=== PATIENT | female | born 1965 | race Caucasian/White ===

== ENCOUNTER → 2016-08-09 | Outpatient (CLI) | payer OTHER ==
[~2016-08-09] MED LIST: /ADVA50050 IN; /BISO10TA OR; /DULO30CA; /HYDR10T PO; ACET500C OR; ADV250INH INH; ADVAIR INH; ALLO100T OR; AZIT500I PO; BACL10TA2 OR; BACL10TA2 PO; CLAR5CHW; CYAN1000VL PO; DICL100T PO; DULE100A IN; DYMI137S; EMLA2.5C TOP; ENDO7.5T7 PO; FLECTOR PATCH; FLEX10TA2 PO; FLEXERIL PO; FLON0.054; FLUT11IN INH; FLUT44IN INH; GABA300T; GABA300T OR; HYDR10TA3 OR; HYDR25TA6 OR; HYDRODIURIL; KETO2CR TOP; LIDO2.5C17 EXT; METH750T PO; MICROGESTIN OR; MOBI7.5T10 PO; MONT10TA2 PO; NAPR375T; NAPR500T OR; NASONEX; NECON; NECON PO; NYST10CR TOP; OMEP40CA2 PO; PANTANASE; PATANASE; PERCOCET PO; PREG50CA; PROBENECID; PROBENECID OR; PROP60TA; PROV90AE; PROV90AE INH; SING10TA31 OR; SUDA30TA OR; TIZA2CAP PO; TIZA4CAP PO; TRAM50TA2; TRAM50TA2 OR; TRIAPOW5; VENTAER IN; VITA100T PO; VITA200028 PO; VITA400T15 PO; VITAMIN D50000 UNT; VOLTAREN TOP; ZEBE5TAB; ZITH250T OR; [UNRECOGNIZED DRUG - CODE] AD; [UNRECOGNIZED DRUG - OTHER]; [UNRECOGNIZED DRUG - OTHER] AD; [UNRECOGNIZED DRUG - OTHER] AD; [UNRECOGNIZED DRUG - OTHER] OR; [UNRECOGNIZED DRUG - OTHER] TD; [UNRECOGNIZED DRUG - OTHER] TOP; [UNRECOGNIZED DRUG - REMARK] INJ; astelin; colcrys PO; pennsaid TD; veramyst
[2016-08-09 08:54] LABS: ANION GAP 13 MEQ/L (8-16); BLOOD UREA NITROGEN 8 MG/DL (7-18); CALCIUM LEVEL 9.4 MG/DL (8.5-10.1); CARBON DIOXIDE LEVEL 27 MEQ/L (21-32); CHLORIDE LEVEL 100 MEQ/L (98-107); CHOLESTEROL LEVEL 231 MG/DL (<200); CREATININE FOR GFR 0.61 MG/DL (0.55-1.02); GLOMERULAR FILTRATION RATE > 60.0 (>58); GLUCOSE, FASTING 134 MG/DL (70-105); SODIUM LEVEL 140 MEQ/L (136-145); TRIGLYCERIDES LEVEL 630 MG/DL (<150)
== END ==
LOC: M LAB 07:57
PROVIDERS: ATTEND Nurse Practitioner Family
DX: E78.2 Mixed hyperlipidemia (principal)

== ENCOUNTER → 2016-08-22 | Outpatient (CLI) | payer OTHER ==
--- NOTE | 2016-08-22 11:49 | REPMRS ---
Patient History The patient states she had a clinical breast exam in 08/2016. Family history of breast cancer in maternal grandmother at age 88. Taking hormonal contraceptives for 23 years. Digital Woman Screen Mammo: August 22, 2016 - Exam #: [id number] Bilateral CC and MLO view(s) were taken. Technologist: Ethel Leung, Technologist Prior study comparison: August 17, 2015, digital woman screen mammo performed at [facility]. August 23, 2014, digital woman screen mammo performed at [facility]. August 20, 2013, bilateral bilat screen digital mammo, performed at [facility] ([facility]). FINDINGS: There are scattered fibroglandular densities. There has been no change in the appearance of the mammogram from the prior studies. There is a mild amount of scattered fibroglandular density which is fairly symmetric. There is no interval development of dominant mass, architectural distortion, or clustered microcalcification suggestive of malignancy. ASSESSMENT: BI-RADS/ACR category 1 mammogram. Negative. Recommendation Routine screening mammogram in 1 year (for women over age 40). This mammogram was interpreted with the aid of an FDA-approved computer-aided dectection system. Electronically Signed By: Jose Webster MD 08/22/16 [id number]
== END ==
LOC: M WHC 10:34
PROVIDERS: ATTEND Nurse Practitioner Family
DX: Z12.31 Encounter for screening mammogram for malignant neoplasm of breast (principal); Z92.0 Personal history of contraception

== ENCOUNTER 2016-08-24 15:54 | Emergency (ER) | payer OTHER ==
[2016-08-24 18:44] LABS: BASO % 0.4 % (0.0-1.0); EOS # 0.3 K/mm3 (0.0-0.50); EOS % 2.8 % (0.0-3.0); LARGE UNSTAINED CELL # 0.1 K/mm3 (0.0-0.4); LARGE UNSTAINED CELL % 1.2 % (0.0-4.0); LYMPH # 2.9 K/mm3 (1.5-4.5); LYMPH % 25.4 % (24.0-44.0); MEAN CORPUSCULAR HEMOGLOBIN 30.9 pg (27.0-33.0); MEAN CORPUSCULAR HGB CONC 34.8 g/dl (32.0-36.5); MEAN CORPUSCULAR VOLUME 88.9 fl (80.0-96.0); MONO # 0.7 K/mm3 (0.0-0.8); MONO % 6.4 % (0.0-5.0); NEUTROPHILS # 7.2 K/mm3 (1.8-7.7); NEUTROPHILS % 63.8 % (36.0-66.0); PLATELET COUNT, AUTOMATED 320 k/mm3 (150-450); RED CELL DISTRIBUTION WIDTH 13.2 % (11.5-14.5); WHITE BLOOD COUNT 11.3 K/mm3 (4.0-10.0)
[2016-08-24 19:18] LABS: ANION GAP 11 MEQ/L (8-16); BLOOD UREA NITROGEN 6 MG/DL (7-18); CALCIUM LEVEL 9.3 MG/DL (8.5-10.1); CARBON DIOXIDE LEVEL 30 MEQ/L (21-32); CHLORIDE LEVEL 99 MEQ/L (98-107); CREATININE FOR GFR 0.52 MG/DL (0.55-1.02); GLOMERULAR FILTRATION RATE > 60.0 (>58); GLUCOSE, FASTING 137 MG/DL (70-105); POTASSIUM SERUM 3.7 MEQ/L (3.5-5.1); SODIUM LEVEL 140 MEQ/L (136-145)
--- NOTE | 2016-08-24 19:58 | EDDOCDS ---
Physician Documentation [facility] Name: Colleen Anderson Age: 50 yrs Sex: Female : 1965 Arrival Date: 08/24/2016 Time: 15:54 Bed Family 1 Private MD: Mk Gambino Disposition: 08/24/16 19:28 Discharged to Home/Self Care. Impression: Acute upper respiratory infection, unspecified - viral. - Condition is Stable. - Medication Reconciliation, Local Pharmacy Hours form. - Follow up: Mk Gambino; When: Call to arrange an appointment; Reason: Recheck today's complaints. - Problem is an ongoing problem. - Symptoms are unchanged. Historical: - Allergies: Tricor (Rash); - Home Meds: 1. acetaminophen 500 mg Oral tab 2 tabs Q8H PRN 2. albuterol sulfate 90 mcg/actuation Inhl HFAA 2 puffs every 6 hours 3. allopurinol 100 mg Oral tab 1 tab once daily 4. aspirin 81 mg Oral tab once daily 5. azelastine 2 sprays in each nostil one time day 6. Dulera 100-5 mcg/actuation inhalation HFAA 2 puffs every 12 hours 7. fluticasone 50 mcg/actuation nasal spsn 1 spray once daily 8. gabapentin 400 mg Oral cap 1 cap 3 times per day 9. hydrochlorothiazide 25 mg Oral tab 1 tab once daily 10. ketoconazole 1 % Topical sham daily 11. latanoprost 0.005 % ophthalmic drop 1 drop once daily 12. lisinopril 20 mg Oral tab once daily 13. meloxicam 7.5 mg oral tab 2 tabs once daily 14. metformin 500 mg Oral tab 2 times per day 15. montelukast 10 mg oral tab nightly 16. Necon (28) 1-35 mg-mcg oral tab 1 tab once daily 17. vitamin M34-khegn acid 100 mcg oral tab once daily 18. Vitamin D2 1.25 mg oral cap once wkly - PMHx: Asthma; Diabetes - NIDDM: controlled; Fibromyalgia; Gout; Hypertension; Seasonal Allergies; - PSHx: Carpal Tunnel Repair- Right; - Social history: Smoking status: Patient states was never smoker of tobacco. No barriers to communication noted. - Family history: Not pertinent. - : The pt / caregiver states he / she is not on anticoagulants. Home medication list is obtained from the patient. - Exposure Risk Screening:: None identified. 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 3 in. (160.02 cm) (R); Pain 3/10; 17:04 BP 179 / 88 (auto/); js13 17:04 Pulse 84 MON; Resp 16; Pulse Ox 94% on R/A; js13 17:19 BP 171 / 83 (auto/); js13 17:19 Pulse 82 MON; Resp 16; Pulse Ox 93% on R/A; js13 17:34 BP 165 / 79 (auto/); js13 17:34 Pulse 82 MON; Resp 16; Pulse Ox 96% on R/A; js13 17:49 BP 164 / 80 (auto/); js13 17:49 Pulse 82 MON; Resp 16; Pulse Ox 92% on R/A; js13 18:04 BP 167 / 87 (auto/); js13 18:04 Pulse 88 MON; Resp 16; Pulse Ox 94% on R/A; js13 18:19 BP 171 / 83 (auto/); js13 18:19 Pulse 84 MON; Resp 16; Pulse Ox 94% on R/A; js13 18:34 BP 163 / 89 (auto/); js13 18:34 Pulse 92 MON; Resp 16; Pulse Ox 94% on R/A; js13 18:49 BP 166 / 95 (auto/); js13 18:49 Pulse 86 MON; Resp 16; Pulse Ox 94% on R/A; js13 19:36 BP 172 / 79; Pulse 88; Resp 18; Temp 98.1(TE); Pulse Ox 96% on R/A; Pain 6/10; joseluis 15:57 Body Mass Index 40.03 (102.51 kg, 160.02 cm) gr2 MDM: 16:28 ECG WITH READING ER PHYS+CARDIAG ordered. EDMS 17:57 Tie Knitter Helper/Pulse Ox/q 30 min VS ordered. jc4 17:57 IV Saline Lock ordered. jc4 17:57 Rhythm Strip to chart ordered. jc4 17:57 Undress patient appropriately for examination ordered. jc4 17:58 Basic Metabolic Profile Ordered. EDMS 17:58 CBC with Diff Ordered. EDMS 17:58 Cardiac Injury Profile Ordered. EDMS 17:58 Troponin Ordered. EDMS 18:56 Chest, 2 View (pa\E\lat) Ordered. EDMS 19:17 CBC with Diff Reviewed. cs11 19:24 Basic Metabolic Profile Reviewed. cs11 19:24 Cardiac Injury Profile Reviewed. cs11 19:24 Troponin Reviewed. cs11 19:46 Financial registration complete. ks16 19:47 [facility] Payment Agreement was scanned into [employer] and attached to record. ks16 Signatures: Dispatcher [employer] EDMS Tammie Quintana RN Lashell Franks RN RN jc4 Lashell Card,CATIE RN js13 Jessica VásquezRN RN Moe Ash, DO cs11 Re Donald, Reg Reg ks16 The chart was reviewed and I authenticate all verbal orders and agree with the evaluation and treatment provided.Attachments: 19:47 [facility] Payment Agreement ks16 MTDD
--- NOTE | 2016-08-24 19:58 | EDDOCDS ---
Nurse's Notes [facility] Name: Colleen Anderson Age: 50 yrs Sex: Female : 1965 Arrival Date: 08/24/2016 Time: 15:54 Bed Family 1 Private MD: Mk Gambino Diagnosis: Acute upper respiratory infection, unspecified-viral Presentation: 08/24 16:20 Presenting complaint: Patient states: I started with headache, sneezing, coughing [facility] yesterday, now today it's making my asthma worse, I feel like someone hit me and forgot to tell me. Adult Sepsis Screening: The patient does not have new or worsening altered mentation. Patient's respiratory rate is less than 22. Systolic blood pressure is greater than 100. Patient has a qSOFA score of 0- Negative Sepsis Screen. Suicide/Homicide risk assessment- the patient denies having any suicidal and/or homicidal ideations and does not present with any other emotional, behavioral or mental health complaints. Status: Patient is not a environmental services worker or dependent. Transition of care: patient was not received from another setting of care. 16:20 Acuity: RICHA Level 3 [facility] 16:20 Method Of Arrival: Walkin/Carried/Asstd [facility] Triage Assessment: 16:23 General: Appears ill, obese, Behavior is appropriate for age, cooperative. Pain: [facility] Location: head and chest Pain currently is 8 out of 10 on a pain scale. Pt Declines HIV testing. Neurological: Level of Consciousness is awake, alert, Oriented to person, place, time. Respiratory: Airway is patent Respiratory effort is even, unlabored, Respiratory pattern is regular, symmetrical. Derm: Skin is pink, warm & dry. 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 acetaminophen 500 mg Oral tab 2 tabs Q8H PRN 2. albuterol sulfate 90 mcg/actuation Inhl HFAA 2 puffs every 6 hours 3. allopurinol 100 mg Oral tab 1 tab once daily 4. aspirin 81 mg Oral tab once daily 5. azelastine 2 sprays in each nostil one time day 6. Dulera 100-5 mcg/actuation inhalation HFAA 2 puffs every 12 hours 7. fluticasone 50 mcg/actuation nasal spsn 1 spray once daily 8. gabapentin 400 mg Oral cap 1 cap 3 times per day 9. hydrochlorothiazide 25 mg Oral tab 1 tab once daily 10. ketoconazole 1 % Topical sham daily 11. latanoprost 0.005 % ophthalmic drop 1 drop once daily 12. lisinopril 20 mg Oral tab once daily 13. meloxicam 7.5 mg oral tab 2 tabs once daily 14. metformin 500 mg Oral tab 2 times per day 15. montelukast 10 mg oral tab nightly 16. Necon () 1-35 mg-mcg oral tab 1 tab once daily 17. vitamin J33-klelp acid 100 mcg oral tab once daily 18. Vitamin D2 1.25 mg oral cap once wkly - PMHx: Asthma; Diabetes - NIDDM: controlled; Fibromyalgia; Gout; Hypertension; Seasonal Allergies; - PSHx: Carpal Tunnel Repair- Right; - Social history: Smoking status: Patient states was never smoker of tobacco. No barriers to communication noted. - Family history: Not pertinent. - : The pt / caregiver states he / she is not on anticoagulants. Home medication list is obtained from the patient. - Exposure Risk Screening:: None identified. Screenin:05 Screening information is obtained from the patient. Fall risk: No risks identified. js13 Assistance ADL's: requires no assistance with activities of daily living. Abuse/DV Screen: The patient / caregiver reports he/she is: not in a situation that causes fear, pain or injury. Nutritional screening: No deficits noted. Advance Directives: There is no active DNR order. home support is adequate. Assessment: 16:41 General: Pt discussed with Dr Dxion and charge nurse. Dr Dixon requests pt be in jf3 monitored bed, awaiting available monitored bed at this time. 18:05 General: Appears in no apparent distress, Behavior is appropriate for age, cooperative. js13 Pain: Location: chest and head Pain currently is 4 out of 10 on a pain scale. Neurological: Level of Consciousness is awake, alert. Cardiovascular: Rhythm is sinus rhythm Chest pain is described as Pain is 4 out of 10 on a pain scale. Respiratory: Airway is patent Respiratory effort is even, unlabored, Respiratory pattern is regular, symmetrical. Derm: Skin is pink, warm & dry. Vital Signs: 15:57 BP 157 / 80; Pulse 95; Resp 18 S; Temp 98.7(O); Pulse Ox 100% on R/A; Weight 102.51 kg gr2 (R); Height 5 ft. 3 in. (160.02 cm) (R); Pain 3/10; 17:04 BP 179 / 88 (auto/); js13 17:04 Pulse 84 MON; Resp 16; Pulse Ox 94% on R/A; js13 17:19 BP 171 / 83 (auto/); js13 17:19 Pulse 82 MON; Resp 16; Pulse Ox 93% on R/A; js13 17:34 BP 165 / 79 (auto/); js13 17:34 Pulse 82 MON; Resp 16; Pulse Ox 96% on R/A; js13 17:49 BP 164 / 80 (auto/); js13 17:49 Pulse 82 MON; Resp 16; Pulse Ox 92% on R/A; js13 18:04 BP 167 / 87 (auto/); js13 18:04 Pulse 88 MON; Resp 16; Pulse Ox 94% on R/A; js13 18:19 BP 171 / 83 (auto/); js13 18:19 Pulse 84 MON; Resp 16; Pulse Ox 94% on R/A; js13 18:34 BP 163 / 89 (auto/); js13 18:34 Pulse 92 MON; Resp 16; Pulse Ox 94% on R/A; js13 18:49 BP 166 / 95 (auto/); js13 18:49 Pulse 86 MON; Resp 16; Pulse Ox 94% on R/A; js13 19:36 BP 172 / 79; Pulse 88; Resp 18; Temp 98.1(TE); Pulse Ox 96% on R/A; Pain 6/10; joseluis 15:57 Body Mass Index 40.03 (102.51 kg, 160.02 cm) gr2 Vitals: 15:57 Log In Time: August 24, 2016 at 15:57. gr2 ED Course: 15:56 Patient visited by Ko Castillo. gr2 15:56 Patient moved to Waiting gr2 15:57 Mk Gambino is Private Physician. gr2 15:58 Patient visited by Ko Castillo. gr2 15:58 Patient moved to Pre RCE gr2 16:21 Triage Initiated cjh 16:25 Patient moved to PD [facility] 17:01 Lashell Card,CATIE is Primary Nurse. ar3 17:01 Patient moved to 14 ar3 17:05 Patient visited by Sally Gonzalez. nb2 17:05 Placed in gown. Bed in low position. Call light in reach. Side rails up X2. Cardiac nb2 monitor on. Pulse ox on. NIBP on. 17:05 The patient / caregiver is instructed regarding the plan of care and ED course. js13 18:05 No procedures done that require assistance. js13 18:07 Patient visited by Lashell Card RN. js13 18:27 Patient visited by Lashell Card,CATIE. js13 18:27 Basic Metabolic Profile Sent. 13 18:27 CBC with Diff Sent. js13 18:27 Cardiac Injury Profile Sent. js13 18:27 Troponin Sent. js13 18:27 Inserted saline lock: 18 gauge in right antecubital area and blood collected. The js13 patient tolerated the procedure well. Labs drawn. (by ED staff). Sent per order to lab. 18:53 Moe Hilliard DO is Attending Physician. cs11 18:53 Patient visited by Moe Hilliard DO. cs11 19:26 Mk Gambino is Referral Physician. cs11 19:36 Patient visited by Barbie Michaels PCA. joseluis 19:47 [facility] Payment Agreement was scanned into [employer] and attached to record. ks16 19:47 Patient moved to TR2 jo3 19:55 Patient moved to Family 1 aug 19:55 Patient moved to TR7 cz 19:55 Patient moved to Family 1 aug 19:55 Discontinued lock bleeding controlled, pressure dressing applied, No redness/swelling anita at site. 19:56 Primary Nurse role handed off by Lashell Card,CATIE joseluis Order Results: Lab Order: Basic Metabolic Profile; SPEC'M 08/24/16 18:28 Test: GLUCOSE, FASTING; Value: 137; Range: 70-105; Abnormal: Above high normal; Units: MG/DL; Status: F Test: BLOOD UREA NITROGEN; Value: 6; Range: 7-18; Abnormal: Below low normal; Units: MG/DL; Status: F Test: CREATININE FOR GFR; Value: 0.52; Range: 0.55-1.02; Abnormal: Below low normal; Units: MG/DL; Status: F Test: GLOMERULAR FILTRATION RATE; Value: > 60.0; Range: >58; Status: F Test: SODIUM LEVEL; Value: 140; Range: 136-145; Units: MEQ/L; Status: F Test: POTASSIUM SERUM; Value: 3.7; Range: 3.5-5.1; Units: MEQ/L; Status: F Test: CHLORIDE LEVEL; Value: 99; Range: 98-107; Units: MEQ/L; Status: F Test: CARBON DIOXIDE LEVEL; Value: 30; Range: 21-32; Units: MEQ/L; Status: F Test: ANION GAP; Value: 11; Range: 8-16; Units: MEQ/L; Status: F Test: CALCIUM LEVEL; Value: 9.3; Range: 8.5-10.1; Units: MG/DL; Status: F Test Note: ; Units are mL/min/1.73 m2 Chronic Kidney Disease Staging per NKF: Stage I & II GFR >=60 Normal to Mildly Decreased Stage III GFR 30-59 Moderately Decreased Stage IV GFR 15-29 Severely Decreased Stage V GFR <15 Very Little GFR Left ESRD GFR <15 on SENIOR TECHNICAL SUPPORT ENGINEER Lab Order: CBC with Diff; SPEC'M 08/24/16 18:28 Test: WHITE BLOOD COUNT; Value: 11.3; Range: 4.0-10.0; Abnormal: Above high normal; Units: K/mm3; Status: F Test: RED BLOOD COUNT; Value: 4.35; Range: 4.00-5.40; Units: M/mm3; Status: F Test: HEMOGLOBIN; Value: 13.4; Range: 12.0-16.0; Units: g/dl; Status: F Test: HEMATOCRIT; Value: 38.7; Range: 36.0-47.0; Units: %; Status: F Test: MEAN CORPUSCULAR VOLUME; Value: 88.9; Range: 80.0-96.0; Units: fl; Status: F Test: MEAN CORPUSCULAR HEMOGLOBIN; Value: 30.9; Range: 27.0-33.0; Units: pg; Status: F Test: MEAN CORPUSCULAR HGB CONC; Value: 34.8; Range: 32.0-36.5; Units: g/dl; Status: F Test: RED CELL DISTRIBUTION WIDTH; Value: 13.2; Range: 11.5-14.5; Units: %; Status: F Test: PLATELET COUNT, AUTOMATED; Value: 320; Range: 150-450; Units: k/mm3; Status: F Test: NEUTROPHILS %; Value: 63.8; Range: 36.0-66.0; Units: %; Status: F Test: LYMPH %; Value: 25.4; Range: 24.0-44.0; Units: %; Status: F Test: MONO %; Value: 6.4; Range: 0.0-5.0; Abnormal: Above high normal; Units: %; Status: F Test: EOS %; Value: 2.8; Range: 0.0-3.0; Units: %; Status: F Test: BASO %; Value: 0.4; Range: 0.0-1.0; Units: %; Status: F Test: LARGE UNSTAINED CELL %; Value: 1.2; Range: 0.0-4.0; Units: %; Status: F Test: NEUTROPHILS #; Value: 7.2; Range: 1.8-7.7; Units: K/mm3; Status: F Test: LYMPH #; Value: 2.9; Range: 1.5-4.5; Units: K/mm3; Status: F Test: MONO #; Value: 0.7; Range: 0.0-0.8; Units: K/mm3; Status: F Test: EOS #; Value: 0.3; Range: 0.0-0.50; Units: K/mm3; Status: F Test: BASO #; Value: 0.0; Range: 0.0-0.2; Units: K/mm3; Status: F Test: LARGE UNSTAINED CELL #; Value: 0.1; Range: 0.0-0.4; Units: K/mm3; Status: F Lab Order: Cardiac Injury Profile; SPEC'M 08/24/16 18:28 Test: CPK CREATINE PHOSPHOKINASE; Value: 84; Range: 26-192; Units: U/L; Status: F Test: CK-MB VALUE MASS; Value: 1.0; Range: 0.0-3.6; Units: NG/ML; Status: F Test: MB/CK RELATIVE INDEX; Value: 1.19; Range: < OR =4; Status: F Test Note: ; DIAGNOSIS CRITERIA MMB ng/ml Relative Index (RI) NON-AMI < or = 5 N/A [place] > 5 < or = 4 AMI > 5 > 4 Lab Order: Troponin; HAYDEE'Kael 08/24/16 18:28 Test: TROPONIN I; Value: < 0.02; Range: < 0.10; Units: NG/ML; Status: F Test Note: ; Troponin I Reference Interval for [place] LOCI: 99th Percentile= 0.00-0.045 ng/ml Risk Stratification: <= 0.10 ng/ml Decreased Risk for Adverse Clinical Events. 0.10-1.50 ng/ml Increased Risk for Adverse Clinical Events. Evaluation of additional criterion and/or repeat testing in 2-6 hours is suggested to rule out myocardial damage. >= 1.50 ng/ml Indicative of Myocardial Injury. Outcome: 19:28 Discharge ordered by Provider. cs11 19:56 Discharge Assessment: Patient awake, alert and oriented x 3. No cognitive and/or anita functional deficits noted. Patient verbalized understanding of disposition instructions. patient administered narcotics - no. The following High Risk Discharge criteria are identified: None. Discharged to home ambulatory. Condition: stable. Discharge instructions given to patient, Instructed on discharge instructions, follow up and referral plans. Demonstrated understanding of instructions, Pt was receptive of discharge instructions/ teaching. No special radiology studies were completed. Property :Personal belongings accompany Pt. 19:57 Patient left the ED. anita Signatures: Tammie Quintana RN RN jan Zecher, Calvin, RN RN cz Helmerci, Jennifer, RN RN jo3 Rabon, Alicia, SCREEN PRINTING MACHINE OPERATOR SCREEN PRINTING MACHINE OPERATOR ar3 Barbie Michaels, SCREEN PRINTING MACHINE OPERATOR SCREEN PRINTING MACHINE OPERATOR Lashell Lowe,RN RN js13 Jessica Vásquez,RN RN [facility] Moe Hilliard DO DO cs11 Ko Castillo gr2 David French RN RN jf3 Sorenson, Kimberly, Reg Reg ks16 Sally Gonzalez2 MTDD
--- NOTE | 2016-08-25 09:07 | REP ---
PA and lateral chest radiograph, 08/24/2016: Indication: Chest pain. Comparison: PA and lateral chest 07/11/2016. FINDINGS: The mediastinum and cardiac silhouette are within normal limits. The lung akhtar are clear without acute consolidation, effusion or pneumothorax. Skeletal structures are normal for age. IMPRESSION: No acute cardiopulmonary process. Signed by Laura Lee MD 08/26/2016 10:52 A
--- NOTE | 2016-08-25 13:08 | ECGEPIP ---
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
--- NOTE | 2016-08-26 20:58 | EDDOCDS ---
Physician Documentation [facility] Name: Colleen Anderson Age: 50 yrs Sex: Female : 1965 Arrival Date: 08/24/2016 Time: 15:54 Bed Family 1 Private MD: Mk Gambino Disposition: 08/24/16 19:28 Discharged to Home/Self Care. Impression: Acute upper respiratory infection, unspecified - viral. - Condition is Stable. - Medication Reconciliation, Local Pharmacy Hours form. - Follow up: Mk Gambino; When: Call to arrange an appointment; Reason: Recheck today's complaints. - Problem is an ongoing problem. - Symptoms are unchanged. Historical: - Allergies: Tricor (Rash); - Home Meds: 1. acetaminophen 500 mg Oral tab 2 tabs Q8H PRN 2. albuterol sulfate 90 mcg/actuation Inhl HFAA 2 puffs every 6 hours 3. allopurinol 100 mg Oral tab 1 tab once daily 4. aspirin 81 mg Oral tab once daily 5. azelastine 2 sprays in each nostil one time day 6. Dulera 100-5 mcg/actuation inhalation HFAA 2 puffs every 12 hours 7. fluticasone 50 mcg/actuation nasal spsn 1 spray once daily 8. gabapentin 400 mg Oral cap 1 cap 3 times per day 9. hydrochlorothiazide 25 mg Oral tab 1 tab once daily 10. ketoconazole 1 % Topical sham daily 11. latanoprost 0.005 % ophthalmic drop 1 drop once daily 12. lisinopril 20 mg Oral tab once daily 13. meloxicam 7.5 mg oral tab 2 tabs once daily 14. metformin 500 mg Oral tab 2 times per day 15. montelukast 10 mg oral tab nightly 16. Necon (28) 1-35 mg-mcg oral tab 1 tab once daily 17. vitamin E67-varxl acid 100 mcg oral tab once daily 18. Vitamin D2 1.25 mg oral cap once wkly - PMHx: Asthma; Diabetes - NIDDM: controlled; Fibromyalgia; Gout; Hypertension; Seasonal Allergies; - PSHx: Carpal Tunnel Repair- Right; - Social history: Smoking status: Patient states was never smoker of tobacco. No barriers to communication noted. - Family history: Not pertinent. - : The pt / caregiver states he / she is not on anticoagulants. Home medication list is obtained from the patient. - Exposure Risk Screening:: None identified. 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 3 in. (160.02 cm) (R); Pain 3/10; 17:04 BP 179 / 88 (auto/); js13 17:04 Pulse 84 MON; Resp 16; Pulse Ox 94% on R/A; js13 17:19 BP 171 / 83 (auto/); js13 17:19 Pulse 82 MON; Resp 16; Pulse Ox 93% on R/A; js13 17:34 BP 165 / 79 (auto/); js13 17:34 Pulse 82 MON; Resp 16; Pulse Ox 96% on R/A; js13 17:49 BP 164 / 80 (auto/); js13 17:49 Pulse 82 MON; Resp 16; Pulse Ox 92% on R/A; js13 18:04 BP 167 / 87 (auto/); js13 18:04 Pulse 88 MON; Resp 16; Pulse Ox 94% on R/A; js13 18:19 BP 171 / 83 (auto/); js13 18:19 Pulse 84 MON; Resp 16; Pulse Ox 94% on R/A; js13 18:34 BP 163 / 89 (auto/); js13 18:34 Pulse 92 MON; Resp 16; Pulse Ox 94% on R/A; js13 18:49 BP 166 / 95 (auto/); js13 18:49 Pulse 86 MON; Resp 16; Pulse Ox 94% on R/A; js13 19:36 BP 172 / 79; Pulse 88; Resp 18; Temp 98.1(TE); Pulse Ox 96% on R/A; Pain 6/10; joseluis 15:57 Body Mass Index 40.03 (102.51 kg, 160.02 cm) gr2 MDM: 16:28 ECG WITH READING ER PHYS+CARDIAG ordered. EDMS 17:57 Foreign Policy Officer/Pulse Ox/q 30 min VS ordered. jc4 17:57 IV Saline Lock ordered. jc4 17:57 Rhythm Strip to chart ordered. jc4 17:57 Undress patient appropriately for examination ordered. jc4 17:58 Basic Metabolic Profile Ordered. EDMS 17:58 CBC with Diff Ordered. EDMS 17:58 Cardiac Injury Profile Ordered. EDMS 17:58 Troponin Ordered. EDMS 18:56 Chest, 2 View (pa\E\lat) Ordered. EDMS 19:17 CBC with Diff Reviewed. cs11 19:24 Basic Metabolic Profile Reviewed. cs11 19:24 Cardiac Injury Profile Reviewed. cs11 19:24 Troponin Reviewed. cs11 19:46 Financial registration complete. ks16 19:47 [facility] Payment Agreement was scanned into [employer] and attached to record. ks16 08/25 15:13 T-Sheet-- Draft Copy was scanned into [employer] and attached to record. kf3 16:58 ECG/EKG was scanned into [employer] and attached to record. kf3 Signatures: Dispatcher [employer] EDMS Tammie Quintana RN RN Iftikhar Curran, Reg Reg kf3 Lashell Posey, CATIE HADDAD jc4 Lashell Card,RN CATIE js13 Jessica VásquezRN RN [facility] Moe Hilliard, DO DO cs11 Re Donald, Reg Reg ks16 The chart was reviewed and I authenticate all verbal orders and agree with the evaluation and treatment provided.Attachments: 08/24 19:47 [facility] Payment Agreement 08/25 15:13 T-Sheet-- Draft Copy kf3 16:58 ECG/EKG kf3 Chart Complete MTDD
--- NOTE | 2016-08-26 20:58 | EDDOCDS ---
Physician Documentation [facility] Name: Colleen Anderson Age: 50 yrs Sex: Female : 1965 Arrival Date: 08/24/2016 Time: 15:54 Bed Family 1 Private MD: Mk Gambino Disposition: 08/24/16 19:28 Discharged to Home/Self Care. Impression: Acute upper respiratory infection, unspecified - viral. - Condition is Stable. - Medication Reconciliation, Local Pharmacy Hours form. - Follow up: Mk Gambino; When: Call to arrange an appointment; Reason: Recheck today's complaints. - Problem is an ongoing problem. - Symptoms are unchanged. Historical: - Allergies: Tricor (Rash); - Home Meds: 1. acetaminophen 500 mg Oral tab 2 tabs Q8H PRN 2. albuterol sulfate 90 mcg/actuation Inhl HFAA 2 puffs every 6 hours 3. allopurinol 100 mg Oral tab 1 tab once daily 4. aspirin 81 mg Oral tab once daily 5. azelastine 2 sprays in each nostil one time day 6. Dulera 100-5 mcg/actuation inhalation HFAA 2 puffs every 12 hours 7. fluticasone 50 mcg/actuation nasal spsn 1 spray once daily 8. gabapentin 400 mg Oral cap 1 cap 3 times per day 9. hydrochlorothiazide 25 mg Oral tab 1 tab once daily 10. ketoconazole 1 % Topical sham daily 11. latanoprost 0.005 % ophthalmic drop 1 drop once daily 12. lisinopril 20 mg Oral tab once daily 13. meloxicam 7.5 mg oral tab 2 tabs once daily 14. metformin 500 mg Oral tab 2 times per day 15. montelukast 10 mg oral tab nightly 16. Necon (28) 1-35 mg-mcg oral tab 1 tab once daily 17. vitamin J26-emebq acid 100 mcg oral tab once daily 18. Vitamin D2 1.25 mg oral cap once wkly - PMHx: Asthma; Diabetes - NIDDM: controlled; Fibromyalgia; Gout; Hypertension; Seasonal Allergies; - PSHx: Carpal Tunnel Repair- Right; - Social history: Smoking status: Patient states was never smoker of tobacco. No barriers to communication noted. - Family history: Not pertinent. - : The pt / caregiver states he / she is not on anticoagulants. Home medication list is obtained from the patient. - Exposure Risk Screening:: None identified. 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 3 in. (160.02 cm) (R); Pain 3/10; 17:04 BP 179 / 88 (auto/); js13 17:04 Pulse 84 MON; Resp 16; Pulse Ox 94% on R/A; js13 17:19 BP 171 / 83 (auto/); js13 17:19 Pulse 82 MON; Resp 16; Pulse Ox 93% on R/A; js13 17:34 BP 165 / 79 (auto/); js13 17:34 Pulse 82 MON; Resp 16; Pulse Ox 96% on R/A; js13 17:49 BP 164 / 80 (auto/); js13 17:49 Pulse 82 MON; Resp 16; Pulse Ox 92% on R/A; js13 18:04 BP 167 / 87 (auto/); js13 18:04 Pulse 88 MON; Resp 16; Pulse Ox 94% on R/A; js13 18:19 BP 171 / 83 (auto/); js13 18:19 Pulse 84 MON; Resp 16; Pulse Ox 94% on R/A; js13 18:34 BP 163 / 89 (auto/); js13 18:34 Pulse 92 MON; Resp 16; Pulse Ox 94% on R/A; js13 18:49 BP 166 / 95 (auto/); js13 18:49 Pulse 86 MON; Resp 16; Pulse Ox 94% on R/A; js13 19:36 BP 172 / 79; Pulse 88; Resp 18; Temp 98.1(TE); Pulse Ox 96% on R/A; Pain 6/10; joseluis 15:57 Body Mass Index 40.03 (102.51 kg, 160.02 cm) gr2 MDM: 16:28 ECG WITH READING ER PHYS+CARDIAG ordered. 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 jc4 17:57 IV Saline Lock ordered. jc4 17:57 Rhythm Strip to chart ordered. jc4 17:57 Undress patient appropriately for examination ordered. jc4 17:58 Basic Metabolic Profile Ordered. EDMS 17:58 CBC with Diff Ordered. EDMS 17:58 Cardiac Injury Profile Ordered. EDMS 17:58 Troponin Ordered. EDMS 18:56 Chest, 2 View (pa\E\lat) Ordered. EDMS 19:17 CBC with Diff Reviewed. cs11 19:24 Basic Metabolic Profile Reviewed. cs11 19:24 Cardiac Injury Profile Reviewed. cs11 19:24 Troponin Reviewed. cs11 19:46 Financial registration complete. ks16 19:47 [facility] Payment Agreement was scanned into [employer] and attached to record. ks16 08/25 15:13 T-Sheet-- Draft Copy was scanned into [employer] and attached to record. kf3 16:58 ECG/EKG was scanned into [employer] and attached to record. kf3 Signatures: Dispatcher [employer] EDMS Tammie Quintana RN RN Iftikhar Curran, Reg Reg kf3 Lashell Posey, CATIE HADDAD jc4 Lashell Card,RN ACTIE js13 Jessica VásquezRN RN [facility] Moe Hilliard, DO DO cs11 eR Donald, Reg Reg ks16 The chart was reviewed and I authenticate all verbal orders and agree with the evaluation and treatment provided.Attachments: 08/24 19:47 [facility] Payment Agreement 08/25 15:13 T-Sheet-- Draft Copy kf3 16:58 ECG/EKG kf3 Chart Complete MTDD
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
== END 2016-08-24 19:57 | disposition home or self-care (01) ==
LOC: M ED 15:54
DX: J06.9 Acute upper respiratory infection, unspecified (principal); E11.9 Type 2 diabetes mellitus without complications; I10 Essential (primary) hypertension; J44.9 Chronic obstructive pulmonary disease, unspecified; J45.909 Unspecified asthma, uncomplicated; M79.7 Fibromyalgia; M10.9 Gout, unspecified; M19.90 Unspecified osteoarthritis, unspecified site; Z88.1 Allergy status to other antibiotic agents; Z79.899 Other long term (current) drug therapy; Z79.82 Long term (current) use of aspirin

== ENCOUNTER → 2016-08-28 | Outpatient (CLI) | payer OTHER ==
--- NOTE | 2016-08-28 10:58 | REP ---
Pelvic sonogram: History: Pelvic and perineal pain. Findings: Transabdominal and transvaginal scanning are performed. Uterus is normal in size with dimensions of 6.9 x 3.8 x 4.4 cm. Endometrial echo is 0.4 cm thick and centrally placed. Uterine myometrium is heterogeneous with multiple tiny calcification foci seen. There are Nabothian cysts in the cervix. A small quantity of endocervical fluid is seen. A pedunculated small 1.4 cm fibroid is seen in the left fundal region. No free fluid is noted in the cul-de-sac. Visualized bladder pandey are smooth. The left ovary could not be directly visualized either transabdominally or transvaginally. A normal right ovary is seen with dimensions of 3.5 x 2.3 x 1.7 cm. Right ovary Doppler flow is normal with resistive index measured at 0.53. Impression: Small pedunculated left fundal fibroid. Normal right ovary. Left ovary not directly visualized. No other significant abnormality. Signed by Hood Webster MD 08/28/2016 06:34 P
== END ==
LOC: M RAD 08:27
PROVIDERS: ATTEND Nurse Practitioner Family
DX: D25.9 Leiomyoma of uterus, unspecified (principal)

== ENCOUNTER 2016-09-29 18:23 | Emergency (ER) | payer OTHER ==
[2016-09-29] MEDS ORDERED: NORCO, ANEXSIA 5/325MG TABLET (HYDROcodone/ACETAMINOPHEN) As Ordered ONE (19:43)
[2016-09-29] MEDS ORDERED: SILVER SULFADIAZINE 1% CR 50 GM JAR As Ordered ONE (19:43)
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
[2016-10-07] MEDS ORDERED: LISI-538 PO (08:24)
[2016-10-07] MEDS ORDERED: NECO1TAB9 PO (08:24)
[2016-10-07] MEDS ORDERED: MONT10TA2 PO (08:24)
[2016-10-07] MEDS ORDERED: ASTE0.15 (08:24)
[2016-10-07] MEDS ORDERED: HYDR25TAB PO (08:24)
[2016-10-07] MEDS ORDERED: GABA-283 PO (08:24)
[2016-10-07] MEDS ORDERED: VITA100T20 PO (08:24)
[2016-10-07] MEDS ORDERED: DRIS50002 PO (08:24)
[2016-10-07] MEDS ORDERED: KETO-30 TOP (08:24)
[2016-10-07] MEDS ORDERED: LATA1POW OU (08:24)
[2016-10-07] MEDS ORDERED: DULE100A IN (08:24)
[2016-10-07] MEDS ORDERED: ATOR40TA PO (08:24)
[2016-10-07] MEDS ORDERED: NYST10CR EXT (08:24)
[2016-10-07] MEDS ORDERED: AZEL1POW XX (08:24)
[2016-10-07] MEDS ORDERED: ALLO100T PO (08:24)
[2016-10-07] MEDS ORDERED: METF500T PO (08:24)
[2016-10-07] MEDS ORDERED: ACET500C PO (08:24)
[2016-10-07] MEDS ORDERED: FLUTISP (08:24)
[2016-10-07] MEDS ORDERED: MELO15TA4 PO (08:24)
[2016-10-07] MEDS ORDERED: ALBU17IN2 INH (08:24)
== END 2016-09-29 20:47 | disposition home or self-care (01) ==
LOC: M ED 18:23
DX: T23.252A Burn of second degree of left palm, initial encounter (principal); X15.2XXA Contact with hotplate, initial encounter; Y92.019 Unspecified place in single-family (private) house as the place of occurrence of the external cause; Y93.89 Activity, other specified; Y99.8 Other external cause status; J45.909 Unspecified asthma, uncomplicated; E11.9 Type 2 diabetes mellitus without complications; M79.7 Fibromyalgia; M10.9 Gout, unspecified; I10 Essential (primary) hypertension; Z87.891 Personal history of nicotine dependence; Z79.51 Long term (current) use of inhaled steroids; Z79.899 Other long term (current) drug therapy; Z88.8 Allergy status to other drugs, medicaments and biological substances

== ENCOUNTER → 2016-10-09 | Outpatient (CLI) | payer OTHER ==
[~2016-10-09] MED LIST changes: +ACET500C PO; +ALBU17IN2 INH; +ALLO100T PO; +ASTE0.15; +ATOR40TA PO; +AZEL1POW XX; +DRIS50002 PO; +FLUTISP; +GABA-283 PO; +HYDR25TAB PO; +KETO-30 TOP; +LATA1POW OU; +LISI-538 PO; +MELO15TA4 PO; +METF500T PO; +NECO1TAB9 PO; +NYST10CR EXT; +VITA100T20 PO
[2016-10-09 11:32] LABS: ALBUMIN 3.3 GM/DL (3.2-5.2); ALBUMIN/GLOBULIN RATIO 1.03 (1.00-1.93); ALKALINE PHOSPHATASE 66 U/L (45-117); ALT/SGPT 26 U/L (12-78); ANION GAP 12 MEQ/L (8-16); AST/SGOT 22 U/L (15-37); BILIRUBIN,TOTAL 0.3 MG/DL (0.2-1.0); BLOOD UREA NITROGEN 8 MG/DL (7-18); CARBON DIOXIDE LEVEL 30 MEQ/L (21-32); CHLORIDE LEVEL 97 MEQ/L (98-107); CREATININE FOR GFR 0.63 MG/DL (0.55-1.02); GLOMERULAR FILTRATION RATE > 60.0 (>58); GLUCOSE, FASTING 177 MG/DL (70-105); SODIUM LEVEL 139 MEQ/L (136-145); TOTAL PROTEIN 6.5 GM/DL (6.4-8.2)
== END ==
LOC: M LAB 10:23
PROVIDERS: ATTEND Nurse Practitioner Family
DX: E78.2 Mixed hyperlipidemia (principal)

== ENCOUNTER → 2016-10-09 | Outpatient (CLI) | payer OTHER ==
--- NOTE | 2016-10-11 02:13 | ECWPNPC ---
PATIENT NAME: STEVE DIAMOND : 1965 GENDER: FEMALE VISIT DATE: 10/09/2016 DISCHARGE DATE: 10/09/16 1005 VISIT LOCKED DATE TIME: PHYSICIAN: GLORIA ESPITIA PHYSICIAN PAGER NO: [phone] RESOURCE: GLORIA ESPITIA REASON FOR APPOINTMENT 1. BODY PAIN HISTORY OF PRESENT ILLNESS HISTORY OF PRESENT ILLNESS: PAIN THE PATIENT DESCRIBES THE PAIN... FALL RISK SCREENING: SCREENING :NO FALLS IN THE PAST YEAR TODAY'S VISIT: NOTES: RATES PAIN TODAY 6/10. PAIN LOCATED AT LOW BACK AND KNEES. HAS BEEN HAVING MORE MUSCLE SPASMS IN LOW BACK. HAS BEEN WALKING AND DIETING AND IS SLWLY LOSING WEIGHT. CURRENT MEDICATIONS TAKING MELOXICAM 7.5 MG TABLET 1 TABLET ORALLY TWICE A DAY TAKING HYDROCHLOROTHIAZIDE 25 MG TABLET 1 TABLET BY MOUTH ONCE A DAY TAKING VITAMIN B12 100 MCG TABLET 1 TABLET ORALLY ONCE A DAY TAKING NECON 1/35 (28) 1-35 MG-MCG TABLET 1 TABLET ORALLY DAILY FOR THREE WEEKS, 1 WEEK OFF TAKING KETOCONAZOLE 2 % CREAM 1 APPLICATION TO FEET EXTERNALLY ONCE A DAY TAKING NYSTATIN CREAM 471038 UNITS/GM CREAM 1 APPLICATION TOPICALLY/ TO FEET TWICE A DAY TAKING WRIST SPLINT LEFT MISCELLANEOUS DIRECTED LEFT WRIST DAILY DX: TENOSYNOVITIS TAKING DULERA 100 MCG/5MCG 2 PUFFS INHALATION TWICE A DAY TAKING ACETAMINOPHEN 500 MG CAPSULE 2 TABLET NEEDED ORALLY EVERY 8HRS TAKING ALLOPURINOL 100 MG TABLET 1 TABLET ORALLY ONCE A DAY TAKING FLUTICASONE PROPIONATE 50 MCG/ACT SUSPENSION 1 SPRAY IN EACH NOSTRIL NASALLY ONCE A DAY TAKING AZELASTINE HCL 137 MCG/SPRAY SOLUTION 1 PUFF IN EACH NOSTRIL NASALLY TWICE A DAY TAKING SALINE NASAL SPRAY 0.65 % SOLUTION 2 DROPS IN EACH NOSTRIL NEEDED NASALLY EVERY 2 HRS TAKING SINGULAIR 10 MG TABLET 1 TABLET IN THE EVENING ORALLY ONCE A DAY TAKING PROVENTIL HFA 108 (90 BASE) MCG/ACT AEROSOL SOLUTION 2 PUFFS INHALATION EVERY 4 HOUR NEEDED TAKING ALBUTEROL SULFATE (2.5 MG/3ML) 0.083% NEBULIZATION SOLUTION 3 ML INHALATION THREE TIMES A DAY PRN TAKING ONE TOUCH ULTRA BLUE STRIPS 1 EACH _ DAILY DX E11.9 TAKING LANCETS - MISCELLANEOUS 1 EACH TO USE FOR ONCE TOUCH DAILY/ E11.9 TAKING BLOOD GLUCOSE METER - KIT 1 EACH FOR ONE TOUCH TO TEST DAILY/DIAG CODE TAKING BLOOD GLUCOSE TEST - STRIP DIRECTED GLUCOSE TESTING STRIPS FOR ONE TOUCH VERIO DAILY TAKING GABAPENTIN 400 MG CAPSULE 1 CAPSULE ORALLY THREE TIMES A DAY TAKING LIPITOR 40 MG TABLET 1 TABLET ORALLY ONCE A DAY TAKING METFORMIN HCL 500 MG TABLET 1 TABLET WITH MEALS ORALLY TWICE A DAY TAKING DRISDOL 88757 UNIT CAPSULE 1 CAPSULE ORALLY ONCE A WEEK TAKING LISINOPRIL 20 MG TABLET DIRECTED ORALLY ONCE DAILY NOT-TAKING LATANOPROST 0.005 % SOLUTION 1 DROP INTO BOTH EYES OPHTHALMIC BEFORE BEDTIME NOT-TAKING PREDNISONE 20 MG TABLET 2 TABLET ORALLY ONCE A DAY NOT-TAKING ASPIR-81 81 MG TABLET DELAYED RELEASE 1 TABLET ORALLY ONCE A DAY DISCONTINUED AUGMENTIN 875-125 MG TABLET 1 TABLET ORALLY EVERY 12 HRS DISCONTINUED PREDNISONE 20 MG TABLET 2 TABLET ORALLY ONCE A DAY MEDICATION LIST REVIEWED AND RECONCILED WITH THE PATIENT PAST MEDICAL HISTORY HYPERTENSION ASTHMA GOUT VITAMIN D DEFICIENCY CHRONIC RIGHT OTITIS MEDIA PRE-DIABETES/IMPAIRED FASTING GLUCOSE FIBROMYALGIA-GOES TO PAIN CLINIC RECURRENT SINUSITIS TD 1999; TDAP 06/15 PNEUMNOVAX 2009 CHRONIC ALLERGIC RHINITIS - GETS ALLERGY SHOTS VITAMIN B12 DEFICIENCY--ON MONTHLY INJECTIONS FOR A WHILE, STOPPED COMING FOR THEM, LEVEL NL 10/16 ALLERGIES TRICOR: RASH: ALLERGY SOCIAL HISTORY GENERAL: TOBACCO USE ARE YOU A:NONSMOKER LEARNING BARRIERS / SPECIAL NEEDS ORIENTED TO PLAN OF CARE: PATIENT, PAIN MANAGEMENT PATIENT, ORIENTED TO PLAN OF CARE: PATIENT, PAIN MANAGEMENT PATIENT. NEW PATIENT PAIN DIARY TODAY'S VISITNOTES FROM 0-10, WHAT LEVEL IS YOUR PAIN TODAY?0 PAIN CLINIC PFS, CLERGY, PUBLIC HEALTH REFERRALS PFS REFERRAL NEEDED?NO CLERGY REFERRAL NEEDED?NO PUBLIC HEALTH REFERRAL NEEDED?NO WAS THE PROVIDER NOTIFIED OF ANY PERTINENT INFO?NO PFS REFERRAL NEEDED?NO CLERGY REFERRAL NEEDED?NO PUBLIC HEALTH REFERRAL NEEDED?NO WAS THE PROVIDER NOTIFIED OF ANY PERTINENT INFO?NO REVIEW OF SYSTEMS CONSTITUTIONAL: ANY CHANGE IN YOUR MEDICAL CONDITION? YES LEFT OVARY CYST/FIBROID-SCHEDULED FOR SURGERY 10/21. . CHILLS NO . FEVER NO . INFECTION: DO YOU HAVE NEW INFECTIONS? NO . DO YOU HAVE HISTORY OF MRSA? NO . MUSCULOSKELETAL: ANY NEW PATTERNS OF PAIN OR NUMBNESS? NO . GASTROENTEROLOGY: ANY NEW CHANGE IN BOWEL CONTROL? NO . GENITOURINARY: ANY NEW CHANGE IN BLADDER CONTROL? NO . IS THERE A CHANCE YOU COULD BE ? NO . HEMATOLOGY/LYMPH: DO YOU TAKE ANY BLOOD THINNERS? (FOR EXAMPLE- COUMADIN, PLAVIX, AGGRENOX, PLATEL, PRADAXA, OR XARELTO) NO . WHEN WAS YOUR LAST DOSE? DATE: TIME: . NEUROLOGY: HAVE YOU FALLEN IN THE PAST 6 MONTHS? NO . ANY NEW EXTREMITY NUMBNESS OR WEAKNESS? NO . CARDIOLOGY: DO YOU HAVE A PACEMAKER OR DEFIBRILLATOR? NO . RESPIRATORY: HAVE YOU BEEN SICK IN THE PAST WEEK? YES-R/T ALLERGIES . FEVER NO . FLU LIKE SYMPTOMS? NO . COUGH NO . INTEGUMENTARY: DO YOU HAVE ANY RASHES OR OPEN SORES? NO . ALLERGIC/IMMUNO: ARE YOU ALLERGIC TO SHELLFISH OR IV DYE? NO . ANY NEW ALLERGIES? NO . PSYCHIATRIC: DO YOU HAVE THOUGHTS OF HURTING YOURSELF OR SOMEONE ELSE? NO . ARE YOU ABUSED, NEGLECTED, OR IN AN UNSAFE ENVIRONMENT? NO . ENDOCRINOLOGY: ARE YOU DIABETIC? YES . OTHER: DO YOU NEED ANY PRESCRIPTIONS? YES MAPAP . IF YES, PLEASE LIST: ____ . ANY NEW PROBLEMS WITH YOUR MEDICATIONS? NO . WHEN DID YOU LAST EAT? ____ . WHEN DID YOU LAST DRINK? ____ . WHAT DID YOU LAST DRINK? ____ . NAME OF PERSON DRIVING YOU HOME? ____ . DO YOU HAVE ANY OTHER QUESTIONS OR CONCERNS NO . HEENT: PATIENT COMPLAINING OF RASPY VOICE - SAW ENT AND SPEACH THERAPY. . REVIEWED BY: PROVIDER: GLORIA CONNELLY . VITAL SIGNS WT 226.6 LBS, HT 53", BMI 56.71 INDEX, BP 155/87 MM HG, HR 97 /MIN, RR 18 /MIN, TEMP 98.7 F, OXYGEN SAT % 97%, REVIEWED BY: MLF. EXAMINATION GENERAL EXAMINATION: PSYCHALERT , ORIENTED X 3 , APPROPRIATE MOOD AND AFFECT . LUNGS:CLEAR TO AUSCULTATION BILATERALLY. HEART:HEART RATE REGULAR. MUSCULOSKELETAL:MUSCLE STRENGTH TESTING 5/5 BILATERAL UPPER AND LOWER EXTREMITIY. , TRIGGER POINTS:, ELICITED WITH PALPATION OVER LUMBAR PARAVERTEBRAL MUSCLES AND INTO THE SACRUM. RESTRICTION OF ROM IN THIS AREA. GAIT ANTALGIC. JOINTS:LEFT , KNEE , PAIN , SWELLING , AT REST , WITH RANGE OF MOTION.. ASSESSMENTS LOW BACK PAIN - M54.5 (PRIMARY) FIBROMYALGIA - M79.7 KNEE PAIN, BILATERAL - M25.561 TREATMENT LOW BACK PAIN NOTES: CONTINUE WALKING, EXERCISES AND STRETCHES. PROCEDURE CODES FA211 ESTABILISHED PATIENT [facility] CHARGE DISPOSITION & COMMUNICATION FOLLOW UP 3 MONTHS ELECTRONICALLY SIGNED BY MALACHI OLIVO ON 10/09/2016 AT 10:16 AM EST DISCLAIMER : THIS IS A VISIT SUMMARY EXTRACTED FROM THE [employer] CHART. IT IS NOT A COPY OF THE [employer] PROGRESS NOTE. DANIEL
== END ==
LOC: M PAIN 09:40
PROVIDERS: ATTEND Nurse Practitioner Family
DX: Z09 Encounter for follow-up examination after completed treatment for conditions other than malignant neoplasm (principal); G89.29 Other chronic pain; M54.5 Low back pain; M79.7 Fibromyalgia; M25.561 Pain in right knee; I10 Essential (primary) hypertension; E55.9 Vitamin D deficiency, unspecified; H65.20 Chronic serous otitis media, unspecified ear; E11.9 Type 2 diabetes mellitus without complications; J30.89 Other allergic rhinitis; D51.0 Vitamin B12 deficiency anemia due to intrinsic factor deficiency; Z88.8 Allergy status to other drugs, medicaments and biological substances; Z79.1 Long term (current) use of non-steroidal anti-inflammatories (NSAID); Z79.84 Long term (current) use of oral hypoglycemic drugs; Z79.899 Other long term (current) drug therapy

== ENCOUNTER → 2016-10-21 | Day surgery (SDC) | payer OTHER ==
[~2016-10-21] VITALS: Ht 160 cm; Wt 103.0 kg
[~2016-10-21] MED LIST changes: +ALBUTEROL SULFATE 2.5 MG/0.5 ML INH NEB SOLN As Ordered ONE; +ALBUTEROL SULFATE 2.5 MG/0.5 ML INH NEB SOLN INH ONE; +BUPIVACAINE HCL 0.25% 30 ML VIAL As Ordered ONE; +GLYCOPYRROLATE INJ 0.2 MG/ML 2 ML VIAL As Ordered ONE; +HYDROmorphone HCL 2 MG/ML 1ML VIAL (J1170) As Ordered ONE; +KETOROLAC 30 MG/ML VIAL (J1885) IV SCH; +KETOROLAC 60 MG/2 ML VIAL (J1885) As Ordered ONE; +LIDOCAINE 1% MDV 20ML VIAL As Ordered ONE; +LIDOCAINE 2% INJ 100 MG/5 ML SDV (FOR ANES.) As Ordered ONE; +LR 1,000 ML IV SCH; +MEPERIDINE INJ 25 MG/ML VIAL (J2175) IV PRN; +METOCLOPRAMIDE INJ 10MG/2ML VIAL (J2765) IV PRN; +MIDAZOLAM INJ 2 MG/2 ML VIAL (J2250) As Ordered ONE; +NEOSTIGMINE 1MG/ML 5 ML SYRINGE (J2710) As Ordered ONE; +ONDANSETRON 4MG/2ML VIAL (J2405) As Ordered ONE; +ONDANSETRON 4MG/2ML VIAL (J2405) IV PRN; +PERCOCET 5MG/325MG TAB PO PRN; +PROPOFOL 200 MG/20 ML VIAL As Ordered ONE; +ROCURONIUM BROMIDE 50 MG/5 ML VIAL As Ordered ONE; +dexameTHASONE 4 MG/ML 1ML VIAL (J1100) As Ordered ONE; +fentaNYL 100 MCG/2 ML INJECTION (J3010) As Ordered ONE; +fentaNYL 100 MCG/2 ML INJECTION (J3010) IV PRN
[2016-10-21 06:51] LABS: MEAN CORPUSCULAR HEMOGLOBIN 31.1 pg (27.0-33.0); MEAN CORPUSCULAR HGB CONC 34.6 g/dl (32.0-36.5); MEAN CORPUSCULAR VOLUME 89.7 fl (80.0-96.0); RED CELL DISTRIBUTION WIDTH 13.3 % (11.5-14.5)
[2016-10-21 07:43] LABS: CONTROL LINE UCG INT CTR LINE PRESENT
[2016-10-21 12:20] VITALS: BP 117/87
--- NOTE | 2016-10-21 13:24 | RO ---
DATE OF PROCEDURE: 10/21/2016 PREOPERATIVE DIAGNOSIS: Pedunculated fibroid. POSTOPERATIVE DIAGNOSIS: Fibroid uterus. PROCEDURE: Diagnostic operative laparoscopy with a laparoscopic myomectomy of the pedunculated fibroid. SURGEON: Selina Lal MD STONE HAND: Rach Dominguez NP ANESTHESIA: General endotracheal anesthesia. ESTIMATED BLOOD LOSS: 5 mL. INTRAVENOUS FLUID: 100 mL. URINE OUTPUT: 200 mL. PREOPERATIVE ANTIBIOTICS: None. SPECIMENS: Fibroid, approximately 2 cm in size. OPERATIVE FINDING: Patient with normal appearing bilateral adnexa, anterior pedunculated fibroid, what appears to be several subserosal fibroids. DESCRIPTION OF PROCEDURE: After informed consent was obtained and written consent was reviewed, the patient was brought to the operating room where endotracheal anesthesia was obtained. She was then placed in lithotomy position. She was prepped and draped in the normal sterile fashion. A time-out in the operating room was then performed identifying the patient, procedure to be performed, as well as drug allergies. A bivalve speculum was then placed revealing the cervix. The anterior lip of the cervix was grasped with a single-tooth tenaculum. A Hulka tenaculum was then advanced through the cervical os for means to manipulate the uterus. Single-tooth tenaculum as well as the speculum was removed. England catheter was placed and set to gravity. Gloves were changed. Attention was turned to patient's abdomen where a 0.25% Marcaine was infused in the infraumbilical area. This area was incised and an 11 mm trocar and sleeve was advanced through this incision. The trocar was then removed. The laparoscope was then placed revealing Intraabdominal placement. Pneumoperitoneum was then obtained using CO2 gas. The abdomen was then surveyed with the above noted finding. Two additional trocars were placed both left and to the right of the patient's abdomen below the umbilicus. These areas were infused with 0.25% Marcaine and each one was incised and a 5 mm trocar and sleeve was advanced through each one of these incisions under direct visualization. Next, lysis of adhesions was then performed using Harmonic Yung scalpel device releasing omentum from the midline and the left abdominal wall. Next, attention was then placed towards the uterus. Using Harmonic Yung scalpel device, pedunculated fibroid was cauterized and ligated with good hemostasis noted. Specimen was placed in EndoCatch bag. It was removed intact through the umbilicus. Surgical sites were inspected and noted to be hemostatic. The pneumoperitoneum was then released. The fascia at the umbilical port site was closed using #0 Vicryl. All three skin incisions were closed with #4-0 Monocryl and was dressed with Dermabond. England catheter and Hulka tenaculum was removed. Cervix was inspected and noted to be hemostatic. The patient was then taken out of lithotomy position, was awakened from general anesthesia and taken to recovery in stable condition. Counts were correct. My personal injury legal assistant, Rach Dominguez's assistance was essential to surgery. She assisted with placement, manipulation of structures, as well as assist with fascial closure and skin closure.
== END ==
LOC: M SDC 06:26
PROVIDERS: ATTEND Obstetrics & Gynecology
DX: D25.0 Submucous leiomyoma of uterus (principal); I10 Essential (primary) hypertension; E78.2 Mixed hyperlipidemia; E11.9 Type 2 diabetes mellitus without complications; J45.909 Unspecified asthma, uncomplicated; M10.9 Gout, unspecified; E55.9 Vitamin D deficiency, unspecified; H65.21 Chronic serous otitis media, right ear; M79.7 Fibromyalgia; J32.0 Chronic maxillary sinusitis; J30.9 Allergic rhinitis, unspecified; E53.9 Vitamin B deficiency, unspecified; M12.9 Arthropathy, unspecified; R21 Rash and other nonspecific skin eruption; Z88.8 Allergy status to other drugs, medicaments and biological substances; Z79.899 Other long term (current) drug therapy
CPT/HCPCS: 36415; 58545; 84703; 85027; 86850; 86900; 86901; 88305; J1100; J1170; J1885; J2250; J2405; J2710; J3010

== ENCOUNTER 2016-12-11 09:22 | Day surgery (SDC) | payer OTHER ==
[~2016-12-11] VITALS: Ht 160 cm; Wt 102.5 kg
[~2016-12-11 09:22] MED LIST changes: +ACET50TAOT PO; -ALBUTEROL SULFATE 2.5 MG/0.5 ML INH NEB SOLN As Ordered ONE; -ALBUTEROL SULFATE 2.5 MG/0.5 ML INH NEB SOLN INH ONE; -BUPIVACAINE HCL 0.25% 30 ML VIAL As Ordered ONE; -GLYCOPYRROLATE INJ 0.2 MG/ML 2 ML VIAL As Ordered ONE; -HYDROmorphone HCL 2 MG/ML 1ML VIAL (J1170) As Ordered ONE; -KETOROLAC 30 MG/ML VIAL (J1885) IV SCH; -KETOROLAC 60 MG/2 ML VIAL (J1885) As Ordered ONE; -LIDOCAINE 1% MDV 20ML VIAL As Ordered ONE; -LIDOCAINE 2% INJ 100 MG/5 ML SDV (FOR ANES.) As Ordered ONE; -LR 1,000 ML IV SCH; -MEPERIDINE INJ 25 MG/ML VIAL (J2175) IV PRN; -METOCLOPRAMIDE INJ 10MG/2ML VIAL (J2765) IV PRN; -MIDAZOLAM INJ 2 MG/2 ML VIAL (J2250) As Ordered ONE; -NEOSTIGMINE 1MG/ML 5 ML SYRINGE (J2710) As Ordered ONE; -ONDANSETRON 4MG/2ML VIAL (J2405) As Ordered ONE; -ONDANSETRON 4MG/2ML VIAL (J2405) IV PRN; -PERCOCET 5MG/325MG TAB PO PRN; -PROPOFOL 200 MG/20 ML VIAL As Ordered ONE; -ROCURONIUM BROMIDE 50 MG/5 ML VIAL As Ordered ONE; -dexameTHASONE 4 MG/ML 1ML VIAL (J1100) As Ordered ONE; -fentaNYL 100 MCG/2 ML INJECTION (J3010) As Ordered ONE; -fentaNYL 100 MCG/2 ML INJECTION (J3010) IV PRN
[2016-12-11] MEDS ORDERED: LR 1,000 ML IV ONE (09:45)
[2016-12-11 09:51] LABS: MEAN CORPUSCULAR HEMOGLOBIN 31.4 pg (27.0-33.0); MEAN CORPUSCULAR HGB CONC 34.9 g/dl (32.0-36.5); MEAN CORPUSCULAR VOLUME 90.1 fl (80.0-96.0); WHITE BLOOD COUNT 11.4 K/mm3 (4.0-10.0)
[2016-12-11 10:11] LABS: CONTROL LINE UCG INT CTR LINE PRESENT
[2016-12-11] MEDS ORDERED: MIDAZOLAM INJ 2 MG/2 ML VIAL (J2250) As Ordered ONE (11:33)
[2016-12-11] MEDS ORDERED: HYDROmorphone HCL 2 MG/ML 1ML VIAL (J1170) As Ordered ONE (11:33)
[2016-12-11] MEDS ORDERED: fentaNYL 250 MCG/5 ML INJECTION (J3010) As Ordered ONE (11:33)
[2016-12-11] MEDS ORDERED: LIDOCAINE 2% JELLY 30 ML As Ordered ONE (11:45)
[2016-12-11] MEDS ORDERED: BUPIVACAINE HCL 0.25% 30 ML VIAL As Ordered ONE (11:45)
[2016-12-11] MEDS ORDERED: ROCURONIUM BROMIDE 50 MG/5 ML VIAL As Ordered ONE ×2 (11:53→12:37)
[2016-12-11] MEDS ORDERED: GLYCOPYRROLATE INJ 0.2 MG/ML 2 ML VIAL As Ordered ONE (11:53)
[2016-12-11] MEDS ORDERED: KETOROLAC 60 MG/2 ML VIAL (J1885) As Ordered ONE (11:53)
[2016-12-11] MEDS ORDERED: ONDANSETRON 4MG/2ML VIAL (J2405) As Ordered ONE (11:53)
[2016-12-11] MEDS ORDERED: NEOSTIGMINE 1MG/ML 5 ML SYRINGE (J2710) As Ordered ONE (11:53)
[2016-12-11] MEDS ORDERED: PHENYLephrine HCL 500 MCG/5 ML (100MCG/ML) SYRINGE (J2370) As Ordered ONE (12:02)
[2016-12-11] MEDS ORDERED: METOCLOPRAMIDE INJ 10MG/2ML VIAL (J2765) As Ordered ONE (12:37)
[2016-12-11] MEDS ORDERED: LIDOCAINE 2% INJ 100 MG/5 ML SDV (FOR ANES.) As Ordered ONE (12:38)
[2016-12-11] MEDS ORDERED: PROPOFOL 200 MG/20 ML VIAL As Ordered ONE (12:38)
[2016-12-11] MEDS ORDERED: DESFLURANE 240 ML INHALANT As Ordered ONE (12:48)
[2016-12-11] MEDS ORDERED: ePHEDrine SULFATE 25 MG/5 ML(5MG/ML) SYRINGE As Ordered ONE (13:59)
[2016-12-11] MEDS: LR 1,000 ML IV SCH ×2 (14:30→22:30)
[2016-12-11] MEDS ORDERED: ONDANSETRON 4MG/2ML VIAL (J2405) IV PRN (14:45)
[2016-12-11] MEDS ORDERED: KETOROLAC 30 MG/ML VIAL (J1885) IV PRN (14:45)
[2016-12-11] MEDS ORDERED: MEPERIDINE INJ 25 MG/ML VIAL (J2175) IV PRN (14:45)
[2016-12-11] MEDS ORDERED: PERCOCET 5MG/325MG TAB PO PRN ×2 (14:45)
[2016-12-11] MEDS ORDERED: LR 1,000 ML IV SCH (14:45)
[2016-12-11] MEDS ORDERED: MORPHINE 4 MG/ML 1ML SYRINGE IV PRN (14:45)
[2016-12-11] MEDS ORDERED: PROMETHAZINE INJ 25 MG/ML VIAL (J2550) IV PRN (14:45)
[2016-12-11] MEDS ORDERED: METOCLOPRAMIDE INJ 10MG/2ML VIAL (J2765) IV PRN (14:45)
[2016-12-11] MEDS ORDERED: HYDROmorphone HCL 1 MG/ML SYRINGE (J1170) IV PRN (14:45)
[2016-12-11] MEDS: fentaNYL 100 MCG/2 ML INJECTION (J3010) IV PRN ×3 (14:49→15:07)
[2016-12-11 15:50] VITALS: BP 129/61
[2016-12-11 16:20] VITALS: BP 171/79
[2016-12-11 17:20] VITALS: BP 169/85
[2016-12-11] MEDS: hydroCHLOROthiazide 25 MG TAB PO SCH (17:20)
[2016-12-11] MEDS: KETOROLAC 30 MG/ML VIAL (J1885) IV SCH (17:21)
[2016-12-11 18:20] VITALS: BP 192/85
[2016-12-11] MEDS ORDERED: LISINOPRIL 20 MG TAB PO ONE (19:00)
[2016-12-11 19:15] VITALS: BP 182/79
[2016-12-11 20:00] VITALS: BP 171/86
[2016-12-11] MEDS: PERCOCET 5MG/325MG TAB PO PRN (21:10)
[2016-12-12] VITALS: BP 193/91
[2016-12-12] MEDS: KETOROLAC 30 MG/ML VIAL (J1885) IV SCH ×3 (00:25→12:00)
[2016-12-12 04:00] VITALS: BP 185/88
[2016-12-12 07:20] LABS: MEAN CORPUSCULAR HEMOGLOBIN 30.9 pg (27.0-33.0); MEAN CORPUSCULAR HGB CONC 33.2 g/dl (32.0-36.5); MEAN CORPUSCULAR VOLUME 93.1 fl (80.0-96.0); RED CELL DISTRIBUTION WIDTH 12.8 % (11.5-14.5)
[2016-12-12 08:00] VITALS: BP 189/93
[2016-12-12] MEDS: hydroCHLOROthiazide 25 MG TAB PO SCH (08:12)
[2016-12-12] MEDS: PERCOCET 5MG/325MG TAB PO PRN (08:13)
--- NOTE | 2016-12-12 08:17 | RO ---
DATE OF PROCEDURE: 12/11/2016 PREPROCEDURE DIAGNOSIS: Symptomatic fibroid uterus. POSTPROCEDURE DIAGNOSIS: Symptomatic fibroid uterus. PROCEDURE: 1. Robotic assisted laparoscopic hysterectomy. 2. Bilateral salpingo-oophorectomy. 3. Cystoscopy. SURGEON: Dr. Selina Lal VENEER STACKER: MARICEL Davenport ANESTHESIA: General endotracheal anesthesia. INTRAVENOUS FLUIDS: 3000 mL of lactated Ringer solution. SPECIMENS: Cervix and uterus. Bilateral adnexa. PREOPERATIVE ANTIBIOTICS: 2 grams of Ancef. OPERATIVE FINDINGS: Fibroid uterus. Normal appearing bilateral adnexa. CYSTOSCOPIC FINDINGS: Good ureteral efflux bilaterally. No evidence of trauma to the bladder or foreign bodies. DESCRIPTION OF PROCEDURE: After informed consent was obtained and written content was reviewed, the patient was brought to the operating room where general endotracheal anesthesia was obtained. She was then placed in lithotomy position and was prepped and draped in a normal sterile fashion. A time out in the operating room was then performed identifying the patient, the procedure to be performed, as well as drug allergies. A speculum was placed revealing the cervix. The anterior and posterior aspects of the cervix were stitched with #0 Vicryl. The uterus was then sequentially dilated using Hanks dilators. A medium VCare uterine manipulator was then advanced through the cervical os for means to manipulate the uterus. The uterine balloon was insufflated with 10 mL of air. The cervical cap as well as the vaginal sleeve was advanced down into the vagina. Instruments were removed from the vagina. A England catheter was then placed and set to gravity. Gloves were changed and attention was turned to the patient's abdomen where a Veress needle was then placed in the umbilicus and pneumoperitoneum was then obtained with CO2 gas. The umbilical area was then infused with 0.25% Marcaine and incision was made in this area. A 12 mm trocar and sleeve was advanced through this incision. The laparoscope was then replaced revealing intra-abdominal placement. Two lateral ports, left and to the right of the umbilicus, were placed. Each of these were infused with 0.25% Marcaine. An 8 mm trocar and sleeve was advanced through each one of these incisions under direct visualization. A fourth trocar was placed in the left side of the patient's abdomen. This area was infused with 0.25% Marcaine. An incision was then made in this area and another 8 mm trocar and sleeve was advanced through this incision under direct visualization. Next, the da Cl was then advanced to the patient's table and it was docked utilizing a camera arm and two operative arms. Utilizing the da Cl equipment with bipolar cautery, the utero-ovarian ligaments were then cauterized and ligated with good hemostasis noted bilaterally. The round ligaments on both sides were then cauterized and ligated with good hemostasis noted. The anterior lip of the broad ligaments were then dissected along the bladder creating a bladder flap. The remainder of the broad ligaments and cardinal ligaments were then cauterized and ligated with hemostasis noted. The uterine arteries were then skeletonized bilaterally and were cauterized and ligated with good hemostasis noted. Anterior and posterior colpotomies were made. The uterus was removed vaginally. The surgical sites were inspected and noted to be hemostatic. Next, a bilateral salpingo-oophorectomy was then performed. The right fallopian tube was placed on traction. The right infundibulopelvic ligament was then cauterized and ligated with good hemostasis noted. The specimen was then brought out through the vaginal incision. In a similar fashion, the left adnexa was placed on traction and the left infundibulopelvic ligament was then cauterized and ligated with good hemostasis and the specimen was brought out through the vaginal incision. The vaginal cuff was then closed laparoscopically using the #2-0 V-loc system in a running fashion. The surgical area were irrigated and suctioned with good hemostasis noted. Yvan was applied over the surgical field. Next, a cystoscopy was performed. The England catheter was removed. A 70 degrees scope was advanced through the urethra. Cystoscopy was performed revealing normal bladder mucosa and bilateral jets. The bladder was then drained. Gloves were changed. Attention was then turned to the patient's abdomen where all four skin incisions were closed with #4-0 Monocryl and dressed with Dermabond. The patient was then taken out of lithotomy position, was awakened from general anesthesia and taken to recovery in stable condition. Rach Dominguez, my architectural administrative assistant, played an essential role in this operation. She assisted with identification of vital structures, manipulation of tissue, port placement as well as skin closure. Counts were correct. DANIEL
[2016-12-12] MEDS ORDERED: LISINOPRIL 20 MG TAB PO SCH (09:00)
[2016-12-12] MEDS ORDERED: GABAPENTIN 400 MG CAP PO SCH (09:00)
[2016-12-12] MEDS: LR 1,000 ML IV SCH (10:42)
[2016-12-12 12:00] VITALS: BP 188/86
[2016-12-12] MEDS ORDERED: ALBUTEROL 90 MCG/ACT 8GM HFA INHALER INH PRN (12:45)
[2016-12-12 13:02] VITALS: BP 188/86
[2016-12-12] MEDS ORDERED: OXYC1TAB23 PO (14:13)
[2016-12-12] MEDS ORDERED: PERC5TAB6 PO (14:14)
[2016-12-12] MEDS ORDERED: metFORMIN (GLUCOPHAGE) 500 MG TAB PO SCH (18:00)
== END 2016-12-12 16:00 | disposition home or self-care (01) ==
LOC: M SDC 09:22 → M PED 15:48 → M SDC 12-12 16:00
PROVIDERS: ATTEND Obstetrics & Gynecology
DX: D25.9 Leiomyoma of uterus, unspecified (principal); I10 Essential (primary) hypertension; E78.00 Pure hypercholesterolemia, unspecified; E11.9 Type 2 diabetes mellitus without complications; M12.9 Arthropathy, unspecified; R21 Rash and other nonspecific skin eruption; J45.909 Unspecified asthma, uncomplicated; E66.9 Obesity, unspecified; Z88.8 Allergy status to other drugs, medicaments and biological substances; Z79.899 Other long term (current) drug therapy; Z79.84 Long term (current) use of oral hypoglycemic drugs
CPT/HCPCS: 36415; 58571; 84703; 85027; 86850; 86900; 86901; 88309; 96374; 96375; A6024; J0690; J1170; J1885; J2250; J2370; J2405; J2710; J2765; J3010

== ENCOUNTER → 2017-01-09 | Outpatient (CLI) | payer OTHER ==
[~2017-01-09] MED LIST changes: +OXYC1TAB23 PO; +PERC5TAB6 PO
[2017-01-09 11:49] LABS: BLOOD UREA NITROGEN 7 MG/DL (7-18); CREATININE FOR GFR 0.56 MG/DL (0.55-1.02); GLOMERULAR FILTRATION RATE > 60.0 (>58)
== END ==
LOC: M LAB 10:36
PROVIDERS: ATTEND Physician Assistant
DX: M17.12 Unilateral primary osteoarthritis, left knee (principal)

== ENCOUNTER → 2017-01-09 | Outpatient (CLI) | payer OTHER ==
[2017-01-09 12:30] LABS: ANION GAP 8 MEQ/L (8-16); BLOOD UREA NITROGEN 6 MG/DL (7-18); CARBON DIOXIDE LEVEL 31 MEQ/L (21-32); CHLORIDE LEVEL 98 MEQ/L (98-107); CREATININE FOR GFR 0.52 MG/DL (0.55-1.02); GLOMERULAR FILTRATION RATE > 60.0 (>58); GLUCOSE, FASTING 170 MG/DL (70-105); POTASSIUM SERUM 4.1 MEQ/L (3.5-5.1); SODIUM LEVEL 137 MEQ/L (136-145)
[2017-01-09 12:31] LABS: ALBUMIN 3.7 GM/DL (3.2-5.2); ALBUMIN/GLOBULIN RATIO 1.16 (1.00-1.93); ALKALINE PHOSPHATASE 98 U/L (45-117); ALT/SGPT 55 U/L (12-78); AST/SGOT 46 U/L (15-37); BILIRUBIN,TOTAL 0.4 MG/DL (0.2-1.0); TOTAL PROTEIN 6.9 GM/DL (6.4-8.2)
== END ==
LOC: M LAB 10:40
PROVIDERS: ATTEND Nurse Practitioner Family
DX: I10 Essential (primary) hypertension (principal)

== ENCOUNTER → 2017-01-09 | Outpatient (CLI) | payer OTHER ==
--- NOTE | 2017-01-10 00:59 | ECWPNPC ---
PATIENT NAME: STEVE DIAMOND : 1965 GENDER: FEMALE VISIT DATE: 01/09/2017 DISCHARGE DATE: 01/09/17 1024 VISIT LOCKED DATE TIME: PHYSICIAN: GLORIA ESPITIA RESOURCE: GLORIA ESPITIA REASON FOR APPOINTMENT 1. BODY PAIN HISTORY OF PRESENT ILLNESS HISTORY OF PRESENT ILLNESS: PAIN THE PATIENT DESCRIBES THE PAIN... FALL RISK SCREENING: SCREENING :NO FALLS IN THE PAST YEAR TODAY'S VISIT: NOTES: RATES PAIN TODAY 02/10. NOTES PAIN REMAINS IN KNEES AND JOINTS IN ABDOMEN. IS S/P TOTAL ABDOMENAL HYSTERECTOMY IN DECEMBER. WAS GIVEN OXYCODONE FOR POST OP PAIN. NOTES BACK IS NOT SEVERE SINCE SURGERY.. CURRENT MEDICATIONS TAKING KETOCONAZOLE 2 % CREAM 1 APPLICATION TO FEET EXTERNALLY ONCE A DAY TAKING WRIST SPLINT LEFT MISCELLANEOUS DIRECTED LEFT WRIST DAILY DX: TENOSYNOVITIS TAKING DULERA 100 MCG/5MCG 2 PUFFS INHALATION TWICE A DAY TAKING FLUTICASONE PROPIONATE 50 MCG/ACT SUSPENSION 1 SPRAY IN EACH NOSTRIL NASALLY ONCE A DAY TAKING AZELASTINE HCL 137 MCG/SPRAY SOLUTION 1 PUFF IN EACH NOSTRIL NASALLY TWICE A DAY TAKING SALINE NASAL SPRAY 0.65 % SOLUTION 2 DROPS IN EACH NOSTRIL NEEDED NASALLY EVERY 2 HRS TAKING SINGULAIR 10 MG TABLET 1 TABLET IN THE EVENING ORALLY ONCE A DAY TAKING PROVENTIL HFA 108 (90 BASE) MCG/ACT AEROSOL SOLUTION 2 PUFFS INHALATION EVERY 4 HOUR NEEDED TAKING ALBUTEROL SULFATE (2.5 MG/3ML) 0.083% NEBULIZATION SOLUTION 3 ML INHALATION THREE TIMES A DAY PRN TAKING ONE TOUCH ULTRA BLUE STRIPS 1 EACH _ DAILY DX E11.9 TAKING BLOOD GLUCOSE METER - KIT 1 EACH FOR ONE TOUCH TO TEST DAILY/DIAG CODE TAKING BLOOD GLUCOSE TEST - STRIP DIRECTED GLUCOSE TESTING STRIPS FOR ONE TOUCH VERIO DAILY TAKING DRISDOL 01341 UNIT CAPSULE 1 CAPSULE ORALLY ONCE A WEEK TAKING LISINOPRIL 20 MG TABLET DIRECTED ORALLY ONCE DAILY TAKING METFORMIN HCL 500 MG TABLET 1 TABLET WITH MEALS ORALLY TWICE A DAY TAKING LANCETS - MISCELLANEOUS 1 EACH TO USE FOR ONCE TOUCH DAILY/ E11.9 TAKING LIPITOR 40 MG TABLET 1 TABLET ORALLY ONCE A DAY TAKING HYDROCHLOROTHIAZIDE 25 MG TABLET 1 TABLET BY MOUTH ONCE A DAY TAKING ALLOPURINOL 100 MG TABLET 1 TABLET ORALLY ONCE A DAY TAKING GABAPENTIN 400 MG CAPSULE 1 CAPSULE ORALLY THREE TIMES A DAY TAKING NYSTATIN CREAM 580026 UNITS/GM CREAM 1 APPLICATION TOPICALLY/ TO FEET TWICE A DAY TAKING VITAMIN B12 100 MCG TABLET 1 TABLET ORALLY ONCE A DAY TAKING OXYCODONE-ACETAMINOPHEN 5-325 MG TABLET 1 TABLET NEEDED ORALLY EVERY 6 HRS MDD 8 TAKING IBUPROFEN 800 MG TABLET 1 TABLET WITH FOOD OR MILK ORALLY Q 8 H PRN NOT-TAKING MELOXICAM 7.5 MG TABLET 1 TABLET ORALLY TWICE A DAY, NOTES: NOT TAKING AT PRECENT DUE TO RECENT SURGERY NOT-TAKING ACETAMINOPHEN 500 MG CAPSULE 2 TABLET NEEDED ORALLY EVERY 8HRS, NOTES: NOT TAKING AT PRESENT DUE TO RECENT SURGERY AND PAIN MED DISCONTINUED NECON (28) 1-35 MG-MCG TABLET 1 TABLET ORALLY DAILY FOR THREE WEEKS, 1 WEEK OFF MEDICATION LIST REVIEWED AND RECONCILED WITH THE PATIENT PAST MEDICAL HISTORY HYPERTENSION ASTHMA GOUT VITAMIN D DEFICIENCY CHRONIC RIGHT OTITIS MEDIA PRE-DIABETES/IMPAIRED FASTING GLUCOSE FIBROMYALGIA-GOES TO PAIN CLINIC RECURRENT SINUSITIS TD 1999; TDAP 06/15 PNEUMNOVAX 2009 CHRONIC ALLERGIC RHINITIS - GETS ALLERGY SHOTS VITAMIN B12 DEFICIENCY--ON MONTHLY INJECTIONS FOR A WHILE, STOPPED COMING FOR THEM, LEVEL NL 10/16 FIBROIDS ALLERGIES TRICOR: RASH: ALLERGY SURGICAL HISTORY KNEE ARTHROSCOPY (4 ON RT, 3 ON LEFT) CARPAL TUNNEL RELEASE R 2001 RIGHT KNEE [address]TH[address]COPY SUR[address]ERY [address] SHARMA 02/09/2013 LAPAROSCOPY, REMOVAL OF FIBROID 10/21/16 MANUEL WITH BILAT. SALPINGO OOPHERECTOMY 12/11/16 REVIEW OF SYSTEMS CONSTITUTIONAL: ANY CHANGE IN YOUR MEDICAL CONDITION? YES, HAD SURGERY 10/21 AND 12/11--LAPAROSCOPY AND MANUEL/ BSO . CHILLS NO . FEVER NO . INFECTION: DO YOU HAVE NEW INFECTIONS? NO . DO YOU HAVE HISTORY OF MRSA? NO . MUSCULOSKELETAL: ANY NEW PATTERNS OF PAIN OR NUMBNESS? NO . GASTROENTEROLOGY: ANY NEW CHANGE IN BOWEL CONTROL? NO . GENITOURINARY: ANY NEW CHANGE IN BLADDER CONTROL? NO . IS THERE A CHANCE YOU COULD BE ? NO . HEMATOLOGY/LYMPH: DO YOU TAKE ANY BLOOD THINNERS? (FOR EXAMPLE- COUMADIN, PLAVIX, AGGRENOX, PLATEL, PRADAXA, OR XARELTO) NO . WHEN WAS YOUR LAST DOSE? DATE: TIME: . NEUROLOGY: HAVE YOU FALLEN IN THE PAST 6 MONTHS? NO . ANY NEW EXTREMITY NUMBNESS OR WEAKNESS? NO . CARDIOLOGY: DO YOU HAVE A PACEMAKER OR DEFIBRILLATOR? NO . RESPIRATORY: HAVE YOU BEEN SICK IN THE PAST WEEK? NO . FEVER NO . FLU LIKE SYMPTOMS? NO . COUGH NO . INTEGUMENTARY: DO YOU HAVE ANY RASHES OR OPEN SORES? NO . ALLERGIC/IMMUNO: ARE YOU ALLERGIC TO SHELLFISH OR IV DYE? NO . ANY NEW ALLERGIES? NO . PSYCHIATRIC: DO YOU HAVE THOUGHTS OF HURTING YOURSELF OR SOMEONE ELSE? NO . ARE YOU ABUSED, NEGLECTED, OR IN AN UNSAFE ENVIRONMENT? NO . ENDOCRINOLOGY: ARE YOU DIABETIC? YES . OTHER: DO YOU NEED ANY PRESCRIPTIONS? NO . IF YES, PLEASE LIST: ____ . ANY NEW PROBLEMS WITH YOUR MEDICATIONS? NO . WHEN DID YOU LAST EAT? ____ . WHEN DID YOU LAST DRINK? ____ . WHAT DID YOU LAST DRINK? ____ . NAME OF PERSON DRIVING YOU HOME? ____ . DO YOU HAVE ANY OTHER QUESTIONS OR CONCERNS NO . REVIEWED BY: PROVIDER: GLORIA CONNELLY . VITAL SIGNS WT 220.0 LBS, HT 53", BMI 55.06 INDEX, BP 151/92 MM HG, HR 94 /MIN, RR 16 /MIN, TEMP 98.6 F, OXYGEN SAT % 96%, NA INITIALS TL 0951, REVIEWED BY: AD. EXAMINATION GENERAL EXAMINATION: GENERAL APPEARANCE:COLOR IS PALE. PSYCHALERT , ORIENTED X 3 , APPROPRIATE MOOD AND AFFECT . LUNGS:CLEAR TO AUSCULTATION BILATERALLY, NO WHEEZES, RALES OR RHONCHI. HEART:HEART RATE REGULAR. MUSCULOSKELETAL:MUSCLE STRENGTH TESTING 5/5 BILATERAL UPPER AND LOWER EXTREMITIES. MILD TENDERNESS OVER LUMBAR PARASPINOUS MUSCLES. GAIT ANTALGIC WITH LEFT LEG LIMP DONE. JOINTS:LEFT , KNEE , PAIN , SWELLING , AT REST . AUDIBLE CREPITUS LEFT KNEE WITH FLEXION/EXTENSION. . ASSESSMENTS LOW BACK PAIN - M54.5 (PRIMARY) FIBROMYALGIA - M79.7 KNEE PAIN, BILATERAL - M25.561 TREATMENT LOW BACK PAIN NOTES: WALK TOLERATED - EAT HEALTHY - EAT FOODS WITH IRON. CALL WHEN SCRIPTS NEEDED. PROCEDURE CODES FA211 ESTABILISHED PATIENT [facility] CHARGE DISPOSITION & COMMUNICATION FOLLOW UP 6 MONTHS (REASON: BACK/JOINT PAIN) ELECTRONICALLY SIGNED BY MALACHI OLIVO ON 01/09/2017 AT 03:10 PM EDT DISCLAIMER : THIS IS A VISIT SUMMARY EXTRACTED FROM THE ECLINICALPresent CHART. IT IS NOT A COPY OF THE [employer] PROGRESS NOTE. DANIEL
== END ==
LOC: M PAIN 09:40
PROVIDERS: ATTEND Nurse Practitioner Family
DX: M54.5 Low back pain (principal); M79.7 Fibromyalgia; M25.561 Pain in right knee; Z79.84 Long term (current) use of oral hypoglycemic drugs; Z79.891 Long term (current) use of opiate analgesic; Z79.899 Other long term (current) drug therapy; E55.9 Vitamin D deficiency, unspecified; I10 Essential (primary) hypertension; J30.9 Allergic rhinitis, unspecified; J45.998 Other asthma; E78.2 Mixed hyperlipidemia; M10.9 Gout, unspecified; R73.09 Other abnormal glucose; E53.8 Deficiency of other specified B group vitamins

== ENCOUNTER → 2017-03-04 | Outpatient (CLI) | payer OTHER ==
[~2017-03-04] MED LIST changes: -ATOR40TA PO; +ATOR40TA75 PO; -METF500T PO; +METF500T13 PO; +MOBI4TAB PO; -MOBI7.5T10 PO; +PERC5TAB12 PO; -PERC5TAB6 PO
[2017-03-04 15:56] LABS: ALBUMIN/GLOBULIN RATIO 1.33 (1.00-1.93); ALKALINE PHOSPHATASE 78 U/L (45-117); ALT/SGPT 56 U/L (12-78); ANION GAP 14 MEQ/L (8-16); AST/SGOT 40 U/L (15-37); BILIRUBIN,TOTAL 0.4 MG/DL (0.2-1.0); BLOOD UREA NITROGEN 8 MG/DL (7-18); CALCIUM LEVEL 9.8 MG/DL (8.5-10.1); CARBON DIOXIDE LEVEL 26 MEQ/L (21-32); CHLORIDE LEVEL 98 MEQ/L (98-107); CREATININE FOR GFR 0.65 MG/DL (0.55-1.02); GLOMERULAR FILTRATION RATE > 60.0 (>58); GLUCOSE, FASTING 175 MG/DL (70-105); POTASSIUM SERUM 3.9 MEQ/L (3.5-5.1); SODIUM LEVEL 138 MEQ/L (136-145); URIC ACID 6.8 MG/DL (2.6-6.0)
== END ==
LOC: M LAB 15:18
PROVIDERS: ATTEND Nurse Practitioner Family
DX: I10 Essential (primary) hypertension (principal)

== ENCOUNTER → 2017-03-07 | Outpatient (CLI) | payer OTHER ==
[~2017-03-07] MED LIST changes: +GASTROGRAFIN SOLUTION 30ML (Q9963) As Ordered ONE; +ISOVUE-370 76% 100ML VIAL (Q9967) As Ordered ONE
--- NOTE | 2017-03-07 12:21 | REP ---
REASON: Incisional hernia. COMPARISON: None. CONTRAST: 100 mL Isovue 370. The lung bases are clear. The precontrast enhanced portion of the examination shows diffuse low density throughout the hepatic parenchyma. There are no choleliths or nephroliths. The contrast enhanced portion of the examination shows no evidence of an enhancing hepatic lesion. The gallbladder, spleen, pancreas, adrenal glands, and kidneys are within normal limits The abdominal aorta and para-aortic regions are within normal limits. The bowel loops and their mesenteries are within normal limits. There is no free fluid or free air. There is no intra-abdominal mass or adenopathy. The anterior abdominal wall is intact. There is no evidence of a ventral hernia. CT PELVIS: There is no pelvic mass or adenopathy. There is no free fluid or free air. The bowel loops and their mesenteries are within normal limits. Bone window technique throughout the exam shows the osseous structures to be within normal limits for the patient's age. IMPRESSION: There is diffuse fatty infiltration of the liver. Signed by Emiliano Potts DO 03/07/2017 01:58 P
== END ==
LOC: M RAD 08:53
PROVIDERS: ATTEND Obstetrics & Gynecology
DX: Z48.816 Encounter for surgical aftercare following surgery on the genitourinary system (principal); K43.2 Incisional hernia without obstruction or gangrene

== ENCOUNTER → 2017-03-18 | Outpatient (CLI) | payer OTHER ==
[~2017-03-18] MED LIST changes: -GASTROGRAFIN SOLUTION 30ML (Q9963) As Ordered ONE; -ISOVUE-370 76% 100ML VIAL (Q9967) As Ordered ONE
[2017-03-18 09:15] LABS: BASO % 0.4 % (0.0-1.0); EOS # 0.4 K/mm3 (0.0-0.50); LARGE UNSTAINED CELL # 0.1 K/mm3 (0.0-0.4); LARGE UNSTAINED CELL % 1.2 % (0.0-4.0); LYMPH % 22.2 % (24.0-44.0); MEAN CORPUSCULAR HEMOGLOBIN 30.9 pg (27.0-33.0); MEAN CORPUSCULAR HGB CONC 34.4 g/dl (32.0-36.5); MEAN CORPUSCULAR VOLUME 89.8 fl (80.0-96.0); MONO # 0.5 K/mm3 (0.0-0.8); MONO % 5.1 % (0.0-5.0); NEUTROPHILS # 5.9 K/mm3 (1.8-7.7); NEUTROPHILS % 66.1 % (36.0-66.0); PLATELET COUNT, AUTOMATED 277 k/mm3 (150-450); RED CELL DISTRIBUTION WIDTH 13.1 % (11.5-14.5); WHITE BLOOD COUNT 8.9 K/mm3 (4.0-10.0)
[2017-03-18 09:55] LABS: FREE T4 1.12 NG/DL (0.76-1.46)
== END ==
LOC: M LAB 08:20
PROVIDERS: ATTEND Nurse Practitioner Family
DX: E53.8 Deficiency of other specified B group vitamins (principal)

== ENCOUNTER → 2017-04-11 | Outpatient (REF) | payer OTHER ==
[2017-04-11 13:49] LABS: ALBUMIN 4.4 GM/DL (3.2-5.2); ALBUMIN/GLOBULIN RATIO 1.33 (1.00-1.93); ALKALINE PHOSPHATASE 88 U/L (45-117); ALT/SGPT 45 U/L (12-78); ANION GAP 13 MEQ/L (8-16); AST/SGOT 16 U/L (15-37); BILIRUBIN,TOTAL 0.4 MG/DL (0.2-1.0); BLOOD UREA NITROGEN 20 MG/DL (7-18); CALCIUM LEVEL 10.7 MG/DL (8.5-10.1); CARBON DIOXIDE LEVEL 26 MEQ/L (21-32); CHLORIDE LEVEL 99 MEQ/L (98-107); CREATININE FOR GFR 0.71 MG/DL (0.55-1.02); GLOMERULAR FILTRATION RATE > 60.0 (>58); GLUCOSE, FASTING 215 MG/DL (70-105); POTASSIUM SERUM 4.4 MEQ/L (3.5-5.1); SODIUM LEVEL 138 MEQ/L (136-145); TOTAL PROTEIN 7.7 GM/DL (6.4-8.2); URIC ACID 5.4 MG/DL (2.6-6.0)
== END ==
LOC: M SFHCPLAZ 10:56
PROVIDERS: ATTEND Nurse Practitioner Family
DX: E11.9 Type 2 diabetes mellitus without complications (principal); M10.9 Gout, unspecified; E55.9 Vitamin D deficiency, unspecified

== ENCOUNTER → 2017-05-09 | Outpatient (REF) | payer OTHER ==
[2017-05-09 13:08] LABS: ANION GAP 11 MEQ/L (8-16); BLOOD UREA NITROGEN 11 MG/DL (7-18); CALCIUM LEVEL 9.8 MG/DL (8.5-10.1); CARBON DIOXIDE LEVEL 28 MEQ/L (21-32); CHLORIDE LEVEL 100 MEQ/L (98-107); CREATININE FOR GFR 0.49 MG/DL (0.55-1.02); GLOMERULAR FILTRATION RATE > 60.0 (>58); GLUCOSE, FASTING 93 MG/DL (70-105); POTASSIUM SERUM 4.4 MEQ/L (3.5-5.1); SODIUM LEVEL 139 MEQ/L (136-145)
== END ==
LOC: M SFHCPLAZ 09:52
PROVIDERS: ATTEND Nurse Practitioner Family
DX: E11.9 Type 2 diabetes mellitus without complications (principal)

== ENCOUNTER → 2017-06-23 | Outpatient (REF) | payer OTHER ==
[~2017-06-23] MED LIST changes: +AUGM875T28 PO; +PRED20TA PO; +TRUL10IN SC
[2017-06-23 13:44] LABS: ALBUMIN/GLOBULIN RATIO 1.33 (1.00-1.93); ALKALINE PHOSPHATASE 65 U/L (45-117); ALT/SGPT 63 U/L (12-78); ANION GAP 11 MEQ/L (8-16); AST/SGOT 40 U/L (7-37); BILIRUBIN,TOTAL 0.4 MG/DL (0.2-1.0); BLOOD UREA NITROGEN 10 MG/DL (7-18); CALCIUM LEVEL 10.1 MG/DL (8.5-10.1); CARBON DIOXIDE LEVEL 28 MEQ/L (21-32); CHLORIDE LEVEL 98 MEQ/L (98-107); CREATININE FOR GFR 0.58 MG/DL (0.55-1.02); GLOMERULAR FILTRATION RATE > 60.0 (>58); GLUCOSE, FASTING 121 MG/DL (70-105); POTASSIUM SERUM 4.4 MEQ/L (3.5-5.1); SODIUM LEVEL 137 MEQ/L (136-145)
== END ==
LOC: M SFHCPLAZ 09:14
PROVIDERS: ATTEND Nurse Practitioner Family
DX: E78.2 Mixed hyperlipidemia (principal); E11.9 Type 2 diabetes mellitus without complications

== ENCOUNTER 2017-07-01 05:51 | Emergency (ER) | payer OTHER ==
[~2017-07-01] VITALS: Ht 160 cm; Wt 98.6 kg
[~2017-07-01 05:51] MED LIST changes: -AUGM875T28 PO; -PRED20TA PO; -TRUL10IN SC
[2017-07-01] MEDS ORDERED: TRUL10IN SC (06:27)
[2017-07-01] MEDS ORDERED: AUGM875T28 PO (07:49)
[2017-07-01] MEDS ORDERED: PRED20TA PO (07:49)
[2017-07-01 07:51] VITALS: BP 155/82
== END 2017-07-01 07:52 | disposition home or self-care (01) ==
LOC: M ED 05:51
DX: J01.90 Acute sinusitis, unspecified (principal); J20.9 Acute bronchitis, unspecified; E11.9 Type 2 diabetes mellitus without complications; I10 Essential (primary) hypertension

== ENCOUNTER → 2017-07-31 | Outpatient (CLI) | payer OTHER | LOC: M PAIN 09:30 | DX: M54.5 Low back pain (principal); M79.7 Fibromyalgia; M25.561 Pain in right knee; I10 Essential (primary) hypertension; E11.9 Type 2 diabetes mellitus without complications; J45.909 Unspecified asthma, uncomplicated; M10.9 Gout, unspecified; E55.9 Vitamin D deficiency, unspecified; E53.8 Deficiency of other specified B group vitamins; Z88.8 Allergy status to other drugs, medicaments and biological substances; Z79.84 Long term (current) use of oral hypoglycemic drugs; Z79.891 Long term (current) use of opiate analgesic; Z79.899 Other long term (current) drug therapy | CPT/HCPCS: G0463 ==

== ENCOUNTER → 2017-08-07 | Outpatient (CLI) | payer OTHER | LOC: M WHC 08:50 | DX: Z12.31 Encounter for screening mammogram for malignant neoplasm of breast (principal) | CPT/HCPCS: 77067 ==

== ENCOUNTER 2017-09-03 16:20 | Emergency (ER) | payer OTHER | END 2017-09-03 17:50 | disposition home or self-care (01) | LOC: M ED 16:20 | DX: S60.221A Contusion of right hand, initial encounter (principal); W22.09XA Striking against other stationary object, initial encounter; Y92.099 Unspecified place in other non-institutional residence as the place of occurrence of the external cause; Y93.89 Activity, other specified | CPT/HCPCS: 73130 ==

== ENCOUNTER → 2017-10-01 | Outpatient (REF) | payer OTHER ==
[2017-10-01 13:57] LABS: ALBUMIN 4.1 GM/DL (3.2-5.2); ALBUMIN/GLOBULIN RATIO 1.41 (1.00-1.93); ALKALINE PHOSPHATASE 77 U/L (45-117); ALT/SGPT 51 U/L (12-78); ANION GAP 5 MEQ/L (8-16); AST/SGOT 36 U/L (7-37); BILIRUBIN,TOTAL 0.3 MG/DL (0.2-1.0); BLOOD UREA NITROGEN 11 MG/DL (7-18); CALCIUM LEVEL 9.6 MG/DL (8.5-10.1); CARBON DIOXIDE LEVEL 31 MEQ/L (21-32); CHLORIDE LEVEL 103 MEQ/L (98-107); CHOLESTEROL LEVEL 126 MG/DL (<200); CREATININE FOR GFR 0.57 MG/DL (0.55-1.30); GLOMERULAR FILTRATION RATE > 60.0 (>51); GLUCOSE, FASTING 120 MG/DL (70-100); HDL CHOLESTEROL 50 MG/DL (>40); LDL CHOLESTEROL 41.6 MG/DL (<100); NON-HDL-C 76 MG/DL; POTASSIUM SERUM 4.8 MEQ/L (3.5-5.1); SODIUM LEVEL 139 MEQ/L (136-145); TRIGLYCERIDES LEVEL 172 MG/DL (<150); URIC ACID 6.3 MG/DL (2.6-6.0)
[2017-10-01 14:09] LABS: ESTIMATED AVERAGE GLUCOSE 146 MG/DL (60-110); HEMOGLOBIN A1c 6.7 %
[2017-10-01 14:16] LABS: CREATININE, URINE 79.3 MG/DL; MALB URINE SIEMENS 7.9 MG/L; MAU/CREAT RATIO 9.9 MCG/MG (0.0-30.0)
== END ==
LOC: M SFHCPLAZ 08:16
DX: I10 Essential (primary) hypertension (principal); E11.9 Type 2 diabetes mellitus without complications; E78.2 Mixed hyperlipidemia; M10.9 Gout, unspecified

== ENCOUNTER → 2017-10-01 | Outpatient (REF) | payer OTHER ==
[2017-10-01 13:52] LABS: ANION GAP 6 MEQ/L (8-16); BLOOD UREA NITROGEN 10 MG/DL (7-18); CALCIUM LEVEL 9.6 MG/DL (8.5-10.1); CARBON DIOXIDE LEVEL 30 MEQ/L (21-32); CHLORIDE LEVEL 103 MEQ/L (98-107); CREATININE FOR GFR 0.53 MG/DL (0.55-1.30); GLOMERULAR FILTRATION RATE > 60.0 (>51); GLUCOSE, FASTING 120 MG/DL (70-100); POTASSIUM SERUM 4.8 MEQ/L (3.5-5.1); SODIUM LEVEL 139 MEQ/L (136-145)
== END ==
LOC: M LABDRAWP 13:06
DX: Z01.812 Encounter for preprocedural laboratory examination (principal); E11.9 Type 2 diabetes mellitus without complications; G56.02 Carpal tunnel syndrome, left upper limb

== ENCOUNTER → 2017-11-07 | Outpatient (CLI) | payer OTHER | LOC: M PAIN 09:15 | DX: M54.5 Low back pain (principal); M79.7 Fibromyalgia; M25.561 Pain in right knee; I10 Essential (primary) hypertension; J45.909 Unspecified asthma, uncomplicated; M10.9 Gout, unspecified; E11.9 Type 2 diabetes mellitus without complications; E53.8 Deficiency of other specified B group vitamins; Z79.84 Long term (current) use of oral hypoglycemic drugs; Z79.899 Other long term (current) drug therapy; Z88.8 Allergy status to other drugs, medicaments and biological substances | CPT/HCPCS: G0463 ==

== ENCOUNTER → 2017-12-02 | Outpatient (REF) | payer OTHER ==
[2017-12-02 12:46] LABS: BASO # 0.1 10^3/uL (0.0-0.2); BASO % 0.4 % (0.0-1.0); EOS # 0.5 10^3/uL (0.0-0.50); EOS % 4.2 % (0.0-3.0); HEMATOCRIT 40.6 % (36.0-47.0); HEMOGLOBIN 13.5 g/dl (12.0-15.5); IMMATURE GRANULOCYTE % 0.6 % (0-3.0); LYMPH # 2.8 10^3/uL (1.5-4.5); LYMPH % 24.2 % (24.0-44.0); MEAN CORPUSCULAR HEMOGLOBIN 29.3 pg (27.0-33.0); MEAN CORPUSCULAR HGB CONC 33.3 g/dl (32.0-36.5); MEAN CORPUSCULAR VOLUME 88.1 fl (80.0-96.0); MONO # 0.9 10^3/uL (0.0-0.8); MONO % 7.6 % (0.0-5.0); NEUTROPHILS # 7.3 10^3/uL (1.8-7.7); PLATELET COUNT, AUTOMATED 318 10^3/uL (150-450); RED BLOOD COUNT 4.61 10^6/uL (4.00-5.40); RED CELL DISTRIBUTION WIDTH 13.1 % (11.5-14.5); WHITE BLOOD COUNT 11.5 10^3/uL (4.0-10.0)
[2017-12-02 12:56] LABS: C REACTIVE PROTEIN QUANTITATIV 0.71 MG/DL (0.00-0.30)
[2017-12-02 12:56] LABS: RHEUMATOID FACTOR QUANT < 10.0 IU/ML (<15.0)
[2017-12-02 13:41] LABS: ERYTHROCYTE SEDIMENTATION RATE 8 mm/hr (0-30)
[2017-12-04 14:14] LABS: ANTINUCLEAR ANTIBODIES DIRECT Negative (Negative); Lyme Disease IgG/IgM Antibodie <0.91 ISR (0.00-0.90); Lyme Disease IgM Ab Quantitati <0.80 index (0.00-0.79)
== END ==
LOC: M LABDRAW1 10:54
DX: M25.532 Pain in left wrist (principal)
CPT/HCPCS: 86140

== ENCOUNTER 2017-12-10 07:39 | Outpatient (RCR) | payer OTHER | END 2018-01-01 | LOC: M OT 07:39 | DX: Z51.89 Encounter for other specified aftercare (principal); M25.532 Pain in left wrist; M25.522 Pain in left elbow; M79.642 Pain in left hand | CPT/HCPCS: 97110 ==

== ENCOUNTER → 2018-01-05 | Outpatient (REF) | payer OTHER ==
[2018-01-05 12:56] LABS: BASO % 0.4 % (0.0-1.0); EOS # 0.3 10^3/uL (0.0-0.50); EOS % 3.2 % (0.0-3.0); HEMATOCRIT 39.9 % (36.0-47.0); IMMATURE GRANULOCYTE % 0.7 % (0-3.0); LYMPH # 2.5 10^3/uL (1.5-4.5); MEAN CORPUSCULAR HEMOGLOBIN 29.2 pg (27.0-33.0); MEAN CORPUSCULAR HGB CONC 32.6 g/dl (32.0-36.5); MEAN CORPUSCULAR VOLUME 89.7 fl (80.0-96.0); MONO # 0.7 10^3/uL (0.0-0.8); MONO % 7.1 % (0.0-5.0); NEUTROPHILS # 6.1 10^3/uL (1.8-7.7); NEUTROPHILS % 62.6 % (36.0-66.0); PLATELET COUNT, AUTOMATED 316 10^3/uL (150-450); RED BLOOD COUNT 4.45 10^6/uL (4.00-5.40); RED CELL DISTRIBUTION WIDTH 13.2 % (11.5-14.5); WHITE BLOOD COUNT 9.7 10^3/uL (4.0-10.0)
[2018-01-05 13:09] LABS: TOTAL 25(OH) VITAMIN D 23.8 NG/ML (30.0-100.0); VITAMIN B12 LEVEL 877 PG/ML (247-911)
[2018-01-05 13:15] LABS: ESTIMATED AVERAGE GLUCOSE 148 MG/DL (60-110); HEMOGLOBIN A1c 6.8 %
[2018-01-05 13:21] LABS: ALBUMIN 4.2 GM/DL (3.2-5.2); ALBUMIN/GLOBULIN RATIO 1.45 (1.00-1.93); ALKALINE PHOSPHATASE 93 U/L (45-117); ALT/SGPT 40 U/L (12-78); ANION GAP 10 MEQ/L (8-16); AST/SGOT 23 U/L (7-37); BILIRUBIN,TOTAL 0.4 MG/DL (0.2-1.0); BLOOD UREA NITROGEN 12 MG/DL (7-18); CALCIUM LEVEL 9.1 MG/DL (8.5-10.1); CARBON DIOXIDE LEVEL 29 MEQ/L (21-32); CHLORIDE LEVEL 99 MEQ/L (98-107); CREATININE FOR GFR 0.56 MG/DL (0.55-1.30); FREE T4 1.16 NG/DL (0.76-1.46); GLOMERULAR FILTRATION RATE > 60.0 (>51); GLUCOSE, FASTING 98 MG/DL (70-100); POTASSIUM SERUM 4.6 MEQ/L (3.5-5.1); SODIUM LEVEL 138 MEQ/L (136-145); TOTAL PROTEIN 7.1 GM/DL (6.4-8.2); URIC ACID 5.8 MG/DL (2.6-6.0)
== END ==
LOC: M SFHCPLAZ 08:30
DX: E53.8 Deficiency of other specified B group vitamins (principal); R53.83 Other fatigue; I10 Essential (primary) hypertension; E11.9 Type 2 diabetes mellitus without complications; M10.9 Gout, unspecified; E55.9 Vitamin D deficiency, unspecified

== ENCOUNTER → 2018-02-17 | Outpatient (CLI) | payer OTHER | LOC: M PAIN 08:30 | DX: M54.5 Low back pain (principal); M79.7 Fibromyalgia; M25.561 Pain in right knee; I10 Essential (primary) hypertension; J45.909 Unspecified asthma, uncomplicated; E55.9 Vitamin D deficiency, unspecified; Z79.899 Other long term (current) drug therapy; Z87.891 Personal history of nicotine dependence; Z88.8 Allergy status to other drugs, medicaments and biological substances | CPT/HCPCS: G0463 ==

== ENCOUNTER 2018-02-23 08:30 | Outpatient (RCR) | payer OTHER | END 2018-03-03 | LOC: M PT 08:30 | DX: Z51.89 Encounter for other specified aftercare (principal); M25.562 Pain in left knee | CPT/HCPCS: 97110 ==

== ENCOUNTER 2018-03-11 07:26 | Outpatient (RCR) | payer OTHER | END 2018-04-03 | LOC: M PT 07:26 | DX: Z51.89 Encounter for other specified aftercare (principal); M25.562 Pain in left knee | CPT/HCPCS: 97110 ==

== ENCOUNTER 2018-04-09 07:54 | Outpatient (RCR) | payer OTHER | END 2018-05-03 | LOC: M PT 07:54 | DX: Z47.89 Encounter for other orthopedic aftercare (principal); M25.562 Pain in left knee | CPT/HCPCS: 97110 ==

== ENCOUNTER → 2018-04-24 | Outpatient (REF) | payer OTHER | LOC: M SFHCPLAZ 13:37 | DX: J02.9 Acute pharyngitis, unspecified (principal) ==

== ENCOUNTER → 2018-05-13 | Outpatient (REF) | payer OTHER ==
[2018-05-13 16:02] LABS: HEMOGLOBIN 12.1 g/dl (12.0-15.5); MEAN CORPUSCULAR HEMOGLOBIN 29.8 pg (27.0-33.0); MEAN CORPUSCULAR HGB CONC 32.7 g/dl (32.0-36.5); MEAN CORPUSCULAR VOLUME 91.1 fl (80.0-96.0); PLATELET COUNT, AUTOMATED 307 10^3/uL (150-450); RED BLOOD COUNT 4.06 10^6/uL (4.00-5.40); RED CELL DISTRIBUTION WIDTH 13.2 % (11.5-14.5)
[2018-05-13 16:19] LABS: ESTIMATED AVERAGE GLUCOSE 128 MG/DL (60-110); HEMOGLOBIN A1c 6.1 %
[2018-05-13 16:30] LABS: ALBUMIN 3.7 GM/DL (3.2-5.2); ALBUMIN/GLOBULIN RATIO 1.28 (1.00-1.93); ALKALINE PHOSPHATASE 77 U/L (45-117); ALT/SGPT 31 U/L (12-78); ANION GAP 11 MEQ/L (8-16); AST/SGOT 16 U/L (7-37); BILIRUBIN,TOTAL 0.3 MG/DL (0.2-1.0); BLOOD UREA NITROGEN 9 MG/DL (7-18); CALCIUM LEVEL 8.6 MG/DL (8.5-10.1); CARBON DIOXIDE LEVEL 27 MEQ/L (21-32); CHLORIDE LEVEL 97 MEQ/L (98-107); FREE T4 1.12 NG/DL (0.76-1.46); GLOMERULAR FILTRATION RATE > 60.0 (>51); GLUCOSE, FASTING 92 MG/DL (70-100); MAGNESIUM LEVEL 1.3 MG/DL (1.8-2.4); POTASSIUM SERUM 3.8 MEQ/L (3.5-5.1); SODIUM LEVEL 135 MEQ/L (136-145); TOTAL 25(OH) VITAMIN D 29.6 NG/ML (30.0-100.0); TOTAL PROTEIN 6.6 GM/DL (6.4-8.2)
== END ==
LOC: M SFHCPLAZ 12:38
DX: E55.9 Vitamin D deficiency, unspecified (principal); E11.9 Type 2 diabetes mellitus without complications; I10 Essential (primary) hypertension; E78.2 Mixed hyperlipidemia; R00.2 Palpitations

== ENCOUNTER → 2018-05-20 | Outpatient (CLI) | payer OTHER | LOC: M PAIN 09:15 | DX: M54.5 Low back pain (principal); M79.7 Fibromyalgia; M25.561 Pain in right knee; B02.9 Zoster without complications; I10 Essential (primary) hypertension; E11.9 Type 2 diabetes mellitus without complications; J45.909 Unspecified asthma, uncomplicated; E55.9 Vitamin D deficiency, unspecified; E53.9 Vitamin B deficiency, unspecified; Z79.84 Long term (current) use of oral hypoglycemic drugs; Z79.899 Other long term (current) drug therapy; Z88.8 Allergy status to other drugs, medicaments and biological substances; Z86.39 Personal history of other endocrine, nutritional and metabolic disease; Z87.891 Personal history of nicotine dependence | CPT/HCPCS: G0463 ==

== ENCOUNTER 2018-06-18 07:10 | Day surgery (SDC) | payer OTHER ==
[~2018-06-18 07:10] MED LIST changes: -/ADVA50050 IN; -/BISO10TA OR; -/DULO30CA; -/HYDR10T PO; -ACET500C OR; -ACET500C PO; -ACET50TAOT PO; -ADV250INH INH; -ADVAIR INH; -ALBU17IN2 INH; -ALLO100T OR; -ALLO100T PO; -ASTE0.15; -ATOR40TA75 PO; -AZEL1POW XX; -AZIT500I PO; -BACL10TA2 OR; -BACL10TA2 PO; -CLAR5CHW; -CYAN1000VL PO; -DICL100T PO; -DRIS50002 PO; -DULE100A IN; -DYMI137S; -EMLA2.5C TOP; -ENDO7.5T7 PO; -FLECTOR PATCH; -FLEX10TA2 PO; -FLEXERIL PO; -FLON0.054; -FLUT11IN INH; -FLUT44IN INH; -FLUTISP; -GABA-283 PO; -GABA300T; -GABA300T OR; -HYDR10TA3 OR; -HYDR25TA6 OR; -HYDR25TAB PO; -HYDRODIURIL; -KETO-30 TOP; -KETO2CR TOP; -LATA1POW OU; -LIDO2.5C17 EXT; +LIDOCAINE 2% INJ 100 MG/5 ML SDV (FOR ANES.) As Ordered; -LISI-538 PO; -MELO15TA4 PO; -METF500T13 PO; -METH750T PO; -MICROGESTIN OR; -MOBI4TAB PO; -MONT10TA2 PO; -NAPR375T; -NAPR500T OR; -NASONEX; -NECO1TAB9 PO; -NECON; -NECON PO; -NYST10CR EXT; -NYST10CR TOP; -OMEP40CA2 PO; -OXYC1TAB23 PO; -PANTANASE; -PATANASE; -PERC5TAB12 PO; -PERCOCET PO; -PREG50CA; -PROBENECID; -PROBENECID OR; -PROP60TA; +PROPOFOL 200 MG/20 ML VIAL As Ordered; -PROV90AE; -PROV90AE INH; -SING10TA31 OR; -SUDA30TA OR; -TIZA2CAP PO; -TIZA4CAP PO; -TRAM50TA2; -TRAM50TA2 OR; -TRIAPOW5; -VENTAER IN; -VITA100T PO; -VITA100T20 PO; -VITA200028 PO; -VITA400T15 PO; -VITAMIN D50000 UNT; -VOLTAREN TOP; -ZEBE5TAB; -ZITH250T OR; -[UNRECOGNIZED DRUG - CODE] AD; -[UNRECOGNIZED DRUG - OTHER]; -[UNRECOGNIZED DRUG - OTHER] AD; -[UNRECOGNIZED DRUG - OTHER] AD; -[UNRECOGNIZED DRUG - OTHER] OR; -[UNRECOGNIZED DRUG - OTHER] TD; -[UNRECOGNIZED DRUG - OTHER] TOP; -[UNRECOGNIZED DRUG - REMARK] INJ; -astelin; -colcrys PO; -pennsaid TD; -veramyst
[2018-06-18] MEDS ORDERED: NS 1,000 ML IV (07:45)
== END 2018-06-18 09:16 | disposition home or self-care (01) ==
LOC: M OPP 07:10
DX: Z12.11 Encounter for screening for malignant neoplasm of colon (principal); D12.2 Benign neoplasm of ascending colon; K63.89 Other specified diseases of intestine
CPT/HCPCS: 45385

== ENCOUNTER 2018-06-29 08:31 | Emergency (ER) | payer OTHER ==
[2018-06-29] MEDS: CYCLOBENZAPRINE 10 MG TAB PO (09:59)
[2018-06-29] MEDS: KETOROLAC 60 MG/2 ML VIAL (J1885) IM (09:59)
== END 2018-06-29 10:31 | disposition home or self-care (01) ==
LOC: M ED 08:31
DX: M54.6 Pain in thoracic spine (principal); E11.9 Type 2 diabetes mellitus without complications; I10 Essential (primary) hypertension; J45.909 Unspecified asthma, uncomplicated; M79.7 Fibromyalgia; E78.5 Hyperlipidemia, unspecified; Z79.899 Other long term (current) drug therapy; Z79.84 Long term (current) use of oral hypoglycemic drugs; Z88.8 Allergy status to other drugs, medicaments and biological substances
CPT/HCPCS: J1885

== ENCOUNTER 2018-07-16 21:11 | Emergency (ER) | payer OTHER ==
[2018-07-16] MEDS: NAPROXEN 250 MG TAB PO (22:21)
[2018-07-16 22:30] LABS: BASO % 0.3 % (0.0-1.0); EOS # 0.6 10^3/uL (0.0-0.50); EOS % 4.5 % (0.0-3.0); HEMATOCRIT 37.1 % (36.0-47.0); HEMOGLOBIN 12.3 g/dl (12.0-15.5); IMMATURE GRANULOCYTE % 0.5 % (0-3.0); LYMPH # 3.5 10^3/uL (1.5-4.5); LYMPH % 28.1 % (24.0-44.0); MEAN CORPUSCULAR HEMOGLOBIN 29.9 pg (27.0-33.0); MEAN CORPUSCULAR HGB CONC 33.2 g/dl (32.0-36.5); MONO # 0.8 10^3/uL (0.0-0.8); MONO % 6.1 % (0.0-5.0); NEUTROPHILS # 7.5 10^3/uL (1.8-7.7); NEUTROPHILS % 60.5 % (36.0-66.0); PLATELET COUNT, AUTOMATED 304 10^3/uL (150-450); RED BLOOD COUNT 4.12 10^6/uL (4.00-5.40); RED CELL DISTRIBUTION WIDTH 13.4 % (11.5-14.5); WHITE BLOOD COUNT 12.3 10^3/uL (4.0-10.0)
[2018-07-16 22:53] LABS: URIC ACID 4.5 MG/DL (2.6-6.0)
== END 2018-07-16 23:19 | disposition home or self-care (01) ==
LOC: M ED 21:11
DX: M25.531 Pain in right wrist (principal); E11.9 Type 2 diabetes mellitus without complications; I10 Essential (primary) hypertension; J45.909 Unspecified asthma, uncomplicated; E78.5 Hyperlipidemia, unspecified; M10.9 Gout, unspecified; Z87.39 Personal history of other diseases of the musculoskeletal system and connective tissue; Z79.899 Other long term (current) drug therapy; Z88.8 Allergy status to other drugs, medicaments and biological substances
CPT/HCPCS: 73110

== ENCOUNTER → 2018-08-12 | Outpatient (CLI) | payer OTHER ==
[~2018-08-12] MED LIST changes: +/ADVA50050 IN; +/BISO10TA OR; +/DULO30CA; +/HYDR10T PO; +ACET500C OR; +ACET500C PO; +ACET500T15 PO; +ADV250INH INH; +ADVAIR INH; +ALBU17IN2 INH; +ALBU83IN; +ALLO100T OR; +ALLO100T PO; +ASTE0.15; +ATOR40TA75 PO; +AUGM875T28 PO; +AZEL1POW XX; +AZIT500I PO; +BACL10TA2 OR; +BACL10TA2 PO; +CLAR5CHW; +CLIM0.05 TD; +CYAN1000VL PO; +DICL100T PO; +DICL100T3 PO; +DRIS50003 PO; +DULE100A IN; +DYMI137S; +EMLA2.5C TOP; +ENDO7.5T7 PO; +FLECTOR PATCH; +FLEX10TA2 PO; +FLEXERIL PO; +FLON0.054; +FLUT11IN INH; +FLUT44IN INH; +FLUTISP; +GABA-845 PO; +GABA300T; +GABA300T OR; +HYDR10TA3 OR; +HYDR25TA6 OR; +HYDR25TAB PO; +HYDRODIURIL; +KETO-30 TOP; +KETO2CR TOP; +LATA1POW OU; +LIDO1PAD; +LIDO2.5C17 EXT; -LIDOCAINE 2% INJ 100 MG/5 ML SDV (FOR ANES.) As Ordered; +LISI-538 PO; +MAGN250T9 PO; +MELO15TA28 PO; +METF10004 PO; +METF500T13 PO; +METH750T PO; +MICROGESTIN OR; +MOBI4TAB PO; +MONT10TA2 PO; +NAPR-50 PO; +NAPR-885 PO; +NAPR375T; +NAPR500T OR; +NASONEX; +NECO1TAB2 PO; +NECON; +NECON PO; +NYST10CR EXT; +NYST10CR TOP; +OMEP40CA2 PO; +OXYC1TAB23 PO; +PANTANASE; +PATANASE; +PENN1SOL2 TOP; +PERC5TAB12 PO; +PERCOCET PO; +PRED20TA PO; +PREG50CA; +PROBENECID; +PROBENECID OR; +PROP60TA; -PROPOFOL 200 MG/20 ML VIAL As Ordered; +PROV90AE; +PROV90AE INH; +ROBA500T PO; +SING10TA31 OR; +SUDA30TA OR; +TIZA2CAP PO; +TIZA4CAP PO; +TRAM50TA2; +TRAM50TA2 OR; +TRIAPOW5; +TRUL0.5I SC; +TRUL10IN SC; +VENTAER IN; +VITA100067 PO; +VITA100T20 PO; +VITA1TAB22 PO; +VITA200028 PO; +VITA400T15 PO; +VITAMIN D50000 UNT; +VOLTAREN TOP; +ZEBE5TAB; +ZITH250T OR; +[UNRECOGNIZED DRUG - CODE] AD; +[UNRECOGNIZED DRUG - OTHER]; +[UNRECOGNIZED DRUG - OTHER] AD; +[UNRECOGNIZED DRUG - OTHER] AD; +[UNRECOGNIZED DRUG - OTHER] OR; +[UNRECOGNIZED DRUG - OTHER] TD; +[UNRECOGNIZED DRUG - OTHER] TOP; +[UNRECOGNIZED DRUG - REMARK] INJ; +astelin; +colcrys PO; +pennsaid TD; +veramyst
--- NOTE | 2018-08-12 09:59 | REPMRS ---
Patient History The patient states she has not had a clinical breast exam in over a year. Patient is postmenopausal. Family history of breast cancer at age 88 in maternal grandmother. Took hormonal contraceptives for 23 years. Taking estrogen for 1 year. Digital Woman Screen Mammo: August 12, 2018 - Exam #: [id number] Bilateral CC and MLO view(s) were taken. Technologist: Emilie Miller, Technologist Prior study comparison: August 07, 2017, digital woman screen mammo performed at [facility]. August 22, 2016, digital woman screen mammo performed at [facility]. August 17, 2015, digital woman screen mammo performed at [facility]. FINDINGS: There are scattered fibroglandular densities. There has been no change in the appearance of the mammogram from the prior studies. There is a mild amount of scattered fibroglandular density which is fairly symmetric. There is no interval development of dominant mass, architectural distortion, or clustered microcalcification suggestive of malignancy. 3-D tomosynthesis shows no additional findings. Assessment: BI-RADS/ACR category 1 mammogram. Negative. Recommendation Routine screening mammogram of both breasts in 1 year (for women over age 40). This patient's Lifetime Breast Cancer RIsk is estimated at 13.0 %. This mammogram was interpreted with the aid of an FDA-approved computer-aided dectection system. Electronically Signed By: Jose Webster MD 08/12/18 0958
== END ==
LOC: M WHC 07:33
PROVIDERS: ATTEND Nurse Practitioner Women's Health
DX: Z12.31 Encounter for screening mammogram for malignant neoplasm of breast (principal); Z78.0 Asymptomatic menopausal state; Z80.3 Family history of malignant neoplasm of breast; Z79.899 Other long term (current) drug therapy

== ENCOUNTER 2018-08-31 11:12 | Emergency (ER) | payer OTHER ==
[~2018-08-31] VITALS: Ht 160 cm; Wt 98.6 kg
[2018-08-31] MEDS ORDERED: IPRATROPIUM 0.5MG/ALBUTEROL 2.5MG INH SOL UD 3ML (DUONEB)(J7620) NEB PRN (11:30)
[2018-08-31 12:11] LABS: INFLUENZA A AMPLIFICATION NEGATIVE (NEGATIVE); INFLUENZA B AMPLIFICATION NEGATIVE (NEGATIVE)
--- NOTE | 2018-08-31 13:22 | REP ---
Clinical: Cough and dyspnea . Comparison: 06/29/2018 . Technique: PA and lateral. Findings: The mediastinum and cardiac silhouette are normal. The lung akhtar are clear and without acute consolidation, effusion, or pneumothorax. The skeletal structures are intact and normal. Impression: 1. No acute cardiopulmonary process. Electronically Signed by Salas Aguirre MD 08/31/2018 01:14 P
[2018-08-31 13:56] VITALS: BP 120/69
== END 2018-08-31 13:58 | disposition home or self-care (01) ==
LOC: M ED 11:12
DX: J45.901 Unspecified asthma with (acute) exacerbation (principal); E11.9 Type 2 diabetes mellitus without complications; I10 Essential (primary) hypertension; E78.5 Hyperlipidemia, unspecified; G47.30 Sleep apnea, unspecified; Z79.84 Long term (current) use of oral hypoglycemic drugs; Z79.899 Other long term (current) drug therapy; Z88.8 Allergy status to other drugs, medicaments and biological substances

== ENCOUNTER → 2018-09-15 | Outpatient (CLI) | payer OTHER ==
--- NOTE | 2018-10-01 00:53 | ECWPNPC ---
PATIENT NAME: STEVE DIAMOND : 1965 GENDER: FEMALE VISIT DATE: 09/15/2018 DISCHARGE DATE: 09/15/18 1042 VISIT LOCKED DATE TIME: PHYSICIAN: DHARMESH BLANCO RESOURCE: DHARMESH BLANCO REASON FOR APPOINTMENT 1. SW/BACK PAIN HISTORY OF PRESENT ILLNESS HISTORY OF PRESENT ILLNESS: HERE FOR F/U OF CHRONIC LOW BACK PAIN AND KNEE PAIN.RATING PAIN VAS 7/10.CHIEF AREA OF PAIN IS LOW BACK.DESCRIBES PAIN CONTINUOUS,SHARP AND BURNING.FEELS GABAPENTIN IS INEFFECTIVE ANYMORE.DISCUSSED MEICATION AND TREATMENT OPTIONS. PAIN THE PATIENT DESCRIBES THE PAIN... FALL RISK SCREENING: SCREENING :NO FALLS IN THE PAST YEAR CURRENT MEDICATIONS TAKING SALINE NASAL SPRAY 0.65 % SOLUTION 2 DROPS IN EACH NOSTRIL NEEDED NASALLY EVERY 2 HRS TAKING BACLOFEN 10 MG TABLET 1 TABLET WITH FOOD OR MILK ORALLY THREE TIMES A DAY PRN SPASM TAKING KETOCONAZOLE 2 % CREAM 1 APPLICATION TO FEET EXTERNALLY ONCE A DAY TAKING NYSTATIN CREAM [id number] UNITS/GM CREAM 1 APPLICATION TOPICALLY/ TO FEET TWICE A DAY TAKING MELOXICAM 7.5 MG TABLET 1 TABLET ORALLY TWICE A DAY TAKING ALPHAGAN P 0.15 % SOLUTION 1 DROP INTO AFFECTED EYE OPHTHALMIC TWICE DAILY, NOTES: [facility] TAKING VITAMIN B-12 1000 MCG TABLET CHEWABLE 1 TABLET ORALLY ONCE A DAY- OTC TAKING CLIMARA 0.05 MG/24HR PATCH WEEKLY 1 PATCH TO SKIN TRANSDERMAL WEEKLY TAKING ALBUTEROL SULFATE (2.5 MG/3ML) 0.083% NEBULIZATION SOLUTION 3 ML INHALATION THREE TIMES A DAY PRN TAKING LIDODERM 5 % PATCH 1 PATCH TO SKIN REMOVE AFTER 12 HOURS EXTERNALLY APPLY 2 PATCHES TO PAINFUL AREA RIGHT THORACIC REGION ON 12 HR OFF 12 HR TAKING AZELASTINE HCL 137 MCG/SPRAY SOLUTION 1 PUFF IN EACH NOSTRIL NASALLY TWICE A DAY TAKING FLONASE ALLERGY RELIEF 50 MCG/ACT SUSPENSION 1 SPRAY IN EACH NOSTRIL NASALLY ONCE A DAY TAKING SINGULAIR 10 MG TABLET 1 TABLET IN THE EVENING ORALLY ONCE A DAY TAKING DULERA 100 MCG/5MCG 2 PUFFS INHALATION TWICE A DAY TAKING VITAMIN D 2000 UNIT TABLET 1 TABLET ORALLY ONCE A DAY TAKING MAGNESIUM OXIDE 250 MG TABLET 1 TABLET NEEDED ORALLY ONCE A DAY TAKING NORVASC 5 MG TABLET 1 TABLET ORALLY ONCE A DAY TAKING ACETAMINOPHEN 500 MG CAPSULE 2 TABLETS ORALLY EVERY 8 HRS PRN TAKING VITAMIN B12 100 MCG TABLET 1 TABLET ORALLY ONCE A DAY TAKING LISINOPRIL 20 MG TABLET 1 TABLET ORALLY ONCE A DAY TAKING ALLOPURINOL 100 MG TABLET 2 TABLET ORALLY ONCE A DAY TAKING PROVENTIL HFA 108 (90 BASE) MCG/ACT AEROSOL SOLUTION 2 PUFFS INHALATION EVERY 4 HOUR NEEDED TAKING LANCETS - MISCELLANEOUS 1 EACH TO USE FOR ONCE TOUCH DAILY/ E11.9 TAKING TRULICITY 1.5 MG/0.5ML SOLUTION PEN-INJECTOR INJECT 0.5ML SUBCUTANEOUS ONCE WEEKLY TAKING GABAPENTIN 400 MG CAPSULE 1 CAPSULE ORALLY THREE TIMES A DAY TAKING LIPITOR 40 MG TABLET 1 TABLET ORALLY ONCE A DAY TAKING HYDROCHLOROTHIAZIDE 25 MG TABLET 1 TABLET BY MOUTH ONCE A DAY TAKING BLOOD GLUCOSE TEST - STRIP 1 STRIP GLUCOSE TESTING STRIPS FOR ONE TOUCH VERIO DAILY/ E119 TAKING METFORMIN HCL 1000 MG TABLET 1 TABLET WITH MEALS ORALLY TWICE A DAY NOT-TAKING AMOXICILLIN 875 MG TABLET 1 TABLET ORALLY EVERY 12 HRS NOT-TAKING ESTRADIOL 0.075 MG/24HR PATCH TWICE WEEKLY 1 PATCH TO SKIN TRANSDERMAL TWO TIMES A WEEK MEDICATION LIST REVIEWED AND RECONCILED WITH THE PATIENT PAST MEDICAL HISTORY HYPERTENSION ASTHMA GOUT VITAMIN D DEFICIENCY CHRONIC RIGHT OTITIS MEDIA PRE-DIABETES/IMPAIRED FASTING GLUCOSE FIBROMYALGIA-GOES TO PAIN CLINIC RECURRENT SINUSITIS TD 1999; TDAP 06/15 PNEUMNOVAX 2009 CHRONIC ALLERGIC RHINITIS - GETS ALLERGY SHOTS VITAMIN B12 DEFICIENCY--ON MONTHLY INJECTIONS FOR A WHILE, STOPPED COMING FOR THEM, LEVEL NL 10/16 FIBROIDS ALLERGIES TRICOR: RASH: ALLERGY SURGICAL HISTORY KNEE ARTHROSCOPY (4 ON RT, 3 ON LEFT) CARPAL TUNNEL RELEASE R 2001 RIGHT KNEE ARTHROSCOPY SURGERY DR. SHARMA 02/09/2013 LAPAROSCOPY, REMOVAL OF FIBROID 10/21/16 MANUEL WITH BILAT. SALPINGO OOPHERECTOMY 12/11/16 LEFT CARPEL TUNNEL 10/2017 FAMILY HISTORY FATHER: ALIVE, HEALTH STATUS UNKNOWN MOTHER: ALIVE 68 YRS, DIAGNOSED WITH DIABETES, HYPERTENSION SOCIAL HISTORY GENERAL: TOBACCO USE ARE YOU A:FORMER SMOKER BMI CARE GOAL FOLLOW-UP ABOVE NORMAL BMI FOLLOW-UPDIETARY MANAGEMENT EDUCATION, GUIDANCE, AND COUNSELING ALCOHOL SCREENING DID YOU HAVE A DRINK CONTAINING ALCOHOL IN THE PAST YEAR?NO POINTS0 INTERPRETATIONNEGATIVE RECREATIONAL DRUG USE DRUG USE?NO CAFFEINE CAFFEINE USE?NO SEXUAL HX HAD SEX IN THE LAST 12 MONTHS (VAGINAL, ORAL, OR ANAL)?YES WITHMEN ONLY PREVENTION STRATEGIES DISCUSSED:OTHER USE PROTECTION?NO LMP:HYSTER HAVE YOU EVER HAD AN STD?NO HIV / HEP-C SCREENING HIV TEST OFFERED TO PATIENT:YES DATE OFFERED:10/11/2016 TEST ACCEPTED:NO HEP-C TEST OFFERED TO PATIENT:NO REASON:PATIENT DECLINED [employer]ISH [id number]. EDUCATION 12TH GRADE GRADUATE . 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 DIET: REGULAR. EXERCISE: WALKS UP & DOWN STAIRS @ HOME WHEN OUT ON APPOINTMENTS. MARITAL STATUS: . OTHERS AT HOME: SPOUSE, CHILD. NEW PATIENT PAIN DIARY TODAY'S VISIT NOTES, FROM 0-10, WHAT LEVEL IS YOUR PAIN TODAY? 0. PAIN CLINIC PFS, CLERGY, PUBLIC HEALTH REFERRALS PFS REFERRAL NEEDED?NO CLERGY REFERRAL NEEDED?NO PUBLIC HEALTH REFERRAL NEEDED?NO HAS THE PATIENT BEEN EDUCATED REGARDING HIS/HER PLAN OF CARE?YES HAS THE PATIENT BEEN EDUCATED REGARDING PAIN, THE RISK FOR PAIN, THE IMPORTANCE OF EFFECTIVE PAIN MANAGEMENT, AND THE PAIN ASSESSMENT PROCESS?YES ADVANCE DIRECTIVE ADVANCE DIRECTIVE DISCUSSED WITH PATIENT:YES DECLINED INFORMATION REVIEWED WITH PATIENT 05/20/18 1006 JS. HOSPITALIZATION/MAJOR DIAGNOSTIC PROCEDURE SURGERY 12/2016 REVIEW OF SYSTEMS REVIEWED BY: PROVIDER: DHARMESH CONNELLY . CONSTITUTIONAL: ANY CHANGE IN YOUR MEDICAL CONDITION? NO . CHILLS NO . FEVER NO . INFECTION: DO YOU HAVE NEW INFECTIONS? NO . DO YOU HAVE HISTORY OF MRSA? NO . MUSCULOSKELETAL: ANY NEW PATTERNS OF PAIN OR NUMBNESS? YES, RIGHT WRIST INJURY 07/2018, SEEN AT [facility] ER WHERE SPLINT WAS APPLIES AND THEN TO ORTHOPEDICS 08/14/2018 WHERE CAST WAS PLACED, PT STATES IMAGING WAS DONE, NO FX NOTED, BUT NEEDED STABILITY . GASTROENTEROLOGY: ANY NEW CHANGE IN BOWEL CONTROL? NO . GENITOURINARY: ANY NEW CHANGE IN BLADDER CONTROL? NO . IS THERE A CHANCE YOU COULD BE ? NO . HEMATOLOGY/LYMPH: DO YOU TAKE ANY BLOOD THINNERS? (FOR EXAMPLE- COUMADIN, PLAVIX, AGGRENOX, PLATEL, PRADAXA, OR XARELTO) NO . WHEN WAS YOUR LAST DOSE? DATE: TIME: . NEUROLOGY: HAVE YOU FALLEN IN THE PAST 12 MONTHS? NO . ANY NEW EXTREMITY NUMBNESS OR WEAKNESS? NO . CARDIOLOGY: DO YOU HAVE A PACEMAKER OR DEFIBRILLATOR? NO . RESPIRATORY: HAVE YOU BEEN SICK IN THE PAST WEEK? NO . FEVER NO . FLU LIKE SYMPTOMS? NO . COUGH NO . INTEGUMENTARY: DO YOU HAVE ANY RASHES OR OPEN SORES? NO . ALLERGIC/IMMUNO: ARE YOU ALLERGIC TO IV DYE? NO . ANY NEW ALLERGIES? NO . PSYCHIATRIC: DO YOU HAVE THOUGHTS OF HURTING YOURSELF OR SOMEONE ELSE? NO . ARE YOU ABUSED, NEGLECTED, OR IN AN UNSAFE ENVIRONMENT? NO . ENDOCRINOLOGY: ARE YOU DIABETIC? YES . OTHER: DO YOU NEED ANY PRESCRIPTIONS? NO . IF YES, PLEASE LIST: ____ . ANY NEW PROBLEMS WITH YOUR MEDICATIONS? NO . WHEN DID YOU LAST EAT? ____ . WHEN DID YOU LAST DRINK? ____ . WHAT DID YOU LAST DRINK? ____ . NAME OF PERSON DRIVING YOU HOME? ____ . DO YOU HAVE ANY OTHER QUESTIONS OR CONCERNS NO . VITAL SIGNS WT 217.2 LBS, HT 5'3", BMI 38.47 INDEX, BP 133/80 MM HG, HR 77 /MIN, RR 18 /MIN, TEMP 98.0 F, OXYGEN SAT % 96%, NA INITIALS AW 0946, REVIEWED BY: EM. EXAMINATION GENERAL EXAMINATION: GENERAL APPEARANCE:AWAKE,ALERT ,PLEAASANT . PSYCHAFFECT NORMAL . LUNGS:LUNG ROCA ARE CLEAR TO AUSCULTATION BILATERALLY. GOOD MOVEMENT OF AIR . HEART:S1, S2 IN A REGULAR RATE AND RHYTHM. NO SIGNIFICANT MURMURS, RUBS OR GALLOPS NOTED . LUMBAR SACRAL SPINEPALPATION: + FOR PAIN OVER L/S SPINE. + FOR PAIN OVER L/S PARSPINALS. ASSESSMENTS FIBROMYALGIA - M79.7 (PRIMARY) LOW BACK PAIN - M54.5 PAIN IN RIGHT KNEE - M25.561 PAIN IN LEFT KNEE - M25.562 OTHER CHRONIC PAIN - G89.29 TREATMENT FIBROMYALGIA INCREASE GABAPENTIN TABLET, 600 MG, 1 CAPSULE, ORALLY, THREE TIMES A DAY, 30 DAY(S), 90, REFILLS 2 CONTINUE ACETAMINOPHEN CAPSULE, 500 MG, 2 TABLETS, ORALLY, EVERY 8 HRS PRN, 30 DAY(S), 90, REFILLS 5 [facility] MRI SPINE, L.S. WITHOUT [id number] PROCEDURE CODES FA211 ESTABILISHED PATIENT PROTESTANT FACILITY CHARGE DISPOSITION & COMMUNICATION FOLLOW UP 10 WKS ELECTRONICALLY SIGNED BY MARICEL ORELLANA ON 09/30/2018 AT 08:43 AM EST DISCLAIMER : THIS IS A VISIT SUMMARY EXTRACTED FROM THE ECLINICALCREATIV CHART. IT IS NOT A COPY OF THE [employer] PROGRESS NOTE. DANIEL
== END ==
LOC: M PAIN 09:45
PROVIDERS: ATTEND Nurse Practitioner Family
DX: M79.7 Fibromyalgia (principal); M54.5 Low back pain; M25.561 Pain in right knee; M25.562 Pain in left knee; G89.29 Other chronic pain; E11.9 Type 2 diabetes mellitus without complications; I10 Essential (primary) hypertension; J45.909 Unspecified asthma, uncomplicated; E55.9 Vitamin D deficiency, unspecified; E53.8 Deficiency of other specified B group vitamins; Z79.1 Long term (current) use of non-steroidal anti-inflammatories (NSAID); Z79.84 Long term (current) use of oral hypoglycemic drugs; Z79.899 Other long term (current) drug therapy; Z88.8 Allergy status to other drugs, medicaments and biological substances; Z87.39 Personal history of other diseases of the musculoskeletal system and connective tissue; Z87.891 Personal history of nicotine dependence

== ENCOUNTER → 2018-09-30 | Outpatient (REF) | payer OTHER ==
[2018-09-30 10:38] LABS: HEMOGLOBIN A1c 5.8 %
[2018-09-30 10:41] LABS: ALBUMIN 3.9 GM/DL (3.2-5.2); ALT/SGPT 32 U/L (12-78); BILIRUBIN,TOTAL 0.4 MG/DL (0.2-1.0); BLOOD UREA NITROGEN 12 MG/DL (7-18); CALCIUM LEVEL 9.4 MG/DL (8.5-10.1); CARBON DIOXIDE LEVEL 29 MEQ/L (21-32); CHLORIDE LEVEL 98 MEQ/L (98-107); CHOLESTEROL LEVEL 131 MG/DL (<200); CHOLESTEROL RISK RATIO 2.911 (<5); CREATININE FOR GFR 0.51 MG/DL (0.55-1.30); GLOMERULAR FILTRATION RATE > 60.0 (>51); GLUCOSE, FASTING 99 MG/DL (70-100); HDL CHOLESTEROL 45 MG/DL (>40); LDL CHOLESTEROL 39 MG/DL (<100); MAGNESIUM LEVEL 1.8 MG/DL (1.8-2.4); NON-HDL-C 86 MG/DL; POTASSIUM SERUM 4.5 MEQ/L (3.5-5.1); SODIUM LEVEL 135 MEQ/L (136-145); TOTAL PROTEIN 6.8 GM/DL (6.4-8.2); TRIGLYCERIDES LEVEL 237 MG/DL (<150)
[2018-09-30 11:05] LABS: CREATININE, URINE 58.5 MG/DL; MALB URINE SIEMENS < 5.0 MG/L; MAU/CREAT RATIO 8.5 MCG/MG (0.0-30.0)
== END ==
LOC: M SFHCPLAZ 07:59
PROVIDERS: ATTEND Nurse Practitioner Family
DX: E11.9 Type 2 diabetes mellitus without complications (principal); I10 Essential (primary) hypertension; E78.2 Mixed hyperlipidemia; E83.42 Hypomagnesemia

== ENCOUNTER 2018-10-20 07:56 | Outpatient (RCR) | payer OTHER | END 2018-11-01 | LOC: M OT 07:56 | PROVIDERS: ATTEND Physician Assistant | DX: S63.91XD Sprain of unspecified part of right wrist and hand, subsequent encounter (principal) ==

== ENCOUNTER 2018-11-11 07:37 | Outpatient (RCR) | payer OTHER ==
[~2018-11-11 07:37] MED LIST changes: -/ADVA50050 IN; -/BISO10TA OR; -/DULO30CA; +ADVA1AER2 IN; +CYAN100T5 PO; +CYMB1CAP5; -DICL100T3 PO; +DICL100T89 PO; -KETO2CR TOP; +KETO2CRE TOP; -NAPR-50 PO; +NAPR-837 PO; +NYST100029 TOP; -NYST10CR TOP; -PERCOCET PO; -VITA100T20 PO; +VITA100T51 PO; -VITA1TAB22 PO; +ZEBE1TAB OR
== END 2018-12-01 ==
LOC: M OT 07:37
PROVIDERS: ATTEND Physician Assistant
DX: S63.91XD Sprain of unspecified part of right wrist and hand, subsequent encounter (principal); W18.30XD Fall on same level, unspecified, subsequent encounter; Y92.009 Unspecified place in unspecified non-institutional (private) residence as the place of occurrence of the external cause

== ENCOUNTER → 2018-11-24 | Outpatient (CLI) | payer OTHER ==
[~2018-11-24] MED LIST changes: -CYAN100T5 PO; +VITA1TAB22 PO
--- NOTE | 2018-11-26 01:02 | ECWPNPC ---
PATIENT NAME: STEVE DIAMOND : 1965 GENDER: FEMALE VISIT DATE: 11/24/2018 DISCHARGE DATE: 11/24/1842 VISIT LOCKED DATE TIME: PHYSICIAN: VALE RODRIGUEZ RESOURCE: VALE RODRIGUEZ REASON FOR APPOINTMENT 1. BACK PAIN HISTORY OF PRESENT ILLNESS HISTORY OF PRESENT ILLNESS: PAIN THE PATIENT DESCRIBES THE PAIN... 53 YR OLD FEMALE HERE FOR F/U ON CHRONIC BACK PAIN. SHE SAYS SHE IS DOING WELL, WITH OCCASIONAL SPASMS.VAS 7/10. SHE SAYS SHE HAS ENOUGH MEDICATION AT PRESENT. FALL RISK SCREENING: SCREENING :NO FALLS REPORTED IN THE LAST YEAR CURRENT MEDICATIONS TAKING BACLOFEN 10 MG TABLET 1 TABLET WITH FOOD OR MILK ORALLY THREE TIMES A DAY PRN SPASM TAKING KETOCONAZOLE 2 % CREAM 1 APPLICATION TO FEET EXTERNALLY ONCE A DAY TAKING NYSTATIN CREAM [id number] UNITS/GM CREAM 1 APPLICATION TOPICALLY/ TO FEET TWICE A DAY TAKING MELOXICAM 7.5 MG TABLET 1 TABLET ORALLY TWICE A DAY TAKING ALPHAGAN P 0.15 % SOLUTION 1 DROP INTO AFFECTED EYE OPHTHALMIC TWICE DAILY, NOTES: [facility] TAKING VITAMIN B-12 1000 MCG TABLET CHEWABLE 1 TABLET ORALLY ONCE A DAY- OTC TAKING CLIMARA 0.05 MG/24HR PATCH WEEKLY 1 PATCH TO SKIN TRANSDERMAL WEEKLY TAKING ALBUTEROL SULFATE (2.5 MG/3ML) 0.083% NEBULIZATION SOLUTION 3 ML INHALATION THREE TIMES A DAY PRN TAKING LIDODERM 5 % PATCH 1 PATCH TO SKIN REMOVE AFTER 12 HOURS EXTERNALLY APPLY 2 PATCHES TO PAINFUL AREA RIGHT THORACIC REGION ON 12 HR OFF 12 HR TAKING VITAMIN B12 100 MCG TABLET 1 TABLET ORALLY ONCE A DAY TAKING PROVENTIL HFA 108 (90 BASE) MCG/ACT AEROSOL SOLUTION 2 PUFFS INHALATION EVERY 4 HOUR NEEDED TAKING HYDROCHLOROTHIAZIDE 25 MG TABLET 1 TABLET BY MOUTH ONCE A DAY TAKING BLOOD GLUCOSE TEST - STRIP 1 STRIP GLUCOSE TESTING STRIPS FOR ONE TOUCH VERIO DAILY/ E119 TAKING GABAPENTIN 600 MG TABLET 1 CAPSULE ORALLY THREE TIMES A DAY TAKING ACETAMINOPHEN 500 MG CAPSULE 2 TABLETS ORALLY EVERY 8 HRS PRN TAKING LANCETS - MISCELLANEOUS 1 EACH TO USE FOR ONCE TOUCH DAILY/ E11.9 TAKING METFORMIN HCL 1000 MG TABLET 1 TABLET WITH MEALS ORALLY TWICE A DAY TAKING TRULICITY 1.5 MG/0.5ML SOLUTION PEN-INJECTOR INJECT 0.5ML SUBCUTANEOUS ONCE WEEKLY TAKING NORVASC 5 MG TABLET 1 TABLET ORALLY ONCE A DAY TAKING LIPITOR 40 MG TABLET 1 TABLET ORALLY ONCE A DAY TAKING AZELASTINE HCL 137 MCG/SPRAY SOLUTION 1 PUFF IN EACH NOSTRIL NASALLY TWICE A DAY TAKING FLONASE ALLERGY RELIEF 50 MCG/ACT SUSPENSION 1 SPRAY IN EACH NOSTRIL NASALLY ONCE A DAY TAKING SINGULAIR 10 MG TABLET 1 TABLET IN THE EVENING ORALLY ONCE A DAY TAKING DULERA 100 MCG/5MCG 2 PUFFS INHALATION TWICE A DAY TAKING SALINE NASAL SPRAY 0.65 % SOLUTION 2 DROPS IN EACH NOSTRIL NEEDED NASALLY EVERY 2 HRS TAKING VITAMIN D 2000 UNIT TABLET 1 TABLET ORALLY ONCE A DAY TAKING MAGNESIUM OXIDE 250 MG TABLET 1 TABLET NEEDED ORALLY ONCE A DAY TAKING ALLOPURINOL 100 MG TABLET 2 TABLET ORALLY ONCE A DAY TAKING LISINOPRIL 20 MG TABLET 1 TABLET ORALLY ONCE A DAY MEDICATION LIST REVIEWED AND RECONCILED WITH THE PATIENT PAST MEDICAL HISTORY HYPERTENSION ASTHMA GOUT VITAMIN D DEFICIENCY CHRONIC RIGHT OTITIS MEDIA PRE-DIABETES/IMPAIRED FASTING GLUCOSE FIBROMYALGIA-GOES TO PAIN CLINIC RECURRENT SINUSITIS TD 1999; TDAP 06/15 PNEUMNOVAX 2009 CHRONIC ALLERGIC RHINITIS - GETS ALLERGY SHOTS VITAMIN B12 DEFICIENCY--ON MONTHLY INJECTIONS FOR A WHILE, STOPPED COMING FOR THEM, LEVEL NL 10/16 FIBROIDS COLONOSCOPY 2017, REPEAT IN 5 YEAR ALLERGIES TRICOR: RASH - ALLERGY SURGICAL HISTORY KNEE ARTHROSCOPY (4 ON RT, 3 ON LEFT) CARPAL TUNNEL RELEASE R 2001 RIGHT KNEE ARTHROSCOPY SURGERY DR. SHARMA 02/09/2013 LAPAROSCOPY, REMOVAL OF FIBROID 10/21/16 MANUEL WITH BILAT. SALPINGO OOPHERECTOMY 12/11/16 LEFT CARPEL TUNNEL 10/2017 FAMILY HISTORY FATHER: ALIVE, HEALTH STATUS UNKNOWN MOTHER: ALIVE 68 YRS, DIAGNOSED WITH DIABETES, HYPERTENSION SOCIAL HISTORY GENERAL: TOBACCO USE ARE YOU A:FORMER SMOKER LATEX QUESTIONNAIRE LATEX ALLERGY : HAVE YOU EVER DEVELOPED ANY TYPE OF REACTION AFTER HANDLING LATEX PRODUCTS SUCH RUBBER GLOVES, CONDOMS, DIAPHRAGMS, BALLOONS, SOCKS, OR UNDERWEAR?NO LATEX ALLERGY : HAVE YOU EVER DEVELOPED ANY TYPE OF REACTION DURING OR AFTER DENTAL APPOINTMENT, VAGINAL/RECTAL EXAMINATION, SURGICAL PROCEDURE, OR ANY OTHER EXPOSURE?NO DATE ASKED : 10/08/2018 LATEX RISK : HAVE YOU EVER HAD ANY DIFFICULTY BREATHING OR HIVES AFTER EATING OR HANDLING ANY FRUITS, OR VEGETABLES; SUCH KIWI, BANANAS, STONE FRUITS, OR CHESTNUTSNO LATEX RISK : DO YOU HAVE A PREVIOUS PERSONAL HISTORY OF MORE THAN NINE SURGERIES, SPINA BIFIDA, OR REPEATED CATHERTIZATIONS? NO LATEX RISK : ARE YOU FREQUENTLY EXPOSED TO LATEX PRODUCTS IN YOUR OCCUPATION?NO BMI CARE GOAL FOLLOW-UP ABOVE NORMAL BMI FOLLOW-UPDIETARY MANAGEMENT EDUCATION, GUIDANCE, AND COUNSELING ALCOHOL SCREENING DID YOU HAVE A DRINK CONTAINING ALCOHOL IN THE PAST YEAR?NO POINTS0 INTERPRETATIONNEGATIVE RECREATIONAL DRUG USE DRUG USE?NO CAFFEINE CAFFEINE USE?NO SEXUAL HX HAD SEX IN THE LAST 12 MONTHS (VAGINAL, ORAL, OR ANAL)?YES WITHMEN ONLY PREVENTION STRATEGIES DISCUSSED:OTHER USE PROTECTION?NO LMP:HYSTER HAVE YOU EVER HAD AN STD?NO HIV / HEP-C SCREENING HIV TEST OFFERED TO PATIENT:YES DATE OFFERED:10/11/2016 TEST ACCEPTED:NO HEP-C TEST OFFERED TO PATIENT:NO REASON:PATIENT DECLINED [id number]. EDUCATION 12TH GRADE GRADUATE . 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 DIET: REGULAR. EXERCISE: WALKS UP & DOWN STAIRS @ HOME WHEN OUT ON APPOINTMENTS. MARITAL STATUS: . OTHERS AT HOME: SPOUSE, CHILD. NEW PATIENT PAIN DIARY TODAY'S VISIT NOTES, FROM 0-10, WHAT LEVEL IS YOUR PAIN TODAY? 0. PAIN CLINIC PFS, CLERGY, PUBLIC HEALTH REFERRALS PFS REFERRAL NEEDED?NO CLERGY REFERRAL NEEDED?NO PUBLIC HEALTH REFERRAL NEEDED?NO HAS THE PATIENT BEEN EDUCATED REGARDING HIS/HER PLAN OF CARE?YES HAS THE PATIENT BEEN EDUCATED REGARDING PAIN, THE RISK FOR PAIN, THE IMPORTANCE OF EFFECTIVE PAIN MANAGEMENT, AND THE PAIN ASSESSMENT PROCESS?YES HOUSING: [employer]. ADVANCE DIRECTIVE ADVANCE DIRECTIVE DISCUSSED WITH PATIENT:YES DECLINED HCP INFORMATION. REVIEWED WITH PATIENT 05/20/18 1006 JSREVIEWED WITH PATIENT 11/24/18 0918 JS. HOSPITALIZATION/MAJOR DIAGNOSTIC PROCEDURE SURGERY 12/2016 REVIEW OF SYSTEMS REVIEWED BY: PROVIDER: EVELINE Goodman CONSTITUTIONAL: ANY CHANGE IN YOUR MEDICAL CONDITION? NO . CHILLS NO . FEVER NO . INFECTION: DO YOU HAVE NEW INFECTIONS? NO . DO YOU HAVE HISTORY OF MRSA? NO . MUSCULOSKELETAL: ANY NEW PATTERNS OF PAIN OR NUMBNESS? NO . GASTROENTEROLOGY: ANY NEW CHANGE IN BOWEL CONTROL? NO . GENITOURINARY: ANY NEW CHANGE IN BLADDER CONTROL? NO . IS THERE A CHANCE YOU COULD BE ? NO . HEMATOLOGY/LYMPH: DO YOU TAKE ANY BLOOD THINNERS? (FOR EXAMPLE- COUMADIN, PLAVIX, AGGRENOX, PLATEL, PRADAXA, OR XARELTO) NO . WHEN WAS YOUR LAST DOSE? DATE: TIME: . NEUROLOGY: HAVE YOU FALLEN IN THE PAST 12 MONTHS? NO . ANY NEW EXTREMITY NUMBNESS OR WEAKNESS? NO . CARDIOLOGY: DO YOU HAVE A PACEMAKER OR DEFIBRILLATOR? NO . RESPIRATORY: HAVE YOU BEEN SICK IN THE PAST WEEK? NO . FEVER NO . FLU LIKE SYMPTOMS? NO . COUGH NO . INTEGUMENTARY: DO YOU HAVE ANY RASHES OR OPEN SORES? YES, STATES SHE HAS AN OPEN CUT ON HER LEFT THUMB FROM CUTTING IT FRIDAY . ALLERGIC/IMMUNO: ARE YOU ALLERGIC TO IV DYE? NO . ANY NEW ALLERGIES? NO . PSYCHIATRIC: DO YOU HAVE THOUGHTS OF HURTING YOURSELF OR SOMEONE ELSE? NO . ARE YOU ABUSED, NEGLECTED, OR IN AN UNSAFE ENVIRONMENT? NO . ENDOCRINOLOGY: ARE YOU DIABETIC? YES . OTHER: DO YOU NEED ANY PRESCRIPTIONS? YES . IF YES, PLEASE LIST: ____GABAPENTIN 600 MG, ACETAMINOPHEN 500 MG . ANY NEW PROBLEMS WITH YOUR MEDICATIONS? NO . WHEN DID YOU LAST EAT? ____ . WHEN DID YOU LAST DRINK? ____ . WHAT DID YOU LAST DRINK? ____ . NAME OF PERSON DRIVING YOU HOME? ____ . DO YOU HAVE ANY OTHER QUESTIONS OR CONCERNS NO . VITAL SIGNS WT 214.2 LBS, HT 5'3", BMI 37.94 INDEX, BP 136/70 MM HG, HR 87 /MIN, RR 18 /MIN, TEMP 97.0 F, OXYGEN SAT % 94%, SAFE IN ENV? (Y/N) YES, NA INITIALS CT 09:11, REVIEWED BY: JESS. EXAMINATION GENERAL EXAMINATION: GENERAL APPEARANCE:NO ACUTE DISTRESS, WELL NOURISHED AND HYDRATED. PSYCHAPPROPRIATE MOOD AND AFFECT . LUNGS:CLEAR TO AUSCULTATION BILATERALLY, NO WHEEZES, RHONCHI, RALES. HEART:NO MURMURS, REGULAR RATE AND RHYTHM. BACK: LIMITED ROM, LUMBAR PARASPINAL TENDERNESS, R > L PAIN WITH EXTENSION AND ROTATION OF LUMBAR SPINE , SLR NEGATIVE BILAT. ASSESSMENTS LOW BACK PAIN - M54.5 (PRIMARY) TREATMENT LOW BACK PAIN CLINICAL NOTES: [employer]STOP REGISTRY REVIEWED AND DEMONSTRATES COMPLLIANCE. (REF #[id number] ) CONTINUE WITH REGULAR MEDICATION., PATIENT WAS ADVISED TO START A WALKING PROGRAM TO STRENGTHEN LUMBAR PARASPINAL MUSCLES AND IMPROVE MOBILITY. THEY WERE ADVISED THAT THIS WILL IMPROVE WEIGHT LOSS AND ALSO DEPRESSION/FIBROMYALGIA SYMPTOMS. ADVISED TO WALK 10 MINUTES EVERY OTHER DAY ON A FLAT SURFACE. EMPHASIZED THE IMPORTANCE OF DOING THIS CONSISTANTLY AND NOT SPORATICALLY TO AVOID INJURY. STRONG ADVISED NOT TO DO MORE THAN 10 MINUTES EVERY OTHER DAY FOR THE FIRST 4 WEEKS. PROCEDURE CODES FA211 ESTABILISHED PATIENT [facility] CHARGE DISPOSITION & COMMUNICATION FOLLOW UP 3 MONTHS ELECTRONICALLY SIGNED BY MARICEL STARR ON 11/24/2018 AT 04:14 PM EDT DISCLAIMER : THIS IS A VISIT SUMMARY EXTRACTED FROM THE [employer] CHART. IT IS NOT A COPY OF THE [employer] PROGRESS NOTE. DANIEL
== END ==
LOC: M PAIN 09:00
PROVIDERS: ATTEND Nurse Practitioner Family
DX: M54.5 Low back pain (principal); G89.29 Other chronic pain; I10 Essential (primary) hypertension; J45.909 Unspecified asthma, uncomplicated; E55.9 Vitamin D deficiency, unspecified; E11.9 Type 2 diabetes mellitus without complications; M79.7 Fibromyalgia; E53.8 Deficiency of other specified B group vitamins; Z79.1 Long term (current) use of non-steroidal anti-inflammatories (NSAID); Z79.84 Long term (current) use of oral hypoglycemic drugs; Z79.899 Other long term (current) drug therapy; Z88.8 Allergy status to other drugs, medicaments and biological substances; Z87.39 Personal history of other diseases of the musculoskeletal system and connective tissue; Z87.891 Personal history of nicotine dependence

== ENCOUNTER → 2018-12-10 | Outpatient (CLI) | payer OTHER ==
[~2018-12-10] MED LIST changes: +CYAN100T5 PO; -VITA1TAB22 PO
--- NOTE | 2018-12-10 16:58 | REP ---
Lumbar spine series: Five views: History: Back pain. Comparison study: April 29, 2011. Findings: Lumbar vertebral body heights are preserved. Alignment is normal. There is no evidence of spondylolysis or spondylolisthesis. There is diffuse mild degenerative disc disease. In the lumbar spine, these changes are most pronounced at L3-4 and L4-5. The discogenic spurring and disc space narrowing are more pronounced at both levels than on the 2011 prior study. There is osteoarthritic facet hypertrophy bilaterally at L5-S1 and L4-5. This is essentially unchanged. Psoas margins and flank stripes are intact. There are sclerotic changes of the iliac sides of the SI joints bilaterally unchanged. Psoas margins are symmetric. Impression: Degenerative spondylosis changes more pronounced than on the 2011 prior radiographs. No acute bony abnormality. Electronically Signed by Hood Webster MD 12/11/2018 07:58 A
== END ==
LOC: M RAD 10:11
PROVIDERS: ATTEND Nurse Practitioner Family
DX: M51.36 Other intervertebral disc degeneration, lumbar region (principal); M25.78 Osteophyte, vertebrae

== ENCOUNTER 2018-12-25 08:15 | Outpatient (RCR) | payer OTHER | END 2019-01-01 | LOC: M PT 08:15 | PROVIDERS: ATTEND Nurse Practitioner Family | DX: M79.18 Myalgia, other site (principal) ==

== ENCOUNTER → 2019-01-19 | Outpatient (CLI) | payer OTHER ==
[~2019-01-19] MED LIST changes: +BUPIVACAINE HCL 0.25% 10 ML VIAL As Ordered ONE; +BUPIVACAINE HCL 0.25% 30 ML VIAL As Ordered ONE; +LIDO1SOL8 PO; +TRIAMCINOLONE ACETONIDE SUSP 40 MG/ML VIAL (J3301) As Ordered ONE; +diazePAM 5 MG TAB As Ordered ONE; +oxyCODONE 5MG TAB As Ordered ONE
--- NOTE | 2019-02-01 00:53 | ECWPNPC ---
PATIENT NAME: TSEVE DIAMOND : 1965 GENDER: FEMALE VISIT DATE: 01/19/2019 DISCHARGE DATE: 01/19/19931 VISIT LOCKED DATE TIME: PHYSICIAN: TOMMY SULLIVAN MD RESOURCE: TOMMY SULLIVAN MD REASON FOR APPOINTMENT 1. TPI LOW BACK HISTORY OF PRESENT ILLNESS HISTORY OF PRESENT ILLNESS: PAIN THE PATIENT DESCRIBES THE PAIN... FALL RISK SCREENING: SCREENING :NO FALLS REPORTED IN THE LAST YEAR CURRENT MEDICATIONS TAKING KETOCONAZOLE 2 % CREAM 1 APPLICATION TO FEET EXTERNALLY ONCE A DAY, NOTES: FRIDAY TAKING NYSTATIN CREAM [id number] UNITS/GM CREAM 1 APPLICATION TOPICALLY/ TO FEET TWICE A DAY, NOTES: FRIDAY TAKING ALPHAGAN P 0.15 % SOLUTION 1 DROP INTO AFFECTED EYE OPHTHALMIC TWICE DAILY, NOTES: [facility] 01/19 6AM TAKING VITAMIN B-12 1000 MCG TABLET CHEWABLE 1 TABLET ORALLY ONCE A DAY- OTC, NOTES: 01/19 6AM TAKING CLIMARA 0.05 MG/24HR PATCH WEEKLY 1 PATCH TO SKIN TRANSDERMAL WEEKLY, NOTES: LAST WEEK TAKING ALBUTEROL SULFATE (2.5 MG/3ML) 0.083% NEBULIZATION SOLUTION 3 ML INHALATION THREE TIMES A DAY PRN, NOTES: 4 MONTHS TAKING LIDODERM 5 % PATCH 1 PATCH TO SKIN REMOVE AFTER 12 HOURS EXTERNALLY APPLY 2 PATCHES TO PAINFUL AREA RIGHT THORACIC REGION ON 12 HR OFF 12 HR, NOTES: 1 MONTH TAKING BLOOD GLUCOSE TEST - STRIP 1 STRIP GLUCOSE TESTING STRIPS FOR ONE TOUCH VERIO DAILY/ E119 TAKING LANCETS - MISCELLANEOUS 1 EACH TO USE FOR ONCE TOUCH DAILY/ E11.9 TAKING METFORMIN HCL 1000 MG TABLET 1 TABLET WITH MEALS ORALLY TWICE A DAY, NOTES: 01/18 7PM TAKING TRULICITY 1.5 MG/0.5ML SOLUTION PEN-INJECTOR INJECT 0.5ML SUBCUTANEOUS ONCE WEEKLY, NOTES: LAST FRIDAY TAKING AZELASTINE HCL 137 MCG/SPRAY SOLUTION 1 PUFF IN EACH NOSTRIL NASALLY TWICE A DAY, NOTES: 01/19 6AM TAKING FLONASE ALLERGY RELIEF 50 MCG/ACT SUSPENSION 1 SPRAY IN EACH NOSTRIL NASALLY ONCE A DAY, NOTES: 01/19 6AM TAKING SINGULAIR 10 MG TABLET 1 TABLET IN THE EVENING ORALLY ONCE A DAY, NOTES: 01/18 7PM TAKING DULERA 100 MCG/5MCG 2 PUFFS INHALATION TWICE A DAY, NOTES: 01/19 6AM TAKING SALINE NASAL SPRAY 0.65 % SOLUTION 2 DROPS IN EACH NOSTRIL NEEDED NASALLY EVERY 2 HRS, NOTES: 01/19 6AM TAKING VITAMIN D 2000 UNIT TABLET 1 TABLET ORALLY ONCE A DAY, NOTES: 01/19 6AM TAKING MAGNESIUM OXIDE 250 MG TABLET 1 TABLET NEEDED ORALLY ONCE A DAY, NOTES: 01/19 6AM TAKING ALLOPURINOL 100 MG TABLET 2 TABLET ORALLY ONCE A DAY, NOTES: 01/19 6AM TAKING LISINOPRIL 20 MG TABLET 1 TABLET ORALLY ONCE A DAY, NOTES: 01/19 6AM TAKING GABAPENTIN 600 MG TABLET 1 CAPSULE ORALLY THREE TIMES A DAY, NOTES: 01/19 6AM TAKING ACETAMINOPHEN 500 MG CAPSULE 2 TABLETS ORALLY EVERY 8 HRS PRN, NOTES: 01/19 6AM TAKING NORVASC 5 MG TABLET 1 TABLET ORALLY ONCE A DAY, NOTES: 01/19 6AM TAKING VITAMIN B12 100 MCG TABLET 1 TABLET ORALLY ONCE A DAY, NOTES: 01/19 6AM TAKING MELOXICAM 7.5 MG TABLET 1 TABLET ORALLY TWICE A DAY, NOTES: 01/19 6AM TAKING TRAMADOL HCL 50 MG TABLET 1 TABLET NEEDED ORALLY Q6H PRN MDD4, NOTES: FRIDAY TAKING LIPITOR 40 MG TABLET 1 TABLET ORALLY ONCE A DAY, NOTES: 01/19 6A TAKING HYDROCHLOROTHIAZIDE 25 MG TABLET 1 TABLET BY MOUTH ONCE A DAY, NOTES: 01/19 6AM TAKING PROVENTIL HFA 108 (90 BASE) MCG/ACT AEROSOL SOLUTION 2 PUFFS INHALATION EVERY 4 HOUR NEEDED, NOTES: 01/19 6AM TAKING CARISOPRODOL 350 MG TABLET 1 TABLET NEEDED ORALLY FOR SPASMS AND PAIN EVERY 8 HOURS NEEDED, NOTES: 01/19 6AM NOT-TAKING BACLOFEN 10 MG TABLET 1 TABLET WITH FOOD OR MILK ORALLY THREE TIMES A DAY PRN SPASM MEDICATION LIST REVIEWED AND RECONCILED WITH THE PATIENT PAST MEDICAL HISTORY HYPERTENSION ASTHMA GOUT VITAMIN D DEFICIENCY CHRONIC RIGHT OTITIS MEDIA PRE-DIABETES/IMPAIRED FASTING GLUCOSE FIBROMYALGIA-GOES TO PAIN CLINIC RECURRENT SINUSITIS TD 1999; TDAP 06/15 PNEUMNOVAX 2009 CHRONIC ALLERGIC RHINITIS - GETS ALLERGY SHOTS VITAMIN B12 DEFICIENCY--ON MONTHLY INJECTIONS FOR A WHILE, STOPPED COMING FOR THEM, LEVEL NL 10/16 FIBROIDS COLONOSCOPY 2017, REPEAT IN 5 YEAR ALLERGIES TRICOR: RASH - ALLERGY SURGICAL HISTORY KNEE ARTHROSCOPY (4 ON RT, 3 ON LEFT) CARPAL TUNNEL RELEASE R 2001 RIGHT KNEE ARTHROSCOPY SURGERY DR. SHARMA 02/09/2013 LAPAROSCOPY, REMOVAL OF FIBROID 10/21/16 MANUEL WITH BILAT. SALPINGO OOPHERECTOMY 12/11/16 LEFT CARPEL TUNNEL 10/2017 FAMILY HISTORY FATHER: ALIVE, HEALTH STATUS UNKNOWN MOTHER: ALIVE 68 YRS, DIAGNOSED WITH DIABETES, HYPERTENSION SOCIAL HISTORY GENERAL: TOBACCO USE ARE YOU A:FORMER SMOKER HIV / HEP-C SCREENING HIV TEST OFFERED TO PATIENT:YES DATE OFFERED:10/11/2016 TEST ACCEPTED:NO HEP-C TEST OFFERED TO PATIENT:NO REASON:PATIENT DECLINED OTHERS AT HOME: SPOUSE, CHILD. HOUSING: [employer]. EDUCATION 12TH GRADE GRADUATE. DIET: REGULAR. LANGUAGE GABONESE. NO DOMESTIC VIOLENCE DO YOU FEEL SAFE IN YOUR ENVIRONMENT?YES NEW PATIENT PAIN DIARY TODAY'S VISIT NOTES, FROM 0-10, WHAT LEVEL IS YOUR PAIN TODAY? 0. BMI CARE GOAL FOLLOW-UP ABOVE NORMAL BMI FOLLOW-UPDIETARY MANAGEMENT EDUCATION, GUIDANCE, AND COUNSELING RECREATIONAL DRUG USE DRUG USE?NO EXERCISE: WALKS UP & DOWN STAIRS @ HOME WHEN OUT ON APPOINTMENTS. LEARNING BARRIERS / SPECIAL NEEDS CHANGE FROM LAST VISIT?NO BARRIERS TO LEARNING?NO HEARING IMPAIRED?NO VISION IMPAIRED?YES COGNITIVELY IMPAIRED?NO :CORRECTIVE LENSES READINESS TO LEARN?YES LEARNING PREFERENCES?NO LEARNING CAPABILITIES PRESENT?YES EMOTIONAL BARRIERS?NO SPECIAL DEVICES?YES BRACE WRIST LORRY WEIGHER NEEDED?NO PAIN CLINIC PFS, CLERGY, PUBLIC HEALTH REFERRALS PFS REFERRAL NEEDED?NO CLERGY REFERRAL NEEDED?NO PUBLIC HEALTH REFERRAL NEEDED?NO HAS THE PATIENT BEEN EDUCATED REGARDING HIS/HER PLAN OF CARE?YES HAS THE PATIENT BEEN EDUCATED REGARDING PAIN, THE RISK FOR PAIN, THE IMPORTANCE OF EFFECTIVE PAIN MANAGEMENT, AND THE PAIN ASSESSMENT PROCESS?YES LATEX QUESTIONNAIRE LATEX ALLERGY : HAVE YOU EVER DEVELOPED ANY TYPE OF REACTION AFTER HANDLING LATEX PRODUCTS SUCH RUBBER GLOVES, CONDOMS, DIAPHRAGMS, BALLOONS, SOCKS, OR UNDERWEAR?NO LATEX ALLERGY : HAVE YOU EVER DEVELOPED ANY TYPE OF REACTION DURING OR AFTER DENTAL APPOINTMENT, VAGINAL/RECTAL EXAMINATION, SURGICAL PROCEDURE, OR ANY OTHER EXPOSURE?NO LATEX RISK : HAVE YOU EVER HAD ANY DIFFICULTY BREATHING OR HIVES AFTER EATING OR HANDLING ANY FRUITS, OR VEGETABLES; SUCH KIWI, BANANAS, STONE FRUITS, OR CHESTNUTSNO LATEX RISK : DO YOU HAVE A PREVIOUS PERSONAL HISTORY OF MORE THAN NINE SURGERIES, SPINA BIFIDA, OR REPEATED CATHERTIZATIONS? NO LATEX RISK : ARE YOU FREQUENTLY EXPOSED TO LATEX PRODUCTS IN YOUR OCCUPATION?NO DATE ASKED : 01/19/2019 CAFFEINE CAFFEINE USE?NO ADVANCE DIRECTIVE ADVANCE DIRECTIVE DISCUSSED WITH PATIENT:YES DECLINED HCP INFORMATION OR ASSISTANCE AT THIS TIME YARSANI [id number] TAOIST MARITAL STATUS: . ALCOHOL SCREENING DID YOU HAVE A DRINK CONTAINING ALCOHOL IN THE PAST YEAR?NO POINTS0 INTERPRETATIONNEGATIVE OCCUPATION: UNEMPLOYED. SEXUAL HX HAD SEX IN THE LAST 12 MONTHS (VAGINAL, ORAL, OR ANAL)?YES WITHMEN ONLY PREVENTION STRATEGIES DISCUSSED:OTHER USE PROTECTION?NO LMP:HYSTER HAVE YOU EVER HAD AN STD?NO REVIEWED WITH PATIENT 05/20/18 1006 JSREVIEWED WITH PATIENT 11/24/18 0918 JSREVIEWED WITH PATIENT 12/10/18 0909 LAS. HOSPITALIZATION/MAJOR DIAGNOSTIC PROCEDURE SURGERY 12/2016 REVIEW OF SYSTEMS REVIEWED BY: PROVIDER: . CONSTITUTIONAL: ANY CHANGE IN YOUR MEDICAL CONDITION? NO . CHILLS NO . FEVER NO . INFECTION: DO YOU HAVE NEW INFECTIONS? NO . DO YOU HAVE HISTORY OF MRSA? NO . MUSCULOSKELETAL: ANY NEW PATTERNS OF PAIN OR NUMBNESS? NO . GASTROENTEROLOGY: ANY NEW CHANGE IN BOWEL CONTROL? NO . GENITOURINARY: ANY NEW CHANGE IN BLADDER CONTROL? NO . IS THERE A CHANCE YOU COULD BE ? NO . HEMATOLOGY/LYMPH: DO YOU TAKE ANY BLOOD THINNERS? (FOR EXAMPLE- COUMADIN, PLAVIX, AGGRENOX, PLATEL, PRADAXA, OR XARELTO) NO . WHEN WAS YOUR LAST DOSE? DATE: TIME: . NEUROLOGY: HAVE YOU FALLEN IN THE PAST 12 MONTHS? NO . ANY NEW EXTREMITY NUMBNESS OR WEAKNESS? NO . CARDIOLOGY: DO YOU HAVE A PACEMAKER OR DEFIBRILLATOR? NO . RESPIRATORY: HAVE YOU BEEN SICK IN THE PAST WEEK? NO . FEVER NO . FLU LIKE SYMPTOMS? NO . COUGH NO . INTEGUMENTARY: DO YOU HAVE ANY RASHES OR OPEN SORES? NO . ALLERGIC/IMMUNO: ARE YOU ALLERGIC TO IV DYE? NO . ANY NEW ALLERGIES? NO . PSYCHIATRIC: DO YOU HAVE THOUGHTS OF HURTING YOURSELF OR SOMEONE ELSE? NO . ARE YOU ABUSED, NEGLECTED, OR IN AN UNSAFE ENVIRONMENT? NO . ENDOCRINOLOGY: ARE YOU DIABETIC? YES, FSBS 129 . OTHER: DO YOU NEED ANY PRESCRIPTIONS? NO . IF YES, PLEASE LIST: ____ . ANY NEW PROBLEMS WITH YOUR MEDICATIONS? NO . WHEN DID YOU LAST EAT? 6-17-19 7:30PM . WHEN DID YOU LAST DRINK? 01-19-19 6:25AM . WHAT DID YOU LAST DRINK? WATER . NAME OF PERSON DRIVING YOU HOME? JENNIFER . DO YOU HAVE ANY OTHER QUESTIONS OR CONCERNS NO . VITAL SIGNS WT 215.6 LBS, HT 5'3", BMI 38.19 INDEX, BP 158/75 MM HG, HR 70 /MIN, RR 18 /MIN, TEMP 97.5 F, OXYGEN SAT % 97%, BLOOD GLUCOSE LEVEL 129, SAFE IN ENV? (Y/N) Y, NA INITIALS UT 08:58, REVIEWED BY: DS. ASSESSMENTS MYALGIA, OTHER SITE - M79.18 (PRIMARY) PROCEDURES PN TRIGGER POINT INJECTION WITH STEROIDS PRE PROCEDURE DIAGNOSIS 1. MYALGIA 2. PAIN AT BILATERAL LOW BACK AREA. POST PROCEDURE DIAGNOSIS 1. MYALGIA 2. PAIN AT BILATERAL LOW BACK AREA. PROCEDURE TRIGGER POINT INJECTION AT RIGHT AND LEFT LOWER BACK AREA. SURGEON DR. TOMMY SULLIVAN VIAL GAUGER NONE ANESTHESIA LOCAL PRE PROCEDURE NOTE THE PATIENT HAS A HISTORY OF CHRONIC PAIN AT THE RIGHT AND LEFT LOWER BACK AREA. I EVALUATED THE PATIENT AND REVIEWED THE CHART. THERE IS EVIDENCE OF BANDS OF TISSUE WITH RESTRICTION OF MOVEMENT AND PRESENCE OF TRIGGER POINT AT THE AFFECTED AREA. I WENT OVER THE RISKS, ALTERNATIVES, AND BENEFITS ASSOCIATED WITH THIS PROCEDURE. THE PATIENT WOULD LIKE TO PROCEED AND GIVE CONSENT TO PERFORMED THE PROCEDURE. THE PATIENT DENIES UNEXPLAINABLE WEIGHT LOSS, FEVER, CHILLS, OR NEW CHANGES IN URINARY OR BOWEL CONTROL DESCRIPTION OF PROCEDURE THE PATIENT WAS BROUGHT TO THE PROCEDURE ROOM AND PLACED IN THE SITTING POSITION. THE AREA WAS CLEANED WITH ALCOHOL. THE PROCEDURE WAS DONE USING ASEPTIC STERILE TECHNIQUE. I CHECKED LATERALITY AND THE LEVEL WHERE THE PROCEDURE WAS GOING TO BE PERFORMED WITH THE PATIENT AND THE SUPPORTING STAFF AT THE MOMENT OF THE TIME OUT IN THE PROCEDURE ROOM. USING A 25-GAUGE NEEDLE, TRIGGER POINTS WERE INJECTED AT THE RIGHT AND LEFT LOWER BACK AREA WITH A TOTAL OF 40 ML OF BUPIVACAINE 0.25% AND KENALOG 40 MG. THERE WAS NO EVIDENCE OF BLOOD, PARESTHESIA OR CEREBROSPINAL FLUID DURING THE PROCEDURE. THE PATIENT WAS SENT TO THE RECOVERY ROOM. THE PATIENT WAS MOVING THE EXTREMITIES AND DOING WELL. THERE WAS NO COMPLICATION DURING THE PROCEDURE POST PROCEDURE NOTE THE PATIENT WILL BE SEEN IN A FOLLOW UP IN THE NEXT FEW WEEKS. INSTRUCTIONS WERE GIVEN, QUESTIONS WERE ANSWERED, AND THE PATIENT EXPRESSED UNDERSTANDING AND AGREES WITH THE PLAN. I, ART WILLIS, DOCUMENTED THE ABOVE INFORMATION ACTING A SCRIBE FOR DR. SULLIVAN. I HAVE REVIEWED THE ABOVE DOCUMENT, WRITTEN BY ART WILLIS SCRIBE AND I VERIFY THAT IT IS ACCURATE. PROCEDURE CODES 85797 INJ TRIGGER POINT / MUSC DISPOSITION & COMMUNICATION FOLLOW UP 3 WEEKS ELECTRONICALLY SIGNED BY TOMMY SULLIVAN MD, MD ON 01/31/2019 AT 07:10 PM EDT DISCLAIMER : THIS IS A VISIT SUMMARY EXTRACTED FROM THE [employer] CHART. IT IS NOT A COPY OF THE [employer] PROGRESS NOTE. DANIEL
== END ==
LOC: M PAIN 08:30
PROVIDERS: ATTEND Anesthesiology
DX: M79.18 Myalgia, other site (principal); I10 Essential (primary) hypertension; J45.909 Unspecified asthma, uncomplicated; M10.9 Gout, unspecified; E55.9 Vitamin D deficiency, unspecified; R73.03 Prediabetes; M79.7 Fibromyalgia; E53.8 Deficiency of other specified B group vitamins; Z87.891 Personal history of nicotine dependence; Z79.84 Long term (current) use of oral hypoglycemic drugs; Z79.891 Long term (current) use of opiate analgesic; Z79.899 Other long term (current) drug therapy; Z90.710 Acquired absence of both cervix and uterus; Z90.722 Acquired absence of ovaries, bilateral; Z88.8 Allergy status to other drugs, medicaments and biological substances
CPT/HCPCS: 20552; J3301

== ENCOUNTER 2019-01-28 09:35 | Outpatient (RCR) | payer OTHER ==
[~2019-01-28 09:35] MED LIST changes: -BUPIVACAINE HCL 0.25% 10 ML VIAL As Ordered ONE; -BUPIVACAINE HCL 0.25% 30 ML VIAL As Ordered ONE; -LIDO1SOL8 PO; -TRIAMCINOLONE ACETONIDE SUSP 40 MG/ML VIAL (J3301) As Ordered ONE; -diazePAM 5 MG TAB As Ordered ONE; -oxyCODONE 5MG TAB As Ordered ONE
[2019-01-28] MEDS ORDERED: LIDO1SOL8 PO (11:56)
== END 2019-01-31 ==
LOC: M PT 09:35
PROVIDERS: ATTEND Nurse Practitioner Family
DX: M79.18 Myalgia, other site (principal)

== ENCOUNTER 2019-01-28 11:18 | Emergency (ER) | payer OTHER ==
[~2019-01-28] VITALS: Ht 160 cm; Wt 99.5 kg
[~2019-01-28 11:18] MED LIST changes: -OMEP40CA2 PO; +OMEP40CA97 PO; +PROV108A INH
[2019-01-28] MEDS ORDERED: LIDO1SOL8 PO (11:56)
[2019-01-28] MEDS ORDERED: LIDOCAINE VISCOUS 2% SOLN 15ML UDC SS ONE (12:00)
[2019-01-28 12:04] VITALS: BP 130/66
== END 2019-01-28 12:08 | disposition home or self-care (01) ==
LOC: M ED 11:18
DX: J04.0 Acute laryngitis (principal); I10 Essential (primary) hypertension; Z79.899 Other long term (current) drug therapy; Z88.8 Allergy status to other drugs, medicaments and biological substances

== ENCOUNTER 2019-02-10 09:44 | Emergency (ER) | payer OTHER ==
[~2019-02-10] VITALS: Ht 160 cm; Wt 98.0 kg
[~2019-02-10 09:44] MED LIST changes: +LIDO1SOL8 PO; +OMEP40CA2 PO; -OMEP40CA97 PO; -PROV108A INH
[2019-02-10 09:49] VITALS: BP 139/68
[2019-02-10] MEDS ORDERED: BENZ200C70 PO (10:12)
[2019-02-10] MEDS ORDERED: AUGM875T28 PO (10:12)
[2019-02-10] MEDS ORDERED: AUGMENTIN 875 MG TAB PO ONE (10:15)
== END 2019-02-10 11:02 | disposition home or self-care (01) ==
LOC: M ED 09:44
DX: J01.40 Acute pansinusitis, unspecified (principal); H65.91 Unspecified nonsuppurative otitis media, right ear; I10 Essential (primary) hypertension; E78.00 Pure hypercholesterolemia, unspecified; J45.909 Unspecified asthma, uncomplicated; G47.30 Sleep apnea, unspecified; E11.9 Type 2 diabetes mellitus without complications; Z79.899 Other long term (current) drug therapy; Z79.1 Long term (current) use of non-steroidal anti-inflammatories (NSAID); Z79.2 Long term (current) use of antibiotics; Z79.84 Long term (current) use of oral hypoglycemic drugs; Z79.890 Hormone replacement therapy

== ENCOUNTER → 2019-02-11 | Outpatient (CLI) | payer OTHER ==
[~2019-02-11] MED LIST changes: +BENZ200C70 PO
[2019-02-11 08:57] LABS: HEMOGLOBIN A1c 6.3 %
[2019-02-11 09:09] LABS: ALBUMIN 3.6 GM/DL (3.2-5.2); ALT/SGPT 23 U/L (12-78); BILIRUBIN,TOTAL 0.4 MG/DL (0.2-1.0); BLOOD UREA NITROGEN 8 MG/DL (7-18); CALCIUM LEVEL 9.1 MG/DL (8.5-10.1); CARBON DIOXIDE LEVEL 32 MEQ/L (21-32); CHLORIDE LEVEL 98 MEQ/L (98-107); GLOMERULAR FILTRATION RATE > 60.0 (>51); GLUCOSE, FASTING 89 MG/DL (70-100); MAGNESIUM LEVEL 1.9 MG/DL (1.8-2.4); POTASSIUM SERUM 4.5 MEQ/L (3.5-5.1); SODIUM LEVEL 134 MEQ/L (136-145); TOTAL PROTEIN 6.8 GM/DL (6.4-8.2)
[2019-02-11 09:59] LABS: TOTAL 25(OH) VITAMIN D 32.5 NG/ML (30.0-100.0)
== END ==
LOC: M LAB 08:06
PROVIDERS: ATTEND Nurse Practitioner Family
DX: E11.9 Type 2 diabetes mellitus without complications (principal); K76.0 Fatty (change of) liver, not elsewhere classified; E83.42 Hypomagnesemia

== ENCOUNTER → 2019-02-17 | Outpatient (REF) ==
[2019-02-17 14:43] LABS: BASO # 0.1 10^3/uL (0.0-0.2); BASO % 0.4 % (0.0-1.0); EOS # 0.3 10^3/uL (0.0-0.50); EOS % 2.4 % (0.0-3.0); HEMATOCRIT 37.6 % (36.0-47.0); HEMOGLOBIN 11.9 g/dl (12.0-15.5); LYMPH # 3.4 10^3/uL (1.5-4.5); LYMPH % 25.6 % (24.0-44.0); MEAN CORPUSCULAR HEMOGLOBIN 28.1 pg (27.0-33.0); MEAN CORPUSCULAR HGB CONC 31.6 g/dl (32.0-36.5); MEAN CORPUSCULAR VOLUME 88.7 fl (80.0-96.0); MONO % 7.6 % (0.0-5.0); NEUTROPHILS # 8.3 10^3/uL (1.8-7.7); NEUTROPHILS % 63.2 % (36.0-66.0); PLATELET COUNT, AUTOMATED 430 10^3/uL (150-450); RED BLOOD COUNT 4.24 10^6/uL (4.00-5.40); WHITE BLOOD COUNT 13.2 10^3/uL (4.0-10.0)
== END ==
LOC: M LABSMT 13:41
PROVIDERS: ATTEND Allergy & Immunology Allergy
DX: J45.30 Mild persistent asthma, uncomplicated (principal)

== ENCOUNTER 2019-02-18 09:00 | Outpatient (RCR) | payer OTHER | END 2019-03-03 | LOC: M PT 09:00 | PROVIDERS: ATTEND Nurse Practitioner Family | DX: Z51.89 Encounter for other specified aftercare (principal); M79.18 Myalgia, other site ==

== ENCOUNTER → 2019-02-23 | Outpatient (CLI) | payer OTHER ==
--- NOTE | 2019-02-24 01:56 | ECWPNPC ---
PATIENT NAME: STEVE DIAMOND : 1965 GENDER: FEMALE VISIT DATE: 02/23/2019 DISCHARGE DATE: 02/23/19 0941 VISIT LOCKED DATE TIME: PHYSICIAN: DHARMESH BLANCO RESOURCE: DHARMESH BLANCO REASON FOR APPOINTMENT 1. POST TPI HISTORY OF PRESENT ILLNESS HISTORY OF PRESENT ILLNESS: HERE FOR POST PROCEDURE F/U.HAD TPI ON 01/19/19.REPORTING IMPROVEMENT IN PAIN SOME OF WHICH CONTINUES TODAY.ATTENDED PT PER OUR REFERRAL AND STATES THIS WAS HELPFUL.CONTINUES WITH HOME EXCERSISE AND STRETCHING.STOPPED TRAMADOL AND SOMA SINCE PT AND TPI SHE STATES SHE DOESNT NEED IT ANYMORE.XRAY OF LUMBAR SPINE IS REVIEWED.THIS IS SHOWING PROGRESSION OF DEGENERATIVE SPONDYLOSIS.CHIEF COMPLAINT IS INTERMITTENT NUMBNESS CRAMPING PAIN. PAIN THE PATIENT DESCRIBES THE PAIN... FALL RISK SCREENING: SCREENING :NO FALLS REPORTED IN THE LAST YEAR CURRENT MEDICATIONS TAKING KETOCONAZOLE 2 % CREAM 1 APPLICATION TO FEET EXTERNALLY ONCE A DAY TAKING NYSTATIN CREAM [id number] UNITS/GM CREAM 1 APPLICATION TOPICALLY/ TO FEET TWICE A DAY TAKING ALPHAGAN P 0.15 % SOLUTION 1 DROP INTO AFFECTED EYE OPHTHALMIC TWICE DAILY, NOTES: [facility] 01/19 6AM TAKING VITAMIN B-12 1000 MCG TABLET CHEWABLE 1 TABLET ORALLY ONCE A DAY- OTC TAKING CLIMARA 0.05 MG/24HR PATCH WEEKLY 1 PATCH TO SKIN TRANSDERMAL WEEKLY TAKING ALBUTEROL SULFATE (2.5 MG/3ML) 0.083% NEBULIZATION SOLUTION 3 ML INHALATION THREE TIMES A DAY PRN TAKING LIDODERM 5 % PATCH 1 PATCH TO SKIN REMOVE AFTER 12 HOURS EXTERNALLY APPLY 2 PATCHES TO PAINFUL AREA RIGHT THORACIC REGION ON 12 HR OFF 12 HR TAKING BLOOD GLUCOSE TEST - STRIP 1 STRIP GLUCOSE TESTING STRIPS FOR ONE TOUCH VERIO DAILY/ E119 TAKING LANCETS - MISCELLANEOUS 1 EACH TO USE FOR ONCE TOUCH DAILY/ E11.9 TAKING METFORMIN HCL 1000 MG TABLET 1 TABLET WITH MEALS ORALLY TWICE A DAY TAKING AZELASTINE HCL 137 MCG/SPRAY SOLUTION 1 PUFF IN EACH NOSTRIL NASALLY TWICE A DAY TAKING FLONASE ALLERGY RELIEF 50 MCG/ACT SUSPENSION 1 SPRAY IN EACH NOSTRIL NASALLY ONCE A DAY TAKING SINGULAIR 10 MG TABLET 1 TABLET IN THE EVENING ORALLY ONCE A DAY TAKING DULERA 100 MCG/5MCG 2 PUFFS INHALATION TWICE A DAY TAKING SALINE NASAL SPRAY 0.65 % SOLUTION 2 DROPS IN EACH NOSTRIL NEEDED NASALLY EVERY 2 HRS TAKING VITAMIN D 2000 UNIT TABLET 1 TABLET ORALLY ONCE A DAY TAKING MAGNESIUM OXIDE 250 MG TABLET 1 TABLET NEEDED ORALLY ONCE A DAY TAKING ALLOPURINOL 100 MG TABLET 2 TABLET ORALLY ONCE A DAY TAKING LISINOPRIL 20 MG TABLET 1 TABLET ORALLY ONCE A DAY TAKING GABAPENTIN 600 MG TABLET 1 CAPSULE ORALLY THREE TIMES A DAY TAKING ACETAMINOPHEN 500 MG CAPSULE 2 TABLETS ORALLY EVERY 8 HRS PRN TAKING NORVASC 5 MG TABLET 1 TABLET ORALLY ONCE A DAY TAKING VITAMIN B12 100 MCG TABLET 1 TABLET ORALLY ONCE A DAY TAKING MELOXICAM 7.5 MG TABLET 1 TABLET ORALLY TWICE A DAY TAKING LIPITOR 40 MG TABLET 1 TABLET ORALLY ONCE A DAY TAKING HYDROCHLOROTHIAZIDE 25 MG TABLET 1 TABLET BY MOUTH ONCE A DAY TAKING PROVENTIL HFA 108 (90 BASE) MCG/ACT AEROSOL SOLUTION 2 PUFFS INHALATION EVERY 4 HOUR NEEDED TAKING TRULICITY 1.5 MG/0.5ML SOLUTION PEN-INJECTOR INJECT 0.5ML SUBCUTANEOUS ONCE WEEKLY NOT-TAKING TRAMADOL HCL 50 MG TABLET 1 TABLET NEEDED ORALLY Q6H PRN MDD4 NOT-TAKING CARISOPRODOL 350 MG TABLET 1 TABLET NEEDED ORALLY FOR SPASMS AND PAIN EVERY 8 HOURS NEEDED NOT-TAKING BACLOFEN 10 MG TABLET 1 TABLET WITH FOOD OR MILK ORALLY THREE TIMES A DAY PRN SPASM MEDICATION LIST REVIEWED AND RECONCILED WITH THE PATIENT PAST MEDICAL HISTORY HYPERTENSION ASTHMA GOUT VITAMIN D DEFICIENCY CHRONIC RIGHT OTITIS MEDIA PRE-DIABETES/IMPAIRED FASTING GLUCOSE FIBROMYALGIA-GOES TO PAIN CLINIC RECURRENT SINUSITIS TD 1999; TDAP 06/15 PNEUMNOVAX 2009 CHRONIC ALLERGIC RHINITIS - GETS ALLERGY SHOTS VITAMIN B12 DEFICIENCY--ON MONTHLY INJECTIONS FOR A WHILE, STOPPED COMING FOR THEM, LEVEL NL 10/16 FIBROIDS COLONOSCOPY 2017, REPEAT IN 5 YEAR ALLERGIES TRICOR: RASH - ALLERGY SURGICAL HISTORY KNEE ARTHROSCOPY (4 ON RT, 3 ON LEFT) CARPAL TUNNEL RELEASE R 2001 RIGHT KNEE ARTHROSCOPY SURGERY DR. SHARMA 02/09/2013 LAPAROSCOPY, REMOVAL OF FIBROID 10/21/16 MANUEL WITH BILAT. SALPINGO OOPHERECTOMY 12/11/16 LEFT CARPEL TUNNEL 10/2017 FAMILY HISTORY FATHER: ALIVE, HEALTH STATUS UNKNOWN MOTHER: ALIVE 68 YRS, DIAGNOSED WITH DIABETES, HYPERTENSION SOCIAL HISTORY GENERAL: TOBACCO USE ARE YOU A:FORMER SMOKER HIV / HEP-C SCREENING HIV TEST OFFERED TO PATIENT:YES DATE OFFERED:10/11/2016 TEST ACCEPTED:NO HEP-C TEST OFFERED TO PATIENT:NO REASON:PATIENT DECLINED OTHERS AT HOME: SPOUSE, CHILD. HOUSING: [employer] HOUSE. EDUCATION 12TH GRADE GRADUATE. DIET: REGULAR. LANGUAGE YORUBA. NO DOMESTIC VIOLENCE DO YOU FEEL SAFE IN YOUR ENVIRONMENT?YES NEW PATIENT PAIN DIARY TODAY'S VISIT NOTES, FROM 0-10, WHAT LEVEL IS YOUR PAIN TODAY? 0. BMI CARE GOAL FOLLOW-UP ABOVE NORMAL BMI FOLLOW-UPDIETARY MANAGEMENT EDUCATION, GUIDANCE, AND COUNSELING RECREATIONAL DRUG USE DRUG USE?NO EXERCISE: WALKS UP & DOWN STAIRS @ HOME WHEN OUT ON APPOINTMENTS. LEARNING BARRIERS / SPECIAL NEEDS CHANGE FROM LAST VISIT?NO BARRIERS TO LEARNING?NO HEARING IMPAIRED?NO VISION IMPAIRED?YES COGNITIVELY IMPAIRED?NO :CORRECTIVE LENSES READINESS TO LEARN?YES LEARNING PREFERENCES?NO LEARNING CAPABILITIES PRESENT?YES EMOTIONAL BARRIERS?NO SPECIAL DEVICES?YES BRACE WRIST OFFICE MESSENGER HELPER NEEDED?NO PAIN CLINIC PFS, CLERGY, PUBLIC HEALTH REFERRALS PFS REFERRAL NEEDED?NO CLERGY REFERRAL NEEDED?NO PUBLIC HEALTH REFERRAL NEEDED?NO HAS THE PATIENT BEEN EDUCATED REGARDING HIS/HER PLAN OF CARE?YES HAS THE PATIENT BEEN EDUCATED REGARDING PAIN, THE RISK FOR PAIN, THE IMPORTANCE OF EFFECTIVE PAIN MANAGEMENT, AND THE PAIN ASSESSMENT PROCESS?YES LATEX QUESTIONNAIRE LATEX ALLERGY : HAVE YOU EVER DEVELOPED ANY TYPE OF REACTION AFTER HANDLING LATEX PRODUCTS SUCH RUBBER GLOVES, CONDOMS, DIAPHRAGMS, BALLOONS, SOCKS, OR UNDERWEAR?NO LATEX ALLERGY : HAVE YOU EVER DEVELOPED ANY TYPE OF REACTION DURING OR AFTER DENTAL APPOINTMENT, VAGINAL/RECTAL EXAMINATION, SURGICAL PROCEDURE, OR ANY OTHER EXPOSURE?NO DATE ASKED : 01/19/2019 LATEX RISK : HAVE YOU EVER HAD ANY DIFFICULTY BREATHING OR HIVES AFTER EATING OR HANDLING ANY FRUITS, OR VEGETABLES; SUCH KIWI, BANANAS, STONE FRUITS, OR CHESTNUTSNO LATEX RISK : DO YOU HAVE A PREVIOUS PERSONAL HISTORY OF MORE THAN NINE SURGERIES, SPINA BIFIDA, OR REPEATED CATHERIZATIONS? NO LATEX RISK : ARE YOU FREQUENTLY EXPOSED TO LATEX PRODUCTS IN YOUR OCCUPATION?NO CAFFEINE CAFFEINE USE?NO ADVANCE DIRECTIVE ADVANCE DIRECTIVE DISCUSSED WITH PATIENT:YES DECLINED HCP INFORMATION OR ASSISTANCE AT THIS TIME SHINTO [id number] BAPTIST MARITAL STATUS: . ALCOHOL SCREENING DID YOU HAVE A DRINK CONTAINING ALCOHOL IN THE PAST YEAR?NO POINTS0 INTERPRETATIONNEGATIVE OCCUPATION: UNEMPLOYED. SEXUAL HX HAD SEX IN THE LAST 12 MONTHS (VAGINAL, ORAL, OR ANAL)?YES WITHMEN ONLY PREVENTION STRATEGIES DISCUSSED:OTHER USE PROTECTION?NO LMP:HYSTER HAVE YOU EVER HAD AN STD?NO REVIEWED WITH PATIENT 05/20/18 1006 JSREVIEWED WITH PATIENT 11/24/18 0918 JSREVIEWED WITH PATIENT 12/10/18 0909 LAS. HOSPITALIZATION/MAJOR DIAGNOSTIC PROCEDURE SURGERY 12/2016 REVIEW OF SYSTEMS REVIEWED BY: PROVIDER: DHARMESH CONNELLY . CONSTITUTIONAL: ANY CHANGE IN YOUR MEDICAL CONDITION? NO . CHILLS NO . FEVER NO . INFECTION: DO YOU HAVE NEW INFECTIONS? NO . DO YOU HAVE HISTORY OF MRSA? NO . MUSCULOSKELETAL: ANY NEW PATTERNS OF PAIN OR NUMBNESS? NO . GASTROENTEROLOGY: ANY NEW CHANGE IN BOWEL CONTROL? NO . GENITOURINARY: ANY NEW CHANGE IN BLADDER CONTROL? NO . IS THERE A CHANCE YOU COULD BE ? NO . HEMATOLOGY/LYMPH: DO YOU TAKE ANY BLOOD THINNERS? (FOR EXAMPLE- COUMADIN, PLAVIX, AGGRENOX, PLATEL, PRADAXA, OR XARELTO) NO . WHEN WAS YOUR LAST DOSE? DATE: TIME: . NEUROLOGY: HAVE YOU FALLEN IN THE PAST 12 MONTHS? NO . ANY NEW EXTREMITY NUMBNESS OR WEAKNESS? YES, PT STATES SHE HAS HAD A FEW OCCURANCES OF MUSCLE SPASMS DOWN POSTERIOR LEFT LEG DURING PHYSICAL THERAPY. STATES SPASMS USUALLY LAST 5-6 MINUTES . CARDIOLOGY: DO YOU HAVE A PACEMAKER OR DEFIBRILLATOR? NO . RESPIRATORY: HAVE YOU BEEN SICK IN THE PAST WEEK? NO . FEVER NO . FLU LIKE SYMPTOMS? NO . COUGH NO . INTEGUMENTARY: DO YOU HAVE ANY RASHES OR OPEN SORES? NO . ALLERGIC/IMMUNO: ARE YOU ALLERGIC TO IV DYE? NO . ANY NEW ALLERGIES? NO . PSYCHIATRIC: DO YOU HAVE THOUGHTS OF HURTING YOURSELF OR SOMEONE ELSE? NO . ARE YOU ABUSED, NEGLECTED, OR IN AN UNSAFE ENVIRONMENT? NO . ENDOCRINOLOGY: ARE YOU DIABETIC? YES, ON MEDICATION . OTHER: DO YOU NEED ANY PRESCRIPTIONS? NO . IF YES, PLEASE LIST: ____ . ANY NEW PROBLEMS WITH YOUR MEDICATIONS? NO . WHEN DID YOU LAST EAT? ____ . WHEN DID YOU LAST DRINK? ____ . WHAT DID YOU LAST DRINK? ____ . NAME OF PERSON DRIVING YOU HOME? ____ . DO YOU HAVE ANY OTHER QUESTIONS OR CONCERNS NO . VITAL SIGNS WT 219 LBS, HT 5'3", BMI 38.79 INDEX, BP 133/67 MM HG, HR 84 /MIN, RR 18 /MIN, TEMP 97.8 F, OXYGEN SAT % 95%, SAFE IN ENV? (Y/N) Y, REVIEWED BY: BV. EXAMINATION GENERAL EXAMINATION: GENERALAWAKE,ALERT ,. PSYCHAFFECT NORMAL . LUNGS:LUNG ROCA ARE CLEAR TO AUSCULTATION BILATERALLY. GOOD MOVEMENT OF AIR . HEART:S1, S2 IN A REGULAR RATE AND RHYTHM. NO SIGNIFICANT MURMURS, RUBS OR GALLOPS NOTED . LUMBAR SACRAL SPINEPALPATION: + FOR PAIN OVER L/S SPINE. + FOR PAIN OVER L/S PARSPINALS, TENDER OVER BILAT SIJ NAD LUMBAR FACETS. ASSESSMENTS LUMBAR SPONDYLOSIS - M47.816 (PRIMARY) TREATMENT LUMBAR SPONDYLOSIS START AMITRIPTYLINE HCL TABLET, 25 MG, 1 TABLET AT BEDTIME, ORALLY, ONCE A DAY, 30 DAY(S), 30, REFILLS 2 [facility] MRI LUMBAR W/O CONTRAST (CPT [id number] NOTES: DUE TO PROGRESSION OF DEGENERATIVE SPONDYLOSIS ON L/S XRAY REVIEWED TODAY IM RECOMMENDING A MRI OF L/S IN CONSIDERATION FOR PLANNING INTERVENTIONAL TREATMENTS AT PAIN CENTER. PREVENTIVE MEDICINE PAIN CLINIC TEACHING: MEDICATIONS PT GIVEN WRITTEN AND VERBAL EDUCATION ON STARTING AMITRIPTYLINE. PT VERBALIZES UNDERSTANDING OF ALL EDUCATION. LIV ZAMBRANO 02/23/2019 9:40:12 AM > . PROCEDURE CODES FA211 ESTABILISHED PATIENT [facility] FACILITY CHARGE DISPOSITION & COMMUNICATION FOLLOW UP 6 WEEKS (REASON: MRI L/S SPINE) ELECTRONICALLY SIGNED BY MARICEL ORELLANA ON 02/23/2019 AT 10:26 AM EDT DISCLAIMER : THIS IS A VISIT SUMMARY EXTRACTED FROM THE [employer] CHART. IT IS NOT A COPY OF THE [employer] PROGRESS NOTE. DANIEL
== END ==
LOC: M PAIN 09:00
PROVIDERS: ATTEND Nurse Practitioner Family
DX: M47.816 Spondylosis without myelopathy or radiculopathy, lumbar region (principal); I10 Essential (primary) hypertension; J45.909 Unspecified asthma, uncomplicated; M10.9 Gout, unspecified; E55.9 Vitamin D deficiency, unspecified; R73.03 Prediabetes; M79.7 Fibromyalgia; J32.9 Chronic sinusitis, unspecified; E53.8 Deficiency of other specified B group vitamins; Z87.891 Personal history of nicotine dependence; Z79.899 Other long term (current) drug therapy; Z88.8 Allergy status to other drugs, medicaments and biological substances

== ENCOUNTER → 2019-03-03 | Outpatient (CLI) | payer OTHER ==
--- NOTE | 2019-03-03 09:11 | REP ---
MRI lumbar spine without contrast: History: Lumbar spondylosis. Progressive pain. No comparison lumbar spine MR. Comparison radiographs December 10, 2018. Technique: Sagittal and axial T1 and T2-weighted scans are acquired in the usual fashion with and without fat saturation. Sequences include spin echo, turbo spin-echo, and STIR imaging sequences. MRI findings: Lumbar vertebral body heights are preserved. There is some straightening. Alignment is otherwise normal. Conus medullaris tip is normal in position and appearance at T12-L1. There is no extra vertebral abnormality. Axial and sagittal images taken at the L5-S1 level demonstrate moderate bilateral osteoarthritic facet hypertrophy. No disc herniation, central canal stenosis, or neural foraminal narrowing is seen. At L4-5 however, there is severe central canal stenosis due to a combination of moderate facet hypertrophy bilaterally, ligamentum flavum hypertrophy, bilateral synovial cysts within the ligamentum flava, and diffuse disc bulging. CSF signal intensity is effaced from the thecal sac on T2-weighted scans at L4-5. The synovial cyst in the right ligamentum flavum is the larger of the two sides. This measures 10 x 4 by 8 mm. A smaller synovial cyst increases the dorsal lateral thecal sac compression on the left. No neural foraminal narrowing is seen. There is some disc space narrowing at L4-5. At L3-4 there is mild disc space narrowing and mild diffuse disc bulging is seen. No neural foraminal narrowing or central canal stenosis is seen. L2-3 there is minimal diffuse disc bulging. L1-2 there is mild anterior discogenic spurring but no posterior disc abnormality. At T12-L1, there is central disc bulging indenting the ventral margin of the thecal sac. Impression: Severe central canal stenosis at L4-5 due to diffuse disc bulging, moderate facet hypertrophy bilaterally, moderate bilateral ligamentum flavum hypertrophy, and bilateral facet associated synovial cysts which further compress the thecal sac. The right-sided cyst is larger than the left. Electronically Signed by Hood Webster MD 03/03/2019 09:02 A
== END ==
LOC: M RAD 07:09
PROVIDERS: ATTEND Nurse Practitioner Family
DX: M47.816 Spondylosis without myelopathy or radiculopathy, lumbar region (principal); M51.26 Other intervertebral disc displacement, lumbar region; M48.061 Spinal stenosis, lumbar region without neurogenic claudication

== ENCOUNTER → 2019-04-12 | Outpatient (CLI) | payer OTHER ==
[~2019-04-12] MED LIST changes: +PROV108A INH
--- NOTE | 2019-04-27 01:45 | ECWPNPC ---
PATIENT NAME: STEVE DIAMOND : 1965 GENDER: FEMALE VISIT DATE: 04/12/2019 DISCHARGE DATE: 04/12/19 1139 VISIT LOCKED DATE TIME: PHYSICIAN: DHARMESH BLANCO RESOURCE: DHARMESH BLANCO REASON FOR APPOINTMENT 1. REVIEW MRI HISTORY OF PRESENT ILLNESS HISTORY OF PRESENT ILLNESS: BEING SEEN ON AN URGENT BASIS DUE TO SEVERE INCREASE IN LBP,BILAT. BUTTOCK PAIN AND LEFT CALF NUMBNESS.MRI L/S SPINE IS REVIEWED AND IS SHOWING SEVERE SPINAL STENOSIS.REPORTING SIGNIFICANT INCREASE IN LBP OVER THE PAST 2 MONTHS.REPORTING AN INCREASE IN LOWER EXTREMITY NUMBNESS.RATING PAIN VAS 8/10. PAIN THE PATIENT DESCRIBES THE PAIN... FALL RISK SCREENING: SCREENING :NO FALLS REPORTED IN THE LAST YEAR CURRENT MEDICATIONS TAKING TRULICITY 1.5 MG/0.5ML SOLUTION PEN-INJECTOR INJECT 0.5ML SUBCUTANEOUS ONCE WEEKLY TAKING NORVASC 5 MG TABLET 1 TABLET ORALLY ONCE A DAY TAKING LIPITOR 40 MG TABLET 1 TABLET ORALLY ONCE A DAY TAKING AZELASTINE HCL 137 MCG/SPRAY SOLUTION 1 PUFF IN EACH NOSTRIL NASALLY TWICE A DAY TAKING FLONASE ALLERGY RELIEF 50 MCG/ACT SUSPENSION 1 SPRAY IN EACH NOSTRIL NASALLY ONCE A DAY TAKING SINGULAIR 10 MG TABLET 1 TABLET IN THE EVENING ORALLY ONCE A DAY TAKING DULERA 100 MCG/5MCG 2 PUFFS INHALATION TWICE A DAY TAKING SALINE NASAL SPRAY 0.65 % SOLUTION 2 DROPS IN EACH NOSTRIL NEEDED NASALLY EVERY 2 HRS TAKING VITAMIN D 2000 UNIT TABLET 1 TABLET ORALLY ONCE A DAY TAKING MAGNESIUM OXIDE 250 MG TABLET 1 TABLET NEEDED ORALLY ONCE A DAY TAKING KETOCONAZOLE 2 % CREAM 1 APPLICATION TO FEET EXTERNALLY ONCE A DAY TAKING NYSTATIN CREAM [id number] UNITS/GM CREAM 1 APPLICATION TOPICALLY/ TO FEET TWICE A DAY TAKING ALPHAGAN P 0.15 % SOLUTION 1 DROP INTO AFFECTED EYE OPHTHALMIC TWICE DAILY, NOTES: [facility] 01/19 6AM TAKING VITAMIN B-12 1000 MCG TABLET CHEWABLE 1 TABLET ORALLY ONCE A DAY- OTC TAKING ALBUTEROL SULFATE (2.5 MG/3ML) 0.083% NEBULIZATION SOLUTION 3 ML INHALATION THREE TIMES A DAY PRN TAKING LIDODERM 5 % PATCH 1 PATCH TO SKIN REMOVE AFTER 12 HOURS EXTERNALLY APPLY 2 PATCHES TO PAINFUL AREA RIGHT THORACIC REGION ON 12 HR OFF 12 HR TAKING LANCETS - MISCELLANEOUS 1 EACH TO USE FOR ONCE TOUCH DAILY/ E11.9 TAKING VITAMIN B12 100 MCG TABLET 1 TABLET ORALLY ONCE A DAY TAKING MELOXICAM 7.5 MG TABLET 1 TABLET ORALLY TWICE A DAY TAKING HYDROCHLOROTHIAZIDE 25 MG TABLET 1 TABLET BY MOUTH ONCE A DAY TAKING AMITRIPTYLINE HCL 25 MG TABLET 1 TABLET AT BEDTIME ORALLY ONCE A DAY TAKING LATANOPROST 0.005 % SOLUTION INSTILL 1 DROP IN EACH EYE AT BEDTIME DIRECTED OPHTHALMIC TAKING GABAPENTIN 600 MG TABLET 1 CAPSULE ORALLY THREE TIMES A DAY TAKING PROVENTIL HFA 108 (90 BASE) MCG/ACT AEROSOL SOLUTION 2 PUFFS INHALATION EVERY 4 HOUR NEEDED TAKING METFORMIN HCL 1000 MG TABLET 1 TABLET WITH MEALS ORALLY TWICE A DAY TAKING LISINOPRIL 20 MG TABLET 1 TABLET ORALLY ONCE A DAY TAKING ALLOPURINOL 100 MG TABLET 2 TABLET ORALLY ONCE A DAY TAKING BLOOD GLUCOSE TEST - STRIP 1 STRIP GLUCOSE TESTING STRIPS FOR ONE TOUCH VERIO DAILY/ E119 TAKING ACETAMINOPHEN 500 MG CAPSULE 2 TABLETS ORALLY EVERY 8 HRS PRN TAKING NORCO 10-325 MG TABLET 1 TABLET NEEDED ORALLY EVERY 6 HRS PRN MDD4 TAKING CLIMARA 0.05 MG/24HR PATCH WEEKLY 1 PATCH TO SKIN TRANSDERMAL WEEKLY NOT-TAKING TRAMADOL HCL 50 MG TABLET 1 TABLET NEEDED ORALLY Q6H PRN MDD4 NOT-TAKING CARISOPRODOL 350 MG TABLET 1 TABLET NEEDED ORALLY FOR SPASMS AND PAIN EVERY 8 HOURS NEEDED NOT-TAKING BACLOFEN 10 MG TABLET 1 TABLET WITH FOOD OR MILK ORALLY THREE TIMES A DAY PRN SPASM MEDICATION LIST REVIEWED AND RECONCILED WITH THE PATIENT PAST MEDICAL HISTORY HYPERTENSION ASTHMA GOUT VITAMIN D DEFICIENCY CHRONIC RIGHT OTITIS MEDIA PRE-DIABETES/IMPAIRED FASTING GLUCOSE FIBROMYALGIA-GOES TO PAIN CLINIC RECURRENT SINUSITIS TD 1999; TDAP 06/15 PNEUMNOVAX 2009 CHRONIC ALLERGIC RHINITIS - GETS ALLERGY SHOTS VITAMIN B12 DEFICIENCY--ON MONTHLY INJECTIONS FOR A WHILE, STOPPED COMING FOR THEM, LEVEL NL 10/16 FIBROIDS COLONOSCOPY 2017, REPEAT IN 5 YEAR ALLERGIES TRICOR: RASH - ALLERGY SURGICAL HISTORY KNEE ARTHROSCOPY (4 ON RT, 3 ON LEFT) CARPAL TUNNEL RELEASE R 2001 RIGHT KNEE ARTHROSCOPY SURGERY DR. SHARMA 02/09/2013 LAPAROSCOPY, REMOVAL OF FIBROID 10/21/16 MANUEL WITH BILAT. SALPINGO OOPHERECTOMY 12/11/16 LEFT CARPEL TUNNEL 10/2017 FAMILY HISTORY FATHER: ALIVE, HEALTH STATUS UNKNOWN MOTHER: ALIVE 68 YRS, DIAGNOSED WITH DIABETES, HYPERTENSION SOCIAL HISTORY GENERAL: TOBACCO USE ARE YOU A:FORMER SMOKER HIV / HEP-C SCREENING HIV TEST OFFERED TO PATIENT:YES DATE OFFERED:10/11/2016 TEST ACCEPTED:NO HEP-C TEST OFFERED TO PATIENT:NO REASON:PATIENT DECLINED OTHERS AT HOME: SPOUSE, CHILD. HOUSING: RENTS HOUSE. EDUCATION 12TH GRADE GRADUATE. DIET: REGULAR. LANGUAGE SLOVENIAN. NO DOMESTIC VIOLENCE DO YOU FEEL SAFE IN YOUR ENVIRONMENT?YES NEW PATIENT PAIN DIARY TODAY'S VISIT NOTES, FROM 0-10, WHAT LEVEL IS YOUR PAIN TODAY? 0. BMI CARE GOAL FOLLOW-UP ABOVE NORMAL BMI FOLLOW-UPDIETARY MANAGEMENT EDUCATION, GUIDANCE, AND COUNSELING RECREATIONAL DRUG USE DRUG USE?NO EXERCISE: WALKS UP & DOWN STAIRS @ HOME WHEN OUT ON APPOINTMENTS. LEARNING BARRIERS / SPECIAL NEEDS CHANGE FROM LAST VISIT?NO BARRIERS TO LEARNING?NO HEARING IMPAIRED?NO VISION IMPAIRED?YES COGNITIVELY IMPAIRED?NO :CORRECTIVE LENSES READINESS TO LEARN?YES LEARNING PREFERENCES?NO LEARNING CAPABILITIES PRESENT?YES EMOTIONAL BARRIERS?NO SPECIAL DEVICES?YES BRACE WRIST LAY OUT FORMER NEEDED?NO PAIN CLINIC PFS, CLERGY, PUBLIC HEALTH REFERRALS PFS REFERRAL NEEDED?NO CLERGY REFERRAL NEEDED?NO PUBLIC HEALTH REFERRAL NEEDED?NO HAS THE PATIENT BEEN EDUCATED REGARDING HIS/HER PLAN OF CARE?YES HAS THE PATIENT BEEN EDUCATED REGARDING PAIN, THE RISK FOR PAIN, THE IMPORTANCE OF EFFECTIVE PAIN MANAGEMENT, AND THE PAIN ASSESSMENT PROCESS?YES LATEX QUESTIONNAIRE LATEX ALLERGY : HAVE YOU EVER DEVELOPED ANY TYPE OF REACTION AFTER HANDLING LATEX PRODUCTS SUCH RUBBER GLOVES, CONDOMS, DIAPHRAGMS, BALLOONS, SOCKS, OR UNDERWEAR?NO LATEX ALLERGY : HAVE YOU EVER DEVELOPED ANY TYPE OF REACTION DURING OR AFTER DENTAL APPOINTMENT, VAGINAL/RECTAL EXAMINATION, SURGICAL PROCEDURE, OR ANY OTHER EXPOSURE?NO DATE ASKED : 01/19/2019 LATEX RISK : HAVE YOU EVER HAD ANY DIFFICULTY BREATHING OR HIVES AFTER EATING OR HANDLING ANY FRUITS, OR VEGETABLES; SUCH KIWI, BANANAS, STONE FRUITS, OR CHESTNUTSNO LATEX RISK : DO YOU HAVE A PREVIOUS PERSONAL HISTORY OF MORE THAN NINE SURGERIES, SPINA BIFIDA, OR REPEATED CATHERIZATIONS? NO LATEX RISK : ARE YOU FREQUENTLY EXPOSED TO LATEX PRODUCTS IN YOUR OCCUPATION?NO CAFFEINE CAFFEINE USE?NO ADVANCE DIRECTIVE ADVANCE DIRECTIVE DISCUSSED WITH PATIENT:YES DECLINED HCP INFORMATION OR ASSISTANCE AT THIS TIME LATTER-DAY [id number] TENRIISM MARITAL STATUS: . ALCOHOL SCREENING DID YOU HAVE A DRINK CONTAINING ALCOHOL IN THE PAST YEAR?NO POINTS0 INTERPRETATIONNEGATIVE OCCUPATION: UNEMPLOYED. SEXUAL HX HAD SEX IN THE LAST 12 MONTHS (VAGINAL, ORAL, OR ANAL)?YES WITHMEN ONLY PREVENTION STRATEGIES DISCUSSED:OTHER USE PROTECTION?NO LMP:HYSTER HAVE YOU EVER HAD AN STD?NO REVIEWED WITH PATIENT 05/20/18 1006 JSREVIEWED WITH PATIENT 11/24/18 0918 JSREVIEWED WITH PATIENT 12/10/18 0909 LAS. HOSPITALIZATION/MAJOR DIAGNOSTIC PROCEDURE SURGERY 12/2016 REVIEW OF SYSTEMS REVIEWED BY: PROVIDER: DHARMESH CONNELLY . CONSTITUTIONAL: ANY CHANGE IN YOUR MEDICAL CONDITION? NO . CHILLS NO . FEVER NO . INFECTION: DO YOU HAVE NEW INFECTIONS? NO . DO YOU HAVE HISTORY OF MRSA? NO . MUSCULOSKELETAL: ANY NEW PATTERNS OF PAIN OR NUMBNESS? YES, LBP AND LEFT LEG PAIN, NUMBNESS TO LOW BACK . GASTROENTEROLOGY: ANY NEW CHANGE IN BOWEL CONTROL? NO . GENITOURINARY: ANY NEW CHANGE IN BLADDER CONTROL? NO . IS THERE A CHANCE YOU COULD BE ? NO . HEMATOLOGY/LYMPH: DO YOU TAKE ANY BLOOD THINNERS? (FOR EXAMPLE- COUMADIN, PLAVIX, AGGRENOX, PLATEL, PRADAXA, OR XARELTO) NO . WHEN WAS YOUR LAST DOSE? DATE: TIME: . NEUROLOGY: HAVE YOU FALLEN IN THE PAST 12 MONTHS? NO . ANY NEW EXTREMITY NUMBNESS OR WEAKNESS? YES, LEFT LEG PAIN AND WEAKNESS, NUMBNESS TO LEFT CALF . CARDIOLOGY: DO YOU HAVE A PACEMAKER OR DEFIBRILLATOR? NO . RESPIRATORY: HAVE YOU BEEN SICK IN THE PAST WEEK? NO . FEVER NO . FLU LIKE SYMPTOMS? NO . COUGH NO . INTEGUMENTARY: DO YOU HAVE ANY RASHES OR OPEN SORES? NO . ALLERGIC/IMMUNO: ARE YOU ALLERGIC TO IV DYE? NO . ANY NEW ALLERGIES? NO . PSYCHIATRIC: DO YOU HAVE THOUGHTS OF HURTING YOURSELF OR SOMEONE ELSE? NO . ARE YOU ABUSED, NEGLECTED, OR IN AN UNSAFE ENVIRONMENT? NO . ENDOCRINOLOGY: ARE YOU DIABETIC? YES . OTHER: DO YOU NEED ANY PRESCRIPTIONS? NO . IF YES, PLEASE LIST: ____ . ANY NEW PROBLEMS WITH YOUR MEDICATIONS? NO . WHEN DID YOU LAST EAT? ____ . WHEN DID YOU LAST DRINK? ____ . WHAT DID YOU LAST DRINK? ____ . NAME OF PERSON DRIVING YOU HOME? ____ . DO YOU HAVE ANY OTHER QUESTIONS OR CONCERNS NO . VITAL SIGNS WT 220.4 LBS, HT 5'3", BMI 39.04 INDEX, BP 126/61 MM HG, HR 89 /MIN, RR 18 /MIN, TEMP 96.8 F, OXYGEN SAT % 95%, NA INITIALS SC 10:45, REVIEWED BY: CJ. EXAMINATION GENERAL EXAMINATION: GENERALAWAKE,ALERT ,. PSYCH AFFECT NORMAL . LUNGS: LUNG ROCA ARE CLEAR TO AUSCULTATION BILATERALLY. GOOD MOVEMENT OF AIR . HEART: S1, S2 IN A REGULAR RATE AND RHYTHM. NO SIGNIFICANT MURMURS, RUBS OR GALLOPS NOTED . LUMBAR SACRAL SPINEPALPATION: + FOR PAIN OVER L/S SPINE. + FOR PAIN OVER L/S PARSPINALS, TENDER OVER BILAT SIJ NAD LUMBAR FACETS. DIAGNOSTIC TESTS REVIEWED MRI L/S SPINE-03/03/19. ASSESSMENTS LUMBOSACRAL SPINAL STENOSIS - M48.07 (PRIMARY) TREATMENT LUMBOSACRAL SPINAL STENOSIS STOP MELOXICAM TABLET, 7.5 MG, 1 TABLET, ORALLY, TWICE A DAY STOP AMITRIPTYLINE HCL TABLET, 25 MG, 1 TABLET AT BEDTIME, ORALLY, ONCE A DAY CONTINUE GABAPENTIN TABLET, 600 MG, 1 CAPSULE, ORALLY, THREE TIMES A DAY REFILL NORCO TABLET, 10-325 MG, 1 TABLET NEEDED, ORALLY, EVERY 6 HRS PRN MDD4, 10 DAY(S), 40, REFILLS 0 REFILL TRAMADOL HCL TABLET, 50 MG, 2 TAB, ORALLY, BID MDD4, 30 DAY(S), 120, REFILLS 1 NOTES: START KETOROLAC 10MG EVERY 6 HRS 4X DAILY X5 DAYS W FOOD, ISTOP REGISTRY REVIEWED AND DEMONSTRATES COMPLLIANCE. (REF # ) BRINGS IN MEDICATIONS WHICH IS APPROPRIATE FOR WHAT WAS DISPENSED. RECENT URINE TOXICOLOGY REVIEWED. NO UNAUTHORIZED MEDICATIONS. NO ILLICIT SUBSTANCES AND PRESCRIBED MEDICATIONS WERE PRESENT. , RISKS AND BENEFITS OF NARCOTIC/OPIOD MEDICATIONS WERE REVIEWED WITH PATIENT - THIS INCLUDES BUT IS NOT LIMITED TO RISK OF DEPENDANCE/DEVELOPMENT OF ADDICTION, MOOD DISTURBANCE AND DEPRESSION, OSTEOPOROSIS, HORMONAL AND LABIDAL CHANGES, RESPIRATORY DEPRESSION AND . PATIENT IS ADVISED NOT TO DRIVE OR DRINK ALCOHOL WHILE ON THESE MEDICATIONS. 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 IT IS NOT A COPY OF THE [employer] PROGRESS NOTE. MURTAZAD
== END ==
LOC: M PAIN 11:30
PROVIDERS: ATTEND Nurse Practitioner Family
DX: M48.07 Spinal stenosis, lumbosacral region (principal); I10 Essential (primary) hypertension; J45.909 Unspecified asthma, uncomplicated; E55.9 Vitamin D deficiency, unspecified; E11.9 Type 2 diabetes mellitus without complications; Z87.891 Personal history of nicotine dependence; Z88.8 Allergy status to other drugs, medicaments and biological substances; Z79.84 Long term (current) use of oral hypoglycemic drugs; Z79.899 Other long term (current) drug therapy

== ENCOUNTER → 2019-05-14 | Outpatient (CLI) | payer OTHER ==
[~2019-05-14] MED LIST changes: -OMEP40CA2 PO; +OMEP40CA97 PO
--- NOTE | 2019-06-01 03:26 | ECWPNPC ---
PATIENT NAME: STEVE DIAMOND : 1965 GENDER: FEMALE VISIT DATE: 05/14/2019 DISCHARGE DATE: 05/14/19931 VISIT LOCKED DATE TIME: PHYSICIAN: DHARMESH BLANCO RESOURCE: DHARMESH BLANCO DISCLAIMER : THIS IS A VISIT SUMMARY EXTRACTED FROM THE [facility] CHART. IT IS NOT A COPY OF THE [email or web address] PROGRESS NOTE. DANIEL
== END ==
LOC: M PAIN 09:00
PROVIDERS: ATTEND Nurse Practitioner Family
DX: M48.07 Spinal stenosis, lumbosacral region (principal); I10 Essential (primary) hypertension; J45.909 Unspecified asthma, uncomplicated; E55.9 Vitamin D deficiency, unspecified; R73.01 Impaired fasting glucose; M79.7 Fibromyalgia; Z87.891 Personal history of nicotine dependence; Z88.8 Allergy status to other drugs, medicaments and biological substances; Z79.84 Long term (current) use of oral hypoglycemic drugs; Z79.891 Long term (current) use of opiate analgesic; Z79.899 Other long term (current) drug therapy

== ENCOUNTER → 2019-06-02 | Outpatient (REF) | payer OTHER ==
[2019-06-02 11:24] LABS: ALBUMIN 3.9 GM/DL (3.2-5.2); ALT/SGPT 35 U/L (12-78); BILIRUBIN,TOTAL 0.5 MG/DL (0.2-1.0); BLOOD UREA NITROGEN 10 MG/DL (7-18); CALCIUM LEVEL 10.1 MG/DL (8.5-10.1); CARBON DIOXIDE LEVEL 31 MEQ/L (21-32); CHLORIDE LEVEL 99 MEQ/L (98-107); CREATININE FOR GFR 0.61 MG/DL (0.55-1.30); GLOMERULAR FILTRATION RATE > 60.0 (>51); GLUCOSE, FASTING 107 MG/DL (70-100); POTASSIUM SERUM 4.8 MEQ/L (3.5-5.1); SODIUM LEVEL 138 MEQ/L (136-145); TOTAL PROTEIN 6.8 GM/DL (6.4-8.2)
[2019-06-02 11:26] LABS: TOTAL 25(OH) VITAMIN D 32.1 NG/ML (30.0-100.0)
[2019-06-02 11:37] LABS: HEMOGLOBIN A1c 5.9 %
== END ==
LOC: M SFHCPLAZ 07:51
PROVIDERS: ATTEND Nurse Practitioner Family
DX: I10 Essential (primary) hypertension (principal); K76.0 Fatty (change of) liver, not elsewhere classified; E78.2 Mixed hyperlipidemia; E11.9 Type 2 diabetes mellitus without complications; E55.9 Vitamin D deficiency, unspecified

== ENCOUNTER → 2019-07-14 | Outpatient (CLI) | payer OTHER ==
--- NOTE | 2019-07-27 04:42 | ECWPNPC ---
PATIENT NAME: STEVE DIAMOND : 1965 GENDER: FEMALE VISIT DATE: 07/14/2019 DISCHARGE DATE: 07/14/19 1017 VISIT LOCKED DATE TIME: PHYSICIAN: DHARMESH BLANCO RESOURCE: DHARMESH BLANCO REASON FOR APPOINTMENT 1. ACUTE LBP HISTORY OF PRESENT ILLNESS HISTORY OF PRESENT ILLNESS: HERE FOR F/U OF CHRONIC LBP AND LEFT LEG RADICULAR SYMPTOMS.SAW ANGE ARNETT, PER MY REFERRAL LAST MONTH.HE IS RECOMMENDING SURGERY AND HAS APT [facility].USING TRAMADOL OR HYDROCODONE PRN FOR SEVERE PAIN.TAKING AMITRIPTYLINE 25MG AT HS WITH GOOS RESULTS AND IMPROVED SLEEP.PAIN IS AGGREVATED WITH WALKING.RATING PAIN VAS 8/10. PAIN THE PATIENT DESCRIBES THE PAIN... FALL RISK SCREENING: SCREENING :NO FALLS REPORTED IN THE LAST YEAR CURRENT MEDICATIONS TAKING AZELASTINE HCL 137 MCG/SPRAY SOLUTION 1 PUFF IN EACH NOSTRIL NASALLY TWICE A DAY TAKING FLONASE ALLERGY RELIEF 50 MCG/ACT SUSPENSION 1 SPRAY IN EACH NOSTRIL NASALLY ONCE A DAY TAKING SINGULAIR 10 MG TABLET 1 TABLET IN THE EVENING ORALLY ONCE A DAY TAKING DULERA 100 MCG/5MCG 2 PUFFS INHALATION TWICE A DAY TAKING SALINE NASAL SPRAY 0.65 % SOLUTION 2 DROPS IN EACH NOSTRIL NEEDED NASALLY EVERY 2 HRS TAKING VITAMIN D 2000 UNIT TABLET 1 TABLET ORALLY ONCE A DAY TAKING MAGNESIUM OXIDE 250 MG TABLET 1 TABLET NEEDED ORALLY ONCE A DAY TAKING ALPHAGAN P 0.15 % SOLUTION 1 DROP INTO AFFECTED EYE OPHTHALMIC TWICE DAILY, NOTES: [facility] 01/19 6AM TAKING VITAMIN B-12 1000 MCG TABLET CHEWABLE 1 TABLET ORALLY ONCE A DAY- OTC TAKING ALBUTEROL SULFATE (2.5 MG/3ML) 0.083% NEBULIZATION SOLUTION 3 ML INHALATION THREE TIMES A DAY PRN TAKING LIDODERM 5 % PATCH 1 PATCH TO SKIN REMOVE AFTER 12 HOURS EXTERNALLY APPLY 2 PATCHES TO PAINFUL AREA RIGHT THORACIC REGION ON 12 HR OFF 12 HR, NOTES: NOT LATELY TAKING LATANOPROST 0.005 % SOLUTION INSTILL 1 DROP IN EACH EYE AT BEDTIME DIRECTED OPHTHALMIC TAKING PROVENTIL HFA 108 (90 BASE) MCG/ACT AEROSOL SOLUTION 2 PUFFS INHALATION EVERY 4 HOUR NEEDED TAKING METFORMIN HCL 1000 MG TABLET 1 TABLET WITH MEALS ORALLY TWICE A DAY TAKING LISINOPRIL 20 MG TABLET 1 TABLET ORALLY ONCE A DAY TAKING ALLOPURINOL 100 MG TABLET 2 TABLET ORALLY ONCE A DAY TAKING BLOOD GLUCOSE TEST - STRIP 1 STRIP GLUCOSE TESTING STRIPS FOR ONE TOUCH VERIO DAILY/ E119 TAKING ACETAMINOPHEN 500 MG CAPSULE 2 TABLETS ORALLY EVERY 8 HRS PRN TAKING NORCO 10-325 MG TABLET 1 TABLET NEEDED ORALLY EVERY 6 HRS PRN MDD4 TAKING TRAMADOL HCL 50 MG TABLET 2 TAB ORALLY BID MDD4 TAKING LANCETS - MISCELLANEOUS 1 EACH TO USE FOR ONCE TOUCH DAILY/ E11.9 TAKING GABAPENTIN 600 MG TABLET 1 CAPSULE ORALLY THREE TIMES A DAY TAKING CLIMARA 0.05 MG/24HR PATCH WEEKLY 1 PATCH TO SKIN TRANSDERMAL WEEKLY TAKING NORVASC 5 MG TABLET 1 TABLET ORALLY ONCE A DAY TAKING HYDROCHLOROTHIAZIDE 25 MG TABLET 1 TABLET ORALLY ONCE A DAY TAKING LIPITOR 40 MG TABLET 1 TABLET ORALLY ONCE A DAY TAKING BD ULTRA-FINE PEN NEEDLES 32G 4MM DIRECTED 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 TAKING AMITRIPTYLINE HCL 25 MG TABLET 1 TABLET AT BEDTIME ORALLY ONCE A DAY TAKING VICTOZA 18 MG/3ML SOLUTION PEN-INJECTOR 1.2 MG SUBCUTANEOUS DAILY NOT-TAKING KETOCONAZOLE 2 % CREAM 1 APPLICATION TO FEET EXTERNALLY ONCE A DAY, NOTES: NOT LATELY NOT-TAKING NYSTATIN CREAM [id number] UNITS/GM CREAM 1 APPLICATION TOPICALLY/ TO FEET TWICE A DAY, NOTES: NOT LATELY NOT-TAKING VITAMIN B12 100 MCG TABLET 1 TABLET ORALLY ONCE A DAY NOT-TAKING CARISOPRODOL 350 MG TABLET 1 TABLET NEEDED ORALLY FOR SPASMS AND PAIN EVERY 8 HOURS NEEDED NOT-TAKING BACLOFEN 10 MG TABLET 1 TABLET WITH FOOD OR MILK ORALLY THREE TIMES A DAY PRN SPASM MEDICATION LIST REVIEWED AND RECONCILED WITH THE PATIENT PAST MEDICAL HISTORY HYPERTENSION ASTHMA GOUT VITAMIN D DEFICIENCY CHRONIC RIGHT OTITIS MEDIA PRE-DIABETES/IMPAIRED FASTING GLUCOSE FIBROMYALGIA-GOES TO PAIN CLINIC RECURRENT SINUSITIS TD 1999; TDAP 06/15 PNEUMNOVAX 2009 CHRONIC ALLERGIC RHINITIS - GETS ALLERGY SHOTS VITAMIN B12 DEFICIENCY--ON MONTHLY INJECTIONS FOR A WHILE, STOPPED COMING FOR THEM, LEVEL NL 10/16 FIBROIDS COLONOSCOPY 2017, REPEAT IN 5 YEAR DM TYPE II ALLERGIES TRICOR: RASH - ALLERGY DUST MITES: RASH - ALLERGY SURGICAL HISTORY KNEE ARTHROSCOPY (4 ON RT, 3 ON LEFT) CARPAL TUNNEL RELEASE R 2001 RIGHT KNEE ARTHROSCOPY SURGERY DR. SHARMA 02/09/2013 LAPAROSCOPY, REMOVAL OF FIBROID 3/20/17 MANUEL WITH BILAT. SALPINGO OOPHERECTOMY 12/11/16 LEFT CARPEL TUNNEL 10/2017 FAMILY HISTORY FATHER: ALIVE, HEALTH STATUS UNKNOWN MOTHER: ALIVE 68 YRS, DIAGNOSED WITH DIABETES, HYPERTENSION SOCIAL HISTORY GENERAL: TOBACCO USE ARE YOU A:FORMER SMOKER HIV / HEP-C SCREENING HIV TEST OFFERED TO PATIENT:YES DATE OFFERED:10/11/2016 TEST ACCEPTED:NO HEP-C TEST OFFERED TO PATIENT:NO REASON:PATIENT DECLINED OTHERS AT HOME: SPOUSE, CHILD. HOUSING: [employer] HOUSE. EDUCATION 12TH GRADE GRADUATE. DIET: REGULAR. LANGUAGE AMHARIC. NO DOMESTIC VIOLENCE DO YOU FEEL SAFE IN YOUR ENVIRONMENT?YES NEW PATIENT PAIN DIARY TODAY'S VISIT NOTES, FROM 0-10, WHAT LEVEL IS YOUR PAIN TODAY? 0. BMI CARE GOAL FOLLOW-UP ABOVE NORMAL BMI FOLLOW-UPDIETARY MANAGEMENT EDUCATION, GUIDANCE, AND COUNSELING RECREATIONAL DRUG USE DRUG USE?NO EXERCISE: WALKS UP & DOWN STAIRS @ HOME WHEN OUT ON APPOINTMENTS. 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 NEEDED?NO PAIN CLINIC PFS, CLERGY, PUBLIC HEALTH REFERRALS PFS REFERRAL NEEDED?NO CLERGY REFERRAL NEEDED?NO PUBLIC HEALTH REFERRAL NEEDED?NO HAS THE PATIENT BEEN EDUCATED REGARDING HIS/HER PLAN OF CARE?YES HAS THE PATIENT BEEN EDUCATED REGARDING PAIN, THE RISK FOR PAIN, THE IMPORTANCE OF EFFECTIVE PAIN MANAGEMENT, AND THE PAIN ASSESSMENT PROCESS?YES LATEX QUESTIONNAIRE LATEX ALLERGY : HAVE YOU EVER DEVELOPED ANY TYPE OF REACTION AFTER HANDLING LATEX PRODUCTS SUCH RUBBER GLOVES, CONDOMS, DIAPHRAGMS, BALLOONS, SOCKS, OR UNDERWEAR?NO LATEX ALLERGY : HAVE YOU EVER DEVELOPED ANY TYPE OF REACTION DURING OR AFTER DENTAL APPOINTMENT, VAGINAL/RECTAL EXAMINATION, SURGICAL PROCEDURE, OR ANY OTHER EXPOSURE?NO LATEX RISK : HAVE YOU EVER HAD ANY DIFFICULTY BREATHING OR HIVES AFTER EATING OR HANDLING ANY FRUITS, OR VEGETABLES; SUCH KIWI, BANANAS, STONE FRUITS, OR CHESTNUTSNO LATEX RISK : DO YOU HAVE A PREVIOUS PERSONAL HISTORY OF MORE THAN NINE SURGERIES, SPINA BIFIDA, OR REPEATED CATHERIZATIONS? NO LATEX RISK : ARE YOU FREQUENTLY EXPOSED TO LATEX PRODUCTS IN YOUR OCCUPATION?NO DATE ASKED : 07/14/2019 CAFFEINE CAFFEINE USE?NO ADVANCE DIRECTIVE ADVANCE DIRECTIVE DISCUSSED WITH PATIENT:YES DECLINED HCP INFORMATION OR ASSISTANCE WITH PAPERWORK AT THIS TIME SPIRITISM [id number] MARITAL STATUS: . ALCOHOL SCREENING DID YOU HAVE A DRINK CONTAINING ALCOHOL IN THE PAST YEAR?NO POINTS0 INTERPRETATIONNEGATIVE OCCUPATION: UNEMPLOYED. SEXUAL HX HAD SEX IN THE LAST 12 MONTHS (VAGINAL, ORAL, OR ANAL)?YES WITHMEN ONLY PREVENTION STRATEGIES DISCUSSED:OTHER USE PROTECTION?NO LMP:HYSTER HAVE YOU EVER HAD AN STD?NO REVIEWED WITH PATIENT 05/20/18 1006 JSREVIEWED WITH PATIENT 11/24/18 0918 JSREVIEWED WITH PATIENT 12/10/18 0909 LASREVIEWED WI PATIENT 07/14/19 DS. HOSPITALIZATION/MAJOR DIAGNOSTIC PROCEDURE SURGERY 12/2016 REVIEW OF SYSTEMS REVIEWED BY: PROVIDER: DHARMESH CONNELLY . CONSTITUTIONAL: ANY CHANGE IN YOUR MEDICAL CONDITION? NO . CHILLS NO . FEVER NO . INFECTION: DO YOU HAVE NEW INFECTIONS? NO . DO YOU HAVE HISTORY OF MRSA? NO . MUSCULOSKELETAL: ANY NEW PATTERNS OF PAIN OR NUMBNESS? YES, PT STATES THAT PAIN IS ON LEFT SIDE. . GASTROENTEROLOGY: ANY NEW CHANGE IN BOWEL CONTROL? NO . GENITOURINARY: ANY NEW CHANGE IN BLADDER CONTROL? NO . IS THERE A CHANCE YOU COULD BE ? NO . HEMATOLOGY/LYMPH: DO YOU TAKE ANY BLOOD THINNERS? (FOR EXAMPLE- COUMADIN, PLAVIX, AGGRENOX, PLATEL, PRADAXA, OR XARELTO) NO . WHEN WAS YOUR LAST DOSE? DATE: TIME: . NEUROLOGY: HAVE YOU FALLEN IN THE PAST 12 MONTHS? NO . ANY NEW EXTREMITY NUMBNESS OR WEAKNESS? NO . CARDIOLOGY: DO YOU HAVE A PACEMAKER OR DEFIBRILLATOR? NO . RESPIRATORY: HAVE YOU BEEN SICK IN THE PAST WEEK? NO . FEVER NO . FLU LIKE SYMPTOMS? NO . COUGH NO . INTEGUMENTARY: DO YOU HAVE ANY RASHES OR OPEN SORES? NO . ALLERGIC/IMMUNO: ARE YOU ALLERGIC TO IV DYE? NO . ANY NEW ALLERGIES? NO . PSYCHIATRIC: DO YOU HAVE THOUGHTS OF HURTING YOURSELF OR SOMEONE ELSE? NO . ARE YOU ABUSED, NEGLECTED, OR IN AN UNSAFE ENVIRONMENT? NO . ENDOCRINOLOGY: ARE YOU DIABETIC? YES, FSBS 132 07/14/19 . OTHER: DO YOU NEED ANY PRESCRIPTIONS? NO . IF YES, PLEASE LIST: ____ . ANY NEW PROBLEMS WITH YOUR MEDICATIONS? NO . WHEN DID YOU LAST EAT? ____ . WHEN DID YOU LAST DRINK? ____ . WHAT DID YOU LAST DRINK? ____ . NAME OF PERSON DRIVING YOU HOME? ____ . DO YOU HAVE ANY OTHER QUESTIONS OR CONCERNS NO . VITAL SIGNS WT 218.2 LBS, HT 5'3", BMI 38.65 INDEX, BP 140/69 MM HG, HR 82 /MIN, RR 18 /MIN, TEMP 96.8 F, OXYGEN SAT % 97%, SAFE IN ENV? (Y/N) Y, NA INITIALS AW 0941, REVIEWED BY: CLARY. EXAMINATION GENERAL EXAMINATION: GENERALAWAKE,ALERT ,PLEAASANT . PSYCHAFFECT NORMAL . LUNGS:LUNG ROCA ARE CLEAR TO AUSCULTATION BILATERALLY. GOOD MOVEMENT OF AIR . HEART:S1, S2 IN A REGULAR RATE AND RHYTHM. NO SIGNIFICANT MURMURS, RUBS OR GALLOPS NOTED . ASSESSMENTS LUMBOSACRAL SPINAL STENOSIS - M48.07 (PRIMARY) TREATMENT LUMBOSACRAL SPINAL STENOSIS CONTINUE NORCO TABLET, 10-325 MG, 1 TABLET NEEDED, ORALLY, EVERY 6 HRS PRN MDD4 CONTINUE TRAMADOL HCL TABLET, 50 MG, 2 TAB, ORALLY, BID MDD4 CONTINUE GABAPENTIN TABLET, 600 MG, 1 CAPSULE, ORALLY, THREE TIMES A DAY CONTINUE AMITRIPTYLINE HCL TABLET, 25 MG, 1 TABLET AT BEDTIME, ORALLY, ONCE A DAY NOTES: ISTOP REGISTRY REVIEWED AND DEMONSTRATES COMPLLIANCE. BRINGS IN MEDICATIONS WHICH IS APPROPRIATE FOR WHAT WAS DISPENSED. RECENT URINE TOXICOLOGY REVIEWED. NO UNAUTHORIZED MEDICATIONS. NO ILLICIT SUBSTANCES AND PRESCRIBED MEDICATIONS WERE PRESENT. PROCEDURE CODES FA211 ESTABILISHED PATIENT [facility] CHARGE DISPOSITION & COMMUNICATION FOLLOW UP 2 MONTHS ELECTRONICALLY SIGNED BY MARICEL ORELLANA ON 07/26/2019 AT 08:45 AM EST DISCLAIMER : THIS IS A VISIT SUMMARY EXTRACTED FROM THE [employer] CHART. IT IS NOT A COPY OF THE [employer] PROGRESS NOTE. DANIEL
== END ==
LOC: M PAIN 10:00
PROVIDERS: ATTEND Nurse Practitioner Family
DX: M48.07 Spinal stenosis, lumbosacral region (principal); G89.29 Other chronic pain; I10 Essential (primary) hypertension; J45.909 Unspecified asthma, uncomplicated; E55.9 Vitamin D deficiency, unspecified; E11.9 Type 2 diabetes mellitus without complications; M79.7 Fibromyalgia; Z87.891 Personal history of nicotine dependence; Z88.8 Allergy status to other drugs, medicaments and biological substances; Z79.84 Long term (current) use of oral hypoglycemic drugs; Z79.891 Long term (current) use of opiate analgesic; Z79.899 Other long term (current) drug therapy

== ENCOUNTER → 2019-08-25 | Outpatient (REF) | payer OTHER ==
[2019-08-25 15:36] LABS: BASO % 0.4 % (0.0-1.0); EOS # 0.6 10^3/uL (0.0-0.5); EOS % 6.4 % (0.0-3.0); HEMATOCRIT 37.6 % (36.0-47.0); HEMOGLOBIN 11.7 g/dl (12.0-15.5); LYMPH # 2.8 10^3/uL (1.5-5.0); LYMPH % 28.8 % (24.0-44.0); MEAN CORPUSCULAR HGB CONC 31.1 g/dl (32.0-36.5); MONO # 0.7 10^3/uL (0.0-0.8); MONO % 7.3 % (0.0-5.0); NEUTROPHILS # 5.4 10^3/uL (1.5-8.5); NEUTROPHILS % 56.8 % (36.0-66.0); PLATELET COUNT, AUTOMATED 316 10^3/uL (150-450); RED BLOOD COUNT 4.18 10^6/uL (4.00-5.40); WHITE BLOOD COUNT 9.6 10^3/uL (4.0-10.0)
== END ==
LOC: M SFHCPLAZ 13:38
PROVIDERS: ATTEND Family Medicine
DX: D72.829 Elevated white blood cell count, unspecified (principal)

== ENCOUNTER → 2019-09-14 | Outpatient (CLI) | payer OTHER ==
[~2019-09-14] MED LIST changes: -LIDO1SOL8 PO; +LIDO2SOL17 PO; +MONT10TA4 PO
--- NOTE | 2019-09-14 10:31 | REPMRS ---
Patient History The patient states she had a clinical breast exam in 2019. Family history of breast cancer at age 88 in maternal grandmother. Took hormonal contraceptives for 23 years. Taking estrogen for 1 year. Digital Woman Screen Mammo: September 14, 2019 - Exam #: [id number] Bilateral CC and MLO view(s) were taken. Technologist: Sandra Estevez, Technologist Prior study comparison: August 12, 2018, bilateral digital woman screen mammo performed at [facility]. August 07, 2017, digital woman screen mammo performed at [facility]. August 22, 2016, digital woman screen mammo performed at [facility]. FINDINGS: There are scattered fibroglandular densities. There has been no change in the appearance of the mammogram from the prior studies. There is a mild amount of scattered fibroglandular density which is fairly symmetric. There is no interval development of dominant mass, architectural distortion, or grouped microcalcification suggestive of malignancy. 3-D tomosynthesis shows no additional findings. Assessment: BI-RADS/ACR category 1 mammogram. Negative Mammogram. Recommendation Routine screening mammogram of both breasts in 1 year (for women over age 40). This patient's Lifetime Breast Cancer Risk is estimated at 12.5 %. This mammogram was interpreted with the aid of an FDA-approved computer-aided dectection system. Electronically Signed By: Jose Webster MD 09/14/19 [id number]
== END ==
LOC: M WHC 08:19
PROVIDERS: ATTEND Nurse Practitioner Women's Health
DX: Z12.31 Encounter for screening mammogram for malignant neoplasm of breast (principal); Z80.3 Family history of malignant neoplasm of breast

== ENCOUNTER → 2019-09-30 | Outpatient (CLI) | payer OTHER ==
--- NOTE | 2019-10-01 06:44 | ECWPNPC ---
PATIENT NAME: STEVE DIAMOND : 1965 GENDER: FEMALE VISIT DATE: 09/30/2019 DISCHARGE DATE: 09/30/19933 VISIT LOCKED DATE TIME: PHYSICIAN: DHARMESH BLANCO RESOURCE: DHARMESH BLANCO REASON FOR APPOINTMENT 1. ACUTE LBP HISTORY OF PRESENT ILLNESS CONCERNS: HERE FOR ROUTINE FOLLOW-UP AND MEDICINE MANAGEMENT OF CHRONIC LOW BACK PAIN. HAD LUMBAR SURGERY 1 MONTH AGO. COMPLAINING OF ITCHING AND BURNING AT THE INCISION SITE. AREA AROUND INCISION SLIGHTLY RED AND RAISED. I HAVE ADVISED HER TO CALL SURGEON'S OFFICE TODAY AND INFORM THEM. RECOMMEND THAT SHE NOT PUT ANY MORE LOTION OR OINTMENT ON IT. STATES LEG SYMPTOMS HAVE IMPROVED SINCE SURGERY. BREATHING PAIN VAS 8/10. CURRENTLY USING GABAPENTIN 600 MG 3 TIMES DAILY, AMITRIPTYLINE 25 MG AT NIGHT AND ACETAMINOPHEN NEEDED FOR SEVERE PAIN EPISODES. HISTORY OF PRESENT ILLNESS: PAIN THE PATIENT DESCRIBES THE PAIN... FALL RISK SCREENING: SCREENING :NO FALLS REPORTED IN THE LAST YEAR CURRENT MEDICATIONS TAKING FLONASE ALLERGY RELIEF 50 MCG/ACT SUSPENSION 1 SPRAY IN EACH NOSTRIL NASALLY ONCE A DAY TAKING SINGULAIR 10 MG TABLET 1 TABLET IN THE EVENING ORALLY ONCE A DAY TAKING DULERA 100 MCG/5MCG 2 PUFFS INHALATION TWICE A DAY TAKING SALINE NASAL SPRAY 0.65 % SOLUTION 2 DROPS IN EACH NOSTRIL NEEDED NASALLY EVERY 2 HRS TAKING VITAMIN D 2000 UNIT TABLET 1 TABLET ORALLY ONCE A DAY TAKING AZELASTINE HCL 137 MCG/SPRAY SOLUTION 1 PUFF IN EACH NOSTRIL NASALLY TWICE A DAY TAKING MAGNESIUM OXIDE 250 MG TABLET 1 TAB ORALLY ONCE A DAY TAKING ALPHAGAN P 0.15 % SOLUTION 1 DROP INTO AFFECTED EYE OPHTHALMIC THREE TIMES A DAY, NOTES: [facility] 01/19 6AM TAKING ALBUTEROL SULFATE (2.5 MG/3ML) 0.083% NEBULIZATION SOLUTION 3 ML INHALATION THREE TIMES A DAY PRN TAKING LATANOPROST 0.005 % SOLUTION INSTILL 1 DROP IN EACH EYE AT BEDTIME DIRECTED OPHTHALMIC TAKING PROVENTIL HFA 108 (90 BASE) MCG/ACT AEROSOL SOLUTION 2 PUFFS INHALATION EVERY 4 HOUR NEEDED TAKING ACETAMINOPHEN 500 MG CAPSULE 2 TABLETS ORALLY EVERY 8 HRS PRN TAKING NORCO 10-325 MG TABLET 1 TABLET NEEDED ORALLY EVERY 6 HRS PRN MDD4 TAKING GABAPENTIN 600 MG TABLET 1 CAPSULE ORALLY THREE TIMES A DAY TAKING VITAMIN B-12 1000 MCG TABLET CHEWABLE 1 TABLET ORALLY ONCE A DAY- OTC, NOTES: OTC TAKING ALLOPURINOL 100 MG TABLET 2 TABLET ORALLY ONCE A DAY TAKING LISINOPRIL 20 MG TABLET 1 TABLET ORALLY ONCE A DAY TAKING METFORMIN HCL 1000 MG TABLET 1 TABLET WITH MEALS ORALLY TWICE A DAY TAKING LANCETS - MISCELLANEOUS 1 EACH TO USE FOR ONCE TOUCH DAILY/ E11.9 TAKING BD ULTRA-FINE PEN NEEDLES 32G 4MM DIRECTED 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 TAKING BLOOD GLUCOSE TEST - STRIP 1 STRIP GLUCOSE TESTING STRIPS FOR ONE TOUCH VERIO DAILY/ E119 TAKING VICTOZA 18 MG/3ML SOLUTION PEN-INJECTOR 1.8 MG SUBCUTANEOUS DAILY TAKING HYDROCHLOROTHIAZIDE 25 MG TABLET 1 TABLET ORALLY ONCE A DAY TAKING NORVASC 5 MG TABLET 1 TABLET ORALLY ONCE A DAY TAKING LIPITOR 40 MG TABLET 1 TABLET ORALLY ONCE A DAY TAKING AMITRIPTYLINE HCL 25 MG TABLET 1 TABLET AT BEDTIME ORALLY ONCE A DAY TAKING CLIMARA 0.05 MG/24HR PATCH WEEKLY 1 PATCH TO SKIN TRANSDERMAL WEEKLY NOT-TAKING TRAMADOL HCL 50 MG TABLET 2 TAB ORALLY BID MDD4 MEDICATION LIST REVIEWED AND RECONCILED WITH THE PATIENT PAST MEDICAL HISTORY HYPERTENSION ASTHMA GOUT VITAMIN D DEFICIENCY CHRONIC RIGHT OTITIS MEDIA PRE-DIABETES/IMPAIRED FASTING GLUCOSE FIBROMYALGIA-GOES TO PAIN CLINIC RECURRENT SINUSITIS TD 1999; TDAP 06/15 PNEUMNOVAX 2009 CHRONIC ALLERGIC RHINITIS - GETS ALLERGY SHOTS FIBROIDS COLONOSCOPY 2017, REPEAT IN 5 YEAR VITAMIN B12 DEFICIENCY--ON MONTHLY INJECTIONS FOR A WHILE, STOPPED COMING FOR THEM, LEVEL NL ON ORAL MED DM TYPE II CHRONIC BACK PAIN ALLERGIES TRICOR: RASH - ALLERGY DUST MITES: RASH - ALLERGY SURGICAL HISTORY KNEE ARTHROSCOPY (4 ON RT, 3 ON LEFT) CARPAL TUNNEL RELEASE R 2001 RIGHT KNEE ARTHROSCOPY SURGERY DR. SHARMA 02/09/2013 LAPAROSCOPY, REMOVAL OF FIBROID 10/21/16 MANUEL WITH BILAT. SALPINGO OOPHERECTOMY 12/11/16 LEFT CARPEL TUNNEL 10/2017 LOWER LUMBAR FUSION L4-5 08/31/2019 FAMILY HISTORY FATHER: ALIVE, HEALTH STATUS UNKNOWN MOTHER: ALIVE 69 YRS SIBLINGS: ALIVE, SIS PRE-DM, BR HTN SOCIAL HISTORY GENERAL: TOBACCO USE ARE YOU A:FORMER SMOKER HIV / HEP-C SCREENING HIV TEST OFFERED TO PATIENT:YES DATE OFFERED:10/11/2016 TEST ACCEPTED:NO HEP-C TEST OFFERED TO PATIENT:NO REASON:PATIENT DECLINED OTHERS AT HOME: SPOUSE, CHILD. HOUSING: [employer] HOUSE. EDUCATION 12TH GRADE GRADUATE. DIET: REGULAR. LANGUAGE BENINESE. NO DOMESTIC VIOLENCE DO YOU FEEL SAFE IN YOUR ENVIRONMENT?YES BMI CARE GOAL FOLLOW-UP ABOVE NORMAL BMI FOLLOW-UPDIETARY MANAGEMENT EDUCATION, GUIDANCE, AND COUNSELING RECREATIONAL DRUG USE DRUG USE?NO EXERCISE: WALKS UP & DOWN STAIRS @ HOME WHEN OUT ON APPOINTMENTS. 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 NEEDED?NO PAIN CLINIC PFS, CLERGY, PUBLIC HEALTH REFERRALS PFS REFERRAL NEEDED?NO CLERGY REFERRAL NEEDED?NO PUBLIC HEALTH REFERRAL NEEDED?NO HAS THE PATIENT BEEN EDUCATED REGARDING HIS/HER PLAN OF CARE?YES HAS THE PATIENT BEEN EDUCATED REGARDING PAIN, THE RISK FOR PAIN, THE IMPORTANCE OF EFFECTIVE PAIN MANAGEMENT, AND THE PAIN ASSESSMENT PROCESS?YES LATEX QUESTIONNAIRE LATEX ALLERGY : HAVE YOU EVER DEVELOPED ANY TYPE OF REACTION AFTER HANDLING LATEX PRODUCTS SUCH RUBBER GLOVES, CONDOMS, DIAPHRAGMS, BALLOONS, SOCKS, OR UNDERWEAR?NO LATEX ALLERGY : HAVE YOU EVER DEVELOPED ANY TYPE OF REACTION DURING OR AFTER DENTAL APPOINTMENT, VAGINAL/RECTAL EXAMINATION, SURGICAL PROCEDURE, OR ANY OTHER EXPOSURE?NO LATEX RISK : HAVE YOU EVER HAD ANY DIFFICULTY BREATHING OR HIVES AFTER EATING OR HANDLING ANY FRUITS, OR VEGETABLES; SUCH KIWI, BANANAS, STONE FRUITS, OR CHESTNUTSNO LATEX RISK : DO YOU HAVE A PREVIOUS PERSONAL HISTORY OF MORE THAN NINE SURGERIES, SPINA BIFIDA, OR REPEATED CATHERIZATIONS? YES - PLEASE INDICATE : > 9 SURGERIES LATEX RISK : ARE YOU FREQUENTLY EXPOSED TO LATEX PRODUCTS IN YOUR OCCUPATION?NO DATE ASKED : 09/30/2019 CAFFEINE CAFFEINE USE?NO ADVANCE DIRECTIVE ADVANCE DIRECTIVE DISCUSSED WITH PATIENT:YES 09/30/2019 PT DOES NOT HAVE ANY ADVANCED DIRECTIVES AND SHE DECLINES INFORMATION ON HCP AT THIS TIME. AD YARSANI [id number] CONFUCIANIST MARITAL STATUS: . ALCOHOL SCREENING DID YOU HAVE A DRINK CONTAINING ALCOHOL IN THE PAST YEAR?NO POINTS0 INTERPRETATIONNEGATIVE OCCUPATION: UNEMPLOYED. SEXUAL HX HAD SEX IN THE LAST 12 MONTHS (VAGINAL, ORAL, OR ANAL)?YES WITHMEN ONLY PREVENTION STRATEGIES DISCUSSED:OTHER USE PROTECTION?NO LMP:HYSTER HAVE YOU EVER HAD AN STD?NO REVIEWED WITH PATIENT 05/20/18 1006 JSREVIEWED WITH PATIENT 11/24/18 0918 JSREVIEWED WITH PATIENT 12/10/18 0909 LASREVIEWED [facility] PAT[facility] 07/14/19 DS. HOSPITALIZATION/MAJOR DIAGNOSTIC PROCEDURE SURGERY 12/2016 MICHI 08/2019 REVIEW OF SYSTEMS REVIEWED BY: PROVIDER: DHARMESH CONNELLY . CONSTITUTIONAL: ANY CHANGE IN YOUR MEDICAL CONDITION? NO . CHILLS NO . FEVER NO . INFECTION: DO YOU HAVE NEW INFECTIONS? NO . DO YOU HAVE HISTORY OF MRSA? NO . MUSCULOSKELETAL: ANY NEW PATTERNS OF PAIN OR NUMBNESS? NO . GASTROENTEROLOGY: ANY NEW CHANGE IN BOWEL CONTROL? NO . GENITOURINARY: ANY NEW CHANGE IN BLADDER CONTROL? NO . IS THERE A CHANCE YOU COULD BE ? NO . HEMATOLOGY/LYMPH: DENIES FEVER. DO YOU TAKE ANY BLOOD THINNERS? (FOR EXAMPLE- COUMADIN, PLAVIX, AGGRENOX, PLATEL, PRADAXA, OR XARELTO) NO . WHEN WAS YOUR LAST DOSE? DATE: TIME: . NEUROLOGY: HAVE YOU FALLEN IN THE PAST 12 MONTHS? NO . ANY NEW EXTREMITY NUMBNESS OR WEAKNESS? NO . CARDIOLOGY: DO YOU HAVE A PACEMAKER OR DEFIBRILLATOR? NO . RESPIRATORY: HAVE YOU BEEN SICK IN THE PAST WEEK? NO . FEVER NO . FLU LIKE SYMPTOMS? NO . COUGH NO . INTEGUMENTARY: DO YOU HAVE ANY RASHES OR OPEN SORES? NO . ALLERGIC/IMMUNO: ARE YOU ALLERGIC TO IV DYE? NO . ANY NEW ALLERGIES? NO . PSYCHIATRIC: DO YOU HAVE THOUGHTS OF HURTING YOURSELF OR SOMEONE ELSE? NO . ARE YOU ABUSED, NEGLECTED, OR IN AN UNSAFE ENVIRONMENT? NO . ENDOCRINOLOGY: ARE YOU DIABETIC? YES FSBS THIS A.M. 123 . OTHER: DO YOU NEED ANY PRESCRIPTIONS? NO . IF YES, PLEASE LIST: ____ . ANY NEW PROBLEMS WITH YOUR MEDICATIONS? NO . WHEN DID YOU LAST EAT? ____ . WHEN DID YOU LAST DRINK? ____ . WHAT DID YOU LAST DRINK? ____ . NAME OF PERSON DRIVING YOU HOME? ____ . DO YOU HAVE ANY OTHER QUESTIONS OR CONCERNS NO . DERMATOLOGY: ADMITS ITCHING. VITAL SIGNS WT 219.6 LBS, HT 5'3", BMI 38.90 INDEX, BP 157/84 MM HG, HR 96 /MIN, RR 18 /MIN, TEMP 98.0 F, OXYGEN SAT % 97%, SAFE IN ENV? (Y/N) Y, NA INITIALS AW 0847, REVIEWED BY: RADHA. EXAMINATION GENERAL EXAMINATION: GENERALAWAKE,ALERT ,PLEAASANT . PSYCHAFFECT NORMAL . LUNGS:LUNG ROCA ARE CLEAR TO AUSCULTATION BILATERALLY. GOOD MOVEMENT OF AIR . HEART:S1, S2 IN A REGULAR RATE AND RHYTHM. NO SIGNIFICANT MURMURS, RUBS OR GALLOPS NOTED . ASSESSMENTS LUMBOSACRAL SPINAL STENOSIS - M48.07 (PRIMARY) TREATMENT LUMBOSACRAL SPINAL STENOSIS CONTINUE GABAPENTIN TABLET, 600 MG, 1 CAPSULE, ORALLY, THREE TIMES A DAY CONTINUE ACETAMINOPHEN CAPSULE, 500 MG, 2 TABLETS, ORALLY, EVERY 8 HRS PRN CONTINUE AMITRIPTYLINE HCL TABLET, 25 MG, 1 TABLET AT BEDTIME, ORALLY, ONCE A DAY PROCEDURE CODES FA211 ESTABILISHED PATIENT [facility] CHARGE DISPOSITION & COMMUNICATION FOLLOW UP 2 MONTHS ELECTRONICALLY SIGNED BY MARICEL ORELLANA ON 09/30/2019 AT 09:55 AM EST DISCLAIMER : THIS IS A VISIT SUMMARY EXTRACTED FROM THE [email or web address] CHART. IT IS NOT A COPY OF THE [email or web address] PROGRESS NOTE. DANIEL
== END ==
LOC: M PAIN 09:00
PROVIDERS: ATTEND Nurse Practitioner Family
DX: M48.07 Spinal stenosis, lumbosacral region (principal)

== ENCOUNTER 2019-10-02 18:54 | Emergency (ER) | payer OTHER ==
[~2019-10-02] VITALS: Ht 152.4 cm; Wt 120.5 kg
[2019-10-02] MEDS ORDERED: PERCOCET 5MG/325MG TAB PO ONE (20:15)
[2019-10-02] MEDS ORDERED: PERC5TAB12 PO (21:08)
[2019-10-02 21:28] VITALS: BP 119/82
--- NOTE | 2019-10-04 07:33 | REP ---
LEFT KNEE, FOUR VIEWS: Four views of the left knee performed. No acute fracture or dislocation is seen. There is mild diffuse joint space narrowing, subchondral sclerosis and spurring. There may be a small effusion. IMPRESSION: Mild diffuse degenerative changes. Possible small effusion. No acute fracture or dislocation. Electronically Signed by Giorgio Hermosillo MD 10/04/2019 12:01 P
--- NOTE | 2019-10-04 07:34 | REP ---
LEFT LOWER LEG, AP AND LATERAL: AP and lateral views of the left lower leg performed. There is no evidence of acute fracture or dislocation. Mild diffuse degenerative changes are seen at the knee. Ankle mortise appears anatomic. IMPRESSION: No fracture or dislocation. Electronically Signed by Giorgio Hermosillo MD 10/04/2019 12:01 P
== END 2019-10-02 21:30 | disposition home or self-care (01) ==
LOC: M ED 18:54 → EDBD 18:54 → M ED 21:30
DX: S80.02XA Contusion of left knee, initial encounter (principal); W17.89XA Other fall from one level to another, initial encounter; Y92.009 Unspecified place in unspecified non-institutional (private) residence as the place of occurrence of the external cause; Y93.89 Activity, other specified; Y99.9 Unspecified external cause status; J45.909 Unspecified asthma, uncomplicated; Z79.2 Long term (current) use of antibiotics; Z79.899 Other long term (current) drug therapy; Z88.8 Allergy status to other drugs, medicaments and biological substances

== ENCOUNTER → 2019-12-20 | Outpatient (CLI) | payer OTHER ==
--- NOTE | 2019-12-23 01:34 | ECWPNPC ---
PATIENT NAME: STEVE DIAMOND : 1965 GENDER: FEMALE VISIT DATE: 12/20/2019 DISCHARGE DATE: 12/20/19 1108 VISIT LOCKED DATE TIME: PHYSICIAN: DHARMESH BLANCO RESOURCE: DHARMESH BLANCO REASON FOR APPOINTMENT 1. 2 [email or web address] PAT DONE HISTORY OF PRESENT ILLNESS HISTORY OF PRESENT ILLNESS: PATIENT IS AGREEABLE TO TELEPHONE VISIT. THIS IS A FOLLOW-UP OF CHRONIC LOW BACK PAIN. RATING LOW BACK PAIN A 6/10 VAS. PAIN IS AGGRAVATED WITH ANY ACTIVITY. REVIEWED MRI. DISCUSSED TREATMENT OPTIONS. MEDICATION IS SOMEWHAT HELPFUL AT REDUCING PAIN AND KEEPING HER FUNCTIONAL. PAIN THE PATIENT DESCRIBES THE PAIN... FALL RISK SCREENING: SCREENING :NO FALLS REPORTED IN THE LAST YEAR CURRENT MEDICATIONS TAKING SINGULAIR 10 MG TABLET 1 TABLET IN THE EVENING ORALLY ONCE A DAY TAKING DULERA 100 MCG/5MCG 2 PUFFS INHALATION TWICE A DAY TAKING VITAMIN D 2000 UNIT TABLET 1 TABLET ORALLY ONCE A DAY TAKING MAGNESIUM OXIDE 250 MG TABLET 1 TAB ORALLY ONCE A DAY TAKING ALPHAGAN P 0.15 % SOLUTION 1 DROP INTO AFFECTED EYE OPHTHALMIC THREE TIMES A DAY, NOTES: [facility] 01/19 6AM TAKING ALBUTEROL SULFATE (2.5 MG/3ML) 0.083% NEBULIZATION SOLUTION 3 ML INHALATION THREE TIMES A DAY PRN TAKING LATANOPROST 0.005 % SOLUTION INSTILL 1 DROP IN EACH EYE AT BEDTIME DIRECTED OPHTHALMIC TAKING NORCO 10-325 MG TABLET 1 TABLET NEEDED ORALLY EVERY 6 HRS PRN MDD4 TAKING VITAMIN B-12 1000 MCG TABLET CHEWABLE 1 TABLET ORALLY ONCE A DAY- OTC, NOTES: OTC TAKING VICTOZA 18 MG/3ML SOLUTION PEN-INJECTOR 1.8 MG SUBCUTANEOUS DAILY TAKING HYDROCHLOROTHIAZIDE 25 MG TABLET 1 TABLET ORALLY ONCE A DAY TAKING NORVASC 5 MG TABLET 1 TABLET ORALLY ONCE A DAY TAKING LIPITOR 40 MG TABLET 1 TABLET ORALLY ONCE A DAY TAKING AMITRIPTYLINE HCL 25 MG TABLET 1 TABLET AT BEDTIME ORALLY ONCE A DAY TAKING BLOOD GLUCOSE TEST - STRIP 1 STRIP GLUCOSE TESTING STRIPS FOR ONE TOUCH VERIO DAILY/ E119 TAKING ACETAMINOPHEN 500 MG CAPSULE 2 TABLETS ORALLY EVERY 8 HRS PRN TAKING FLONASE ALLERGY RELIEF 50 MCG/ACT SUSPENSION 1 SPRAY IN EACH NOSTRIL NASALLY ONCE A DAY TAKING SALINE NASAL SPRAY 0.65 % SOLUTION 2 DROPS IN EACH NOSTRIL NEEDED NASALLY EVERY 2 HRS TAKING AZELASTINE HCL 137 MCG/SPRAY SOLUTION 1 PUFF IN EACH NOSTRIL NASALLY TWICE A DAY TAKING LISINOPRIL 20 MG TABLET 1 TABLET ORALLY ONCE A DAY TAKING ALLOPURINOL 100 MG TABLET 2 TABLET ORALLY ONCE A DAY TAKING LANCETS - MISCELLANEOUS 1 EACH TO USE FOR ONCE TOUCH DAILY/ E11.9 TAKING METFORMIN HCL 1000 MG TABLET 1 TABLET WITH MEALS ORALLY TWICE A DAY TAKING CLIMARA 0.05 MG/24HR PATCH WEEKLY 1 PATCH TO SKIN TRANSDERMAL WEEKLY TAKING BD ULTRA-FINE PEN NEEDLES 32G 4MM DIRECTED 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 TAKING PROVENTIL HFA 108 (90 BASE) MCG/ACT AEROSOL SOLUTION 2 PUFFS INHALATION EVERY 4 HOUR NEEDED TAKING GABAPENTIN 600 MG TABLET 1 CAPSULE ORALLY THREE TIMES A DAY NOT-TAKING PREDNISONE 20 MG TABLET 1 TABLET WITH FOOD ORALLY TWICE DAILY NOT-TAKING TRAMADOL HCL 50 MG TABLET 2 TAB ORALLY BID MDD4 MEDICATION LIST REVIEWED AND RECONCILED WITH THE PATIENT PAST MEDICAL HISTORY HYPERTENSION ASTHMA GOUT VITAMIN D DEFICIENCY CHRONIC RIGHT OTITIS MEDIA PRE-DIABETES/IMPAIRED FASTING GLUCOSE FIBROMYALGIA-GOES TO PAIN CLINIC RECURRENT SINUSITIS TD 1999; TDAP 06/15 PNEUMNOVAX 2009 CHRONIC ALLERGIC RHINITIS - GETS ALLERGY SHOTS FIBROIDS COLONOSCOPY 2018, REPEAT IN 5 YEAR VITAMIN B12 DEFICIENCY--ON MONTHLY INJECTIONS FOR A WHILE, STOPPED COMING FOR THEM, LEVEL NL ON ORAL MED DM TYPE II CHRONIC BACK PAIN ALLERGIES TRICOR: RASH - ALLERGY DUST MITES: RASH - ALLERGY SURGICAL HISTORY KNEE ARTHROSCOPY (4 ON RT, 3 ON LEFT) CARPAL TUNNEL RELEASE R 2001 RIGHT KNEE ARTHROSCOPY SURGERY DR. SHARMA 02/09/2013 LAPAROSCOPY, REMOVAL OF FIBROID 10/21/16 MANUEL WITH BILAT. SALPINGO OOPHERECTOMY 12/11/16 LEFT CARPEL TUNNEL 10/2017 LOWER LUMBAR FUSION L4-5 08/31/2019 FAMILY HISTORY FATHER: ALIVE, HEALTH STATUS UNKNOWN MOTHER: ALIVE 69 YRS, DIAGNOSED WITH DIABETES, HYPERTENSION SIBLINGS: ALIVE, SIS PRE-DM, BR HTN, HYPERTENSION 1DAUGHTER(S) - HEALTHY. SOCIAL HISTORY GENERAL: TOBACCO USE ARE YOU A:FORMER SMOKER HOW LONG HAS IT BEEN SINCE YOU LAST SMOKED?> 10 YEARS LATEX QUESTIONNAIRE LATEX ALLERGY : HAVE YOU EVER DEVELOPED ANY TYPE OF REACTION AFTER HANDLING LATEX PRODUCTS SUCH RUBBER GLOVES, CONDOMS, DIAPHRAGMS, BALLOONS, SOCKS, OR UNDERWEAR?NO LATEX ALLERGY : HAVE YOU EVER DEVELOPED ANY TYPE OF REACTION DURING OR AFTER DENTAL APPOINTMENT, VAGINAL/RECTAL EXAMINATION, SURGICAL PROCEDURE, OR ANY OTHER EXPOSURE?NO LATEX RISK : HAVE YOU EVER HAD ANY DIFFICULTY BREATHING OR HIVES AFTER EATING OR HANDLING ANY FRUITS, OR VEGETABLES; SUCH KIWI, BANANAS, STONE FRUITS, OR CHESTNUTSNO LATEX RISK : DO YOU HAVE A PREVIOUS PERSONAL HISTORY OF MORE THAN NINE SURGERIES, SPINA BIFIDA, OR REPEATED CATHERIZATIONS? YES - PLEASE INDICATE : > 9 SURGERIES LATEX RISK : ARE YOU FREQUENTLY EXPOSED TO LATEX PRODUCTS IN YOUR OCCUPATION?NO DATE ASKED : 12/17/2019 BMI CARE GOAL FOLLOW-UP ABOVE NORMAL BMI FOLLOW-UPDIETARY MANAGEMENT EDUCATION, GUIDANCE, AND COUNSELING ALCOHOL SCREENING DID YOU HAVE A DRINK CONTAINING ALCOHOL IN THE PAST YEAR?NO POINTS0 INTERPRETATIONNEGATIVE RECREATIONAL DRUG USE DRUG USE?NO CAFFEINE CAFFEINE USE?NO SEXUAL HX HAD SEX IN THE LAST 12 MONTHS (VAGINAL, ORAL, OR ANAL)?YES WITHMEN ONLY PREVENTION STRATEGIES DISCUSSED:OTHER USE PROTECTION?NO LMP:HYSTER HAVE YOU EVER HAD AN STD?NO HIV / HEP-C SCREENING HIV TEST OFFERED TO PATIENT:YES DATE OFFERED:10/11/2016 TEST ACCEPTED:NO HEP-C TEST OFFERED TO PATIENT:NO REASON:PATIENT DECLINED [id number]. EDUCATION 12TH GRADE GRADUATE. LEARNING BARRIERS / SPECIAL NEEDS CHANGE FROM LAST VISIT?NO BARRIERS TO LEARNING?NO HEARING IMPAIRED?NO VISION IMPAIRED?YES COGNITIVELY IMPAIRED?NO :CORRECTIVE LENSES READINESS TO LEARN?YES LEARNING PREFERENCES?NO LEARNING CAPABILITIES PRESENT?YES EMOTIONAL BARRIERS?NO SPECIAL DEVICES?YES BRACE WRISTS AND KNEES, C PAP BUT DOESNT USE IT IN OVER 2 YEARS PIN ATTACHER NEEDED?NO NO DOMESTIC VIOLENCE DO YOU FEEL SAFE IN YOUR ENVIRONMENT?YES OCCUPATION: UNEMPLOYED. DIET: REGULAR. EXERCISE: WALKS UP & DOWN STAIRS @ HOME WHEN OUT ON APPOINTMENTS. MARITAL STATUS: . OTHERS AT HOME: SPOUSE, CHILD. NEW PATIENT PAIN DIARY TODAY'S VISIT 12/17/2019 PATIENT DESCRIBES PAIN :IT COMES AND GOES, SORE FROM 0-10, WHAT LEVEL IS YOUR PAIN TODAY?6 PRECIPITATING FACTORS ANYTHING, MOVEMENT ALLEVIATING FACTORS NOTHING PAIN CLINIC PFS, CLERGY, PUBLIC HEALTH REFERRALS PFS REFERRAL NEEDED?NO CLERGY REFERRAL NEEDED?NO PUBLIC HEALTH REFERRAL NEEDED?NO HAS THE PATIENT BEEN EDUCATED REGARDING HIS/HER PLAN OF CARE?YES HAS THE PATIENT BEEN EDUCATED REGARDING PAIN, THE RISK FOR PAIN, THE IMPORTANCE OF EFFECTIVE PAIN MANAGEMENT, AND THE PAIN ASSESSMENT PROCESS?YES HOUSING: RENTS HOUSE. ADVANCE DIRECTIVE ADVANCE DIRECTIVE DISCUSSED WITH PATIENT:YES 09/30/2019 PT DOES NOT HAVE ANY ADVANCED DIRECTIVES AND SHE DECLINES INFORMATION ON HCP AT THIS TIME. AD HOSPITALIZATION/MAJOR DIAGNOSTIC PROCEDURE SURGERY 12/2016 MICHI 08/2019 REVIEW OF SYSTEMS REVIEWED BY: PROVIDER: DHARMESH CONNELLY . CONSTITUTIONAL: ANY CHANGE IN YOUR MEDICAL CONDITION? NO . CHILLS NO . FEVER NO . INFECTION: DO YOU HAVE NEW INFECTIONS? NO . DO YOU HAVE HISTORY OF MRSA? NO . MUSCULOSKELETAL: ANY NEW PATTERNS OF PAIN OR NUMBNESS? NO . GASTROENTEROLOGY: ANY NEW CHANGE IN BOWEL CONTROL? NO . GENITOURINARY: ANY NEW CHANGE IN BLADDER CONTROL? NO . IS THERE A CHANCE YOU COULD BE ? NO . HEMATOLOGY/LYMPH: DO YOU TAKE ANY BLOOD THINNERS? (FOR EXAMPLE- COUMADIN, PLAVIX, AGGRENOX, PLATEL, PRADAXA, OR XARELTO) NO . WHEN WAS YOUR LAST DOSE? DATE: TIME: . NEUROLOGY: HAVE YOU FALLEN IN THE PAST 12 MONTHS? NO . ANY NEW EXTREMITY NUMBNESS OR WEAKNESS? NO . CARDIOLOGY: DO YOU HAVE A PACEMAKER OR DEFIBRILLATOR? NO . RESPIRATORY: HAVE YOU BEEN SICK IN THE PAST WEEK? NO . FEVER NO . FLU LIKE SYMPTOMS? NO . COUGH NO . INTEGUMENTARY: DO YOU HAVE ANY RASHES OR OPEN SORES? NO . ALLERGIC/IMMUNO: ARE YOU ALLERGIC TO IV DYE? NO . ANY NEW ALLERGIES? NO . PSYCHIATRIC: DO YOU HAVE THOUGHTS OF HURTING YOURSELF OR SOMEONE ELSE? NO . ARE YOU ABUSED, NEGLECTED, OR IN AN UNSAFE ENVIRONMENT? NO . ENDOCRINOLOGY: ARE YOU DIABETIC? YES, MANAGED WITH ORAL MEDS . OTHER: DO YOU NEED ANY PRESCRIPTIONS? NO . IF YES, PLEASE LIST: ____ . ANY NEW PROBLEMS WITH YOUR MEDICATIONS? NO . WHEN DID YOU LAST EAT? ____ . WHEN DID YOU LAST DRINK? ____ . WHAT DID YOU LAST DRINK? ____ . NAME OF PERSON DRIVING YOU HOME? ____ . DO YOU HAVE ANY OTHER QUESTIONS OR CONCERNS PT STATES THAT HER NEUROLOGIST IS RECOMMENDING TRIGGER POINT INJECTIONS AND SUGGESTING PHYSICAL THERAPY. . ASSESSMENTS LUMBOSACRAL SPINAL STENOSIS - M48.07 (PRIMARY) TREATMENT LUMBOSACRAL SPINAL STENOSIS NOTES: PLAN IS TO CONSIDER TRIGGER POINT INJECTIONS IN HER LOWER BACK AREA. THIS WAS SUGGESTED BY HER SURGEON. FOLLOW-UP AT PAIN CLINIC IN 4-6 WEEKS. TOTAL TIME SPENT DURING TELEPHONE VISIT WAS APPROXIMATELY 12 MINUTES. DISPOSITION & COMMUNICATION FOLLOW UP 6 WEEKS (REASON: LOW BACK PAIN/EVALUATE FOR TRIGGER POINT INJECTIONS) ELECTRONICALLY SIGNED BY MARICEL ORELLANA ON 12/22/2019 AT 03:43 PM EDT DISCLAIMER : THIS IS A VISIT SUMMARY EXTRACTED FROM THE [employer] CHART. IT IS NOT A COPY OF THE [employer] PROGRESS NOTE. DANIEL
== END ==
LOC: M PAIN 10:15
PROVIDERS: ATTEND Nurse Practitioner Family
DX: M48.07 Spinal stenosis, lumbosacral region (principal); I10 Essential (primary) hypertension; E11.9 Type 2 diabetes mellitus without complications; Z79.84 Long term (current) use of oral hypoglycemic drugs; Z79.891 Long term (current) use of opiate analgesic; Z79.899 Other long term (current) drug therapy; Z88.8 Allergy status to other drugs, medicaments and biological substances

== ENCOUNTER 2020-01-28 08:38 | Outpatient (RCR) | payer OTHER | END 2020-02-01 | LOC: M PT 08:38 | PROVIDERS: ATTEND Physician Assistant | DX: Z48.89 Encounter for other specified surgical aftercare (principal) ==

== ENCOUNTER → 2020-01-31 | Outpatient (CLI) | payer OTHER ==
--- NOTE | 2020-02-03 01:37 | ECWPNPC ---
PATIENT NAME: STEVE DIAMOND : 1965 GENDER: FEMALE VISIT DATE: 01/31/2020 DISCHARGE DATE: 01/31/20 1006 VISIT LOCKED DATE TIME: PHYSICIAN: DHARMESH BLANCO RESOURCE: DHARMESH BLANCO REASON FOR APPOINTMENT 1. LOW BACK PAIN/EVALUATE FOR TRIGGER POINT INJECTIONS HISTORY OF PRESENT ILLNESS GENERAL: HERE FOR FOLLOW-UP OF CHRONIC LOW BACK PAIN. HAS HAD AN INCREASE IN MUSCLE SPASM TYPE PAIN IN HER LOW BACK, RIGHT GREATER THAN LEFT. ATTENDING PHYSICAL THERAPY FOR LOW BACK. HAS RESPONDED WELL TO TRIGGER POINT INJECTIONS IN THE PAST. REVIEWED TREATMENT PLAN.-. FALL RISK SCREENING: SCREENING :ONE FALL WITH INJURY IN THE PAST YEAR PAIN SCREENING: PATIENT HAS A COMPLAINT OF ACUTE OR CHRONIC PAIN :YES LOCATION OF PAIN:LOW BACK INTENSITY OF PAIN (SCALE OF 1 TO 10):6 WHAT DOES YOUR PAIN FEEL LIKE:CONTINOUS, SHARP DURATION:CONTINOUS PAIN IS INCREASED BY:ACTIVITIES PAIN IS DECREASED BY:USE OF PAIN MEDICATIONS, OTHERS REST AND MEDS TAKE THE EDGE OFF NURSING NOTE: -. PAIN CENTER INTAKE QUESTIONS: DO YOU HAVE A HISTORY OF MRSA? :NO DO YOU TAKE A BLOOD THINNERS? :NO DO YOU HAVE ANY BLEEDING DISORDERS? :NO ANY NEW NUMBNESS OR WEAKNESS IN YOUR LEGS OR ARMS? :NO ANY PACEMAKER,DEFIBRILLATOR, OR DORSAL COLUMN STIMULATOR? :NO DO YOU HAVE ANY RASHES OR OPEN SORES? :NO ARE YOU ALLERGIC TO IV DYE? :NO ARE YOU DIABETIC? :YES ANY NEW PROBLEMS WITH YOUR MEDICATIONS? :NO HAVE YOU RECEIVED A VACCINE IN THE PAST 30 DAYS? :NO DO YOU PLAN TO RECEIVE A VACCINE IN THE NEXT 21 DAYS? :NO DO YOU NEED ANY PRESCRIPTION? :NO DO YOU TAKE ANY IMMUNOSUPPRESSIVE MEDICATIONS? :YES ALLOPURINOL DAILY ANY HISTORY OF SEIZURES? :NO ANY HISTORY OF CARDIAC ISSUES OR EVENTS? :NO DO YOU HAVE SLEEP APNEA? :YES DO YOU WEAR A CPAP?NO HAS NOT BEEN USING ANY RECENT HEAD INJURY? :NO DO YOU HAVE ANY NEW INFECTIONS? :NO IS THERE A CHANCE YOU COULD BE ? :NO ARE YOU BREAST FEEDING? :NO CURRENT MEDICATIONS TAKING SINGULAIR 10 MG TABLET 1 TABLET IN THE EVENING ORALLY ONCE A DAY TAKING DULERA 100 MCG/5MCG 2 PUFFS INHALATION TWICE A DAY TAKING VITAMIN D 2000 UNIT TABLET 1 TABLET ORALLY ONCE A DAY TAKING MAGNESIUM OXIDE 250 MG TABLET 1 TAB ORALLY ONCE A DAY TAKING ALPHAGAN P 0.15 % SOLUTION 1 DROP INTO AFFECTED EYE OPHTHALMIC THREE TIMES A DAY, NOTES: [facility] 01/19 6AM TAKING ALBUTEROL SULFATE (2.5 MG/3ML) 0.083% NEBULIZATION SOLUTION 3 ML INHALATION THREE TIMES A DAY PRN TAKING LATANOPROST 0.005 % SOLUTION INSTILL 1 DROP IN EACH EYE AT BEDTIME DIRECTED OPHTHALMIC TAKING NORCO 10-325 MG TABLET 1 TABLET NEEDED ORALLY EVERY 6 HRS PRN MDD4 TAKING VITAMIN B-12 1000 MCG TABLET CHEWABLE 1 TABLET ORALLY ONCE A DAY- OTC, NOTES: OTC TAKING AMITRIPTYLINE HCL 25 MG TABLET 1 TABLET AT BEDTIME ORALLY ONCE A DAY TAKING BLOOD GLUCOSE TEST - STRIP 1 STRIP GLUCOSE TESTING STRIPS FOR ONE TOUCH VERIO DAILY/ E119 TAKING ACETAMINOPHEN 500 MG CAPSULE 2 TABLETS ORALLY EVERY 8 HRS PRN TAKING FLONASE ALLERGY RELIEF 50 MCG/ACT SUSPENSION 1 SPRAY IN EACH NOSTRIL NASALLY ONCE A DAY TAKING AZELASTINE HCL 137 MCG/SPRAY SOLUTION 1 PUFF IN EACH NOSTRIL NASALLY TWICE A DAY TAKING LANCETS MISC - MISCELLANEOUS 1 EACH TO USE FOR ONCE TOUCH DAILY/ E11.9 TAKING CLIMARA 0.05 MG/24HR PATCH WEEKLY 1 PATCH TO SKIN TRANSDERMAL WEEKLY TAKING BD ULTRA-FINE PEN NEEDLES 32G 4MM DIRECTED 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 TAKING PROVENTIL HFA 108 (90 BASE) MCG/ACT AEROSOL SOLUTION 2 PUFFS INHALATION EVERY 4 HOUR NEEDED TAKING GABAPENTIN 600 MG TABLET 1 CAPSULE ORALLY THREE TIMES A DAY TAKING METFORMIN HCL 1000 MG TABLET 1 TABLET WITH MEALS ORALLY TWICE A DAY TAKING VICTOZA 18 MG/3ML SOLUTION PEN-INJECTOR 1.8 MG SUBCUTANEOUS DAILY TAKING ALLOPURINOL 100 MG TABLET 2 TABLET ORALLY ONCE A DAY TAKING LISINOPRIL 20 MG TABLET 1 TABLET ORALLY ONCE A DAY TAKING LIPITOR 40 MG TABLET 1 TABLET ORALLY ONCE A DAY TAKING NORVASC 5 MG TABLET 1 TABLET ORALLY ONCE A DAY TAKING HYDROCHLOROTHIAZIDE 25 MG TABLET 1 TABLET ORALLY ONCE A DAY NOT-TAKING SALINE NASAL SPRAY 0.65 % SOLUTION 2 DROPS IN EACH NOSTRIL NEEDED NASALLY EVERY 2 HRS NOT-TAKING PREDNISONE 20 MG TABLET 1 TABLET WITH FOOD ORALLY TWICE DAILY NOT-TAKING TRAMADOL HCL 50 MG TABLET 2 TAB ORALLY BID MDD4 MEDICATION LIST REVIEWED AND RECONCILED WITH THE PATIENT PAST MEDICAL HISTORY HYPERTENSION ASTHMA GOUT VITAMIN D DEFICIENCY CHRONIC RIGHT OTITIS MEDIA PRE-DIABETES/IMPAIRED FASTING GLUCOSE FIBROMYALGIA-GOES TO PAIN CLINIC RECURRENT SINUSITIS TD 1999; TDAP 06/15 PNEUMNOVAX 2009 CHRONIC ALLERGIC RHINITIS - GETS ALLERGY SHOTS FIBROIDS COLONOSCOPY 2018, REPEAT IN 5 YEAR VITAMIN B12 DEFICIENCY--ON MONTHLY INJECTIONS FOR A WHILE, STOPPED COMING FOR THEM, LEVEL NL ON ORAL MED DM TYPE II CHRONIC BACK PAIN ALLERGIES TRICOR: RASH - ALLERGY DUST MITES: RASH - ALLERGY SURGICAL HISTORY KNEE ARTHROSCOPY (4 ON RT, 3 ON LEFT) CARPAL TUNNEL RELEASE R 2001 RIGHT KNEE ARTHROSCOPY SURGERY DR. SHARMA 02/09/2013 LAPAROSCOPY, REMOVAL OF FIBROID 10/21/16 MANUEL WITH BILAT. SALPINGO OOPHERECTOMY 12/11/16 LEFT CARPEL TUNNEL 10/2017 LOWER LUMBAR FUSION L4-5 08/31/2019 FAMILY HISTORY FATHER: ALIVE, HEALTH STATUS UNKNOWN MOTHER: ALIVE 69 YRS, DIAGNOSED WITH DIABETES, HYPERTENSION SIBLINGS: ALIVE, SIS PRE-DM, BR HTN, HYPERTENSION 1DAUGHTER(S) - HEALTHY. SOCIAL HISTORY GENERAL: TOBACCO USE ARE YOU A:FORMER SMOKER HOW LONG HAS IT BEEN SINCE YOU LAST SMOKED?> 10 YEARS LATEX QUESTIONNAIRE LATEX ALLERGY : HAVE YOU EVER DEVELOPED ANY TYPE OF REACTION AFTER HANDLING LATEX PRODUCTS SUCH RUBBER GLOVES, CONDOMS, DIAPHRAGMS, BALLOONS, SOCKS, OR UNDERWEAR?NO LATEX ALLERGY : HAVE YOU EVER DEVELOPED ANY TYPE OF REACTION DURING OR AFTER DENTAL APPOINTMENT, VAGINAL/RECTAL EXAMINATION, SURGICAL PROCEDURE, OR ANY OTHER EXPOSURE?NO LATEX RISK : HAVE YOU EVER HAD ANY DIFFICULTY BREATHING OR HIVES AFTER EATING OR HANDLING ANY FRUITS, OR VEGETABLES; SUCH KIWI, BANANAS, STONE FRUITS, OR CHESTNUTSNO LATEX RISK : DO YOU HAVE A PREVIOUS PERSONAL HISTORY OF MORE THAN NINE SURGERIES, SPINA BIFIDA, OR REPEATED CATHERIZATIONS? YES - PLEASE INDICATE : > 9 SURGERIES LATEX RISK : ARE YOU FREQUENTLY EXPOSED TO LATEX PRODUCTS IN YOUR OCCUPATION?NO DATE ASKED : 01/31/2020 BMI CARE GOAL FOLLOW-UP ABOVE NORMAL BMI FOLLOW-UPDIETARY MANAGEMENT EDUCATION, GUIDANCE, AND COUNSELING ALCOHOL SCREENING DID YOU HAVE A DRINK CONTAINING ALCOHOL IN THE PAST YEAR?NO POINTS0 INTERPRETATIONNEGATIVE RECREATIONAL DRUG USE DRUG USE?NO CAFFEINE CAFFEINE USE?NO SEXUAL HX HAD SEX IN THE LAST 12 MONTHS (VAGINAL, ORAL, OR ANAL)?YES WITHMEN ONLY PREVENTION STRATEGIES DISCUSSED:OTHER USE PROTECTION?NO LMP:HYSTER HAVE YOU EVER HAD AN STD?NO HIV / HEP-C SCREENING HIV TEST OFFERED TO PATIENT:YES DATE OFFERED:10/11/2016 TEST ACCEPTED:NO HEP-C TEST OFFERED TO PATIENT:NO REASON:PATIENT DECLINED PRESYBETERIAN [id number] RELIGIOUS LANGUAGE ITALIAN. EDUCATION 12TH GRADE GRADUATE. LEARNING BARRIERS / SPECIAL NEEDS CHANGE FROM LAST VISIT?NO BARRIERS TO LEARNING?NO HEARING IMPAIRED?NO VISION IMPAIRED?YES COGNITIVELY IMPAIRED?NO :CORRECTIVE LENSES READINESS TO LEARN?YES LEARNING PREFERENCES?NO LEARNING CAPABILITIES PRESENT?YES EMOTIONAL BARRIERS?NO SPECIAL DEVICES?YES BRACE WRISTS AND KNEES, C PAP BUT DOESNT USE IT IN OVER 2 YEARS TAB MACHINE OPERATOR NEEDED?NO NO DOMESTIC VIOLENCE DO YOU FEEL SAFE IN YOUR ENVIRONMENT?YES OCCUPATION: UNEMPLOYED. DIET: REGULAR. EXERCISE: WALKS UP & DOWN STAIRS @ HOME WHEN OUT ON APPOINTMENTS. MARITAL STATUS: . OTHERS AT HOME: SPOUSE, CHILD. PAIN CLINIC PFS, CLERGY, PUBLIC HEALTH REFERRALS PFS REFERRAL NEEDED?NO CLERGY REFERRAL NEEDED?NO PUBLIC HEALTH REFERRAL NEEDED?NO HAS THE PATIENT BEEN EDUCATED REGARDING HIS/HER PLAN OF CARE?YES HAS THE PATIENT BEEN EDUCATED REGARDING PAIN, THE RISK FOR PAIN, THE IMPORTANCE OF EFFECTIVE PAIN MANAGEMENT, AND THE PAIN ASSESSMENT PROCESS?YES HOUSING: RENTS HOUSE. ADVANCE DIRECTIVE ADVANCE DIRECTIVE DISCUSSED WITH PATIENT:YES 09/30/2019 PT DOES NOT HAVE ANY ADVANCED DIRECTIVES AND SHE DECLINES INFORMATION ON HCP AT THIS TIME. AD HOSPITALIZATION/MAJOR DIAGNOSTIC PROCEDURE SURGERY 12/2016 [facility] 08/2019 REVIEW OF SYSTEMS CONSTITUTIONAL: ANY RECENT FEVER NO . CHILLS NO . WEIGHT CHANGE OF UNKNOWN REASONS NO . GASTROENTEROLOGY: NEW UNEXPLAINABLE CHANGES IN BOWEL CONTROL NO . CONSTIPATION NO . GENITOURINARY: ANY NEW CHANGE IN BLADDER CONTROL? NO . NEUROLOGY: NEW ONSET DIZZINESS OR NEUROLOGICAL CHANGES NOT MENTIONED NO . NEW NUMBNESS OR PAIN PATTERNS NOT MENTIONED AND PERTINENT TO TODAY'S VISIT NO . CARDIOLOGY: NEW CHEST PRESSURE NO . NEW CHEST PAIN NO . RESPIRATORY: UNEXPLAINABLE COUGH NO . NEW SHORTNESS OF BREATH NO . VITAL SIGNS WT 222.4 LBS, HT 5'3", BMI 39.39 INDEX, BP 154/78 MM HG, HR 81 /MIN, RR 18 /MIN, TEMP 98.2 F, OXYGEN SAT % 95%, SAFE IN ENV? (Y/N) YES, NA INITIALS AW 0929, REVIEWED BY: KATIE. EXAMINATION GENERAL EXAMINATION: GENERAL AWAKE,ALERT ,PLEAASANT . PSYCH AFFECT NORMAL . LUNGS: LUNG ROCA ARE CLEAR TO AUSCULTATION BILATERALLY. GOOD MOVEMENT OF AIR . HEART: S1, S2 IN A REGULAR RATE AND RHYTHM. NO SIGNIFICANT MURMURS, RUBS OR GALLOPS NOTED . MUSCULOSKELETAL: MUSCLE STRENGTH TESTING 4/5 BILATERAL LOWER EXTREMITIES. LUMBAR: TRIGGER POINTS:, ELICITED WITH PALPATION OVER LUMBAR PARAVERTEBRAL MUSCLES , RIGHT GREATER THAN LEFT. RESTRICTION OF ROM IN THIS AREA. ASSESSMENTS MYALGIA, OTHER SITE - M79.18 (PRIMARY) TREATMENT MYALGIA, OTHER SITE NOTES: TRIGGER POINT INJECTION LOW BACK. OTHERS NOTES: TRIGGER POINT INJECTION MATERIAL WAS PRINTED. PREVENTIVE MEDICINE PAIN CLINIC TEACHING: PROCEDURE TEACHING TRIGGER POINT INJECTION INFORMATION REVIEWED AND PRINTED FOR PATIENT. PATIENT VERBLAIZES UNDERSTANDING OF PROCEDURE AND OF PRE PROCEDURE INSTRUCTIONS REVIEWED. 01/31/2020 0930 NLJ. DISPOSITION & COMMUNICATION FOLLOW UP POST PROCEDURE (REASON: TRIGGER POINT INJECTION LOW BACK) ELECTRONICALLY SIGNED BY MARICEL ORELLANA ON 02/02/2020 AT 09:15 AM EDT DISCLAIMER : THIS IS A VISIT SUMMARY EXTRACTED FROM THE [employer] CHART. IT IS NOT A COPY OF THE [employer] PROGRESS NOTE. DANIEL
== END ==
LOC: M PAIN 09:45
PROVIDERS: ATTEND Nurse Practitioner Family
DX: M79.18 Myalgia, other site (principal); I10 Essential (primary) hypertension; E11.9 Type 2 diabetes mellitus without complications; Z79.4 Long term (current) use of insulin; Z79.891 Long term (current) use of opiate analgesic; Z79.899 Other long term (current) drug therapy; Z88.8 Allergy status to other drugs, medicaments and biological substances; Z87.891 Personal history of nicotine dependence

== ENCOUNTER → 2020-02-08 | Outpatient (CLI) | payer OTHER ==
[~2020-02-08] MED LIST changes: +CYAN100T4 PO; -CYAN100T5 PO
[2020-02-08 10:06] LABS: ALBUMIN 3.8 GM/DL (3.2-5.2); ALT/SGPT 43 U/L (12-78); BILIRUBIN,TOTAL 0.3 MG/DL (0.2-1.0); BLOOD UREA NITROGEN 8 MG/DL (7-18); CALCIUM LEVEL 9.3 MG/DL (8.5-10.1); CARBON DIOXIDE LEVEL 28 MEQ/L (21-32); CHLORIDE LEVEL 101 MEQ/L (98-107); CHOLESTEROL LEVEL 127 MG/DL (<200); CHOLESTEROL RISK RATIO 2.702 (<5); CREATININE FOR GFR 0.57 MG/DL (0.55-1.30); GLOMERULAR FILTRATION RATE > 60.0 (>51); GLUCOSE, FASTING 94 MG/DL (70-100); HDL CHOLESTEROL 47 MG/DL (>40); LDL CHOLESTEROL 51 MG/DL (<100); NON-HDL-C 80 MG/DL; POTASSIUM SERUM 4.6 MEQ/L (3.5-5.1); SODIUM LEVEL 137 MEQ/L (136-145); TOTAL PROTEIN 6.9 GM/DL (6.4-8.2); TRIGLYCERIDES LEVEL 144 MG/DL (<150)
[2020-02-08 10:11] LABS: FOLATE 16.2 NG/ML; TOTAL 25(OH) VITAMIN D 33.9 NG/ML (30.0-100.0); VITAMIN B12 LEVEL 1102 PG/ML
[2020-02-08 10:15] LABS: CREATININE, URINE 51.5 MG/DL; MALB URINE SIEMENS < 5.0 MG/L; MAU/CREAT RATIO 9.7 MCG/MG (0.0-30.0)
[2020-02-08 10:30] LABS: HEMOGLOBIN A1c 6.2 %
== END ==
LOC: M LAB 08:17
PROVIDERS: ATTEND Nurse Practitioner Family
DX: E78.2 Mixed hyperlipidemia (principal); E53.8 Deficiency of other specified B group vitamins; E55.9 Vitamin D deficiency, unspecified; E11.9 Type 2 diabetes mellitus without complications; I10 Essential (primary) hypertension

== ENCOUNTER → 2020-02-13 | Outpatient (CLI) | payer OTHER | LOC: M LABSMTC 09:05 | PROVIDERS: ATTEND Anesthesiology | DX: Z11.59 Encounter for screening for other viral diseases (principal) | CPT/HCPCS: C9803; U0003 ==

== ENCOUNTER → 2020-02-18 | Outpatient (CLI) | payer OTHER ==
[~2020-02-18] MED LIST changes: +BUPIVACAINE HCL 0.25% 10ML VIAL As Ordered ONE; +BUPIVACAINE HCL 0.25% 30ML VIAL As Ordered ONE; +TRIAMCINOLONE ACETONIDE SUSP 40 MG/ML VIAL (J3301) As Ordered ONE; +diazePAM 5 MG TAB As Ordered ONE; +oxyCODONE 5MG TAB As Ordered ONE
--- NOTE | 2020-02-22 03:10 | ECWPNPC ---
PATIENT NAME: STEVE DIAMOND : 1965 GENDER: FEMALE VISIT DATE: 02/18/2020 DISCHARGE DATE: 02/18/20 0000 VISIT LOCKED DATE TIME: PHYSICIAN: TOMMY SULLIVAN MD RESOURCE: TOMMY SULLIVAN MD REASON FOR APPOINTMENT 1. TPI LOW BACK- NEEDS CLEARANCE HISTORY OF PRESENT ILLNESS PAIN CENTER INTAKE QUESTIONS: DO YOU HAVE A HISTORY OF MRSA? :NO DO YOU TAKE A BLOOD THINNERS? :NO DO YOU HAVE ANY BLEEDING DISORDERS? :NO ANY NEW NUMBNESS OR WEAKNESS IN YOUR LEGS OR ARMS? :NO ANY PACEMAKER,DEFIBRILLATOR, OR DORSAL COLUMN STIMULATOR? :NO DO YOU HAVE ANY RASHES OR OPEN SORES? :NO ARE YOU ALLERGIC TO IV DYE? :NO ARE YOU DIABETIC? :YES ANY NEW PROBLEMS WITH YOUR MEDICATIONS? :NO HAVE YOU RECEIVED A VACCINE IN THE PAST 30 DAYS? :NO DO YOU PLAN TO RECEIVE A VACCINE IN THE NEXT 21 DAYS? :NO DO YOU TAKE ANY IMMUNOSUPPRESSIVE MEDICATIONS? :YES LAST TAKEN FRIDAY ANY HISTORY OF SEIZURES? :NO ANY HISTORY OF CARDIAC ISSUES OR EVENTS? :NO DO YOU HAVE SLEEP APNEA? :YES PATIENT REPORTS SLEEPING WELL DO YOU WEAR A CPAP?NO ANY RECENT HEAD INJURY? :NO DO YOU HAVE ANY NEW INFECTIONS? :NO IS THERE A CHANCE YOU COULD BE ? :NO ARE YOU BREAST FEEDING? :NO WHEN DID YOU LAST EAT? : 02/18/20 0700 WHEN DID YOU LAST DRINK? : 02/18/20 1120 WHAT DID YOU LAST DRINK? : WATER NAME OF PERSON DRIVING YOU HOME? : , JENNIFER DO YOU HAVE ANY OTHER QUESTIONS OR CONCERNS? : NO GENERAL: -. FALL RISK SCREENING: SCREENING :NO FALLS REPORTED IN THE LAST YEAR PAIN SCREENING: PATIENT HAS A COMPLAINT OF ACUTE OR CHRONIC PAIN :YES LOCATION OF PAIN:LOW BACK INTENSITY OF PAIN (SCALE OF 1 TO 10):6 WHAT DOES YOUR PAIN FEEL LIKE:SORE R>L DURATION:STEADY, AWAKENS FROM SLEEP PAIN IS INCREASED BY:ACTIVITIES PAIN IS DECREASED BY: SOMETIMES REPOSITIONING PAIN HAS INTERFERED WITH THE FOLLOWING:HOUSEWORK, WALKING ABILITY, SLEEP PLAN/GOALS/TREATMENT/INTERVENTION/FOLLOW UP:SEE PLAN NURSING NOTE: -. CURRENT MEDICATIONS TAKING SINGULAIR 10 MG TABLET 1 TABLET IN THE EVENING ORALLY ONCE A DAY, NOTES: 02/16 1930 TAKING DULERA 100 MCG/5MCG 2 PUFFS INHALATION TWICE A DAY, NOTES: 02/17 730 TAKING MAGNESIUM OXIDE 250 MG TABLET 1 TAB ORALLY ONCE A DAY, NOTES: 02/17 730 TAKING ALPHAGAN P 0.15 % SOLUTION 1 DROP INTO AFFECTED EYE OPHTHALMIC THREE TIMES A DAY, NOTES: 02/18 1200 TAKING ALBUTEROL SULFATE (2.5 MG/3ML) 0.083% NEBULIZATION SOLUTION 3 ML INHALATION THREE TIMES A DAY PRN, NOTES: ONE WEEK AGO TAKING LATANOPROST 0.005 % SOLUTION INSTILL 1 DROP IN EACH EYE AT BEDTIME DIRECTED OPHTHALMIC , NOTES: 02/16 2200 TAKING NORCO 10-325 MG TABLET 1 TABLET NEEDED ORALLY EVERY 6 HRS PRN MDD4, NOTES: 02/17 730 TAKING AMITRIPTYLINE HCL 25 MG TABLET 1 TABLET AT BEDTIME ORALLY ONCE A DAY, NOTES: 02/16 2200 TAKING ACETAMINOPHEN 500 MG CAPSULE 2 TABLETS ORALLY EVERY 8 HRS PRN, NOTES: 02/17 730 TAKING FLONASE ALLERGY RELIEF 50 MCG/ACT SUSPENSION 1 SPRAY IN EACH NOSTRIL NASALLY ONCE A DAY, NOTES: 02/18 800 TAKING AZELASTINE HCL 137 MCG/SPRAY SOLUTION 1 PUFF IN EACH NOSTRIL NASALLY TWICE A DAY, NOTES: 02/17 815 TAKING LANCETS - MISCELLANEOUS 1 EACH TO USE FOR ONCE TOUCH DAILY/ E11.9 TAKING CLIMARA 0.05 MG/24HR PATCH WEEKLY 1 PATCH TO SKIN TRANSDERMAL WEEKLY, NOTES: FRIDAY TAKING BD ULTRA-FINE PEN NEEDLES 32G 4MM DIRECTED 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 TAKING PROVENTIL HFA 108 (90 BASE) MCG/ACT AEROSOL SOLUTION 2 PUFFS INHALATION EVERY 4 HOUR NEEDED, NOTES: ONE WEEK AGO TAKING GABAPENTIN 600 MG TABLET 1 CAPSULE ORALLY THREE TIMES A DAY, NOTES: 02/18 1200 TAKING VITAMIN B-12 1000 MCG TABLET CHEWABLE 1 TABLET ORALLY ONCE A DAY- OTC, NOTES: OTC 02/17 730 TAKING NORVASC 5 MG TABLET 1 TABLET ORALLY ONCE A DAY, NOTES: 02/17 730 TAKING HYDROCHLOROTHIAZIDE 25 MG TABLET 1 TABLET ORALLY ONCE A DAY, NOTES: 02/17 730 TAKING LIPITOR 40 MG TABLET 1 TABLET ORALLY ONCE A DAY, NOTES: 02/17 730 TAKING ALLOPURINOL 100 MG TABLET 2 TABLET ORALLY ONCE A DAY, NOTES: 02/14 TAKING LISINOPRIL 20 MG TABLET 1 TABLET ORALLY ONCE A DAY, NOTES: 02/17 0730 TAKING BLOOD GLUCOSE TEST - STRIP 1 STRIP GLUCOSE TESTING STRIPS FOR ONE TOUCH VERIO DAILY/ E119 TAKING VICTOZA 18 MG/3ML SOLUTION PEN-INJECTOR 1.8 MG SUBCUTANEOUS DAILY, NOTES: 02/16 TAKING METFORMIN HCL 1000 MG TABLET 1 TABLET WITH MEALS ORALLY TWICE A DAY, NOTES: 02/16 TAKING VITAMIN D 2000 UNIT TABLET 1 TABLET ORALLY ONCE A DAY, NOTES: 02/17 NOT-TAKING SALINE NASAL SPRAY 0.65 % SOLUTION 2 DROPS IN EACH NOSTRIL NEEDED NASALLY EVERY 2 HRS NOT-TAKING PREDNISONE 20 MG TABLET 1 TABLET WITH FOOD ORALLY TWICE DAILY NOT-TAKING TRAMADOL HCL 50 MG TABLET 2 TAB ORALLY BID MDD4 MEDICATION LIST REVIEWED AND RECONCILED WITH THE PATIENT PAST MEDICAL HISTORY HYPERTENSION ASTHMA GOUT VITAMIN D DEFICIENCY CHRONIC RIGHT OTITIS MEDIA PRE-DIABETES/IMPAIRED FASTING GLUCOSE FIBROMYALGIA-GOES TO PAIN CLINIC RECURRENT SINUSITIS TD 1999; TDAP 06/15 PNEUMNOVAX 2009 CHRONIC ALLERGIC RHINITIS - GETS ALLERGY SHOTS FIBROIDS COLONOSCOPY 2017, REPEAT IN 5 YEAR VITAMIN B12 DEFICIENCY--ON MONTHLY INJECTIONS FOR A WHILE, STOPPED COMING FOR THEM, LEVEL NL ON ORAL MED DM TYPE II CHRONIC BACK PAIN ALLERGIES TRICOR: RASH - ALLERGY DUST MITES: RASH - ALLERGY - ONSET DATE 02/18/2020 SURGICAL HISTORY KNEE ARTHROSCOPY (4 ON RT, 3 ON LEFT) CARPAL TUNNEL RELEASE R 2001 RIGHT KNEE ARTHROSCOPY SURGERY DR. SHARMA 02/09/2013 LAPAROSCOPY, REMOVAL OF FIBROID 10/21/16 MANUEL WITH BILAT. SALPINGO OOPHERECTOMY 12/11/16 LEFT CARPEL TUNNEL 10/2017 LOWER LUMBAR FUSION L4-5 08/31/2019 FAMILY HISTORY FATHER: ALIVE, HEALTH STATUS UNKNOWN MOTHER: ALIVE 69 YRS, DIAGNOSED WITH HYPERTENSION, DIABETES SIBLINGS: ALIVE, SIS PRE-DM, BR HTN, HYPERTENSION 1DAUGHTER(S) - HEALTHY. SOCIAL HISTORY GENERAL: TOBACCO USE ARE YOU A:FORMER SMOKER HOW LONG HAS IT BEEN SINCE YOU LAST SMOKED?> 10 YEARS LATEX QUESTIONNAIRE LATEX ALLERGY : HAVE YOU EVER DEVELOPED ANY TYPE OF REACTION AFTER HANDLING LATEX PRODUCTS SUCH RUBBER GLOVES, CONDOMS, DIAPHRAGMS, BALLOONS, SOCKS, OR UNDERWEAR?NO LATEX ALLERGY : HAVE YOU EVER DEVELOPED ANY TYPE OF REACTION DURING OR AFTER DENTAL APPOINTMENT, VAGINAL/RECTAL EXAMINATION, SURGICAL PROCEDURE, OR ANY OTHER EXPOSURE?NO LATEX RISK : HAVE YOU EVER HAD ANY DIFFICULTY BREATHING OR HIVES AFTER EATING OR HANDLING ANY FRUITS, OR VEGETABLES; SUCH KIWI, BANANAS, STONE FRUITS, OR CHESTNUTSNO LATEX RISK : DO YOU HAVE A PREVIOUS PERSONAL HISTORY OF MORE THAN NINE SURGERIES, SPINA BIFIDA, OR REPEATED CATHERIZATIONS? YES - PLEASE INDICATE : > 9 SURGERIES LATEX RISK : ARE YOU FREQUENTLY EXPOSED TO LATEX PRODUCTS IN YOUR OCCUPATION?NO DATE ASKED : 02/18/2020 BMI CARE GOAL FOLLOW-UP ABOVE NORMAL BMI FOLLOW-UPDIETARY MANAGEMENT EDUCATION, GUIDANCE, AND COUNSELING ALCOHOL SCREENING DID YOU HAVE A DRINK CONTAINING ALCOHOL IN THE PAST YEAR?NO POINTS0 INTERPRETATIONNEGATIVE RECREATIONAL DRUG USE DRUG USE?NO CAFFEINE CAFFEINE USE?NO SEXUAL HX HAD SEX IN THE LAST 12 MONTHS (VAGINAL, ORAL, OR ANAL)?YES WITHMEN ONLY PREVENTION STRATEGIES DISCUSSED:OTHER USE PROTECTION?NO LMP:HYSTER HAVE YOU EVER HAD AN STD?NO HIV / HEP-C SCREENING HIV TEST OFFERED TO PATIENT:YES DATE OFFERED:10/11/2016 TEST ACCEPTED:NO HEP-C TEST OFFERED TO PATIENT:NO REASON:PATIENT DECLINED MANDAEN [id number] ANGLICAN LANGUAGE YAKUT. EDUCATION 12TH GRADE GRADUATE. LEARNING BARRIERS / SPECIAL NEEDS CHANGE FROM LAST VISIT?NO BARRIERS TO LEARNING?NO HEARING IMPAIRED?NO VISION IMPAIRED?YES :CORRECTIVE LENSES COGNITIVELY IMPAIRED?NO READINESS TO LEARN?YES LEARNING PREFERENCES?NO LEARNING CAPABILITIES PRESENT?YES EMOTIONAL BARRIERS?NO SPECIAL DEVICES?YES BRACE WRISTS AND KNEES, C PAP BUT DOESNT USE IT IN OVER 2 YEARS MANAGER NEW PRODUCT NEEDED?NO NO DOMESTIC VIOLENCE DO YOU FEEL SAFE IN YOUR ENVIRONMENT?YES OCCUPATION: UNEMPLOYED. DIET: REGULAR. EXERCISE: WALKS UP & DOWN STAIRS @ HOME WHEN OUT ON APPOINTMENTS. MARITAL STATUS: . OTHERS AT HOME: SPOUSE, CHILD. PAIN CLINIC PFS, CLERGY, PUBLIC HEALTH REFERRALS PFS REFERRAL NEEDED?NO CLERGY REFERRAL NEEDED?NO PUBLIC HEALTH REFERRAL NEEDED?NO HAS THE PATIENT BEEN EDUCATED REGARDING HIS/HER PLAN OF CARE?YES HAS THE PATIENT BEEN EDUCATED REGARDING PAIN, THE RISK FOR PAIN, THE IMPORTANCE OF EFFECTIVE PAIN MANAGEMENT, AND THE PAIN ASSESSMENT PROCESS?YES HOUSING: RENTS HOUSE. ADVANCE DIRECTIVE ADVANCE DIRECTIVE DISCUSSED WITH PATIENT:YES PT DOES NOT HAVE ANY ADVANCED DIRECTIVES AND SHE DECLINES INFORMATION ON HCP AT THIS TIME. HOSPITALIZATION/MAJOR DIAGNOSTIC PROCEDURE SURGERY 12/2016 [facility] 08/2019 VITAL SIGNS WT 222.2 LBS, HT 5'3", BMI 39.36 INDEX, BP 148/78 MM HG, HR 85 /MIN, RR 18 /MIN, TEMP 98.0 F, OXYGEN SAT % 97%, BLOOD GLUCOSE LEVEL 122 02/17 0630, SAFE IN ENV? (Y/N) YES, NA INITIALS AW 1259, REVIEWED BY: MT, LMP: HYSTERECTOMY. EXAMINATION GENERAL EXAMINATION: THE PATIENT IS ALERT, ORIENTED TIMES THREE AND COOPERATIVE. HEART SHOWS REGULAR RHYTHM, NO MURMURS AND NO GALLOPS. LUNGS ARE CLEAR TO AUSCULTATION. ASSESSMENTS MYALGIA - M79.10 (PRIMARY) TREATMENT MYALGIA MEDICATION: VALIUM TAB 5MG ORALLY (DIAZEPAM)KARIN SMALL RN 02/18/2020 1:38:37 PM > VERIFIED GEETADEVENDRARANDELL 02/18/2020 3:23:37 PM > ADMINISTERED AT 1340. MEDICATION: OXYCODONE HCL TAB 5MG ORALLY KARIN SMALL RN 02/18/2020 1:38:53 PM > VERIFIED GEETADEVENDRARANDELL 02/18/2020 3:23:23 PM > ADMINISTERED AT 1340. PROCEDURES PAIN NURSING RECORD PRE-PROCEDURE IV SITE N/A, PRE-PROCEDURE ORAL MEDICATIONS VALIUM 5MG PO LOT # [id number] EXP: 07/23, ADMINISTED AT 1340, OXYCODONE HCL 5MG [id number] EXP: 09/2021 ADMINSTERED AT 1340 : RANDELL CONNOR 02/18/2020 1:43:20 PM > PROCEDURE PHYSICIAN IN ROOM 1358, START 1402 , FINISH 1406, PHYSICIAN OUT OF ROOM 1407, OUT OF ROOM 1418, STEROID KENALOG, O2 RA, ECG N/A, PATIENT SHIELDED NO, SAFETY STRAP NO, PREP ALCOHOL MD SULLIVAN, IV INFUSED N/A, DRESSING TEGADERM Eddie CONNOR RN LOC: RANDELL CONNOR 02/18/2020 1:44:29 PM > , 1. ALERT, ORIENTED, RANDELL CONNOR 02/18/2020 1:44:31 PM > RESP: RANDELL CONNOR 02/18/2020 1:44:35 PM > , 1. REGULAR, NO DYSPNEA COLOR: RANDELL CONNOR 02/18/2020 1:44:39 PM > , 1. PINK SKIN: DEVENDRA CONNORISSA 02/18/2020 1:44:42 PM > , 1. WARM, DRY POSITION: 4. OTHER, GEETARANDELL 02/18/2020 1:44:49 PM > UPRIGHT, SITTING VITALS: RANDELL CONNOR 02/18/2020 2:13:36 PM > POST PROCEDURE VS: 136/69, 78, 16, 97% RA DISCHARGE: POST PAIN 11/11, DRESSING SITE DRY AND INTACT, IV N/A, GAIT STEADY, TEACHING COMPLETED, PATIENT ACKNOWLEDGES UNDERSTANDING YES, PATIENT DISCHARGED AT 1418 PN TRIGGER POINT INJECTION WITH STEROIDS PRE PROCEDURE DIAGNOSIS 1. MYALGIA 2. PAIN AT BILATERAL LOWER BACK AREA POST PROCEDURE DIAGNOSIS 1. MYALGIA 2. PAIN AT BILATERAL LOWER BACK AREA PROCEDURE TRIGGER POINT INJECTION AT BILATERAL LOWER BACK AREA SURGEON DR. TOMMY SULLIVAN WIRE STRIPPING MACHINE OPERATOR NONE ANESTHESIA LOCAL PRE PROCEDURE NOTE THE PATIENT HAS A HISTORY OF CHRONIC PAIN AT THE RIGHT AND LEFT LOWER BACK AREA. I EVALUATED THE PATIENT AND REVIEWED THE CHART. THERE IS EVIDENCE OF BANDS OF TISSUE WITH RESTRICTION OF MOVEMENT AND PRESENCE OF TRIGGER POINT AT THE RIGHT AND LEFT LOWER BACK AREA. I WENT OVER THE RISKS, ALTERNATIVES, AND BENEFITS ASSOCIATED WITH THIS PROCEDURE. I DISCUSSED THAT THE USE OF STEROIDS MAY CONTRIBUTE TO IMMUNOSUPPRESSION OF THE PATIENT'S BODY AGAINST INFECTIONS SUCH COVID-19. THE PATIENT IS AWARE OF THE POTENTIAL COMPLICATIONS ASSOCIATED WITH THIS VIRUS, INCLUDING, BUT NOT LIMITED TO, . I DISCUSSED THE USE OF DEXAMETHASONE INSTEAD OF KENALOG; HOWEVER, THE PATIENT WOULD LIKE TO MOVE FORWARD WITH KENALOG. THE PATIENT WOULD LIKE TO PROCEED AND GIVE CONSENT TO PERFORMED THE PROCEDURE. THE PATIENT DENIES UNEXPLAINABLE WEIGHT LOSS, FEVER, CHILLS, OR NEW CHANGES IN URINARY OR BOWEL CONTROL. THE PATIENT IS COVID-19 NEGATIVE DESCRIPTION OF PROCEDURE THE PATIENT WAS BROUGHT TO THE PROCEDURE ROOM AND PLACED IN THE SITTING POSITION. THE AREA WAS CLEANED WITH ALCOHOL. THE PROCEDURE WAS DONE USING ASEPTIC STERILE TECHNIQUE. A TIMEOUT WAS PERFORMED WHERE LATERALITY AND THE SITE OF THE PROCEDURE WERE CHECKED AND CONFIRMED WITH EVERYONE IN THE ROOM. USING A 25-GAUGE NEEDLE, TRIGGER POINTS WERE INJECTED AT THE RIGHT AND LEFT LOWER BACK AREA WITH A TOTAL OF 40 ML OF BUPIVACAINE 0.25% AND KENALOG 40 MG. THE MEDICATIONS WERE VERIFIED WITH THE NURSE. THERE WAS NO EVIDENCE OF BLOOD OR PARESTHESIA DURING THE PROCEDURE. THE PATIENT WAS SENT TO THE RECOVERY ROOM. THE PATIENT WAS MOVING THE EXTREMITIES AND DOING WELL. THERE WERE NO COMPLICATIONS DURING THE PROCEDURE. ESTIMATED BLOOD LOSS WAS LESS THAN 5 ML POST PROCEDURE NOTE THE PROCEDURE DONE WAS DISCUSSED WITH THE PATIENT. THE PATIENT WILL BE SEEN IN A FOLLOW UP IN THE NEXT FEW WEEKS. I AM LOOKING FOR LONG LASTING PAIN RELIEF FOR THE PATIENT WITH THIS INTERVENTION. INSTRUCTIONS WERE GIVEN, QUESTIONS WERE ANSWERED, AND THE PATIENT EXPRESSED UNDERSTANDING AND AGREES WITH THE PLAN. THE PATIENT IS AWARE TO STAY HOME FOR THE NEXT WEEK, IF POSSIBLE, DUE TO COVID-19. I, LAURITA LOPEZ, DOCUMENTED THE ABOVE INFORMATION ACTING A SCRIBE FOR DR. SULLIVAN. I HAVE REVIEWED THE ABOVE DOCUMENT, WRITTEN BY LAURITA LOPEZ, AD[employer], AND I VERIFY THAT IT IS ACCURATE PROCEDURE CODES [address]473 [facility] [place] [facility] [place] FOLLOW UP F/UP WITH LOAN ADMINISTRATOR (REASON: POST TPI LUNA LOW BACK) ELECTRONICALLY SIGNED BY TMOMY SULLIVAN MD, ON 02/21/2020 AT 10:14 AM EDT DISCLAIMER : THIS IS A VISIT SUMMARY EXTRACTED FROM THE [employer] CHART. IT IS NOT A COPY OF THE [employer] PROGRESS NOTE. MTDMiguel
== END ==
LOC: M PAIN 13:30
PROVIDERS: ATTEND Anesthesiology
DX: M79.10 Myalgia, unspecified site (principal)
CPT/HCPCS: 20552; J3301

== ENCOUNTER 2020-02-22 08:48 | Outpatient (RCR) | payer OTHER ==
[~2020-02-22 08:48] MED LIST changes: -BUPIVACAINE HCL 0.25% 10ML VIAL As Ordered ONE; -BUPIVACAINE HCL 0.25% 30ML VIAL As Ordered ONE; -TRIAMCINOLONE ACETONIDE SUSP 40 MG/ML VIAL (J3301) As Ordered ONE; -diazePAM 5 MG TAB As Ordered ONE; -oxyCODONE 5MG TAB As Ordered ONE
== END 2020-03-03 ==
LOC: M PT 08:48
PROVIDERS: ATTEND Physician Assistant
DX: M54.5 Low back pain (principal)

== ENCOUNTER → 2020-05-23 | Outpatient (REF) | payer OTHER ==
[2020-05-23 14:02] LABS: ALBUMIN 3.9 GM/DL (3.2-5.2); ALT/SGPT 40 U/L (12-78); BILIRUBIN,TOTAL 0.4 MG/DL (0.2-1.0); BLOOD UREA NITROGEN 8 MG/DL (7-18); CALCIUM LEVEL 9.7 MG/DL (8.5-10.1); CARBON DIOXIDE LEVEL 30 MEQ/L (21-32); CHLORIDE LEVEL 98 MEQ/L (98-107); CREATININE FOR GFR 0.56 MG/DL (0.55-1.30); GLOMERULAR FILTRATION RATE > 60.0 (>51); GLUCOSE, FASTING 90 MG/DL (70-100); POTASSIUM SERUM 4.2 MEQ/L (3.5-5.1); SODIUM LEVEL 136 MEQ/L (136-145); TOTAL PROTEIN 6.9 GM/DL (6.4-8.2); URIC ACID 4.8 MG/DL (2.6-6.0)
[2020-05-23 14:10] LABS: TOTAL 25(OH) VITAMIN D 34.8 NG/ML (30.0-100.0)
[2020-05-23 14:30] LABS: HEMOGLOBIN A1c 5.9 %
== END ==
LOC: M SFHCPLAZ 10:56
PROVIDERS: ATTEND Nurse Practitioner Family
DX: E11.9 Type 2 diabetes mellitus without complications (principal); M10.9 Gout, unspecified; E55.9 Vitamin D deficiency, unspecified

== ENCOUNTER → 2020-05-26 | Outpatient (CLI) | payer OTHER ==
--- NOTE | 2020-05-30 14:34 | ECWPNPC ---
PATIENT NAME: STEVE DIAMOND : 1965 GENDER: FEMALE VISIT DATE: 05/26/2020 DISCHARGE DATE: 05/26/20 1100 VISIT LOCKED DATE TIME: PHYSICIAN: DHARMESH BLANCO PHYSICIAN PAGER NO: ACTIVE RESOURCE: DHARMESH BLANCO REASON FOR APPOINTMENT 1. INCREASED BACK PAIN HISTORY OF PRESENT ILLNESS DEPRESSION SCREENING: PHQ-2 (2015 EDITION) LITTLE INTEREST OR PLEASURE IN DOING THINGS?NOT AT ALL FEELING DOWN, DEPRESSED, OR HOPELESS?NOT AT ALL TOTAL SCORE0 GENERAL: STEVE IS SEEN ON AN URGENT BASIS TODAY DUE TO SIGNIFICANT INCREASE IN LOW BACK PAIN AND MUSCLE SPASM OVER THE PAST 2 OR 3 WEEKS. LAST VISIT WAS FOR TRIGGER POINT INJECTIONS ACROSS HER LOWER BACK. POST PROCEDURE LOG IS REVIEWED. THIS IS SHOWING REALLY NO IMPROVEMENT POST PROCEDURE. HAVING DIFFICULTY SLEEPING AT NIGHT. HISTORY OF LUMBAR FUSION/CYST REMOVAL OF HER LUMBOSACRAL SPINE IN AUGUST 2019 IN [place]. FOLL[facility]. HAS APPOINTMENT COMING UP WITH THEM NEXT MONTH. STATES SHE'S HAD NO IMAGING POST SURGERY. STATES SHE HAS SOME IMPROVEMENT IN LEFT THIGH NUMBNESS SINCE SURGERY BUT OVERALL NO CHANGE IN PAIN HAVING SURGERY ON HER BACK IN AUGUST. DENIES SIGNS AND SYMPTOMS OF INFECTION. NO BOWEL OR BLADDER INCONTINENCE.-. FALL RISK SCREENING: SCREENING :NO FALLS REPORTED IN THE LAST YEAR NONE PAIN SCREENING: PATIENT HAS A COMPLAINT OF ACUTE OR CHRONIC PAIN :YES LOCATION OF PAIN:LOW BACK INTENSITY OF PAIN (SCALE OF 1 TO 10):8 WHAT DOES YOUR PAIN FEEL LIKE:CONTINOUS, SHARP DURATION:CONTINOUS, CONSTANT FOR THE PAST TWO WEEKS THE PAIN HAS GOTTEN WORSE PAIN IS INCREASED BY:ACTIVITIES PAIN IS DECREASED BY:USE OF PAIN MEDICATIONS NURSING NOTE: -. PAIN CENTER INTAKE QUESTIONS: DO YOU HAVE A HISTORY OF MRSA? :NO DO YOU TAKE A BLOOD THINNERS? :NO DO YOU HAVE ANY BLEEDING DISORDERS? :NO ANY NEW NUMBNESS OR WEAKNESS IN YOUR LEGS OR ARMS? :NO ANY PACEMAKER,DEFIBRILLATOR, OR DORSAL COLUMN STIMULATOR? :NO DO YOU HAVE ANY RASHES OR OPEN SORES? :NO ARE YOU ALLERGIC TO IV DYE? :NO ARE YOU DIABETIC? :YES ANY NEW PROBLEMS WITH YOUR MEDICATIONS? :NO HAVE YOU RECEIVED A VACCINE IN THE PAST 30 DAYS? :YES Friday05/23/2020 GOT THE FLU VAC DO YOU PLAN TO RECEIVE A VACCINE IN THE NEXT 21 DAYS? :NO DO YOU NEED ANY PRESCRIPTION? :NO DO YOU TAKE ANY IMMUNOSUPPRESSIVE MEDICATIONS? :NO IS THERE A CHANCE YOU COULD BE ? :NO ARE YOU BREAST FEEDING? :NO CURRENT MEDICATIONS TAKING SINGULAIR 10 MG TABLET 1 TABLET IN THE EVENING ORALLY ONCE A DAY, NOTES: 02/16 1930 TAKING DULERA 100 MCG/5MCG 2 PUFFS INHALATION TWICE A DAY, NOTES: 02/17 730 TAKING MAGNESIUM OXIDE 250 MG TABLET 1 TAB ORALLY ONCE A DAY, NOTES: 02/17 730 TAKING ALPHAGAN P 0.15 % SOLUTION 1 DROP INTO AFFECTED EYE OPHTHALMIC THREE TIMES A DAY, NOTES: 02/18 1200 TAKING ALBUTEROL SULFATE (2.5 MG/3ML) 0.083% NEBULIZATION SOLUTION 3 ML INHALATION THREE TIMES A DAY PRN, NOTES: ONE WEEK AGO TAKING LATANOPROST 0.005 % SOLUTION INSTILL 1 DROP IN EACH EYE AT BEDTIME DIRECTED OPHTHALMIC , NOTES: 02/16 2200 TAKING NORCO 10-325 MG TABLET 1 TABLET NEEDED ORALLY EVERY 6 HRS PRN MDD4, NOTES: 02/17 730 TAKING AMITRIPTYLINE HCL 25 MG TABLET 1 TABLET AT BEDTIME ORALLY ONCE A DAY, NOTES: 02/16 2200 TAKING FLONASE ALLERGY RELIEF 50 MCG/ACT SUSPENSION 1 SPRAY IN EACH NOSTRIL NASALLY ONCE A DAY, NOTES: 02/18 800 TAKING AZELASTINE HCL 137 MCG/SPRAY SOLUTION 1 PUFF IN EACH NOSTRIL NASALLY TWICE A DAY, NOTES: 02/17 815 TAKING LANCETS - MISCELLANEOUS 1 EACH TO USE FOR ONCE TOUCH DAILY/ E11.9 TAKING CLIMARA 0.05 MG/24HR PATCH WEEKLY 1 PATCH TO SKIN TRANSDERMAL WEEKLY, NOTES: FRIDAY TAKING BD ULTRA-FINE PEN NEEDLES 32G 4MM DIRECTED 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 TAKING PROVENTIL HFA 108 (90 BASE) MCG/ACT AEROSOL SOLUTION 2 PUFFS INHALATION EVERY 4 HOUR NEEDED, NOTES: ONE WEEK AGO TAKING GABAPENTIN 600 MG TABLET 1 CAPSULE ORALLY THREE TIMES A DAY, NOTES: 02/18 1200 TAKING VITAMIN B-12 1000 MCG TABLET CHEWABLE 1 TABLET ORALLY ONCE A DAY- OTC, NOTES: OTC 02/17 730 TAKING BLOOD GLUCOSE TEST - STRIP 1 STRIP GLUCOSE TESTING STRIPS FOR ONE TOUCH VERIO DAILY/ E119 TAKING ACETAMINOPHEN 500 MG CAPSULE 2 TABLETS ORALLY EVERY 8 HRS PRN, NOTES: 02/17 730 TAKING LIPITOR 40 MG TABLET 1 TABLET ORALLY ONCE A DAY, NOTES: 02/17 730 TAKING ALLOPURINOL 100 MG TABLET 2 TABLET ORALLY ONCE A DAY, NOTES: 02/14 TAKING VICTOZA 18 MG/3ML SOLUTION PEN-INJECTOR 1.8 MG SUBCUTANEOUS DAILY, NOTES: 02/16 TAKING VITAMIN D 2000 UNIT TABLET 1 TABLET ORALLY ONCE A DAY, NOTES: 02/17 TAKING METFORMIN HCL 1000 MG TABLET 1 TABLET WITH MEALS ORALLY TWICE A DAY, NOTES: 02/16 TAKING LISINOPRIL 20 MG TABLET 1 TABLET ORALLY ONCE A DAY, NOTES: 02/17 730 TAKING HYDROCHLOROTHIAZIDE 25 MG TABLET 1 TABLET ORALLY ONCE A DAY, NOTES: 02/17 730 TAKING NORVASC 5 MG TABLET 1 TABLET ORALLY ONCE A DAY, NOTES: 02/17 730 NOT-TAKING SALINE NASAL SPRAY 0.65 % SOLUTION 2 DROPS IN EACH NOSTRIL NEEDED NASALLY EVERY 2 HRS NOT-TAKING PREDNISONE 20 MG TABLET 1 TABLET WITH FOOD ORALLY TWICE DAILY NOT-TAKING TRAMADOL HCL 50 MG TABLET 2 TAB ORALLY BID MDD4 MEDICATION LIST REVIEWED AND RECONCILED WITH THE PATIENT PAST MEDICAL HISTORY HYPERTENSION ASTHMA GOUT VITAMIN D DEFICIENCY CHRONIC RIGHT OTITIS MEDIA PRE-DIABETES/IMPAIRED FASTING GLUCOSE FIBROMYALGIA-GOES TO PAIN CLINIC RECURRENT SINUSITIS TD 1999; TDAP 06/15 PNEUMNOVAX 2009 CHRONIC ALLERGIC RHINITIS - GETS ALLERGY SHOTS FIBROIDS COLONOSCOPY 2017, REPEAT IN 5 YEAR VITAMIN B12 DEFICIENCY--ON MONTHLY INJECTIONS FOR A WHILE, STOPPED COMING FOR THEM, LEVEL NL ON ORAL MED DM TYPE II CHRONIC BACK PAIN ALLERGIES TRICOR: RASH - ALLERGY DUST MITES: RASH - ALLERGY - ONSET DATE 02/18/2020 SURGICAL HISTORY KNEE ARTHROSCOPY (4 ON RT, 3 ON LEFT) CARPAL TUNNEL RELEASE R 2001 RIGHT KNEE ARTHROSCOPY SURGERY DR. SHARMA 02/09/2013 LAPAROSCOPY, REMOVAL OF FIBROID 10/21/16 MANUEL WITH BILAT. SALPINGO OOPHERECTOMY 12/11/16 LEFT CARPEL TUNNEL 10/2017 LOWER LUMBAR FUSION L4-5 08/31/2019 FAMILY HISTORY FATHER: ALIVE, HEALTH STATUS UNKNOWN MOTHER: ALIVE 69 YRS, DIAGNOSED WITH HYPERTENSION, DIABETES SIBLINGS: ALIVE, SIS PRE-DM, BR HTN, HYPERTENSION 1DAUGHTER(S) - HEALTHY. SOCIAL HISTORY GENERAL: TOBACCO USE ARE YOU A:FORMER SMOKER HOW LONG HAS IT BEEN SINCE YOU LAST SMOKED?> 10 YEARS LATEX QUESTIONNAIRE LATEX ALLERGY : HAVE YOU EVER DEVELOPED ANY TYPE OF REACTION AFTER HANDLING LATEX PRODUCTS SUCH RUBBER GLOVES, CONDOMS, DIAPHRAGMS, BALLOONS, SOCKS, OR UNDERWEAR?NO LATEX ALLERGY : HAVE YOU EVER DEVELOPED ANY TYPE OF REACTION DURING OR AFTER DENTAL APPOINTMENT, VAGINAL/RECTAL EXAMINATION, SURGICAL PROCEDURE, OR ANY OTHER EXPOSURE?NO LATEX RISK : HAVE YOU EVER HAD ANY DIFFICULTY BREATHING OR HIVES AFTER EATING OR HANDLING ANY FRUITS, OR VEGETABLES; SUCH KIWI, BANANAS, STONE FRUITS, OR CHESTNUTSNO LATEX RISK : DO YOU HAVE A PREVIOUS PERSONAL HISTORY OF MORE THAN NINE SURGERIES, SPINA BIFIDA, OR REPEATED CATHERIZATIONS? YES - PLEASE INDICATE : > 9 SURGERIES LATEX RISK : ARE YOU FREQUENTLY EXPOSED TO LATEX PRODUCTS IN YOUR OCCUPATION?NO DATE ASKED : 05/26/2020 BMI CARE GOAL FOLLOW-UP ABOVE NORMAL BMI FOLLOW-UPDIETARY MANAGEMENT EDUCATION, GUIDANCE, AND COUNSELING ALCOHOL SCREENING DID YOU HAVE A DRINK CONTAINING ALCOHOL IN THE PAST YEAR?NO POINTS0 INTERPRETATIONNEGATIVE RECREATIONAL DRUG USE DRUG USE?NO CAFFEINE CAFFEINE USE?NO SEXUAL HX HAD SEX IN THE LAST 12 MONTHS (VAGINAL, ORAL, OR ANAL)?YES WITHMEN ONLY PREVENTION STRATEGIES DISCUSSED:OTHER USE PROTECTION?NO LMP:HYSTER HAVE YOU EVER HAD AN STD?NO HIV / HEP-C SCREENING HIV TEST OFFERED TO PATIENT:YES DATE OFFERED:10/11/2016 TEST ACCEPTED:NO HEP-C TEST OFFERED TO PATIENT:NO REASON:PATIENT DECLINED NONDENOMINATIONAL [id number] [employer]. EDUCATION 12TH GRADE GRADUATE. LEARNING BARRIERS / SPECIAL NEEDS CHANGE FROM LAST VISIT?NO BARRIERS TO LEARNING?NO HEARING IMPAIRED?NO VISION IMPAIRED?YES COGNITIVELY IMPAIRED?NO :CORRECTIVE LENSES READINESS TO LEARN?YES LEARNING PREFERENCES?NO LEARNING CAPABILITIES PRESENT?YES EMOTIONAL BARRIERS?NO SPECIAL DEVICES?YES BRACE WRISTS AND KNEES, C PAP BUT DOESNT USE IT IN OVER 2 YEARS GLOVE PARTS INSPECTOR NEEDED?NO NO DOMESTIC VIOLENCE DO YOU FEEL SAFE IN YOUR ENVIRONMENT?YES OCCUPATION: UNEMPLOYED. DIET: REGULAR. EXERCISE: WALKS UP & DOWN STAIRS @ HOME WHEN OUT ON APPOINTMENTS. MARITAL STATUS: . OTHERS AT HOME: SPOUSE, CHILD. PAIN CLINIC PFS, CLERGY, PUBLIC HEALTH REFERRALS PFS REFERRAL NEEDED?NO CLERGY REFERRAL NEEDED?NO PUBLIC HEALTH REFERRAL NEEDED?NO HAS THE PATIENT BEEN EDUCATED REGARDING HIS/HER PLAN OF CARE?YES HAS THE PATIENT BEEN EDUCATED REGARDING PAIN, THE RISK FOR PAIN, THE IMPORTANCE OF EFFECTIVE PAIN MANAGEMENT, AND THE PAIN ASSESSMENT PROCESS?YES HOUSING: RENTS HOUSE. ADVANCE DIRECTIVE ADVANCE DIRECTIVE DISCUSSED WITH PATIENT:YES PT DOES NOT HAVE ANY ADVANCED DIRECTIVES AND SHE DECLINES INFORMATION ON HCP AT THIS TIME. HOSPITALIZATION/MAJOR DIAGNOSTIC PROCEDURE SURGERY 12/2016 MICHI 08/2019 REVIEW OF SYSTEMS CONSTITUTIONAL: ANY RECENT FEVER NO . CHILLS NO . WEIGHT CHANGE OF UNKNOWN REASONS NO . GASTROENTEROLOGY: NEW UNEXPLAINABLE CHANGES IN BOWEL CONTROL NO . CONSTIPATION NO . GENITOURINARY: ANY NEW CHANGE IN BLADDER CONTROL? NO . NEUROLOGY: NEW ONSET DIZZINESS OR NEUROLOGICAL CHANGES NOT MENTIONED NO . NEW NUMBNESS OR PAIN PATTERNS NOT MENTIONED AND PERTINENT TO TODAY'S VISIT NO . CARDIOLOGY: NEW CHEST PRESSURE NO . NEW CHEST PAIN NO . RESPIRATORY: UNEXPLAINABLE COUGH NO . NEW SHORTNESS OF BREATH NO . VITAL SIGNS WT 224.4 LBS, HT 5'3", BMI 39.75 INDEX, BP 137/66 MM HG, HR 91 /MIN, RR 18 /MIN, TEMP 98.0 F, OXYGEN SAT % 95%, SAFE IN ENV? (Y/N) YES, NA INITIALS MI 09:55, REVIEWED BY: JESS. EXAMINATION GENERAL EXAMINATION: GENERAL ALERT,NO DISTRESS . PSYCH AFFECT NORMAL . LUNGS: LUNG SOUNDS ARE CLEAR . HEART: HEART RATE REGULAR . MUSCULOSKELETAL: MST 5/5 BILAT. LOWER EXTREMITIES . LUMBAR: TENDERNESS BILAT. SIJ . WELL-HEALED SURGICAL SCAR NOTED OVER L/S AXIS.. NEUROLOGIC EXAM:NORMAL SENSATION TO LIGHT TOUCH LOWER EXTREMITIES . DIAGNOSTIC TESTS REVIEWEDPRE-SURGERY MRI L/S SPINE 2018. ASSESSMENTS OTHER CHRONIC PAIN - G89.29 (PRIMARY) SACROILIITIS - M46.1 TREATMENT OTHER CHRONIC PAIN INCREASE AMITRIPTYLINE HCL TABLET, 25 MG, 2 TAB, ORALLY, BEFORE BEDTIME, 30 DAYS, 60, REFILLS 2, NOTES: 02/16 2200 PAIN PROCEDURE LOGDATE OF [id number]/2020PROCEDURE:TRIGGER POINT INJECTIONS BILATERAL LOW BACKAMOUNT OF PRE SEDATEVALIUM 5 MG PO & OXYCODONE 5 MG PORESULT:NO IMPROVEMENT POST PROCEDURE NOTES: BILATERAL SIJ SIGN RECORDS RELEASE TO GET INFORMATION REGARDING LUMBAR SURGERY DONE IN AUGUST 2019 FROM [facility]. PROCEDURE CODES FA211 ESTABILISHED PATIENT [facility] CHARGE DISPOSITION & COMMUNICATION FOLLOW UP POST PROCEDURE (REASON: BILATERAL SIJ) ELECTRONICALLY SIGNED BY MARICEL ORELLANA ON 05/30/2020 AT 11:21 AM EDT DISCLAIMER : THIS IS A VISIT SUMMARY EXTRACTED FROM THE [employer] CHART. IT IS NOT A COPY OF THE [employer] PROGRESS NOTE. DANIEL
== END ==
LOC: M PAIN 09:45
PROVIDERS: ATTEND Nurse Practitioner Family
DX: M46.1 Sacroiliitis, not elsewhere classified (principal); G89.29 Other chronic pain; E11.9 Type 2 diabetes mellitus without complications; I10 Essential (primary) hypertension; J45.909 Unspecified asthma, uncomplicated; M79.7 Fibromyalgia; Z87.891 Personal history of nicotine dependence; Z88.8 Allergy status to other drugs, medicaments and biological substances; Z91.038 Other insect allergy status; Z79.84 Long term (current) use of oral hypoglycemic drugs; Z79.899 Other long term (current) drug therapy

== ENCOUNTER → 2020-06-17 | Outpatient (CLI) | payer OTHER | LOC: M LABSMTC 08:49 | PROVIDERS: ATTEND Anesthesiology | DX: Z20.828 Contact with and (suspected) exposure to other viral communicable diseases (principal) ==

== ENCOUNTER → 2020-06-22 | Outpatient (CLI) | payer OTHER ==
[~2020-06-22] MED LIST changes: +BUPIVACAINE HCL 0.25% 30ML VIAL As Ordered ONE; +ISOVUE-M 300 61% 15ML VIAL As Ordered ONE; +LIDOCAINE 1% SDV 30ML VIAL As Ordered ONE; +TRIAMCINOLONE ACETONIDE SUSP 40 MG/ML VIAL (J3301) As Ordered ONE; +diazePAM 5 MG TAB As Ordered ONE; +oxyCODONE 5MG TAB As Ordered ONE
--- NOTE | 2020-06-22 14:02 | REP ---
INDICATION: BILATERAL SIJ. Pain COMPARISON: None. TECHNIQUE: Two C-arm views sacroiliac joints performed. FINDINGS: A needle overlies each sacroiliac joint. IMPRESSION: 29 seconds fluoroscopy time utilized. <Electronically signed by Giorgio Hermosillo > 06/22/20 [id number]
--- NOTE | 2020-06-23 02:14 | ECWPNPC ---
PATIENT NAME: STEVE DIAMOND : 1965 GENDER: FEMALE VISIT DATE: 06/22/2020 DISCHARGE DATE: 06/22/20 1230 VISIT LOCKED DATE TIME: PHYSICIAN: TOMMY SULLIVAN MD PHYSICIAN PAGER NO: ACTIVE RESOURCE: TOMMY SULLIVAN MD REASON FOR APPOINTMENT 1. BILATERAL SIJ HISTORY OF PRESENT ILLNESS GENERAL: -. FALL RISK SCREENING: SCREENING :ONE FALL WITH INJURY IN THE PAST YEAR LEFT KNEE INJURY - FOLLOWED BY ORTHO GROUP PAIN SCREENING: PATIENT HAS A COMPLAINT OF ACUTE OR CHRONIC PAIN :YES LOCATION OF PAIN:LOW BACK INTENSITY OF PAIN (SCALE OF 1 TO 10):8 WHAT DOES YOUR PAIN FEEL LIKE:OTHER ELETRICAL DURATION:CONTINOUS, CONSTANT, STEADY PAIN IS INCREASED BY:ACTIVITIES, OTHERS BENDING OVER, PROLONGED WALKING PAIN IS DECREASED BY: NOTHING AT THIS TIME. NURSING NOTE: -. PAIN CENTER INTAKE QUESTIONS: DO YOU HAVE A HISTORY OF MRSA? :NO DO YOU TAKE A BLOOD THINNERS? :NO DO YOU HAVE ANY BLEEDING DISORDERS? :NO ANY NEW NUMBNESS OR WEAKNESS IN YOUR LEGS OR ARMS? :NO ANY PACEMAKER,DEFIBRILLATOR, OR DORSAL COLUMN STIMULATOR? :NO DO YOU HAVE ANY RASHES OR OPEN SORES? :NO ARE YOU ALLERGIC TO IV DYE? :NO ARE YOU DIABETIC? :YES FSBS 136 ANY NEW PROBLEMS WITH YOUR MEDICATIONS? :NO HAVE YOU RECEIVED A VACCINE IN THE PAST 30 DAYS? :NO DO YOU PLAN TO RECEIVE A VACCINE IN THE NEXT 21 DAYS? :NO DO YOU NEED ANY PRESCRIPTION? :NO DO YOU TAKE ANY IMMUNOSUPPRESSIVE MEDICATIONS? :YES ALLOPURINOL - DID NOT HOLD FOR PROCEDURE SHE DID NOT KNOW SHE NEEDED TO, DR. SULLIVAN AWARE. IS THERE A CHANCE YOU COULD BE ? :NO ARE YOU BREAST FEEDING? :NO CURRENT MEDICATIONS TAKING SINGULAIR 10 MG TABLET 1 TABLET IN THE EVENING ORALLY ONCE A DAY, NOTES: 06/21/20 1930 TAKING DULERA 100 MCG/5MCG 2 PUFFS INHALATION TWICE A DAY, NOTES: 0715 TAKING MAGNESIUM OXIDE 250 MG TABLET 1 TAB ORALLY ONCE A DAY, NOTES: 0715 TAKING ALPHAGAN P 0.15 % SOLUTION 1 DROP INTO AFFECTED EYE OPHTHALMIC THREE TIMES A DAY, NOTES: 0700 TAKING ALBUTEROL SULFATE (2.5 MG/3ML) 0.083% NEBULIZATION SOLUTION 3 ML INHALATION THREE TIMES A DAY PRN, NOTES: NONE RECENT TAKING LATANOPROST 0.005 % SOLUTION INSTILL 1 DROP IN EACH EYE AT BEDTIME DIRECTED OPHTHALMIC , NOTES: 06/21/201999 TAKING NORCO 10-325 MG TABLET 1 TABLET NEEDED ORALLY EVERY 6 HRS PRN MDD4, NOTES: 06/21/201929 TAKING FLONASE ALLERGY RELIEF 50 MCG/ACT SUSPENSION 1 SPRAY IN EACH NOSTRIL NASALLY ONCE A DAY, NOTES: 729 TAKING AZELASTINE HCL 137 MCG/SPRAY SOLUTION 1 PUFF IN EACH NOSTRIL NASALLY TWICE A DAY, NOTES: 07 TAKING LANCETS - MISCELLANEOUS 1 EACH TO USE FOR ONCE TOUCH DAILY/ E11.9 TAKING CLIMARA 0.05 MG/24HR PATCH WEEKLY 1 PATCH TO SKIN TRANSDERMAL WEEKLY, NOTES: NONE RECENT TAKING BD ULTRA-FINE PEN NEEDLES 32G 4MM DIRECTED 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 TAKING PROVENTIL HFA 108 (90 BASE) MCG/ACT AEROSOL SOLUTION 2 PUFFS INHALATION EVERY 4 HOUR NEEDED, NOTES: NONE RECENT TAKING GABAPENTIN 600 MG TABLET 1 CAPSULE ORALLY THREE TIMES A DAY, NOTES: 06/21/201929 TAKING VITAMIN B-12 1000 MCG TABLET CHEWABLE 1 TABLET ORALLY ONCE A DAY- OTC, NOTES: 07 TAKING BLOOD GLUCOSE TEST - STRIP 1 STRIP GLUCOSE TESTING STRIPS FOR ONE TOUCH VERIO DAILY/ E119 TAKING ACETAMINOPHEN 500 MG CAPSULE 2 TABLETS ORALLY EVERY 8 HRS PRN, NOTES: 07 TAKING ALLOPURINOL 100 MG TABLET 2 TABLET ORALLY ONCE A DAY, NOTES: 06/21/20 0700 TAKING VITAMIN D 2000 UNIT TABLET 1 TABLET ORALLY ONCE A DAY, NOTES: 0700 TAKING HYDROCHLOROTHIAZIDE 25 MG TABLET 1 TABLET ORALLY ONCE A DAY, NOTES: 07 TAKING NORVASC 5 MG TABLET 1 TABLET ORALLY ONCE A DAY, NOTES: 07 TAKING AMITRIPTYLINE HCL 25 MG TABLET 2 TAB ORALLY BEFORE BEDTIME, NOTES: 06/20/20 TAKING VICTOZA 18 MG/3ML SOLUTION PEN-INJECTOR 1.8 MG SUBCUTANEOUS DAILY, NOTES: 06/21/20 0630 TAKING LISINOPRIL 20 MG TABLET 1 TABLET ORALLY ONCE A DAY, NOTES: 07 TAKING METFORMIN HCL 1000 MG TABLET 1 TABLET WITH MEALS ORALLY TWICE A DAY, NOTES: 06/21/201929 TAKING LIPITOR 40 MG TABLET 1 TABLET ORALLY ONCE A DAY, NOTES: 0700 NOT-TAKING SALINE NASAL SPRAY 0.65 % SOLUTION 2 DROPS IN EACH NOSTRIL NEEDED NASALLY EVERY 2 HRS NOT-TAKING PREDNISONE 20 MG TABLET 1 TABLET WITH FOOD ORALLY TWICE DAILY NOT-TAKING TRAMADOL HCL 50 MG TABLET 2 TAB ORALLY BID MDD4 MEDICATION LIST REVIEWED AND RECONCILED WITH THE PATIENT PAST MEDICAL HISTORY HYPERTENSION ASTHMA GOUT VITAMIN D DEFICIENCY CHRONIC RIGHT OTITIS MEDIA PRE-DIABETES/IMPAIRED FASTING GLUCOSE FIBROMYALGIA-GOES TO PAIN CLINIC RECURRENT SINUSITIS TD 1999; TDAP 06/15 PNEUMNOVAX 2009 CHRONIC ALLERGIC RHINITIS - GETS ALLERGY SHOTS FIBROIDS COLONOSCOPY 2017, REPEAT IN 5 YEAR VITAMIN B12 DEFICIENCY--ON MONTHLY INJECTIONS FOR A WHILE, STOPPED COMING FOR THEM, LEVEL NL ON ORAL MED DM TYPE II CHRONIC BACK PAIN ALLERGIES TRICOR: RASH - ALLERGY DUST MITES: RASH - ALLERGY - ONSET DATE 02/18/2020 SURGICAL HISTORY KNEE ARTHROSCOPY (4 ON RT, 3 ON LEFT) CARPAL TUNNEL RELEASE R 2001 RIGHT KNEE ARTHROSCOPY SURGERY DR. SHARMA 02/09/2013 LAPAROSCOPY, REMOVAL OF FIBROID 10/21/16 MANUEL WITH BILAT. SALPINGO OOPHERECTOMY 12/11/16 LEFT CARPEL TUNNEL 10/2017 LOWER LUMBAR FUSION L4-5 08/31/2019 FAMILY HISTORY FATHER: ALIVE, HEALTH STATUS UNKNOWN MOTHER: ALIVE 69 YRS, DIAGNOSED WITH HYPERTENSION, DIABETES SIBLINGS: ALIVE, SIS PRE-DM, BR HTN, HYPERTENSION 1DAUGHTER(S) - HEALTHY. SOCIAL HISTORY GENERAL: TOBACCO USE ARE YOU A:FORMER SMOKER HOW LONG HAS IT BEEN SINCE YOU LAST SMOKED?> 10 YEARS LATEX QUESTIONNAIRE LATEX ALLERGY : HAVE YOU EVER DEVELOPED ANY TYPE OF REACTION AFTER HANDLING LATEX PRODUCTS SUCH RUBBER GLOVES, CONDOMS, DIAPHRAGMS, BALLOONS, SOCKS, OR UNDERWEAR?NO LATEX ALLERGY : HAVE YOU EVER DEVELOPED ANY TYPE OF REACTION DURING OR AFTER DENTAL APPOINTMENT, VAGINAL/RECTAL EXAMINATION, SURGICAL PROCEDURE, OR ANY OTHER EXPOSURE?NO LATEX RISK : HAVE YOU EVER HAD ANY DIFFICULTY BREATHING OR HIVES AFTER EATING OR HANDLING ANY FRUITS, OR VEGETABLES; SUCH KIWI, BANANAS, STONE FRUITS, OR CHESTNUTSNO LATEX RISK : DO YOU HAVE A PREVIOUS PERSONAL HISTORY OF MORE THAN NINE SURGERIES, SPINA BIFIDA, OR REPEATED CATHERIZATIONS? YES - PLEASE INDICATE : > 9 SURGERIES LATEX RISK : ARE YOU FREQUENTLY EXPOSED TO LATEX PRODUCTS IN YOUR OCCUPATION?NO DATE ASKED : 05/26/2020 BMI CARE GOAL FOLLOW-UP ABOVE NORMAL BMI FOLLOW-UPDIETARY MANAGEMENT EDUCATION, GUIDANCE, AND COUNSELING ALCOHOL SCREENING DID YOU HAVE A DRINK CONTAINING ALCOHOL IN THE PAST YEAR?NO POINTS0 INTERPRETATIONNEGATIVE RECREATIONAL DRUG USE DRUG USE?NO CAFFEINE CAFFEINE USE?NO SEXUAL HX HAD SEX IN THE LAST 12 MONTHS (VAGINAL, ORAL, OR ANAL)?YES WITHMEN ONLY PREVENTION STRATEGIES DISCUSSED:OTHER USE PROTECTION?NO LMP:HYSTER HAVE YOU EVER HAD AN STD?NO HIV / HEP-C SCREENING HIV TEST OFFERED TO PATIENT:YES DATE OFFERED:10/11/2016 TEST ACCEPTED:NO HEP-C TEST OFFERED TO PATIENT:NO REASON:PATIENT DECLINED [employer]LAM [id number]. EDUCATION 12TH GRADE GRADUATE. LEARNING BARRIERS / SPECIAL NEEDS CHANGE FROM LAST VISIT?NO BARRIERS TO LEARNING?NO HEARING IMPAIRED?NO VISION IMPAIRED?YES :CORRECTIVE LENSES COGNITIVELY IMPAIRED?NO READINESS TO LEARN?YES LEARNING PREFERENCES?NO LEARNING CAPABILITIES PRESENT?YES EMOTIONAL BARRIERS?NO SPECIAL DEVICES?YES BRACE WRISTS AND KNEES, C PAP BUT DOESNT USE IT IN OVER 2 YEARS RESIDENTIAL CARE OFFICER NEEDED?NO NO DOMESTIC VIOLENCE DO YOU FEEL SAFE IN YOUR ENVIRONMENT?YES OCCUPATION: UNEMPLOYED. DIET: REGULAR. EXERCISE: WALKS UP & DOWN STAIRS @ HOME WHEN OUT ON APPOINTMENTS. MARITAL STATUS: . OTHERS AT HOME: SPOUSE, CHILD. PAIN CLINIC PFS, CLERGY, PUBLIC HEALTH REFERRALS PFS REFERRAL NEEDED?NO CLERGY REFERRAL NEEDED?NO PUBLIC HEALTH REFERRAL NEEDED?NO HAS THE PATIENT BEEN EDUCATED REGARDING HIS/HER PLAN OF CARE?YES HAS THE PATIENT BEEN EDUCATED REGARDING PAIN, THE RISK FOR PAIN, THE IMPORTANCE OF EFFECTIVE PAIN MANAGEMENT, AND THE PAIN ASSESSMENT PROCESS?YES HOUSING: RENTS HOUSE. ADVANCE DIRECTIVE ADVANCE DIRECTIVE DISCUSSED WITH PATIENT:YES PT DOES NOT HAVE ANY ADVANCED DIRECTIVES AND SHE DECLINES INFORMATION ON HCP AT THIS TIME. HOSPITALIZATION/MAJOR DIAGNOSTIC PROCEDURE SURGERY 12/2016 MICHI 08/2019 VITAL SIGNS WT 219.6 LBS, HT 5'3", BMI 38.90 INDEX, BP 139/78 MM HG, HR 79 /MIN, RR 18 /MIN, TEMP 97.6 F, OXYGEN SAT % 99%, BLOOD GLUCOSE LEVEL FSBS 136, SAFE IN ENV? (Y/N) Y, NA INITIALS SC 08:58, REVIEWED BY: JSJ. GAYLA RN. EXAMINATION GENERAL EXAMINATION: THE PATIENT IS ALERT, ORIENTED TIMES THREE AND COOPERATIVE. HEART SHOWS REGULAR RHYTHM, NO MURMURS AND NO GALLOPS. LUNGS ARE CLEAR TO AUSCULTATION. ASSESSMENTS SACROILIITIS, NOT ELSEWHERE CLASSIFIED - M46.1 (PRIMARY) SACROILIAC JOINT DYSFUNCTION - M53.3 TREATMENT SACROILIITIS, NOT ELSEWHERE CLASSIFIED [facility] FLUORO GUIDANCE (PAIN)[id number] SALINE LOCKSYALECIA MCKEON 06/22/2020 11:06:48 AM > 22 GAUGE INSERTED IN LEFT AC ON SECOND ATTEMPT. SITE CLEAR, FLUSHING WITHOUT DIFFICULTY. MEDICATION: VALIUM TAB 10MG ORALLY (DIAZEPAM)ALECIA SHUKLA 06/22/2020 10:40:52 AM > LOT: [id number], EXP: 02/21 ALECIA SHUKLA 06/22/2020 10:44:37 AM > ADMINISTERED. JULIA OCONNELL 06/22/2020 10:46:59 AM > VERIFIED AT 1042 MEDICATION: OXYCODONE HCL TAB 10MG ORALLYSYALECIA MCKEON 06/22/2020 10:41:28 AM > LOT: [id number], EXP: 09/2021 ALECIA SHUKLA 06/22/2020 10:44:52 AM > ADMINISTERED ANISHJULIA 06/22/2020 10:47:21 AM > VERIFIED AT 1042 SACROILIAC JOINT DYSFUNCTION [facility] FLUORO GUIDANCE (PAIN)[id number] PROCEDURES PAIN NURSING RECORD PRE-PROCEDURE IV SITE LEFT ANTECUBITAL, IV STARTED # 22, IV STARTED BY: Dakota SHUKLA RN, IV ATTEMPTS 2, PRE-PROCEDURE ORAL MEDICATIONS VALIUM 10 MG & OXYCODONE 10 MG PROCEDURE IN ROOM 1132, PHYSICIAN IN ROOM 1153, START 1157, FINISH 1202, PHYSICIAN OUT OF ROOM 1203, OUT OF ROOM 1212, STEROID KENALOG, O2 RA, ECG NORMAL SINUS, PATIENT SHIELDED YES, SAFETY STRAP YES, PREP CHLOROPREP BY Dakota SHUKLA RN, IV INFUSED N/A, DRESSING TEGADERM BY DR. SULLIVAN LOC: ALECIA SHUKLA 06/22/2020 11:57:51 AM > , 1. ALERT, ORIENTED RESP: ALECIA SHUKLA 06/22/2020 11:57:57 AM > , 1. REGULAR, NO DYSPNEA COLOR: ALECIA SHUKLA 06/22/2020 11:58:01 AM > , 1. PINK SKIN: ALECIA SHUKLA 06/22/2020 11:58:04 AM > , 1. WARM, DRY POSITION: ALECIA SHUKLA 06/22/2020 11:58:10 AM > , 1. PRONE VITALS: ALECIA SHUKLA 06/22/2020 11:36:13 AM > 159/89, 95, 18, 97% ALECIA SHUKLA 06/22/2020 11:44:08 AM > 164/96, 92, 18, 96% ALECIA SHUKLA 06/22/2020 11:58:52 AM > 147/78, 89, 18, 96% ALECIA SHUKLA 06/22/2020 12:07:25 PM > 156/56, 92, 18, 94% SYLALECIA SANCHEZ 06/22/2020 12:16:33 PM > 122/61, 94, 18, 96% DISCHARGE: POST PAIN 0, DRESSING SITE DRY AND INTACT, IV DISCONTINUED, SITE CLEAR, CATHETER INTACT, GAIT STEADY, TEACHING COMPLETED, PATIENT ACKNOWLEDGES UNDERSTANDING YES, PATIENT DISCHARGED AT 1228 PN SI PRE PROCEDURE DIAGNOSIS SACROILIITIS, SACROILIAC JOINT DYSFUNCTION POST PROCEDURE DIAGNOSIS SACROILIITIS, SACROILIAC JOINT DYSFUNCTION PROCEDURE BILATERAL SACROILIAC JOINT BLOCK SURGEON DR. TOMMY SULLIVAN EQUIPMENT SERVICE LEAD NONE ANESTHESIA LOCAL PRE PROCEDURE NOTE THE PATIENT WITH HISTORY OF CHRONIC LOW BACK PAIN. I EVALUATED THE PATIENT AND REVIEWED THE CHART. I WENT OVER THE RISKS, ALTERNATIVES, AND BENEFITS ASSOCIATED WITH THIS PROCEDURE. I DISCUSSED THAT THE USE OF STEROIDS MAY CONTRIBUTE TO IMMUNOSUPPRESSION OF THE PATIENT'S BODY AGAINST INFECTIONS SUCH COVID-19. THE PATIENT IS AWARE OF THE POTENTIAL COMPLICATIONS ASSOCIATED WITH THIS VIRUS, INCLUDING, BUT NOT LIMITED TO, . THE PATIENT WOULD LIKE TO PROCEED AND GAVE CONSENT TO PERFORM THE PROCEDURE. THE PATIENT DENIES UNEXPLAINABLE WEIGHT LOSS, FEVER, CHILLS, OR NEW CHANGES IN URINARY OR BOWEL CONTROL. THE PATIENT IS COVID-19 NEGATIVE DESCRIPTION OF PROCEDURE THE PATIENT WAS BROUGHT TO THE PROCEDURE ROOM AND PLACED IN THE PRONE POSITION. THE LUMBOSACRAL AREA WAS CLEANED WITH CHLORAPREP SOLUTION AND DRAPED ASEPTICALLY. THE PROCEDURE WAS DONE UNDER STERILE CONDITIONS. A TIMEOUT WAS PERFORMED WHERE LATERALITY AND THE SITE OF THE PROCEDURE WERE CHECKED AND CONFIRMED WITH EVERYONE IN THE ROOM. UNDER FLUOROSCOPIC GUIDANCE, THE TARGET POINT WAS SELECTED AT THE LOWER BORDER OF THE RIGHT AND LEFT SACROILIAC JOINT. TARGET POINT WAS SELECTED AFTER MEDIAL ROTATION AND TILT OF THE MAGNIFIER OR THE C-ARM. I CONFIRMED AGAIN WITH EVERYONE IN THE ROOM THE LATERALITY OF THE TARGET. LIDOCAINE 0.5% WAS USED TO NUMB THE SKIN AND THE SUBCUTANEOUS TISSUE BELOW IT. SPINAL NEEDLES, 22-GAUGE, WERE ADVANCED UNDER FLUOROSCOPIC GUIDANCE AND FOLLOWING PATIENT FEEDBACK UNTIL THE TARGETS WERE TOUCHED. THE POSITION OF THE NEEDLES WAS VERIFIED WITH AP AND OBLIQUE VIEWS. AFTER PROPER POSITION OF THE NEEDLES WAS ACHIEVED, ISOVUE-M DYE 30%, 0.1 ML, WAS INJECTED SHOWING ADEQUATE SPREAD OF THE DYE. KENALOG 40 MG WAS INJECTED AT EACH SITE. THEN, A SOLUTION OF 3.0 ML OF BUPIVACAINE 0.125% WAS USED TO FLUSH EACH NEEDLE. THE MEDICATIONS WERE VERIFIED WITH THE NURSE. THERE WAS NO EVIDENCE OF BLOOD, PARESTHESIA OR CEREBROSPINAL FLUID DURING THE PROCEDURE. THE PATIENT WAS SENT TO THE RECOVERY ROOM. THE PATIENT WAS MOVING THE EXTREMITIES AND DOING WELL. THERE WERE NO COMPLICATIONS DURING THE PROCEDURE. ESTIMATED BLOOD LOSS WAS LESS THAN 5 ML. FLUOROSCOPIC TIME WAS 28 SECONDS. POST PROCEDURE NOTE DEPENDING ON THE RESULTS, I WOULD SUGGEST OBTAINING A NEW MRI THE LAST MRI WAS DONE BEFORE HER SURGERY. THE PROCEDURE DONE WAS DISCUSSED WITH THE PATIENT. THE PATIENT WILL BE SEEN IN A FOLLOW UP IN THE NEXT FEW WEEKS. I AM LOOKING FOR LONG LASTING PAIN RELIEF FOR THE PATIENT WITH THIS INTERVENTION. INSTRUCTIONS WERE GIVEN, QUESTIONS WERE ANSWERED, AND THE PATIENT EXPRESSED UNDERSTANDING AND AGREES WITH THE PLAN. I, LAURITA LOPEZ, DOCUMENTED THE ABOVE INFORMATION ACTING A SCRIBE FOR DR. SULLIVAN. I HAVE REVIEWED THE ABOVE DOCUMENT, WRITTEN BY LAURITA LOPEZ, PATTERN ROOM ATTENDANT, AND I VERIFY THAT IT IS ACCURATE PROCEDURE CODES 45194 INJECT SACROILIAC JOINT, MODIFIERS: 50 DISPOSITION & COMMUNICATION FOLLOW UP FOLLOW UP WITH PSYCHIATRIC NURSING ASSISTANT (REASON: POST BILATERAL SIJ) ELECTRONICALLY SIGNED BY TOMMY SULLIVAN MD, MD ON 06/22/2020 AT 02:20 PM EST DISCLAIMER : THIS IS A VISIT SUMMARY EXTRACTED FROM THE [employer] CHART. IT IS NOT A COPY OF THE [employer] PROGRESS NOTE. DANIEL
== END ==
LOC: M PAIN 09:30
PROVIDERS: ATTEND Anesthesiology
DX: M46.1 Sacroiliitis, not elsewhere classified (principal); M53.3 Sacrococcygeal disorders, not elsewhere classified; E11.9 Type 2 diabetes mellitus without complications; I10 Essential (primary) hypertension; M10.9 Gout, unspecified; J45.909 Unspecified asthma, uncomplicated; E55.9 Vitamin D deficiency, unspecified; M79.7 Fibromyalgia; E53.8 Deficiency of other specified B group vitamins; Z87.891 Personal history of nicotine dependence; Z79.84 Long term (current) use of oral hypoglycemic drugs; Z79.899 Other long term (current) drug therapy; Z88.8 Allergy status to other drugs, medicaments and biological substances
CPT/HCPCS: 27096; J3301; Q9967

== ENCOUNTER → 2020-07-07 | Outpatient (CLI) | payer OTHER ==
[~2020-07-07] MED LIST changes: -BUPIVACAINE HCL 0.25% 30ML VIAL As Ordered ONE; -ISOVUE-M 300 61% 15ML VIAL As Ordered ONE; -LIDOCAINE 1% SDV 30ML VIAL As Ordered ONE; -MONT10TA4 PO; +MONT5TAB2 PO; -TRIAMCINOLONE ACETONIDE SUSP 40 MG/ML VIAL (J3301) As Ordered ONE; -diazePAM 5 MG TAB As Ordered ONE; -oxyCODONE 5MG TAB As Ordered ONE
--- NOTE | 2020-07-15 05:31 | ECWPNPC ---
PATIENT NAME: STEVE DIAMOND : 1965 GENDER: FEMALE VISIT DATE: 07/07/2020 DISCHARGE DATE: 07/07/20 1006 VISIT LOCKED DATE TIME: PHYSICIAN: DHARMESH BLANCO PHYSICIAN PAGER NO: ACTIVE RESOURCE: DHARMESH BLANCO REASON FOR APPOINTMENT 1. POST BILATERAL SIJ HISTORY OF PRESENT ILLNESS GENERAL: HERE FOR POST PROCEDURE FOLLOW-UP. HAD BILATERAL SACROILIAC JOINT BLOCK ON MONTH AGO. REPORTING 1 WEEK OF IMPROVEMENT IN PAIN AND THEN PAIN RETURNED TO BASELINE. SHE IS QUITE UNCOMFORTABLE TODAY. PAIN IS LOCATED IN THE MUSCLE TISSUE ACROSS THE LOWER BACK. PAIN IS AGGRAVATED BY PROLONGED STANDING OR WALKING. -. FALL RISK SCREENING: SCREENING :ONE FALL WITH INJURY IN THE PAST YEAR FELL OUT OF VEHICLE 2 WEEKS S/P SURGERY INJURING LEFT KNEE PAIN SCREENING: PATIENT HAS A COMPLAINT OF ACUTE OR CHRONIC PAIN :YES LOCATION OF PAIN:LOW BACK, KNEES INTENSITY OF PAIN (SCALE OF 1 TO 10):7 WHAT DOES YOUR PAIN FEEL LIKE:BURNING, SORE DURATION:CONTINOUS, CONSTANT PAIN IS INCREASED BY:ACTIVITIES PAIN IS DECREASED BY:USE OF PAIN MEDICATIONS TREATMENT/MEDICATIONS USED TO MANAGE PAIN: MARYJANE, TYLENOL LEVEL OF RELIEF FROM PAIN TREATMENTS IN THE PAST:0% PAIN HAS INTERFERED WITH THE FOLLOWING:BATHING/DRESSING, WALKING ABILITY, HOUSEWORK, TRANSPORTATION, TOILETING NURSING NOTE: -. PAIN CENTER INTAKE QUESTIONS: DO YOU HAVE A HISTORY OF MRSA? :NO DO YOU TAKE A BLOOD THINNERS? :NO DO YOU HAVE ANY BLEEDING DISORDERS? :NO ANY NEW NUMBNESS OR WEAKNESS IN YOUR LEGS OR ARMS? :NO ANY PACEMAKER,DEFIBRILLATOR, OR DORSAL COLUMN STIMULATOR? :NO DO YOU HAVE ANY RASHES OR OPEN SORES? :NO ARE YOU ALLERGIC TO IV DYE? :NO ARE YOU DIABETIC? :YES ANY NEW PROBLEMS WITH YOUR MEDICATIONS? :YES MARYJANE AND TYLENOL NOT WORKING HAVE YOU RECEIVED A VACCINE IN THE PAST 30 DAYS? :NO DO YOU PLAN TO RECEIVE A VACCINE IN THE NEXT 21 DAYS? :YES IF SO WHAT VACCINE AND WHEN? ALLERGY INJECTIONS DO YOU NEED ANY PRESCRIPTION? :NO DO YOU TAKE ANY IMMUNOSUPPRESSIVE MEDICATIONS? :YES ALLOPURINOL IS THERE A CHANCE YOU COULD BE ? :NO ARE YOU BREAST FEEDING? :NO CURRENT MEDICATIONS TAKING SINGULAIR 10 MG TABLET 1 TABLET IN THE EVENING ORALLY ONCE A DAY TAKING DULERA 100 MCG/5MCG 2 PUFFS INHALATION TWICE A DAY TAKING MAGNESIUM OXIDE 250 MG TABLET 1 TAB ORALLY ONCE A DAY TAKING ALPHAGAN P 0.15 % SOLUTION 1 DROP INTO AFFECTED EYE OPHTHALMIC THREE TIMES A DAY TAKING ALBUTEROL SULFATE (2.5 MG/3ML) 0.083% NEBULIZATION SOLUTION 3 ML INHALATION THREE TIMES A DAY PRN TAKING LATANOPROST 0.005 % SOLUTION INSTILL 1 DROP IN EACH EYE AT BEDTIME DIRECTED OPHTHALMIC TAKING FLONASE ALLERGY RELIEF 50 MCG/ACT SUSPENSION 1 SPRAY IN EACH NOSTRIL NASALLY ONCE A DAY TAKING AZELASTINE HCL 137 MCG/SPRAY SOLUTION 1 PUFF IN EACH NOSTRIL NASALLY TWICE A DAY TAKING LANCETS - MISCELLANEOUS 1 EACH TO USE FOR ONCE TOUCH DAILY/ E11.9 TAKING BD ULTRA-FINE PEN NEEDLES 32G 4MM DIRECTED 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 TAKING PROVENTIL HFA 108 (90 BASE) MCG/ACT AEROSOL SOLUTION 2 PUFFS INHALATION EVERY 4 HOUR NEEDED TAKING GABAPENTIN 600 MG TABLET 1 CAPSULE ORALLY THREE TIMES A DAY TAKING VITAMIN B-12 1000 MCG TABLET CHEWABLE 1 TABLET ORALLY ONCE A DAY- OTC TAKING BLOOD GLUCOSE TEST - STRIP 1 STRIP GLUCOSE TESTING STRIPS FOR ONE TOUCH VERIO DAILY/ E119 TAKING ACETAMINOPHEN 500 MG CAPSULE 2 TABLETS ORALLY EVERY 8 HRS PRN TAKING ALLOPURINOL 100 MG TABLET 2 TABLET ORALLY ONCE A DAY TAKING VITAMIN D 2000 UNIT TABLET 1 TABLET ORALLY ONCE A DAY TAKING HYDROCHLOROTHIAZIDE 25 MG TABLET 1 TABLET ORALLY ONCE A DAY TAKING NORVASC 5 MG TABLET 1 TABLET ORALLY ONCE A DAY TAKING AMITRIPTYLINE HCL 25 MG TABLET 2 TAB ORALLY BEFORE BEDTIME TAKING VICTOZA 18 MG/3ML SOLUTION PEN-INJECTOR 1.8 MG SUBCUTANEOUS DAILY TAKING LISINOPRIL 20 MG TABLET 1 TABLET ORALLY ONCE A DAY TAKING METFORMIN HCL 1000 MG TABLET 1 TABLET WITH MEALS ORALLY TWICE A DAY TAKING LIPITOR 40 MG TABLET 1 TABLET ORALLY ONCE A DAY TAKING CLIMARA 0.05 MG/24HR PATCH WEEKLY 1 PATCH TO SKIN TRANSDERMAL WEEKLY NOT-TAKING NORCO 10-325 MG TABLET 1 TABLET NEEDED ORALLY EVERY 6 HRS PRN MDD4 NOT-TAKING SALINE NASAL SPRAY 0.65 % SOLUTION 2 DROPS IN EACH NOSTRIL NEEDED NASALLY EVERY 2 HRS NOT-TAKING PREDNISONE 20 MG TABLET 1 TABLET WITH FOOD ORALLY TWICE DAILY NOT-TAKING TRAMADOL HCL 50 MG TABLET 2 TAB ORALLY BID MDD4 MEDICATION LIST REVIEWED AND RECONCILED WITH THE PATIENT PAST MEDICAL HISTORY HYPERTENSION ASTHMA GOUT VITAMIN D DEFICIENCY CHRONIC RIGHT OTITIS MEDIA PRE-DIABETES/IMPAIRED FASTING GLUCOSE FIBROMYALGIA-GOES TO PAIN CLINIC RECURRENT SINUSITIS TD 1999; TDAP 06/15 PNEUMNOVAX 2009 CHRONIC ALLERGIC RHINITIS - GETS ALLERGY SHOTS FIBROIDS COLONOSCOPY 2017, REPEAT IN 5 YEAR VITAMIN B12 DEFICIENCY--ON MONTHLY INJECTIONS FOR A WHILE, STOPPED COMING FOR THEM, LEVEL NL ON ORAL MED DM TYPE II CHRONIC BACK PAIN ALLERGIES TRICOR: RASH - ALLERGY DUST MITES: RASH - ALLERGY - ONSET DATE 02/18/2020 SURGICAL HISTORY KNEE ARTHROSCOPY (4 ON RT, 3 ON LEFT) CARPAL TUNNEL RELEASE R 2001 RIGHT KNEE ARTHROSCOPY SURGERY DR. SHARMA 02/09/2013 LAPAROSCOPY, REMOVAL OF FIBROID 10/21/16 MANUEL WITH BILAT. SALPINGO OOPHERECTOMY 12/11/16 LEFT CARPEL TUNNEL 10/2017 LOWER LUMBAR FUSION L4-5 08/31/2019 FAMILY HISTORY FATHER: ALIVE, HEALTH STATUS UNKNOWN MOTHER: ALIVE 69 YRS, DIAGNOSED WITH HYPERTENSION, DIABETES SIBLINGS: ALIVE, SIS PRE-DM, BR HTN, HYPERTENSION 1DAUGHTER(S) - HEALTHY. SOCIAL HISTORY GENERAL: TOBACCO USE ARE YOU A:FORMER SMOKER HOW LONG HAS IT BEEN SINCE YOU LAST SMOKED?> 10 YEARS LATEX QUESTIONNAIRE LATEX ALLERGY : HAVE YOU EVER DEVELOPED ANY TYPE OF REACTION AFTER HANDLING LATEX PRODUCTS SUCH RUBBER GLOVES, CONDOMS, DIAPHRAGMS, BALLOONS, SOCKS, OR UNDERWEAR?NO LATEX ALLERGY : HAVE YOU EVER DEVELOPED ANY TYPE OF REACTION DURING OR AFTER DENTAL APPOINTMENT, VAGINAL/RECTAL EXAMINATION, SURGICAL PROCEDURE, OR ANY OTHER EXPOSURE?NO DATE ASKED : 05/26/2020 LATEX RISK : HAVE YOU EVER HAD ANY DIFFICULTY BREATHING OR HIVES AFTER EATING OR HANDLING ANY FRUITS, OR VEGETABLES; SUCH KIWI, BANANAS, STONE FRUITS, OR CHESTNUTSNO LATEX RISK : DO YOU HAVE A PREVIOUS PERSONAL HISTORY OF MORE THAN NINE SURGERIES, SPINA BIFIDA, OR REPEATED CATHERIZATIONS? YES - PLEASE INDICATE : > 9 SURGERIES LATEX RISK : ARE YOU FREQUENTLY EXPOSED TO LATEX PRODUCTS IN YOUR OCCUPATION?NO BMI CARE GOAL FOLLOW-UP ABOVE NORMAL BMI FOLLOW-UPDIETARY MANAGEMENT EDUCATION, GUIDANCE, AND COUNSELING ALCOHOL SCREENING DID YOU HAVE A DRINK CONTAINING ALCOHOL IN THE PAST YEAR?NO POINTS0 INTERPRETATIONNEGATIVE RECREATIONAL DRUG USE DRUG USE?NO CAFFEINE CAFFEINE USE?NO SEXUAL HX HAD SEX IN THE LAST 12 MONTHS (VAGINAL, ORAL, OR ANAL)?YES WITHMEN ONLY PREVENTION STRATEGIES DISCUSSED:OTHER USE PROTECTION?NO LMP:HYSTER HAVE YOU EVER HAD AN STD?NO HIV / HEP-C SCREENING HIV TEST OFFERED TO PATIENT:YES DATE OFFERED:10/11/2016 TEST ACCEPTED:NO HEP-C TEST OFFERED TO PATIENT:NO REASON:PATIENT DECLINED SY[employer]UE [id number] ROMAN CATHOL[employer] LANGUAGE BENGALI. EDUCATION 12TH GRADE GRADUATE. LEARNING BARRIERS / SPECIAL NEEDS CHANGE FROM LAST VISIT?NO BARRIERS TO LEARNING?NO HEARING IMPAIRED?NO VISION IMPAIRED?YES COGNITIVELY IMPAIRED?NO :CORRECTIVE LENSES READINESS TO LEARN?YES LEARNING PREFERENCES?NO LEARNING CAPABILITIES PRESENT?YES EMOTIONAL BARRIERS?NO SPECIAL DEVICES?YES BRACE WRISTS AND KNEES, C PAP BUT DOESNT USE IT IN OVER 2 YEARS REEL HOOKER NEEDED?NO NO DOMESTIC VIOLENCE DO YOU FEEL SAFE IN YOUR ENVIRONMENT?YES OCCUPATION: UNEMPLOYED. DIET: REGULAR. EXERCISE: WALKS UP & DOWN STAIRS @ HOME WHEN OUT ON APPOINTMENTS. MARITAL STATUS: . OTHERS AT HOME: SPOUSE, CHILD. PAIN CLINIC PFS, CLERGY, PUBLIC HEALTH REFERRALS PFS REFERRAL NEEDED?NO CLERGY REFERRAL NEEDED?NO PUBLIC HEALTH REFERRAL NEEDED?NO HAS THE PATIENT BEEN EDUCATED REGARDING HIS/HER PLAN OF CARE?YES HAS THE PATIENT BEEN EDUCATED REGARDING PAIN, THE RISK FOR PAIN, THE IMPORTANCE OF EFFECTIVE PAIN MANAGEMENT, AND THE PAIN ASSESSMENT PROCESS?YES HOUSING: RENTS HOUSE. ADVANCE DIRECTIVE ADVANCE DIRECTIVE DISCUSSED WITH PATIENT:YES PT DOES NOT HAVE ANY ADVANCED DIRECTIVES AND SHE DECLINES INFORMATION ON HCP AT THIS TIME. HOSPITALIZATION/MAJOR DIAGNOSTIC PROCEDURE SURGERY 12/2016 MICHI 08/2019 REVIEW OF SYSTEMS CONSTITUTIONAL: ANY RECENT FEVER NO . CHILLS NO . WEIGHT CHANGE OF UNKNOWN REASONS NO . GASTROENTEROLOGY: NEW UNEXPLAINABLE CHANGES IN BOWEL CONTROL NO . CONSTIPATION NO . GENITOURINARY: ANY NEW CHANGE IN BLADDER CONTROL? NO . NEUROLOGY: NEW ONSET DIZZINESS OR NEUROLOGICAL CHANGES NOT MENTIONED NO . NEW NUMBNESS OR PAIN PATTERNS NOT MENTIONED AND PERTINENT TO TODAY'S VISIT NO . CARDIOLOGY: NEW CHEST PRESSURE NO . NEW CHEST PAIN NO . RESPIRATORY: UNEXPLAINABLE COUGH NO . NEW SHORTNESS OF BREATH NO . VITAL SIGNS WT 221.6 LBS, HT 5'3", BMI 39.25 INDEX, BP 131/70 MM HG, HR 85 /MIN, RR 18 /MIN, TEMP 97.5 F, OXYGEN SAT % 98%, SAFE IN ENV? (Y/N) Y, NA INITIALS ME 09:19, REVIEWED BY: EM. EXAMINATION GENERAL EXAMINATION: GENERAL AWAKE,ALERT ,PLEAASANT . PSYCH AFFECT NORMAL . LUNGS: LUNG ROCA ARE CLEAR TO AUSCULTATION BILATERALLY. GOOD MOVEMENT OF AIR . HEART: S1, S2 IN A REGULAR RATE AND RHYTHM. NO SIGNIFICANT MURMURS, RUBS OR GALLOPS NOTED . MUSCULOSKELETAL: MUSCLE STRENGTH TESTING 4/5 BILATERAL LOWER EXTREMITIES. LUMBAR: TRIGGER POINTS:, ELICITED WITH PALPATION OVER LUMBAR PARAVERTEBRAL MUSCLES AND RESTRICTION OF ROM IN THIS AREA IS NOTED. DIAGNOSTIC TESTS REVIEWED MRI L/S SPINE 2018. ASSESSMENTS OTHER CHRONIC PAIN - G89.29 (PRIMARY) MYALGIA, OTHER SITE - M79.18 TREATMENT OTHER CHRONIC PAIN PAIN PROCEDURE LOGDATE OF [id number]/19/20PROCEDURE:BILATERAL SACROILIAC BLOCKAMOUNT OF PRE SEDATEVALIUM 10MG, OXYCODONE 10MGRESULT:SIGNIFICANT IMPROVEMENT X1 WEEK THEN PAIN GRADUALLY RETURNED TO BASELINE NOTES: TRIGGER POINT INJECTIONS BILATERAL LOW BACK PATIENT WILL BE CONTINUING ALLOPURINOL KNOWING THE INCREASED RISK FOR INFECTION PRE PROCEDURE INSTRUCTIONS REVIEWED WITH PT. VERBALIZED UNDERSTANDING. Nanette WEBB RN 07/07/20 1006. PROCEDURE CODES FA211 ESTABILISHED PATIENT [facility] CHARGE DISPOSITION & COMMUNICATION FOLLOW UP POST PROCEDURE (REASON: BILATERAL TRIGGER POINT INJECTIONS LOW BACK) ELECTRONICALLY SIGNED BY MARICEL ORELLANA ON 07/14/2020 AT 10:13 AM EST DISCLAIMER : THIS IS A VISIT SUMMARY EXTRACTED FROM THE [employer] CHART. IT IS NOT A COPY OF THE [employer] PROGRESS NOTE. DANIEL
== END ==
LOC: M PAIN 09:15
PROVIDERS: ATTEND Nurse Practitioner Family
DX: M79.18 Myalgia, other site (principal); E11.9 Type 2 diabetes mellitus without complications; J45.909 Unspecified asthma, uncomplicated; E55.9 Vitamin D deficiency, unspecified; Z87.891 Personal history of nicotine dependence; Z88.8 Allergy status to other drugs, medicaments and biological substances; Z79.84 Long term (current) use of oral hypoglycemic drugs; Z79.899 Other long term (current) drug therapy

== ENCOUNTER → 2020-08-20 | Outpatient (CLI) | payer OTHER | LOC: M LABSMTC 08:35 | PROVIDERS: ATTEND Anesthesiology | DX: Z20.822 Contact with and (suspected) exposure to COVID-19 (principal) ==

== ENCOUNTER → 2020-08-25 | Outpatient (CLI) | payer OTHER ==
[~2020-08-25] MED LIST changes: +BUPIVACAINE HCL 0.25% 10ML VIAL As Ordered ONE; +BUPIVACAINE HCL 0.25% 30ML VIAL As Ordered ONE; +HYDR-3490 PO; -HYDR25TAB PO; -LISI-538 PO; +LISI20TA33 PO; +MONT10TA10 PO; -MONT5TAB2 PO; +TRIAMCINOLONE ACETONIDE SUSP 40 MG/ML VIAL (J3301) As Ordered ONE; +diazePAM 5MG TABLET As Ordered ONE; +oxyCODONE 5MG TAB As Ordered ONE
--- NOTE | 2020-08-29 02:40 | ECWPNPC ---
PATIENT NAME: STEVE DIAMOND : 1965 GENDER: FEMALE VISIT DATE: 08/25/2020 DISCHARGE DATE: 08/25/20 1037 VISIT LOCKED DATE TIME: PHYSICIAN: TOMMY SULLIVAN MD PHYSICIAN PAGER NO: ACTIVE RESOURCE: TOMMY SULLIVAN MD REASON FOR APPOINTMENT 1. TRIGGER POINT INJECTIONS BILATERAL LOW BACK HISTORY OF PRESENT ILLNESS GENERAL: -. FALL RISK SCREENING: SCREENING :ONE FALL WITH INJURY IN THE PAST YEAR LEFT KNEE INJURY - FOLLOWED BY ORTHO GROUP PAIN SCREENING: PATIENT HAS A COMPLAINT OF ACUTE OR CHRONIC PAIN :YES LOCATION OF PAIN:LOW BACK INTENSITY OF PAIN (SCALE OF 1 TO 10):8 WHAT DOES YOUR PAIN FEEL LIKE:SHARP DURATION:CONTINOUS, CONSTANT, STEADY, AWAKENS FROM SLEEP PAIN IS INCREASED BY:ACTIVITIES, OTHERS BENDING OVER, PROLONGED WALKING PAIN IS DECREASED BY: NOTHING AT THIS TIME. TREATMENT/MEDICATIONS USED TO MANAGE PAIN:OTC PAIN RELIEVERS, NSAIDS, TOPICAL CORTICOSTEROIDS, OPIOIDS, CORTICOSTEROIDS, PHYSICAL THERAPY BIOFREEZE PLAN/GOALS/TREATMENT/INTERVENTION/FOLLOW UP:SEE PLAN PAIN CENTER INTAKE QUESTIONS: DO YOU HAVE A HISTORY OF MRSA? :NO DO YOU TAKE A BLOOD THINNERS? :NO DO YOU HAVE ANY BLEEDING DISORDERS? :NO ANY NEW NUMBNESS OR WEAKNESS IN YOUR LEGS OR ARMS? :YES PATIENT REPORTS, INCREASED WEAKNESS IN RIGHT LEG WHEN TRYING TO WALK, "FEELS LIKE LEG IS GOING TO GIVE OUT." ANY PACEMAKER,DEFIBRILLATOR, OR DORSAL COLUMN STIMULATOR? :NO DO YOU HAVE ANY RASHES OR OPEN SORES? :NO ARE YOU ALLERGIC TO IV DYE? :NO ARE YOU DIABETIC? :YES FSBS: 120 ANY NEW PROBLEMS WITH YOUR MEDICATIONS? :NO HAVE YOU RECEIVED A VACCINE IN THE PAST 30 DAYS? :NO DO YOU PLAN TO RECEIVE A VACCINE IN THE NEXT 21 DAYS? :NO DO YOU NEED ANY PRESCRIPTION? :NO DO YOU TAKE ANY IMMUNOSUPPRESSIVE MEDICATIONS? :YES ALLOPURINOL (LAST DOSE 08/19/20) ANY HISTORY OF SEIZURES? :NO ANY HISTORY OF CARDIAC ISSUES OR EVENTS? :NO DO YOU HAVE SLEEP APNEA? :YES DO YOU WEAR A CPAP?NO REPORTS NOT NEEDED RECENTLY. : :NO IS THERE A CHANCE YOU COULD BE ? :NO ARE YOU BREAST FEEDING? :NO WHEN DID YOU LAST EAT? : 08/24/201929 WHEN DID YOU LAST DRINK? : 0629 WHAT DID YOU LAST DRINK? : WATER NAME OF PERSON DRIVING YOU HOME? : TRANSPORTATION, ACCOMPANYING DO YOU HAVE ANY OTHER QUESTIONS OR CONCERNS? : NO CURRENT MEDICATIONS TAKING SINGULAIR 10 MG TABLET 1 TABLET IN THE EVENING ORALLY ONCE A DAY TAKING DULERA 100 MCG/5MCG 2 PUFFS INHALATION TWICE A DAY TAKING MAGNESIUM OXIDE 250 MG TABLET 1 TAB ORALLY ONCE A DAY TAKING ALPHAGAN P 0.15 % SOLUTION 1 DROP INTO AFFECTED EYE OPHTHALMIC THREE TIMES A DAY TAKING ALBUTEROL SULFATE (2.5 MG/3ML) 0.083% NEBULIZATION SOLUTION 3 ML INHALATION THREE TIMES A DAY PRN TAKING LATANOPROST 0.005 % SOLUTION INSTILL 1 DROP IN EACH EYE AT BEDTIME DIRECTED OPHTHALMIC TAKING FLONASE ALLERGY RELIEF 50 MCG/ACT SUSPENSION 1 SPRAY IN EACH NOSTRIL NASALLY ONCE A DAY TAKING AZELASTINE HCL 137 MCG/SPRAY SOLUTION 1 PUFF IN EACH NOSTRIL NASALLY TWICE A DAY TAKING LANCETS - MISCELLANEOUS 1 EACH TO USE FOR ONCE TOUCH DAILY/ E11.9 TAKING PROVENTIL HFA 108 (90 BASE) MCG/ACT AEROSOL SOLUTION 2 PUFFS INHALATION EVERY 4 HOUR NEEDED TAKING VITAMIN B-12 1000 MCG TABLET CHEWABLE 1 TABLET ORALLY ONCE A DAY- OTC TAKING ACETAMINOPHEN 500 MG CAPSULE 2 TABLETS ORALLY EVERY 8 HRS PRN TAKING VITAMIN D 2000 UNIT TABLET 1 TABLET ORALLY ONCE A DAY TAKING HYDROCHLOROTHIAZIDE 25 MG TABLET 1 TABLET ORALLY ONCE A DAY, NOTES: 06 TAKING NORVASC 5 MG TABLET 1 TABLET ORALLY ONCE A DAY, NOTES: 629 TAKING AMITRIPTYLINE HCL 25 MG TABLET 2 TAB ORALLY BEFORE BEDTIME TAKING VICTOZA 18 MG/3ML SOLUTION PEN-INJECTOR 1.8 MG SUBCUTANEOUS DAILY, NOTES: 08/24/20 0715 TAKING METFORMIN HCL 1000 MG TABLET 1 TABLET WITH MEALS ORALLY TWICE A DAY, NOTES: 08/24/20 1930 TAKING CLIMARA 0.05 MG/24HR PATCH WEEKLY 1 PATCH TO SKIN TRANSDERMAL WEEKLY, NOTES: 08/23/20, OFF 08/24/20 TAKING LISINOPRIL 20 MG TABLET 1 TABLET ORALLY ONCE A DAY, NOTES: 0630 TAKING LIPITOR 40 MG TABLET 1 TABLET ORALLY ONCE A DAY TAKING BD ULTRA-FINE PEN NEEDLES 32G 4MM DIRECTED 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 TAKING BLOOD GLUCOSE TEST - STRIP 1 STRIP GLUCOSE TESTING STRIPS FOR ONE TOUCH VERIO DAILY/ E119 TAKING GABAPENTIN 600 MG TABLET 1 CAPSULE ORALLY THREE TIMES A DAY TAKING ALLOPURINOL 100 MG TABLET 2 TABLET ORALLY ONCE A DAY, NOTES: 08/19/20 NOT-TAKING NORCO 10-325 MG TABLET 1 TABLET NEEDED ORALLY EVERY 6 HRS PRN MDD4 NOT-TAKING SALINE NASAL SPRAY 0.65 % SOLUTION 2 DROPS IN EACH NOSTRIL NEEDED NASALLY EVERY 2 HRS NOT-TAKING PREDNISONE 20 MG TABLET 1 TABLET WITH FOOD ORALLY TWICE DAILY NOT-TAKING TRAMADOL HCL 50 MG TABLET 2 TAB ORALLY BID MDD4 MEDICATION LIST REVIEWED AND RECONCILED WITH THE PATIENT PAST MEDICAL HISTORY HYPERTENSION ASTHMA GOUT VITAMIN D DEFICIENCY CHRONIC RIGHT OTITIS MEDIA PRE-DIABETES/IMPAIRED FASTING GLUCOSE FIBROMYALGIA-GOES TO PAIN CLINIC RECURRENT SINUSITIS TD 1999; TDAP 06/15 PNEUMNOVAX 2009 CHRONIC ALLERGIC RHINITIS - GETS ALLERGY SHOTS FIBROIDS COLONOSCOPY 2017, REPEAT IN 5 YEAR VITAMIN B12 DEFICIENCY--ON MONTHLY INJECTIONS FOR A WHILE, STOPPED COMING FOR THEM, LEVEL NL ON ORAL MED DM TYPE II CHRONIC BACK PAIN ALLERGIES TRICOR: RASH - ALLERGY DUST MITES: RASH - ALLERGY - ONSET DATE 02/18/2020 SOCIAL HISTORY GENERAL: TOBACCO USE ARE YOU A:FORMER SMOKER HOW LONG HAS IT BEEN SINCE YOU LAST SMOKED?> 10 YEARS LATEX QUESTIONNAIRE LATEX ALLERGY : HAVE YOU EVER DEVELOPED ANY TYPE OF REACTION AFTER HANDLING LATEX PRODUCTS SUCH RUBBER GLOVES, CONDOMS, DIAPHRAGMS, BALLOONS, SOCKS, OR UNDERWEAR?NO LATEX ALLERGY : HAVE YOU EVER DEVELOPED ANY TYPE OF REACTION DURING OR AFTER DENTAL APPOINTMENT, VAGINAL/RECTAL EXAMINATION, SURGICAL PROCEDURE, OR ANY OTHER EXPOSURE?NO LATEX RISK : HAVE YOU EVER HAD ANY DIFFICULTY BREATHING OR HIVES AFTER EATING OR HANDLING ANY FRUITS, OR VEGETABLES; SUCH KIWI, BANANAS, STONE FRUITS, OR CHESTNUTSNO LATEX RISK : DO YOU HAVE A PREVIOUS PERSONAL HISTORY OF MORE THAN NINE SURGERIES, SPINA BIFIDA, OR REPEATED CATHERIZATIONS? YES - PLEASE INDICATE : > 9 SURGERIES LATEX RISK : ARE YOU FREQUENTLY EXPOSED TO LATEX PRODUCTS IN YOUR OCCUPATION?NO DATE ASKED : 08/24/2020 BMI CARE GOAL FOLLOW-UP ABOVE NORMAL BMI FOLLOW-UPDIETARY MANAGEMENT EDUCATION, GUIDANCE, AND COUNSELING ALCOHOL SCREENING DID YOU HAVE A DRINK CONTAINING ALCOHOL IN THE PAST YEAR?NO POINTS0 INTERPRETATIONNEGATIVE RECREATIONAL DRUG USE DRUG USE?NO CAFFEINE CAFFEINE USE?NO SEXUAL HX HAD SEX IN THE LAST 12 MONTHS (VAGINAL, ORAL, OR ANAL)?YES WITHMEN ONLY PREVENTION STRATEGIES DISCUSSED:OTHER USE PROTECTION?NO LMP:HYSTER HAVE YOU EVER HAD AN STD?NO HIV / HEP-C SCREENING HIV TEST OFFERED TO PATIENT:YES DATE OFFERED:10/11/2016 TEST ACCEPTED:NO HEP-C TEST OFFERED TO PATIENT:NO REASON:PATIENT DECLINED CONFUCIANISM [id number] MUSLIM LANGUAGE [place]HANAIAN. EDUCATION 12TH GRADE GRADUATE. LEARNING BARRIERS / SPECIAL NEEDS CHANGE FROM LAST VISIT?NO BARRIERS TO LEARNING?NO HEARING IMPAIRED?NO VISION IMPAIRED?YES COGNITIVELY IMPAIRED?NO :CORRECTIVE LENSES READINESS TO LEARN?YES LEARNING PREFERENCES?NO LEARNING CAPABILITIES PRESENT?YES EMOTIONAL BARRIERS?NO SPECIAL DEVICES?YES BRACE WRISTS AND KNEES, C PAP BUT DOESNT USE IT IN OVER 2 YEARS STEAM TABLE ATTENDANT NEEDED?NO NO DOMESTIC VIOLENCE DO YOU FEEL SAFE IN YOUR ENVIRONMENT?YES OCCUPATION: UNEMPLOYED. DIET: REGULAR. EXERCISE: WALKS UP & DOWN STAIRS @ HOME WHEN OUT ON APPOINTMENTS. MARITAL STATUS: . OTHERS AT HOME: SPOUSE, CHILD. - PFS REFERRAL NEEDED?NO CLERGY REFERRAL NEEDED?NO PUBLIC HEALTH REFERRAL NEEDED?NO HAS THE PATIENT BEEN EDUCATED REGARDING HIS/HER PLAN OF CARE?YES HAS THE PATIENT BEEN EDUCATED REGARDING PAIN, THE RISK FOR PAIN, THE IMPORTANCE OF EFFECTIVE PAIN MANAGEMENT, AND THE PAIN ASSESSMENT PROCESS?YES HOUSING: RENTS HOUSE. ADVANCE DIRECTIVE ADVANCE DIRECTIVE DISCUSSED WITH PATIENT:YES PT DOES NOT HAVE ANY ADVANCED DIRECTIVES AND SHE DECLINES INFORMATION ON HCP AT THIS TIME. VITAL SIGNS WT 224 LBS, HT 5'3", BMI 39.68 INDEX, BP 163/70 MM HG, HR 84 /MIN, RR 18 /MIN, TEMP 96.5 F, OXYGEN SAT % 94%, BLOOD GLUCOSE LEVEL FSBS 120, SAFE IN ENV? (Y/N) YES, NA INITIALS KG, REVIEWED BY: JSJ. GAYLA RN. EXAMINATION GENERAL EXAMINATION: THE PATIENT IS ALERT, ORIENTED TIMES THREE AND COOPERATIVE. LUNGS ARE CLEAR TO AUSCULTATION. HEART SHOWS REGULAR RHYTHM, NO MURMURS AND NO GALLOPS. ASSESSMENTS MYALGIA - M79.10 (PRIMARY) TREATMENT MYALGIA MEDICATION: VALIUM TAB 10MG ORALLY (DIAZEPAM)ALECIA SHUKLA 08/25/2020 9:32:08 AM > LOT: [id number], EXP: 05/2022 TERESA HANKS 08/25/2020 9:33:49 AM > VERIFIED ALECIA SHUKLA 08/25/2020 9:38:12 AM > ADMINISTERED. MEDICATION: OXYCODONE HCL TAB 10MG ORALLYSYLVER,ALECIA L 08/25/2020 9:33:02 AM > LOT: [id number], EXP: 09/2021 TERESA HANKS 08/25/2020 9:34:05 AM > VERIFIED ALECIA SHUKLA 08/25/2020 9:38:31 AM > ADMINISTERED. COMPLETION OF PROCEDURAL VISIT WHEN MEETS CRITERIAALECIA SHUKLA 08/25/2020 10:31:17 AM > CRITERIA MET. OTHERS NOTES: 08/24/20 1300 PAT COMPLETED, PATIENT DENIES ANY CHANGES TO PAST SURGICAL HISTORY, FAMILY HISTORY OR HOSPITALIZATIONS AT THIS TIME. Eddie CONNOR PROCESS STRIPPER. PROCEDURES PAIN NURSING RECORD PROCEDURE IN ROOM 0825, PHYSICIAN IN ROOM 1010, START 1012, FINISH 1015, PHYSICIAN OUT OF ROOM 1016, OUT OF ROOM 1031, ECG N/A, PATIENT SHIELDED N/A, SAFETY STRAP N/A, PREP ALCOHOL BY: DR. SULLIVAN, DRESSING TEGADERM BY: Dakota SHUKLA RN LOC: ALECIA SHUKLA 08/25/2020 10:12:46 AM > , 1. ALERT, ORIENTED RESP: ALECIA SHUKLA 08/25/2020 10:12:50 AM > , 1. REGULAR, NO DYSPNEA COLOR: ALECIA SHUKLA Hali 08/25/2020 10:12:53 AM > , 1. PINK SKIN: ALECIA SHUKLA 08/25/2020 10:12:57 AM > , 1. WARM, DRY POSITION: ALECIA SHUKLA Hali 08/25/2020 10:13:01 AM > , 5. SITTING VITALS: ALECIA SHUKLA Hali 08/25/2020 10:22:22 AM > 141/82, 77, 18, 95% NOTES Dakota SHUKLA RN COMPLETION OF PROCEDURE APPOINTMENT: POST PAIN 0, DRESSING SITE DRY AND INTACT, IV N/A, GAIT STEADY, TEACHING COMPLETED, PATIENT ACKNOWLEDGES UNDERSTANDING YES, PROCEDURE APPOINTMENT COMPLETED AT 1031 BY: Dakota SHUKLA RN PN TRIGGER POINT INJECTION WITH STEROIDS PRE PROCEDURE DIAGNOSIS 1. MYALGIA 2. PAIN AT BILATERAL LOWER BACK AREA POST PROCEDURE DIAGNOSIS 1. MYALGIA 2. PAIN AT BILATERAL LOWER BACK AREA PROCEDURE TRIGGER POINT INJECTION AT BILATERAL LOWER BACK AREA SURGEON DR. TOMMY SULLIVAN DIESEL ENGINE ENGINEER NONE ANESTHESIA LOCAL PRE PROCEDURE NOTE THE PATIENT HAS A HISTORY OF CHRONIC PAIN AT THE RIGHT AND LEFT LOWER BACK AREA. I EVALUATED THE PATIENT AND REVIEWED THE CHART. THERE IS EVIDENCE OF BANDS OF TISSUE WITH RESTRICTION OF MOVEMENT AND PRESENCE OF TRIGGER POINT AT THE RIGHT AND LEFT LOWER BACK AREA. I WENT OVER THE RISKS, ALTERNATIVES, AND BENEFITS ASSOCIATED WITH THIS PROCEDURE. THE PATIENT WOULD LIKE TO PROCEED AND GIVE CONSENT TO PERFORMED THE PROCEDURE. THE PATIENT DENIES UNEXPLAINABLE WEIGHT LOSS, FEVER, CHILLS, OR NEW CHANGES IN URINARY OR BOWEL CONTROL. THE PATIENT IS COVID-19 NEGATIVE DESCRIPTION OF PROCEDURE THE PATIENT WAS BROUGHT TO THE PROCEDURE ROOM AND PLACED IN THE SITTING POSITION. THE AREA WAS CLEANED WITH ALCOHOL. THE PROCEDURE WAS DONE USING ASEPTIC STERILE TECHNIQUE. A TIMEOUT WAS PERFORMED WHERE LATERALITY AND THE SITE OF THE PROCEDURE WERE CHECKED AND CONFIRMED WITH EVERYONE IN THE ROOM. USING A 25-GAUGE NEEDLE, TRIGGER POINTS WERE INJECTED AT THE RIGHT AND LEFT LOWER BACK AREA WITH A TOTAL OF 40 ML OF BUPIVACAINE 0.25% AND KENALOG 40 MG. THE MEDICATIONS WERE VERIFIED WITH THE NURSE. THERE WAS NO EVIDENCE OF BLOOD OR PARESTHESIA DURING THE PROCEDURE. THE PATIENT WAS SENT TO THE RECOVERY ROOM. THE PATIENT WAS MOVING THE EXTREMITIES AND DOING WELL. THERE WERE NO COMPLICATIONS DURING THE PROCEDURE. ESTIMATED BLOOD LOSS WAS LESS THAN 5 ML POST PROCEDURE NOTE THE PROCEDURE DONE WAS DISCUSSED WITH THE PATIENT. THE PATIENT WILL BE SEEN IN A FOLLOW UP IN THE NEXT FEW WEEKS. I AM LOOKING FOR LONG LASTING PAIN RELIEF FOR THE PATIENT WITH THIS INTERVENTION. INSTRUCTIONS WERE GIVEN, QUESTIONS WERE ANSWERED, AND THE PATIENT EXPRESSED UNDERSTANDING AND AGREES WITH THE PLAN. I, LAURITA LOPEZ, DOCUMENTED THE ABOVE INFORMATION ACTING A SCRIBE FOR DR. SULLIVAN. I HAVE REVIEWED THE ABOVE DOCUMENT, WRITTEN BY LAURITA LOPEZ, CIGARETTE MAKING MACHINE CATCHER, AND I VERIFY THAT IT IS ACCURATE PROCEDURE CODES 99367 INJ TRIGGER POINT 08/05 MUSCL DISPOSITION & COMMUNICATION FOLLOW UP FOLLOW UP WITH GRAIN GRADER (REASON: POST TRIGGER POINT INJECTIONS BILATERAL LOW BACK) ELECTRONICALLY SIGNED BY TOMMY SULLIVAN MD, MD ON 08/28/2020 AT 04:45 PM EST DISCLAIMER : THIS IS A VISIT SUMMARY EXTRACTED FROM THE 404 Found! CHART. IT IS NOT A COPY OF THE [employer]! PROGRESS NOTE. [email or web address]
== END ==
LOC: M PAIN 08:30
PROVIDERS: ATTEND Anesthesiology
DX: M79.18 Myalgia, other site (principal); I10 Essential (primary) hypertension; J45.909 Unspecified asthma, uncomplicated; M10.9 Gout, unspecified; E55.9 Vitamin D deficiency, unspecified; E11.9 Type 2 diabetes mellitus without complications; M79.7 Fibromyalgia; J32.9 Chronic sinusitis, unspecified; Z87.891 Personal history of nicotine dependence; Z79.84 Long term (current) use of oral hypoglycemic drugs; Z79.899 Other long term (current) drug therapy; Z88.8 Allergy status to other drugs, medicaments and biological substances
CPT/HCPCS: 20552; J3301

== ENCOUNTER → 2020-09-08 | Outpatient (CLI) | payer OTHER ==
[~2020-09-08] MED LIST changes: -BUPIVACAINE HCL 0.25% 10ML VIAL As Ordered ONE; -BUPIVACAINE HCL 0.25% 30ML VIAL As Ordered ONE; -TRIAMCINOLONE ACETONIDE SUSP 40 MG/ML VIAL (J3301) As Ordered ONE; -diazePAM 5MG TABLET As Ordered ONE; -oxyCODONE 5MG TAB As Ordered ONE
--- NOTE | 2020-09-12 04:19 | ECWPNPC ---
PATIENT NAME: STEVE DIAMOND : 1965 GENDER: FEMALE VISIT DATE: 09/08/2020 DISCHARGE DATE: 09/08/20 1053 VISIT LOCKED DATE TIME: PHYSICIAN: DHARMESH BLANCO PHYSICIAN PAGER NO: ACTIVE RESOURCE: DHARMESH BLANCO REASON FOR APPOINTMENT 1. POST BILATERAL TRIGGER POINT INJECTIONS LOW BACK HISTORY OF PRESENT ILLNESS GENERAL: HERE FOR POST PROCEDURE FOLLOW-UP. HEAD TRIGGER POINT INJECTIONS TO THE LOWER BACK BILATERAL ON 08/25/2020. REPORTING NO IMPROVEMENT IN PAIN POST PROCEDURE. PATIENT HAS FAILED MULTIPLE INTERVENTIONAL TREATMENT TRIALS. HAD LUMBAR SURGERY OVER A YEAR AGO AND REPORTS NO IMPROVEMENT POST SURGERY. REPORTS INABILITY TO TOLERATE ACTIVITIES WITH HER FAMILY DUE TO PAIN. HAS TRIALED MULTIPLE DIFFERENT MEDICATIONS WITH ONLY MINIMAL IMPROVEMENT. DISCUSSED TRYING OPIOID PAIN MEDICATIONS TO SEE IF THIS WILL IMPROVE HER ABILITY TO TOLERATE ACTIVITIES AND REDUCE PAIN. EVENTUALLY I WOULD LIKE TO USE A LONG-ACTING OPIOID ON A REGULAR BASIS FOR HER CHRONIC FAILED BACK SYNDROME.-. FALL RISK SCREENING: SCREENING :NO FALLS REPORTED IN THE LAST YEAR PAIN SCREENING: PATIENT HAS A COMPLAINT OF ACUTE OR CHRONIC PAIN :YES LOCATION OF PAIN:LOW BACK INTENSITY OF PAIN (SCALE OF 1 TO 10):8 WHAT DOES YOUR PAIN FEEL LIKE:SORE, OTHER SPASMS DURATION:CONTINOUS, STEADY PAIN IS INCREASED BY:ACTIVITIES, OTHERS BENDING OVER PAIN IS DECREASED BY:OTHERS BIOFREEZE NURSING NOTE: -. PAIN CENTER INTAKE QUESTIONS: DO YOU HAVE A HISTORY OF MRSA? :NO DO YOU TAKE A BLOOD THINNERS? :NO DO YOU HAVE ANY BLEEDING DISORDERS? :NO ANY NEW NUMBNESS OR WEAKNESS IN YOUR LEGS OR ARMS? :YES PATIENT STATES SHE HAS "HAD LEG CRAMPS AND WEAKNESS IN LEFT LEG THAT IS INTERMITTENT." ANY PACEMAKER,DEFIBRILLATOR, OR DORSAL COLUMN STIMULATOR? :NO DO YOU HAVE ANY RASHES OR OPEN SORES? :NO ARE YOU ALLERGIC TO IV DYE? :NO ARE YOU DIABETIC? :YES ANY NEW PROBLEMS WITH YOUR MEDICATIONS? :NO HAVE YOU RECEIVED A VACCINE IN THE PAST 30 DAYS? :NO DO YOU PLAN TO RECEIVE A VACCINE IN THE NEXT 21 DAYS? :YES IF SO WHAT VACCINE AND WHEN? ALLERGY SHOTS EVERY 3 WEEKS DO YOU NEED ANY PRESCRIPTION? :YES AMITRIPTYLINE HCL 25 MG DO YOU TAKE ANY IMMUNOSUPPRESSIVE MEDICATIONS? :NO IS THERE A CHANCE YOU COULD BE ? :NO ARE YOU BREAST FEEDING? :NO CURRENT MEDICATIONS TAKING SINGULAIR 10 MG TABLET 1 TABLET IN THE EVENING ORALLY ONCE A DAY TAKING DULERA 100 MCG/5MCG 2 PUFFS INHALATION TWICE A DAY TAKING MAGNESIUM OXIDE 250 MG TABLET 1 TAB ORALLY ONCE A DAY TAKING ALPHAGAN P 0.15 % SOLUTION 1 DROP INTO AFFECTED EYE OPHTHALMIC THREE TIMES A DAY TAKING ALBUTEROL SULFATE (2.5 MG/3ML) 0.083% NEBULIZATION SOLUTION 3 ML INHALATION THREE TIMES A DAY PRN TAKING LATANOPROST 0.005 % SOLUTION INSTILL 1 DROP IN EACH EYE AT BEDTIME DIRECTED OPHTHALMIC TAKING FLONASE ALLERGY RELIEF 50 MCG/ACT SUSPENSION 1 SPRAY IN EACH NOSTRIL NASALLY ONCE A DAY TAKING AZELASTINE HCL 137 MCG/SPRAY SOLUTION 1 PUFF IN EACH NOSTRIL NASALLY TWICE A DAY TAKING LANCETS - MISCELLANEOUS 1 EACH TO USE FOR ONCE TOUCH DAILY/ E11.9 TAKING PROVENTIL HFA 108 (90 BASE) MCG/ACT AEROSOL SOLUTION 2 PUFFS INHALATION EVERY 4 HOUR NEEDED TAKING VITAMIN B-12 1000 MCG TABLET CHEWABLE 1 TABLET ORALLY ONCE A DAY- OTC TAKING ACETAMINOPHEN 500 MG CAPSULE 2 TABLETS ORALLY EVERY 8 HRS PRN TAKING VITAMIN D 2000 UNIT TABLET 1 TABLET ORALLY ONCE A DAY TAKING HYDROCHLOROTHIAZIDE 25 MG TABLET 1 TABLET ORALLY ONCE A DAY, NOTES: 06 TAKING NORVASC 5 MG TABLET 1 TABLET ORALLY ONCE A DAY, NOTES: 629 TAKING AMITRIPTYLINE HCL 25 MG TABLET 2 TAB ORALLY BEFORE BEDTIME TAKING VICTOZA 18 MG/3ML SOLUTION PEN-INJECTOR 1.8 MG SUBCUTANEOUS DAILY, NOTES: 08/24/20 0715 TAKING METFORMIN HCL 1000 MG TABLET 1 TABLET WITH MEALS ORALLY TWICE A DAY, NOTES: 08/24/20 1930 TAKING CLIMARA 0.05 MG/24HR PATCH WEEKLY 1 PATCH TO SKIN TRANSDERMAL WEEKLY, NOTES: 08/23/20, OFF 08/24/20 TAKING LISINOPRIL 20 MG TABLET 1 TABLET ORALLY ONCE A DAY, NOTES: 0630 TAKING LIPITOR 40 MG TABLET 1 TABLET ORALLY ONCE A DAY TAKING BD ULTRA-FINE PEN NEEDLES 32G 4MM DIRECTED 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 TAKING BLOOD GLUCOSE TEST - STRIP 1 STRIP GLUCOSE TESTING STRIPS FOR ONE TOUCH VERIO DAILY/ E119 TAKING GABAPENTIN 600 MG TABLET 1 CAPSULE ORALLY THREE TIMES A DAY TAKING ALLOPURINOL 100 MG TABLET 2 TABLET ORALLY ONCE A DAY, NOTES: 08/19/20 NOT-TAKING NORCO 10-325 MG TABLET 1 TABLET NEEDED ORALLY EVERY 6 HRS PRN MDD4 NOT-TAKING SALINE NASAL SPRAY 0.65 % SOLUTION 2 DROPS IN EACH NOSTRIL NEEDED NASALLY EVERY 2 HRS NOT-TAKING PREDNISONE 20 MG TABLET 1 TABLET WITH FOOD ORALLY TWICE DAILY NOT-TAKING TRAMADOL HCL 50 MG TABLET 2 TAB ORALLY BID MDD4 MEDICATION LIST REVIEWED AND RECONCILED WITH THE PATIENT PAST MEDICAL HISTORY HYPERTENSION ASTHMA GOUT VITAMIN D DEFICIENCY CHRONIC RIGHT OTITIS MEDIA PRE-DIABETES/IMPAIRED FASTING GLUCOSE FIBROMYALGIA-GOES TO PAIN CLINIC RECURRENT SINUSITIS TD 1999; TDAP 06/15 PNEUMNOVAX 2009 CHRONIC ALLERGIC RHINITIS - GETS ALLERGY SHOTS FIBROIDS COLONOSCOPY 2018, REPEAT IN 5 YEAR VITAMIN B12 DEFICIENCY--ON MONTHLY INJECTIONS FOR A WHILE, STOPPED COMING FOR THEM, LEVEL NL ON ORAL MED DM TYPE II CHRONIC BACK PAIN ALLERGIES TRICOR: RASH - ALLERGY DUST MITES: RASH - ALLERGY - ONSET DATE 02/18/2020 SOCIAL HISTORY GENERAL: TOBACCO USE ARE YOU A:FORMER SMOKER HOW LONG HAS IT BEEN SINCE YOU LAST SMOKED?> 10 YEARS LATEX QUESTIONNAIRE LATEX ALLERGY : HAVE YOU EVER DEVELOPED ANY TYPE OF REACTION AFTER HANDLING LATEX PRODUCTS SUCH RUBBER GLOVES, CONDOMS, DIAPHRAGMS, BALLOONS, SOCKS, OR UNDERWEAR?NO LATEX ALLERGY : HAVE YOU EVER DEVELOPED ANY TYPE OF REACTION DURING OR AFTER DENTAL APPOINTMENT, VAGINAL/RECTAL EXAMINATION, SURGICAL PROCEDURE, OR ANY OTHER EXPOSURE?NO LATEX RISK : HAVE YOU EVER HAD ANY DIFFICULTY BREATHING OR HIVES AFTER EATING OR HANDLING ANY FRUITS, OR VEGETABLES; SUCH KIWI, BANANAS, STONE FRUITS, OR CHESTNUTSNO LATEX RISK : DO YOU HAVE A PREVIOUS PERSONAL HISTORY OF MORE THAN NINE SURGERIES, SPINA BIFIDA, OR REPEATED CATHERIZATIONS? YES - PLEASE INDICATE : > 9 SURGERIES LATEX RISK : ARE YOU FREQUENTLY EXPOSED TO LATEX PRODUCTS IN YOUR OCCUPATION?NO DATE ASKED : 09/08/2020 ALCOHOL USE: NO. 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 EDUCATION 12TH GRADE GRADUATE. LEARNING BARRIERS / SPECIAL NEEDS CHANGE FROM LAST VISIT?NO BARRIERS TO LEARNING?NO HEARING IMPAIRED?NO VISION IMPAIRED?YES :CORRECTIVE LENSES COGNITIVELY IMPAIRED?NO READINESS TO LEARN?YES LEARNING PREFERENCES?NO LEARNING CAPABILITIES PRESENT?YES EMOTIONAL BARRIERS?NO SPECIAL DEVICES?YES BRACE WRISTS AND KNEES, C PAP BUT DOESNT USE IT IN OVER 2 YEARS BRIDAL CONSULTANT NEEDED?NO NO DOMESTIC VIOLENCE DO YOU FEEL SAFE IN YOUR ENVIRONMENT?YES OCCUPATION: UNEMPLOYED. DIET: REGULAR. EXERCISE: WALKS UP & DOWN STAIRS @ HOME WHEN OUT ON APPOINTMENTS. MARITAL STATUS: . OTHERS AT HOME: SPOUSE, CHILD. - PFS REFERRAL NEEDED?NO CLERGY REFERRAL NEEDED?NO PUBLIC HEALTH REFERRAL NEEDED?NO HAS THE PATIENT BEEN EDUCATED REGARDING HIS/HER PLAN OF CARE?YES HAS THE PATIENT BEEN EDUCATED REGARDING PAIN, THE RISK FOR PAIN, THE IMPORTANCE OF EFFECTIVE PAIN MANAGEMENT, AND THE PAIN ASSESSMENT PROCESS?YES HOUSING: RENTS HOUSE. ADVANCE DIRECTIVE ADVANCE DIRECTIVE DISCUSSED WITH PATIENT:YES PT DOES NOT HAVE ANY ADVANCED DIRECTIVES AND SHE DECLINES INFORMATION ON HCP AT THIS TIME. REVIEW OF SYSTEMS CONSTITUTIONAL: ANY RECENT FEVER NO . CHILLS NO . WEIGHT CHANGE OF UNKNOWN REASONS NO . GASTROENTEROLOGY: NEW UNEXPLAINABLE CHANGES IN BOWEL CONTROL NO . CONSTIPATION NO . GENITOURINARY: ANY NEW CHANGE IN BLADDER CONTROL? NO . NEUROLOGY: NEW ONSET DIZZINESS OR NEUROLOGICAL CHANGES NOT MENTIONED NO . NEW NUMBNESS OR PAIN PATTERNS NOT MENTIONED AND PERTINENT TO TODAY'S VISIT NO . CARDIOLOGY: NEW CHEST PRESSURE NO . NEW CHEST PAIN NO . RESPIRATORY: UNEXPLAINABLE COUGH NO . NEW SHORTNESS OF BREATH NO . VITAL SIGNS WT 226 LBS, HT 5'3", BMI 40.03 INDEX, BP 137/72 MM HG, HR 83 /MIN, RR 18 /MIN, TEMP 99.1 F, OXYGEN SAT % 96%, SAFE IN ENV? (Y/N) YES, REVIEWED BY: ANNA FELIX MA. EXAMINATION GENERAL EXAMINATION: GENERALAWAKE,ALERT ,PLEASANT . PSYCHAFFECT NORMAL . LUNGS:LUNG ROCA ARE CLEAR TO AUSCULTATION BILATERALLY. GOOD MOVEMENT OF AIR . HEART:S1, S2 IN A REGULAR RATE AND RHYTHM. NO SIGNIFICANT MURMURS, RUBS OR GALLOPS NOTED . ASSESSMENTS OTHER CHRONIC PAIN - G89.29 (PRIMARY) POST LAMINECTOMY SYNDROME - M96.1 TREATMENT OTHER CHRONIC PAIN REFILL AMITRIPTYLINE HCL TABLET, 25 MG, 2 TAB, ORALLY, BEFORE BEDTIME, 30 DAYS, 60, REFILLS 2 CONTINUE GABAPENTIN TABLET, 600 MG, 1 CAPSULE, ORALLY, THREE TIMES A DAY START OXYCODONE HCL TABLET, 5 MG, 1 TABLET, ORALLY, EVERY 8 HOURS WHEN NECESSARY FOR SEVERE PAIN MDD 3, 30 DAYS, 90, REFILLS 0 PAIN PROCEDURE LOGDATE OF PROCEDURE08/25/20PROCEDURE:BILATERAL LOW BACK TRIGGER POINT INJECTIONSAMOUNT OF PRE SEDATEVALIUM 10MG/OXYCODONE 10MG PORESULT:NO IMPROVEMENT POST PROCEDURE NOTES: ISTOP REGISTRY REVIEWED AND DEMONSTRATES COMPLLIANCE. , [facility] NARCOTIC AGREEMENT WAS REVIEWED AND SIGNED TODAY BY THE PATIENT. SEE ATTACHED DOCUMENT FOR FULL DETAILS; SPECIFIC ISSUES WERE REVIEWED: 1) KEEP PAIN MEDS IN THEIR ORIGINAL BOTTLES AND ANY WEEKLY PLANNERS ARE TO BE BROUGHT TO THE PAIN CENTER AT EVERY VISIT. 2) THE PATIENT IS NOT TO INCREASE DOSING OR TIMING OF THEIR PAIN MEDICATION WITHOUT SPECIFIC DIRECTION OF THEIR PAIN CENTERPROVIDER (NOT ER OR OTHER PROVIDERS). 3) ALL PAIN MEDS ARE TO BE KEPT SECURED, IN A LOCKED BOX. 4) NO PAIN MEDS ARE TO BE SHARED WITH ANY OTHER PERSON FOR ANY REASON. 5) NO PAIN MEDS MAY BE TAKEN FROM ANY FRIENDS OR RELATIVES FOR ANY REASON 6) NO MEDS OR SUBSTANCES WHICH ARE NOT LEGAL ARE TO BE USED- NO MARIJUANA, NO COCAINE, AMPHETAMINES, HEROIN, OR OTHERS ARE EVER TO BE USED. 7)URINE TESTING IS DONE TO ACCOUNT FOR MEDS AND SUBSTANCES BEING TAKEN AND WILL BE DONE RANDOMLY. , RISKS OF NARCOTIC/OPIOD MEDICATIONS INCLUDES BUT IS NOT LIMITED TO RISK OF DEPENDANCE/DEVELOPMENT OF ADDICTION, MOOD DISTURBANCE AND DEPRESSION, OSTEOPOROSIS, HORMONAL AND LABIDAL CHANGES, RESPIRATORY DEPRESSION AND . PATIENT IS ADVISED NOT TO DRIVE OR DRINK ALCOHOL WHILE ON THESE MEDICATIONS. PROCEDURE CODES FA211 ESTABILISHED PATIENT [facility] FACILITY CHARGE DISPOSITION & COMMUNICATION FOLLOW UP 6-8WKS (REASON: MEDICATION MANAGEMENT/URINE TOX/NEW START OXYCODONE) ELECTRONICALLY SIGNED BY MARICEL ORELLANA ON 09/11/2020 AT 03:57 PM EST DISCLAIMER : THIS IS A VISIT SUMMARY EXTRACTED FROM THE [employer] CHART. IT IS NOT A COPY OF THE [employer] PROGRESS NOTE. MTDD
== END ==
LOC: M PAIN 10:00
PROVIDERS: ATTEND Nurse Practitioner Family
DX: G89.29 Other chronic pain (principal); M96.1 Postlaminectomy syndrome, not elsewhere classified; E11.9 Type 2 diabetes mellitus without complications; J45.909 Unspecified asthma, uncomplicated; E55.9 Vitamin D deficiency, unspecified; M79.7 Fibromyalgia; Z87.891 Personal history of nicotine dependence; Z88.8 Allergy status to other drugs, medicaments and biological substances; E66.01 Morbid (severe) obesity due to excess calories; Z68.41 Body mass index [BMI] 40.0-44.9, adult; Z79.84 Long term (current) use of oral hypoglycemic drugs; Z79.899 Other long term (current) drug therapy

== ENCOUNTER → 2020-09-26 | Outpatient (CLI) | payer OTHER ==
--- NOTE | 2020-09-26 12:08 | REPMRS ---
Patient History The patient states she had a clinical breast exam in 2020. Patient is postmenopausal. Family history of breast cancer at age 88 in maternal grandmother. Took hormonal contraceptives for 23 years. Took estrogen for 1 year. Digital Woman Screen Mammo: September 26, 2020 - Exam #: [id number] Bilateral CC and MLO view(s) were taken. Technologist: Sandra Estevez, Technologist Prior study comparison: September 14, 2019, bilateral digital woman screen mammo performed at [facility]. August 12, 2018, bilateral digital woman screen mammo performed at [facility]. August 07, 2017, digital woman screen mammo performed at [facility]. FINDINGS: The breast tissue is almost entirely fat. The Volpara volumetric breast density category is: A. There has been no change in the appearance of the mammogram from the prior studies. There is no interval development of dominant mass, architectural distortion, or grouped microcalcification typical of malignancy. 3-D tomosynthesis shows no additional findings. Assessment: BI-RADS/ACR category 1 mammogram. Negative Mammogram. Recommendation Routine screening mammogram of both breasts in 1 year (for women over age 40). This patient's [facility] Lifetime Breast Cancer RIsk is estimated at 12.3 %. This mammogram was interpreted with the aid of an FDA-approved computer-aided dectection system. Electronically Signed By: Jose Webster MD 09/26/20 [id number]
== END ==
LOC: M WHC 09:02
PROVIDERS: ATTEND Nurse Practitioner Women's Health
DX: Z12.31 Encounter for screening mammogram for malignant neoplasm of breast (principal); Z92.0 Personal history of contraception

== ENCOUNTER → 2020-10-20 | Outpatient (CLI) | payer OTHER ==
--- NOTE | 2020-10-26 04:48 | ECWPNPC ---
PATIENT NAME: STEVE DIAMOND : 1965 GENDER: FEMALE VISIT DATE: 10/20/2020 DISCHARGE DATE: 10/20/20 1036 VISIT LOCKED DATE TIME: PHYSICIAN: DHARMESH BLANCO PHYSICIAN PAGER NO: ACTIVE RESOURCE: DHARMESH BLANCO REASON FOR APPOINTMENT 1. MEDICATION MANAGEMENT/URINE TOX/NEW START OXYCODONE HISTORY OF PRESENT ILLNESS GENERAL: HERE FOR FOLLOW-UP OF CHRONIC LOW BACK PAIN. HAD TRIGGER POINT INJECTIONS OF THE LOWER BACK ON 09/08/2020. PATIENT REPORTS IMPROVEMENT IN LOW BACK PAIN THAT CONTINUES TODAY. ALSO FINDING OXYCODONE THAT WE STARTED ON SEPTEMBER 09 HELPFUL. SHE TAKES ONE TABLET AT NIGHTTIME. REPORTING IMPROVED SLEEP. DENIES ADVERSE SIDE EFFECTS WITH HER MEDICATION.-. FALL RISK SCREENING: SCREENING : NO FALLS REPORTED IN THE LAST YEAR. PAIN SCREENING: PATIENT HAS A COMPLAINT OF ACUTE OR CHRONIC PAIN :YES LOCATION OF PAIN:LOW BACK INTENSITY OF PAIN (SCALE OF 1 TO 10):8 WHAT DOES YOUR PAIN FEEL LIKE:ACHING, THROBBING DURATION:CONTINOUS, CONSTANT, ALL DAY PAIN IS INCREASED BY:ACTIVITIES, PROLONGED STANDING BENDING OVER PAIN IS DECREASED BY:USE OF PAIN MEDICATIONS NURSING NOTE: -. PAIN CENTER INTAKE QUESTIONS: DO YOU HAVE A HISTORY OF MRSA? :NO DO YOU TAKE A BLOOD THINNERS? :NO DO YOU HAVE ANY BLEEDING DISORDERS? :NO ANY NEW NUMBNESS OR WEAKNESS IN YOUR LEGS OR ARMS? :YES ANY PACEMAKER,DEFIBRILLATOR, OR DORSAL COLUMN STIMULATOR? :NO DO YOU HAVE ANY RASHES OR OPEN SORES? :NO ARE YOU ALLERGIC TO IV DYE? :NO ARE YOU DIABETIC? :YES ANY NEW PROBLEMS WITH YOUR MEDICATIONS? :NO HAVE YOU RECEIVED A VACCINE IN THE PAST 30 DAYS? :YES IF SO WHAT VACCINE AND WHEN? 1ST COVID 10/17/2020 DO YOU PLAN TO RECEIVE A VACCINE IN THE NEXT 21 DAYS? :YES IF SO WHAT VACCINE AND WHEN? 2ND COVID 11/14/2020 DO YOU NEED ANY PRESCRIPTION? :YES AMITRIPTYLINE HCL 25 MG DO YOU TAKE ANY IMMUNOSUPPRESSIVE MEDICATIONS? :NO IS THERE A CHANCE YOU COULD BE ? :NO ARE YOU BREAST FEEDING? :NO CURRENT MEDICATIONS TAKING ALPHAGAN P 0.15 % SOLUTION 1 DROP INTO AFFECTED EYE OPHTHALMIC THREE TIMES A DAY TAKING AZELASTINE HCL 137 MCG/SPRAY SOLUTION 1 PUFF IN EACH NOSTRIL NASALLY TWICE A DAY TAKING ACETAMINOPHEN 500 MG CAPSULE 2 TABLETS ORALLY EVERY 8 HRS PRN TAKING NORVASC 5 MG TABLET 1 TABLET ORALLY ONCE A DAY TAKING LIPITOR 40 MG TABLET 1 TABLET ORALLY ONCE A DAY TAKING ALLOPURINOL 100 MG TABLET 2 TABLET ORALLY ONCE A DAY TAKING AMITRIPTYLINE HCL 25 MG TABLET 2 TAB ORALLY BEFORE BEDTIME TAKING LATANOPROST 0.005 % SOLUTION INSTILL 1 DROP IN EACH EYE AT BEDTIME DIRECTED OPHTHALMIC TAKING FLONASE ALLERGY RELIEF 50 MCG/ACT SUSPENSION 1 SPRAY IN EACH NOSTRIL NASALLY ONCE A DAY TAKING HYDROCHLOROTHIAZIDE 25 MG TABLET 1 TABLET ORALLY ONCE A DAY TAKING LISINOPRIL 20 MG TABLET 1 TABLET ORALLY ONCE A DAY TAKING MELOXICAM 7.5 MG TABLET TAKE ONE TABLET BY MOUTH TWICE A DAY AFTER MEALS MAXIMUM DAILY DOSE 2 TABLETS ORAL TAKING MAGNESIUM OXIDE 250 MG TABLET 1 TAB ORALLY ONCE A DAY TAKING VITAMIN B-12 1000 MCG TABLET CHEWABLE 1 TABLET ORALLY ONCE A DAY- OTC TAKING VITAMIN D 2000 UNIT TABLET 1 TABLET ORALLY ONCE A DAY TAKING BD ULTRA-FINE PEN NEEDLES 32G 4MM DIRECTED 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 TAKING GABAPENTIN 600 MG TABLET 1 CAPSULE ORALLY THREE TIMES A DAY TAKING METFORMIN HCL 1000 MG TABLET 1 TABLET WITH MEALS ORALLY TWICE A DAY TAKING BLOOD GLUCOSE TEST - STRIP 1 STRIP GLUCOSE TESTING STRIPS FOR ONE TOUCH VERIO TWICE DAILY AND PRN FOR LABILE BLOOD SUGARS DX: E11.40 TAKING LANCETS - MISCELLANEOUS 1 EACH TO USE FOR ONCE TOUCH TWICE DAILY AND PRN/ E11.40 TAKING DULERA 100 MCG/5MCG 2 PUFFS INHALATION TWICE A DAY TAKING ALBUTEROL SULFATE (2.5 MG/3ML) 0.083% NEBULIZATION SOLUTION 3 ML INHALATION 3-4 TIMES A DAY PRN TAKING MONTELUKAST SODIUM 10 MG TABLET TAKE ONE TABLET BY MOUTH AT BEDTIME ORAL TAKING PROVENTIL HFA 108 (90 BASE) MCG/ACT AEROSOL SOLUTION 2 PUFFS INHALATION EVERY 4 HOUR NEEDED TAKING OXYCODONE HCL 5 MG TABLET 1 TABLET ORALLY EVERY 8 HOURS WHEN NECESSARY FOR SEVERE PAIN MDD 3 TAKING VICTOZA 18 MG/3ML SOLUTION PEN-INJECTOR 1.8 MG SUBCUTANEOUS DAILY TAKING AMLODIPINE BESYLATE-VALSARTAN 5-320 MG TABLET 1 TABLET ORALLY ONCE A DAY NOT-TAKING NORCO 10-325 MG TABLET 1 TABLET NEEDED ORALLY EVERY 6 HRS PRN MDD4 NOT-TAKING SALINE NASAL SPRAY 0.65 % SOLUTION 2 DROPS IN EACH NOSTRIL NEEDED NASALLY EVERY 2 HRS NOT-TAKING PREDNISONE 20 MG TABLET 1 TABLET WITH FOOD ORALLY TWICE DAILY NOT-TAKING TRAMADOL HCL 50 MG TABLET 2 TAB ORALLY BID MDD4 NOT-TAKING SINGULAIR 10 MG TABLET 1 TABLET IN THE EVENING ORALLY ONCE A DAY NOT-TAKING CLIMARA 0.05 MG/24HR PATCH WEEKLY 1 PATCH TO SKIN TRANSDERMAL WEEKLY, NOTES: 08/23/20, OFF 08/24/20 MEDICATION LIST REVIEWED AND RECONCILED WITH THE PATIENT PAST MEDICAL HISTORY HYPERTENSION ASTHMA GOUT VITAMIN D DEFICIENCY CHRONIC RIGHT OTITIS MEDIA PRE-DIABETES/IMPAIRED FASTING GLUCOSE FIBROMYALGIA-GOES TO PAIN CLINIC RECURRENT SINUSITIS TD 1999; TDAP 06/15 PNEUMNOVAX 2009 CHRONIC ALLERGIC RHINITIS - GETS ALLERGY SHOTS FIBROIDS COLONOSCOPY 2017, REPEAT IN 5 YEAR VITAMIN B12 DEFICIENCY--ON MONTHLY INJECTIONS FOR A WHILE, STOPPED COMING FOR THEM, LEVEL NL ON ORAL MED DM TYPE II CHRONIC BACK PAIN ALLERGIES TRICOR: RASH - ALLERGY DUST MITES: RASH - ALLERGY - ONSET DATE 02/18/2020 SOCIAL HISTORY GENERAL: TOBACCO USE ARE YOU A:FORMER SMOKER HOW LONG HAS IT BEEN SINCE YOU LAST SMOKED?> 10 YEARS LATEX QUESTIONNAIRE LATEX ALLERGY : HAVE YOU EVER DEVELOPED ANY TYPE OF REACTION AFTER HANDLING LATEX PRODUCTS SUCH RUBBER GLOVES, CONDOMS, DIAPHRAGMS, BALLOONS, SOCKS, OR UNDERWEAR?NO LATEX ALLERGY : HAVE YOU EVER DEVELOPED ANY TYPE OF REACTION DURING OR AFTER DENTAL APPOINTMENT, VAGINAL/RECTAL EXAMINATION, SURGICAL PROCEDURE, OR ANY OTHER EXPOSURE?NO LATEX RISK : HAVE YOU EVER HAD ANY DIFFICULTY BREATHING OR HIVES AFTER EATING OR HANDLING ANY FRUITS, OR VEGETABLES; SUCH KIWI, BANANAS, STONE FRUITS, OR CHESTNUTSNO LATEX RISK : DO YOU HAVE A PREVIOUS PERSONAL HISTORY OF MORE THAN NINE SURGERIES, SPINA BIFIDA, OR REPEATED CATHERIZATIONS? YES - PLEASE INDICATE : > 9 SURGERIES LATEX RISK : ARE YOU FREQUENTLY EXPOSED TO LATEX PRODUCTS IN YOUR OCCUPATION?NO DATE ASKED : 10/20/2020 ALCOHOL USE: NO. 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 EDUCATION 12TH GRADE GRADUATE. LEARNING BARRIERS / SPECIAL NEEDS CHANGE FROM LAST VISIT?NO BARRIERS TO LEARNING?NO HEARING IMPAIRED?NO VISION IMPAIRED?YES :CORRECTIVE LENSES COGNITIVELY IMPAIRED?NO READINESS TO LEARN?YES LEARNING PREFERENCES?NO LEARNING CAPABILITIES PRESENT?YES EMOTIONAL BARRIERS?NO SPECIAL DEVICES?YES BRACE WRISTS AND KNEES, C PAP BUT DOESNT USE IT IN OVER 2 YEARS HALFTONE OPERATOR NEEDED?NO NO DOMESTIC VIOLENCE DO YOU FEEL SAFE IN YOUR ENVIRONMENT?YES OCCUPATION: UNEMPLOYED. DIET: REGULAR. EXERCISE: WALKS UP & DOWN STAIRS @ HOME WHEN OUT ON APPOINTMENTS. MARITAL STATUS: . OTHERS AT HOME: SPOUSE, CHILD. - PFS REFERRAL NEEDED?NO CLERGY REFERRAL NEEDED?NO PUBLIC HEALTH REFERRAL NEEDED?NO HAS THE PATIENT BEEN EDUCATED REGARDING HIS/HER PLAN OF CARE?YES HAS THE PATIENT BEEN EDUCATED REGARDING PAIN, THE RISK FOR PAIN, THE IMPORTANCE OF EFFECTIVE PAIN MANAGEMENT, AND THE PAIN ASSESSMENT PROCESS?YES HOUSING: [employer] HOUSE. ADVANCE DIRECTIVE ADVANCE DIRECTIVE DISCUSSED WITH PATIENT:YES PT DOES NOT HAVE ANY ADVANCED DIRECTIVES AND SHE DECLINES INFORMATION ON HCP AT THIS TIME. REVIEW OF SYSTEMS CONSTITUTIONAL: ANY RECENT FEVER NO . CHILLS NO . WEIGHT CHANGE OF UNKNOWN REASONS NO . GASTROENTEROLOGY: NEW UNEXPLAINABLE CHANGES IN BOWEL CONTROL NO . CONSTIPATION NO . GENITOURINARY: ANY NEW CHANGE IN BLADDER CONTROL? NO . NEUROLOGY: NEW ONSET DIZZINESS OR NEUROLOGICAL CHANGES NOT MENTIONED NO . NEW NUMBNESS OR PAIN PATTERNS NOT MENTIONED AND PERTINENT TO TODAY'S VISIT NO . CARDIOLOGY: NEW CHEST PRESSURE NO . PATIENT DENIES NO . RESPIRATORY: UNEXPLAINABLE COUGH NO . NEW SHORTNESS OF BREATH NO . VITAL SIGNS WT 226 LBS, HT 5'3", BMI 40.03 INDEX, BP 136/83 MM HG, HR 88 /MIN, RR 19 /MIN, TEMP 97.2 F, OXYGEN SAT % 96%, SAFE IN ENV? (Y/N) [place]. EXAMINATION GENERAL EXAMINATION: GENERALAWAKE,ALERT ,PLEASANT . PSYCHAFFECT NORMAL . LUNGS:LUNG ORCA ARE CLEAR TO AUSCULTATION BILATERALLY. GOOD MOVEMENT OF AIR . HEART:S1, S2 IN A REGULAR RATE AND RHYTHM. NO SIGNIFICANT MURMURS, RUBS OR GALLOPS NOTED . ASSESSMENTS OTHER CHRONIC PAIN - G89.29 (PRIMARY) POST LAMINECTOMY SYNDROME - M96.1 TREATMENT OTHER CHRONIC PAIN CONTINUE AMITRIPTYLINE HCL TABLET, 25 MG, 2 TAB, ORALLY, BEFORE BEDTIME CONTINUE MELOXICAM TABLET, 7.5 MG, TAKE ONE TABLET BY MOUTH TWICE A DAY AFTER MEALS MAXIMUM DAILY DOSE 2 TABLETS, ORAL CONTINUE GABAPENTIN TABLET, 600 MG, 1 CAPSULE, ORALLY, THREE TIMES A DAY CONTINUE OXYCODONE HCL TABLET, 5 MG, 1 TABLET, ORALLY, EVERY 8 HOURS WHEN NECESSARY FOR SEVERE PAIN MDD 3 PAIN PROCEDURE LOG NOTES: ISTOP REGISTRY REVIEWED AND DEMONSTRATES COMPLLIANCE. BRINGS IN MEDICATIONS WHICH IS APPROPRIATE FOR WHAT WAS DISPENSED. RECENT URINE TOXICOLOGY REVIEWED. NO UNAUTHORIZED MEDICATIONS. NO ILLICIT SUBSTANCES AND PRESCRIBED MEDICATIONS WERE PRESENT. PROCEDURE CODES FA211 ESTABILISHED PATIENT [facility] FACILITY CHARGE DISPOSITION & COMMUNICATION FOLLOW UP 3 MONTHS (REASON: UTOX) ELECTRONICALLY SIGNED BY MARICEL ORELLANA ON 10/25/2020 AT 01:15 PM EDT DISCLAIMER : THIS IS A VISIT SUMMARY EXTRACTED FROM THE [employer] CHART. IT IS NOT A COPY OF THE [employer] PROGRESS NOTE. DANIEL
== END ==
LOC: M PAIN 09:30
PROVIDERS: ATTEND Nurse Practitioner Family
DX: G89.29 Other chronic pain (principal); M96.1 Postlaminectomy syndrome, not elsewhere classified; I10 Essential (primary) hypertension; J45.909 Unspecified asthma, uncomplicated; M10.9 Gout, unspecified; E55.9 Vitamin D deficiency, unspecified; R73.03 Prediabetes; M79.7 Fibromyalgia; E53.8 Deficiency of other specified B group vitamins; Z87.891 Personal history of nicotine dependence; Z79.1 Long term (current) use of non-steroidal anti-inflammatories (NSAID); Z79.84 Long term (current) use of oral hypoglycemic drugs; Z79.891 Long term (current) use of opiate analgesic; Z79.899 Other long term (current) drug therapy; Z88.8 Allergy status to other drugs, medicaments and biological substances

== ENCOUNTER → 2020-10-31 | Outpatient (REF) | payer OTHER ==
[2020-10-31 13:12] LABS: HEMOGLOBIN A1c 6.6 %
[2020-10-31 13:25] LABS: ALT/SGPT 42 U/L (12-78); BILIRUBIN,TOTAL 0.3 MG/DL (0.2-1.0); BLOOD UREA NITROGEN 7 MG/DL (7-18); CALCIUM LEVEL 9.6 MG/DL (8.5-10.1); CARBON DIOXIDE LEVEL 32 MEQ/L (21-32); CHLORIDE LEVEL 99 MEQ/L (98-107); CHOLESTEROL LEVEL 139 MG/DL (<200); CHOLESTEROL RISK RATIO 2.396 (<5); CREATININE FOR GFR 0.57 MG/DL (0.55-1.30); GLOMERULAR FILTRATION RATE > 60.0 (>51); GLUCOSE, FASTING 122 MG/DL (70-100); HDL CHOLESTEROL 58 MG/DL (>40); LDL CHOLESTEROL 50 MG/DL (<100); NON-HDL-C 81 MG/DL; POTASSIUM SERUM 4.5 MEQ/L (3.5-5.1); SODIUM LEVEL 135 MEQ/L (136-145); TOTAL PROTEIN 7.1 GM/DL (6.4-8.2); TRIGLYCERIDES LEVEL 154 MG/DL (<150); URIC ACID 4.7 MG/DL (2.6-6.0)
[2020-10-31 13:31] LABS: MALB URINE SIEMENS < 5.0 MG/L; MAU/CREAT RATIO 16.6 MCG/MG (0.0-30.0)
[2020-10-31 14:01] LABS: TOTAL 25(OH) VITAMIN D 28.7 NG/ML (30.0-100.0)
== END ==
LOC: M PLALAB 08:29
PROVIDERS: ATTEND Nurse Practitioner Family
DX: E11.9 Type 2 diabetes mellitus without complications (principal); E78.2 Mixed hyperlipidemia; M10.9 Gout, unspecified; E55.9 Vitamin D deficiency, unspecified

== ENCOUNTER → 2021-01-22 | Outpatient (CLI) | payer OTHER ==
[~2021-01-22] MED LIST changes: +GABA-283 PO; -GABA-845 PO; +OMEP40CA4 PO; -OMEP40CA97 PO
--- NOTE | 2021-01-24 05:47 | ECWPNPC ---
PATIENT NAME: STEVE DIAMOND : 1965 GENDER: FEMALE VISIT DATE: 01/22/2021 DISCHARGE DATE: 01/22/21 09 VISIT LOCKED DATE TIME: PHYSICIAN: DHARMESH BLANCO PHYSICIAN PAGER NO: ACTIVE RESOURCE: DHARMESH BLANCO REASON FOR APPOINTMENT 1. UTOX HISTORY OF PRESENT ILLNESS GENERAL: HERE FOR FOLLOW-UP OF CHRONIC LOW BACK PAIN WITH A HISTORY OF POSTLAMINECTOMY PAIN SYNDROME. PAIN HAS INCREASED ACROSS HER LOWER BACK OVER THE PAST MONTH. PAIN IS AGGRAVATED WITH WALKING OR BENDING. REVIEWED MRI OF THE LS-SPINE AND DISCUSSED TREATMENT PLAN. FINDS CURRENT PAIN MEDICATION SOMEWHAT HELPFUL AT REDUCING PAIN. -. FALL RISK SCREENING: SCREENING ONE FALL LAST YEAR AFTER BACK SURG, DID GO TO THE ER ONLY HURT HER KNEES. PAIN SCREENING: PATIENT HAS A COMPLAINT OF ACUTE OR CHRONIC PAIN :YES LOCATION OF PAIN:LOW BACK INTENSITY OF PAIN (SCALE OF 1 TO 10):8 WHAT DOES YOUR PAIN FEEL LIKE:SORE SHE HAS SPASMS DURATION:CONTINOUS, CONSTANT, ALL DAY PAIN IS INCREASED BY:OTHERS BENDING PAIN IS DECREASED BY:USE OF PAIN MEDICATIONS NURSING NOTE: -. PAIN CENTER INTAKE QUESTIONS: DO YOU HAVE A HISTORY OF MRSA? :NO DO YOU TAKE A BLOOD THINNERS? :NO DO YOU HAVE ANY BLEEDING DISORDERS? :NO ANY NEW NUMBNESS OR WEAKNESS IN YOUR LEGS OR ARMS? 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 :NO DO YOU HAVE ANY RASHES OR OPEN SORES? :NO ARE YOU ALLERGIC TO IV DYE? :NO ARE YOU DIABETIC? :YES ANY NEW PROBLEMS WITH YOUR MEDICATIONS? :NO HAVE YOU RECEIVED A VACCINE IN THE PAST 30 DAYS? :YES IF SO WHAT VACCINE AND WHEN? 1ST COVID 10/17/2020 DO YOU PLAN TO RECEIVE A VACCINE IN THE NEXT 21 DAYS? :YES IF SO WHAT VACCINE AND WHEN? 2ND COVID 11/14/2020 DO YOU NEED ANY PRESCRIPTION? :YES AMITRIPTYLINE HCL 25 MG DO YOU TAKE ANY IMMUNOSUPPRESSIVE MEDICATIONS? :NO IS THERE A CHANCE YOU COULD BE ? :NO ARE YOU BREAST FEEDING? :NO CURRENT MEDICATIONS TAKING ALPHAGAN P 0.15 % SOLUTION 1 DROP INTO AFFECTED EYE OPHTHALMIC THREE TIMES A DAY TAKING AZELASTINE HCL 137 MCG/SPRAY SOLUTION 1 PUFF IN EACH NOSTRIL NASALLY TWICE A DAY TAKING LATANOPROST 0.005 % SOLUTION INSTILL 1 DROP IN EACH EYE AT BEDTIME DIRECTED OPHTHALMIC TAKING FLONASE ALLERGY RELIEF 50 MCG/ACT SUSPENSION 1 SPRAY IN EACH NOSTRIL NASALLY ONCE A DAY TAKING MAGNESIUM OXIDE 250 MG TABLET 1 TAB ORALLY ONCE A DAY TAKING VITAMIN B-12 1000 MCG TABLET CHEWABLE 1 TABLET ORALLY ONCE A DAY- OTC TAKING BD ULTRA-FINE PEN NEEDLES 32G 4MM DIRECTED 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 TAKING BLOOD GLUCOSE TEST - STRIP 1 STRIP GLUCOSE TESTING STRIPS FOR ONE TOUCH VERIO TWICE DAILY AND PRN FOR LABILE BLOOD SUGARS DX: E11.40 TAKING DULERA 100 MCG/5MCG 2 PUFFS INHALATION TWICE A DAY TAKING ALBUTEROL SULFATE (2.5 MG/3ML) 0.083% NEBULIZATION SOLUTION 3 ML INHALATION 3-4 TIMES A DAY PRN TAKING MONTELUKAST SODIUM 10 MG TABLET TAKE ONE TABLET BY MOUTH AT BEDTIME ORAL TAKING PROVENTIL HFA 108 (90 BASE) MCG/ACT AEROSOL SOLUTION 2 PUFFS INHALATION EVERY 4 HOUR NEEDED TAKING MELOXICAM 7.5 MG TABLET TAKE ONE TABLET BY MOUTH TWICE A DAY AFTER MEALS MAXIMUM DAILY DOSE 2 TABLETS ORAL TAKING OXYCODONE HCL 5 MG TABLET 1 TABLET ORALLY EVERY 8 HOURS WHEN NECESSARY FOR SEVERE PAIN MDD 3 TAKING ACETAMINOPHEN 500 MG CAPSULE 2 TABLETS ORALLY EVERY 8 HRS PRN TAKING GABAPENTIN 600 MG TABLET 1 CAPSULE ORALLY THREE TIMES A DAY TAKING ALLOPURINOL 100 MG TABLET 2 TABLET ORALLY ONCE A DAY TAKING VITAMIN D3 125 MCG (5000 UT) TABLET 1 TABLET ORALLY ONCE A DAY WITH MEAL TAKING AMITRIPTYLINE HCL 25 MG TABLET 2 TAB ORALLY BEFORE BEDTIME TAKING VICTOZA 18 MG/3ML SOLUTION PEN-INJECTOR 1.8 MG SUBCUTANEOUS DAILY TAKING METFORMIN HCL 1000 MG TABLET 1 TABLET WITH MEALS ORALLY TWICE A DAY TAKING LIPITOR 40 MG TABLET 1 TABLET ORALLY ONCE A DAY TAKING LANCETS - MISCELLANEOUS 1 EACH TO USE FOR ONCE TOUCH TWICE DAILY AND PRN/ E11.40 TAKING HYDROCHLOROTHIAZIDE 25 MG TABLET 1 TABLET ORALLY ONCE A DAY TAKING AMLODIPINE BESYLATE 5 MG TABLET TAKE ONE TABLET BY MOUTH EVERY DAY ORAL ONCE DAILY TAKING LISINOPRIL 20 MG TABLET 1 TABLET ORALLY ONCE A DAY TAKING ATORVASTATIN CALCIUM 40 MG TABLET 1 TABLET ORALLY ONCE A DAY TAKING ESTRADIOL 0.5 MG TABLET 1 PATCH TO SKIN ORALLY ONCE A WEEK PATCH NOT-TAKING SALINE NASAL SPRAY 0.65 % SOLUTION 2 DROPS IN EACH NOSTRIL NEEDED NASALLY EVERY 2 HRS NOT-TAKING CLIMARA 0.05 MG/24HR PATCH WEEKLY 1 PATCH TO SKIN TRANSDERMAL WEEKLY, NOTES: 08/23/20, OFF 08/24/20 MEDICATION LIST REVIEWED AND RECONCILED WITH THE PATIENT PAST MEDICAL HISTORY HYPERTENSION ASTHMA GOUT VITAMIN D DEFICIENCY CHRONIC RIGHT OTITIS MEDIA PRE-DIABETES/IMPAIRED FASTING GLUCOSE FIBROMYALGIA-GOES TO PAIN CLINIC RECURRENT SINUSITIS TD 1999; TDAP 06/15 PNEUMNOVAX 2009 CHRONIC ALLERGIC RHINITIS - GETS ALLERGY SHOTS FIBROIDS COLONOSCOPY 2017, REPEAT IN 5 YEAR VITAMIN B12 DEFICIENCY--ON MONTHLY INJECTIONS FOR A WHILE, STOPPED COMING FOR THEM, LEVEL NL ON ORAL MED DM TYPE II CHRONIC BACK PAIN ONE FALL LAST YEAR AFTER BACK SURG, DID GO TO THE ER ONLY HURT HER KNEES ALLERGIES TRICOR: RASH - ALLERGY DUST MITES: RASH - ALLERGY - ONSET DATE 02/18/2020 SOCIAL HISTORY GENERAL: TOBACCO USE ARE YOU A:FORMER SMOKER HOW LONG HAS IT BEEN SINCE YOU LAST SMOKED?> 10 YEARS LATEX QUESTIONNAIRE LATEX ALLERGY : HAVE YOU EVER DEVELOPED ANY TYPE OF REACTION AFTER HANDLING LATEX PRODUCTS SUCH RUBBER GLOVES, CONDOMS, DIAPHRAGMS, BALLOONS, SOCKS, OR UNDERWEAR?NO LATEX ALLERGY : HAVE YOU EVER DEVELOPED ANY TYPE OF REACTION DURING OR AFTER DENTAL APPOINTMENT, VAGINAL/RECTAL EXAMINATION, SURGICAL PROCEDURE, OR ANY OTHER EXPOSURE?NO LATEX RISK : HAVE YOU EVER HAD ANY DIFFICULTY BREATHING OR HIVES AFTER EATING OR HANDLING ANY FRUITS, OR VEGETABLES; SUCH KIWI, BANANAS, STONE FRUITS, OR CHESTNUTSNO LATEX RISK : DO YOU HAVE A PREVIOUS PERSONAL HISTORY OF MORE THAN NINE SURGERIES, SPINA BIFIDA, OR REPEATED CATHERIZATIONS? YES - PLEASE INDICATE : > 9 SURGERIES LATEX RISK : ARE YOU FREQUENTLY EXPOSED TO LATEX PRODUCTS IN YOUR OCCUPATION?NO DATE ASKED : 01/22/2021 ALCOHOL USE: NO. BMI CARE GOAL FOLLOW-UP ABOVE NORMAL BMI FOLLOW-UPDIETARY MANAGEMENT EDUCATION, GUIDANCE, AND COUNSELING ALCOHOL SCREENING DID YOU HAVE A DRINK CONTAINING ALCOHOL IN THE PAST YEAR?NO POINTS0 INTERPRETATIONNEGATIVE RECREATIONAL DRUG USE DRUG USE?NO CAFFEINE CAFFEINE USE?NO SEXUAL HX HAD SEX IN THE LAST 12 MONTHS (VAGINAL, ORAL, OR ANAL)?YES WITHMEN ONLY PREVENTION STRATEGIES DISCUSSED:OTHER USE PROTECTION?NO LMP:HYSTER HAVE YOU EVER HAD AN STD?NO HIV / HEP-C SCREENING HIV TEST OFFERED TO PATIENT:YES DATE OFFERED:10/11/2016 TEST ACCEPTED:NO HEP-C TEST OFFERED TO PATIENT:NO REASON:PATIENT DECLINED ANGLICAN [id number] SABIANISM LANGUAGE [place]. EDUCATION 12TH GRADE GRADUATE. LEARNING BARRIERS / SPECIAL NEEDS CHANGE FROM LAST VISIT?NO BARRIERS TO LEARNING?NO HEARING IMPAIRED?YES :HEARING AIDES VISION IMPAIRED?YES :CORRECTIVE LENSES COGNITIVELY IMPAIRED?NO READINESS TO LEARN?YES LEARNING PREFERENCES?NO LEARNING CAPABILITIES PRESENT?YES EMOTIONAL BARRIERS?NO SPECIAL DEVICES?YES BRACE WRISTS AND KNEES, C PAP BUT DOESNT USE IT IN OVER 2 YEARS INSPECTOR PAPER PRODUCTS NEEDED?NO NO DOMESTIC VIOLENCE DO YOU FEEL SAFE IN YOUR ENVIRONMENT?YES OCCUPATION: UNEMPLOYED. DIET: REGULAR. EXERCISE: WALKS UP & DOWN STAIRS @ HOME WHEN OUT ON APPOINTMENTS. MARITAL STATUS: . OTHERS AT HOME: SPOUSE, CHILD. - PFS REFERRAL NEEDED?NO CLERGY REFERRAL NEEDED?NO PUBLIC HEALTH REFERRAL NEEDED?NO HAS THE PATIENT BEEN EDUCATED REGARDING HIS/HER PLAN OF CARE?YES HAS THE PATIENT BEEN EDUCATED REGARDING PAIN, THE RISK FOR PAIN, THE IMPORTANCE OF EFFECTIVE PAIN MANAGEMENT, AND THE PAIN ASSESSMENT PROCESS?YES HOUSING: RENTS HOUSE. ADVANCE DIRECTIVE ADVANCE DIRECTIVE DISCUSSED WITH PATIENT:YES PT DOES NOT HAVE ANY ADVANCED DIRECTIVES AND SHE DECLINES INFORMATION ON HCP AT THIS TIME. REVIEW OF SYSTEMS CONSTITUTIONAL: ANY RECENT FEVER NO . CHILLS NO . WEIGHT CHANGE OF UNKNOWN REASONS NO . GASTROENTEROLOGY: NEW UNEXPLAINABLE CHANGES IN BOWEL CONTROL NO . CONSTIPATION NO . GENITOURINARY: ANY NEW CHANGE IN BLADDER CONTROL? NO . NEUROLOGY: NEW ONSET DIZZINESS OR NEUROLOGICAL CHANGES NOT MENTIONED NO . NEW NUMBNESS OR PAIN PATTERNS NOT MENTIONED AND PERTINENT TO TODAY'S VISIT NO . CARDIOLOGY: NEW CHEST PRESSURE NO . PATIENT DENIES NO . RESPIRATORY: UNEXPLAINABLE COUGH NO . NEW SHORTNESS OF BREATH NO . VITAL SIGNS WT 223.6 LBS, HT 5'3", BMI 39.60 INDEX, BP 135/64 MM HG, HR 104 /MIN, RR 18 /MIN, TEMP 98.7 F, OXYGEN SAT % 97%, BLOOD GLUCOSE LEVEL 164, SAFE IN ENV? (Y/N) YES, NA INITIALS UT 08:39T.[place]. EXAMINATION GENERAL EXAMINATION: GENERAL AWAKE,ALERT ,PLEAASANT . PSYCH AFFECT NORMAL . LUNGS: LUNG ROCA ARE CLEAR TO AUSCULTATION BILATERALLY. GOOD MOVEMENT OF AIR . HEART: S1, S2 IN A REGULAR RATE AND RHYTHM. NO SIGNIFICANT MURMURS, RUBS OR GALLOPS NOTED . MUSCULOSKELETAL: MUSCLE STRENGTH TESTING 4/5 BILATERAL LOWER EXTREMITIES. LUMBAR: TRIGGER POINTS:, ELICITED WITH PALPATION OVER LUMBAR PARAVERTEBRAL MUSCLES AND RESTRICTION OF ROM IN THIS AREA IS NOTED. DIAGNOSTIC TESTS REVIEWED MRI L/S SPINE 2018. ASSESSMENTS CHRONIC PRESCRIPTION OPIATE USE - Z79.891 (PRIMARY) MYALGIA, OTHER SITE - M79.18 TREATMENT CHRONIC PRESCRIPTION OPIATE USE REFILL OXYCODONE HCL TABLET, 5 MG, 1 TABLET, ORALLY, EVERY 8 HOURS WHEN NECESSARY FOR SEVERE PAIN MDD 3, 30 DAYS, 45 LAB: URINE TEST GROUP LANCE METZ 01/22/2021 9:47:43 AM > LAST DOSE: GABAPENTIN 01/22/2021 @7:30AM, OXYCODONE 01/21/2021 @10PM MEDICATION: VALIUM 5MG IV (DIAZEPAM) (ORDERED FOR 02/05/2021) MEDICATION: OXYCODONE HCL TAB 5MG ORALLY (ORDERED FOR 02/05/2021) NOTES: ISTOP REGISTRY REVIEWED AND DEMONSTRATES COMPLLIANCE. BRINGS IN MEDICATIONS WHICH IS APPROPRIATE FOR WHAT WAS DISPENSED. RECENT URINE TOXICOLOGY REVIEWED. NO UNAUTHORIZED MEDICATIONS. NO ILLICIT SUBSTANCES AND PRESCRIBED MEDICATIONS WERE PRESENT. , TRIGGER POINT INJECTIONS BILATERAL LOW BACK PRINTED REVIEWED PRE PROCEDURE INFORMATION, PATIENT VERBALIZED UNDERSTANDING DEANDRE HILLS. PROCEDURE CODES FA211 ESTABILISHED PATIENT [facility] FACILITY CHARGE DISPOSITION & COMMUNICATION FOLLOW UP POST (REASON: , TRIGGER POINT INJECTIONS BILATERAL LOW BACK) ELECTRONICALLY SIGNED BY MARICEL ORELLANA ON 01/23/2021 AT 01:53 PM EDT DISCLAIMER : THIS IS A VISIT SUMMARY EXTRACTED FROM THE Bit9 CHART. IT IS NOT A COPY OF THE Bit9 PROGRESS NOTE. DANIEL
== END ==
LOC: M PAIN 09:00
PROVIDERS: ATTEND Nurse Practitioner Family
DX: M79.18 Myalgia, other site (principal); I10 Essential (primary) hypertension; J45.909 Unspecified asthma, uncomplicated; M10.9 Gout, unspecified; E55.9 Vitamin D deficiency, unspecified; R73.03 Prediabetes; M79.7 Fibromyalgia; E53.8 Deficiency of other specified B group vitamins; E11.40 Type 2 diabetes mellitus with diabetic neuropathy, unspecified; Z87.891 Personal history of nicotine dependence; Z79.891 Long term (current) use of opiate analgesic; Z79.1 Long term (current) use of non-steroidal anti-inflammatories (NSAID); Z79.84 Long term (current) use of oral hypoglycemic drugs; Z79.899 Other long term (current) drug therapy; Z88.8 Allergy status to other drugs, medicaments and biological substances

== ENCOUNTER → 2021-01-29 | Outpatient (CLI) | payer OTHER ==
[2021-01-29 11:10] LABS: HEMOGLOBIN A1c 6.2 %
[2021-01-29 11:24] LABS: BLOOD UREA NITROGEN 11 MG/DL (7-18); CALCIUM LEVEL 9.6 MG/DL (8.5-10.1); CARBON DIOXIDE LEVEL 26 MEQ/L (21-32); CHLORIDE LEVEL 97 MEQ/L (98-107); CREATININE FOR GFR 0.56 MG/DL (0.55-1.30); GLOMERULAR FILTRATION RATE > 60.0 (>51); GLUCOSE, FASTING 99 MG/DL (70-100); POTASSIUM SERUM 4.6 MEQ/L (3.5-5.1); SODIUM LEVEL 131 MEQ/L (136-145)
[2021-01-29 11:27] LABS: TOTAL 25(OH) VITAMIN D 37.9 NG/ML (30.0-100.0)
== END ==
LOC: M PLALAB 08:28
PROVIDERS: ATTEND Nurse Practitioner Family
DX: E55.9 Vitamin D deficiency, unspecified (principal); I10 Essential (primary) hypertension; E11.9 Type 2 diabetes mellitus without complications

== ENCOUNTER → 2021-02-08 | Outpatient (CLI) | payer OTHER | LOC: M LABSMTC 10:05 | PROVIDERS: ATTEND Anesthesiology | DX: Z01.812 Encounter for preprocedural laboratory examination (principal); Z11.52 Encounter for screening for COVID-19 ==

== ENCOUNTER → 2021-02-13 | Outpatient (CLI) | payer OTHER ==
[~2021-02-13] MED LIST changes: +BUPIVACAINE HCL 0.25% 10ML VIAL As Ordered ONE; +BUPIVACAINE HCL 0.25% 30ML VIAL As Ordered ONE; +TRIAMCINOLONE ACETONIDE SUSP 40 MG/ML VIAL (J3301) As Ordered ONE; +diazePAM 5MG TABLET As Ordered ONE; +oxyCODONE 5MG TAB As Ordered ONE
--- NOTE | 2021-02-17 03:51 | ECWPNPC ---
PATIENT NAME: STEVE DIAMOND : 1965 GENDER: FEMALE VISIT DATE: 02/13/2021 DISCHARGE DATE: 02/13/21 1007 VISIT LOCKED DATE TIME: PHYSICIAN: TOMMY SULLIVAN MD PHYSICIAN PAGER NO: ACTIVE RESOURCE: TOMMY SULLIVAN MD REASON FOR APPOINTMENT 1. TRIGGER POINT INJECTIONS BILATERAL LOW BACK HISTORY OF PRESENT ILLNESS GENERAL: -. FALL RISK SCREENING: SCREENING ONE FALL LAST YEAR AFTER BACK SURG, DID GO TO THE ER ONLY HURT HER KNEES. PAIN SCREENING: PATIENT HAS A COMPLAINT OF ACUTE OR CHRONIC PAIN :YES LOCATION OF PAIN:LOW BACK INTENSITY OF PAIN (SCALE OF 1 TO 10):9 WHAT DOES YOUR PAIN FEEL LIKE:SHARP, SORE PATIENT REPORTS, LAST WEEK, SEVERE PAIN EPISODES RESULTING IN CRYING DUE TO PAIN AND MUSCLE SPASMS. DURATION:CONTINOUS PAIN IS INCREASED BY:ACTIVITIES, PROLONGED STANDING, OTHERS BENDING PAIN IS DECREASED BY:USE OF PAIN MEDICATIONS PLAN/GOALS/TREATMENT/INTERVENTION/FOLLOW UP:SEE PLAN NURSING NOTE: -. PAIN CENTER INTAKE QUESTIONS: DO YOU HAVE A HISTORY OF MRSA? :NO DO YOU TAKE A BLOOD THINNERS? :NO DO YOU HAVE ANY BLEEDING DISORDERS? :NO ANY NEW NUMBNESS OR WEAKNESS IN YOUR LEGS OR ARMS? 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 :NO DO YOU HAVE ANY RASHES OR OPEN SORES? :NO ARE YOU ALLERGIC TO IV DYE? :NO ARE YOU DIABETIC? :YES FSBS: 154 ANY NEW PROBLEMS WITH YOUR MEDICATIONS? :NO HAVE YOU RECEIVED A VACCINE IN THE PAST 30 DAYS? :NO DO YOU PLAN TO RECEIVE A VACCINE IN THE NEXT 21 DAYS? :NO DO YOU TAKE ANY IMMUNOSUPPRESSIVE MEDICATIONS? :YES ALLOPURINOL (LD: 02/05/21) ANY HISTORY OF SEIZURES? :NO ANY HISTORY OF CARDIAC ISSUES OR EVENTS? :NO DO YOU HAVE ANY KIDNEY OR LIVER DISEASE? :NO DO YOU HAVE SLEEP APNEA? :YES DO YOU WEAR A CPAP? HASN'T NEEDED CPAP/BIPAP ANY RECENT HEAD INJURY? :NO DO YOU HAVE ANY NEW INFECTIONS? :NO IS THERE A CHANCE YOU COULD BE ? :NO ARE YOU BREAST FEEDING? :NO WHEN DID YOU LAST EAT? : 02/12/21 WHEN DID YOU LAST DRINK? : 02/13/21 0630 WHAT DID YOU LAST DRINK? : WATER NAME OF PERSON DRIVING YOU HOME? : JENNIFER DIAMOND () DO YOU HAVE ANY OTHER QUESTIONS OR CONCERNS? : NO CURRENT MEDICATIONS TAKING VITAMIN B-12 1000 MCG TABLET CHEWABLE 1 TABLET ORALLY ONCE A DAY- OTC TAKING NORVASC 5 MG TABLET 1 TABLET ORALLY ONCE A DAY TAKING HYDROCHLOROTHIAZIDE 25 MG TABLET 1 TABLET ORALLY ONCE A DAY TAKING ALLOPURINOL 100 MG TABLET 2 TABLET ORALLY ONCE A DAY, NOTES: LD: 02/05/21 TAKING LISINOPRIL 20 MG TABLET 1 TABLET ORALLY ONCE A DAY TAKING VITAMIN D 2000 UNIT TABLET 1 TABLET ORALLY ONCE A DAY TAKING ALPHAGAN P 0.15 % SOLUTION 1 DROP INTO AFFECTED EYE OPHTHALMIC THREE TIMES A DAY TAKING AZELASTINE HCL 137 MCG/SPRAY SOLUTION 1 PUFF IN EACH NOSTRIL NASALLY TWICE A DAY TAKING LATANOPROST 0.005 % SOLUTION INSTILL 1 DROP IN EACH EYE AT BEDTIME DIRECTED OPHTHALMIC TAKING FLONASE ALLERGY RELIEF 50 MCG/ACT SUSPENSION 1 SPRAY IN EACH NOSTRIL NASALLY ONCE A DAY TAKING MAGNESIUM OXIDE 250 MG TABLET 1 TAB ORALLY ONCE A DAY TAKING BD ULTRA-FINE PEN NEEDLES 32G 4MM DIRECTED 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 TAKING BLOOD GLUCOSE TEST - STRIP 1 STRIP GLUCOSE TESTING STRIPS FOR ONE TOUCH VERIO TWICE DAILY AND PRN FOR LABILE BLOOD SUGARS DX: E11.40 TAKING DULERA 100 MCG/5MCG 2 PUFFS INHALATION TWICE A DAY TAKING ALBUTEROL SULFATE (2.5 MG/3ML) 0.083% NEBULIZATION SOLUTION 3 ML INHALATION 3-4 TIMES A DAY PRN TAKING MONTELUKAST SODIUM 10 MG TABLET TAKE ONE TABLET BY MOUTH AT BEDTIME ORAL TAKING MELOXICAM 7.5 MG TABLET TAKE ONE TABLET BY MOUTH TWICE A DAY AFTER MEALS MAXIMUM DAILY DOSE 2 TABLETS ORAL , NOTES: 02/12/21 TAKING ACETAMINOPHEN 500 MG CAPSULE 2 TABLETS ORALLY EVERY 8 HRS PRN TAKING GABAPENTIN 600 MG TABLET 1 CAPSULE ORALLY THREE TIMES A DAY, NOTES: 02/13/21 TAKING VITAMIN D3 125 MCG (5000 UT) TABLET 1 TABLET ORALLY ONCE A DAY WITH MEAL TAKING AMITRIPTYLINE HCL 25 MG TABLET 2 TAB ORALLY BEFORE BEDTIME, NOTES: 02/13/21 TAKING LANCETS - MISCELLANEOUS 1 EACH TO USE FOR ONCE TOUCH TWICE DAILY AND PRN/ E11.40 TAKING AMLODIPINE BESYLATE 5 MG TABLET TAKE ONE TABLET BY MOUTH EVERY DAY ORAL ONCE DAILY, NOTES: 02/13/21 TAKING ESTRADIOL 0.5 MG TABLET 1 PATCH TO SKIN ORALLY ONCE A WEEK PATCH TAKING OXYCODONE HCL 5 MG TABLET 1 TABLET ORALLY EVERY 8 HOURS WHEN NECESSARY FOR SEVERE PAIN MDD 3 TAKING PROVENTIL HFA 108 (90 BASE) MCG/ACT AEROSOL SOLUTION 2 PUFFS INHALATION EVERY 4 HOUR NEEDED TAKING METFORMIN HCL 1000 MG TABLET 1 TABLET WITH MEALS ORALLY TWICE A DAY, NOTES: 02/12/21 TAKING VICTOZA 18 MG/3ML SOLUTION PEN-INJECTOR 1.8 MG SUBCUTANEOUS DAILY, NOTES: 02/12/21 TAKING ATORVASTATIN CALCIUM 40 MG TABLET 1 TABLET ORALLY ONCE A DAY NOT-TAKING SALINE NASAL SPRAY 0.65 % SOLUTION 2 DROPS IN EACH NOSTRIL NEEDED NASALLY EVERY 2 HRS NOT-TAKING CLIMARA 0.05 MG/24HR PATCH WEEKLY 1 PATCH TO SKIN TRANSDERMAL WEEKLY, NOTES: 08/23/20, OFF 08/24/20 MEDICATION LIST REVIEWED AND RECONCILED WITH THE PATIENT PAST MEDICAL HISTORY HYPERTENSION ASTHMA GOUT VITAMIN D DEFICIENCY CHRONIC RIGHT OTITIS MEDIA PRE-DIABETES/IMPAIRED FASTING GLUCOSE FIBROMYALGIA-GOES TO PAIN CLINIC RECURRENT SINUSITIS TD 1999; TDAP 06/15 PNEUMNOVAX 2009 CHRONIC ALLERGIC RHINITIS - GETS ALLERGY SHOTS FIBROIDS COLONOSCOPY 2017, REPEAT IN 5 YEAR VITAMIN B12 DEFICIENCY--ON MONTHLY INJECTIONS FOR A WHILE, STOPPED COMING FOR THEM, LEVEL NL ON ORAL MED DM TYPE II CHRONIC BACK PAIN ONE FALL LAST YEAR AFTER BACK SURG, DID GO TO THE ER ONLY HURT HER KNEES ALLERGIES TRICOR: RASH - ALLERGY DUST MITES: RASH - ALLERGY - ONSET DATE 02/18/2020 SOCIAL HISTORY GENERAL: TOBACCO USE ARE YOU A:FORMER SMOKER HOW LONG HAS IT BEEN SINCE YOU LAST SMOKED?> 10 YEARS LATEX QUESTIONNAIRE LATEX ALLERGY : HAVE YOU EVER DEVELOPED ANY TYPE OF REACTION AFTER HANDLING LATEX PRODUCTS SUCH RUBBER GLOVES, CONDOMS, DIAPHRAGMS, BALLOONS, SOCKS, OR UNDERWEAR?NO LATEX ALLERGY : HAVE YOU EVER DEVELOPED ANY TYPE OF REACTION DURING OR AFTER DENTAL APPOINTMENT, VAGINAL/RECTAL EXAMINATION, SURGICAL PROCEDURE, OR ANY OTHER EXPOSURE?NO LATEX RISK : HAVE YOU EVER HAD ANY DIFFICULTY BREATHING OR HIVES AFTER EATING OR HANDLING ANY FRUITS, OR VEGETABLES; SUCH KIWI, BANANAS, STONE FRUITS, OR CHESTNUTSNO LATEX RISK : DO YOU HAVE A PREVIOUS PERSONAL HISTORY OF MORE THAN NINE SURGERIES, SPINA BIFIDA, OR REPEATED CATHERIZATIONS? YES - PLEASE INDICATE : > 9 SURGERIES LATEX RISK : ARE YOU FREQUENTLY EXPOSED TO LATEX PRODUCTS IN YOUR OCCUPATION?NO DATE ASKED : 02/12/2021 ALCOHOL USE: NO. BMI CARE GOAL FOLLOW-UP ABOVE NORMAL BMI FOLLOW-UPDIETARY MANAGEMENT EDUCATION, GUIDANCE, AND COUNSELING ALCOHOL SCREENING DID YOU HAVE A DRINK CONTAINING ALCOHOL IN THE PAST YEAR?NO POINTS0 INTERPRETATIONNEGATIVE RECREATIONAL DRUG USE DRUG USE?NO CAFFEINE CAFFEINE USE?NO SEXUAL HX HAD SEX IN THE LAST 12 MONTHS (VAGINAL, ORAL, OR ANAL)?YES WITHMEN ONLY PREVENTION STRATEGIES DISCUSSED:OTHER USE PROTECTION?NO LMP:HYSTER HAVE YOU EVER HAD AN STD?NO HIV / HEP-C SCREENING HIV TEST OFFERED TO PATIENT:YES DATE OFFERED:10/11/2016 TEST ACCEPTED:NO HEP-C TEST OFFERED TO PATIENT:NO REASON:PATIENT DECLINED HOAHAOISM [id number] CAODAISM LANGUAGE [place]. EDUCATION 12TH GRADE GRADUATE. LEARNING BARRIERS / SPECIAL NEEDS CHANGE FROM LAST VISIT?NO BARRIERS TO LEARNING?NO HEARING IMPAIRED?YES VISION IMPAIRED?YES COGNITIVELY IMPAIRED?NO :HEARING AIDES :CORRECTIVE LENSES READINESS TO LEARN?YES LEARNING PREFERENCES?NO LEARNING CAPABILITIES PRESENT?YES EMOTIONAL BARRIERS?NO SPECIAL DEVICES?YES BRACE WRISTS AND KNEES, C PAP BUT DOESNT USE IT IN OVER 2 YEARS RAG WASHER NEEDED?NO NO DOMESTIC VIOLENCE DO YOU FEEL SAFE IN YOUR ENVIRONMENT?YES OCCUPATION: UNEMPLOYED. DIET: REGULAR. EXERCISE: WALKS UP & DOWN STAIRS @ HOME WHEN OUT ON APPOINTMENTS. MARITAL STATUS: . OTHERS AT HOME: SPOUSE, CHILD. - PFS REFERRAL NEEDED?NO CLERGY REFERRAL NEEDED?NO PUBLIC HEALTH REFERRAL NEEDED?NO HAS THE PATIENT BEEN EDUCATED REGARDING HIS/HER PLAN OF CARE?YES HAS THE PATIENT BEEN EDUCATED REGARDING PAIN, THE RISK FOR PAIN, THE IMPORTANCE OF EFFECTIVE PAIN MANAGEMENT, AND THE PAIN ASSESSMENT PROCESS?YES HOUSING: RENTS HOUSE. ADVANCE DIRECTIVE ADVANCE DIRECTIVE DISCUSSED WITH PATIENT:YES PT DOES NOT HAVE ANY ADVANCED DIRECTIVES AND SHE DECLINES INFORMATION ON HCP AT THIS TIME. VITAL SIGNS WT 224.2 LBS, HT 5'3", BMI 39.71 INDEX, BP 131.82 MM HG, HR 80 /MIN, RR 18 /MIN, TEMP 98.4 F, OXYGEN SAT % 98%, SAFE IN ENV? (Y/N) Y, NA INITIALS AW 0844, REVIEWED BY: EM. EXAMINATION GENERAL: A HISTORY AND PHYSICAL EXAM ON THE PATIENT WAS DONE ON 01/22/2021 (DATE OF ORIGINAL ASSESSMENT) IN PREPARATION OF SURGERY/PROCEDURE. I HAVE NOW REASSESSED THIS PATIENT'S HEALTH STATUS AND PERFORMED AN UPDATED EXAM TODAY. ALL CHANGES IN THE PATIENT'S HISTORY, PHYSICAL EXAM, PRE-EXISTING CONDITONS, AND INDICATIONS/CONTRAINDICATIONS TO THE PLANNED PROCEDURE AND ANESTHESIA ARE DOCUMENTED AND EVALUATED BELOW. I ATTEST TO THE ADEQUACY AND APPROPRIATENESS OF MY ASSESSMENT, AND CONFIRM THE NECESSITY FOR THE PLANNED PROCEDURE. THE PATIENT IS ALERT, ORIENTED TIMES THREE AND COOPERATIVE. LUNGS ARE CLEAR TO AUSCULTATION. HEART SHOWS REGULAR RHYTHM, NO MURMURS AND NO GALLOPS. ASSESSMENTS MYALGIA, UNSPECIFIED SITE - M79.10 (PRIMARY) TREATMENT MYALGIA, UNSPECIFIED SITE MEDICATION: PAIN VALIUM TAB 5MG ORALLY (DIAZEPAM)ELIAZAR DEAL R 02/13/2021 9:20:06 AM > VERIFIED ROMINA HECK 02/13/2021 9:23:30 AM > ADMINISTERED COMPLETION OF PROCEDURAL VISIT WHEN MEETS CRITERIAROMINA HECK 02/13/2021 10:07:28 AM > CRITERIA MET MEDICATION: PAIN OXYCODONE HCL TAB 5MG ORALLY ELIAZAR DEAL R 02/13/2021 9:20:22 AM > VERIFIED ROMINA HECK 02/13/2021 9:23:48 AM > ADMINISTERED OTHERS NOTES: 02/12/21 CALLIE CONNOR AD CLERK. PROCEDURES PAIN NURSING RECORD PROCEDURE IN ROOM 0810, PHYSICIAN IN ROOM 0947, START 0950, FINISH 0952, PHYSICIAN OUT OF ROOM 0953, OUT OF ROOM 1005, ECG N/A, PATIENT SHIELDED NO, SAFETY STRAP N/A, PREP ALCOHOL DR. SULLIVAN, DRESSING TEGADERM Octavia HECK RN LOC: 1. ALERT, ORIENTED, ROMINA HECK 02/13/2021 9:50:36 AM > RESP: 1. REGULAR, NO DYSPNEA, ROMINA HECK 02/13/2021 9:50:40 AM > COLOR: 1. PINKMARIA R ELIZABETH 02/13/2021 9:50:44 AM > SKIN: 1. WARM, DRY, ROMINA HECK 02/13/2021 9:50:48 AM > POSITION: 5. SITTING, ROMINA HECK 02/13/2021 9:46:19 AM > VITALS: 128/82, 79, 16, 96%, ROMINA HECK 02/13/2021 10:01:34 AM > NOTES Octavia HECK RN, ROMINA HECK 02/13/2021 9:46:27 AM > COMPLETION OF PROCEDURE APPOINTMENT: POST PAIN 0, DRESSING SITE DRY AND INTACT, IV N/A, GAIT STEADY, TEACHING COMPLETED, PATIENT ACKNOWLEDGES UNDERSTANDING YES, PROCEDURE APPOINTMENT COMPLETED AT 1005 PN TRIGGER POINT INJECTION WITH STEROIDS PRE PROCEDURE DIAGNOSIS 1. MYALGIA 2. PAIN AT BILATERAL LOW BACK AREA POST PROCEDURE DIAGNOSIS 1. MYALGIA 2. PAIN AT BILATERAL LOW BACK AREA PROCEDURE TRIGGER POINT INJECTION AT BILATERAL LOW BACK AREA SURGEON DR. TOMMY SULLIVAN CHIEF TECHNOLOGY OFFICER NONE ANESTHESIA LOCAL PRE PROCEDURE NOTE THE PATIENT HAS A HISTORY OF CHRONIC PAIN AT THE RIGHT AND LEFT LOW BACK AREA. I EVALUATED THE PATIENT AND REVIEWED THE CHART. THERE IS EVIDENCE OF BANDS OF TISSUE WITH RESTRICTION OF MOVEMENT AND PRESENCE OF TRIGGER POINT AT THE RIGHT AND LEFT LOW BACK AREA. I WENT OVER THE RISKS, ALTERNATIVES, AND BENEFITS ASSOCIATED WITH THIS PROCEDURE. THE PATIENT WOULD LIKE TO PROCEED AND GIVE CONSENT TO PERFORMED THE PROCEDURE. THE PATIENT DENIES UNEXPLAINABLE WEIGHT LOSS, FEVER, CHILLS, OR NEW CHANGES IN URINARY OR BOWEL CONTROL. THE PATIENT IS COVID-19 NEGATIVE DESCRIPTION OF PROCEDURE THE PATIENT WAS BROUGHT TO THE PROCEDURE ROOM AND PLACED IN THE SITTING POSITION. THE AREA WAS CLEANED WITH ALCOHOL. THE PROCEDURE WAS DONE USING ASEPTIC STERILE TECHNIQUE. A TIMEOUT WAS PERFORMED WHERE THE CONSENTED SITE WAS VERIFIED WITH EVERYONE IN THE ROOM. USING A 25-GAUGE NEEDLE, TRIGGER POINTS WERE INJECTED AT THE RIGHT AND LEFT LOW BACK AREA WITH A TOTAL OF 40 ML OF BUPIVACAINE 0.25% AND KENALOG 40 MG. THE MEDICATIONS WERE VERIFIED WITH THE NURSE. THERE WAS NO EVIDENCE OF BLOOD OR PARESTHESIA DURING THE PROCEDURE. THE PATIENT WAS SENT TO THE RECOVERY ROOM. THE PATIENT WAS MOVING THE EXTREMITIES AND DOING WELL. THERE WERE NO COMPLICATIONS DURING THE PROCEDURE. ESTIMATED BLOOD LOSS WAS LESS THAN 5 ML POST PROCEDURE NOTE THE PROCEDURE DONE WAS DISCUSSED WITH THE PATIENT. THE PATIENT WILL BE SEEN IN A FOLLOW UP IN THE NEXT FEW WEEKS. I AM LOOKING FOR LONG LASTING PAIN RELIEF FOR THE PATIENT WITH THIS INTERVENTION. INSTRUCTIONS WERE GIVEN, QUESTIONS WERE ANSWERED, AND THE PATIENT EXPRESSED UNDERSTANDING AND AGREES WITH THE PLAN. I, LAURITA LOPEZ, DOCUMENTED THE ABOVE INFORMATION ACTING A SCRIBE FOR DR. SULLIVAN. I HAVE REVIEWED THE ABOVE DOCUMENT, WRITTEN BY LAURITA LOPEZ, ADMINISTRATIVE SERVICES SPECIALIST, AND I VERIFY THAT IT IS ACCURATE PROCEDURE CODES 90840 INJ TRIGGER POINT 1/2 MUSCL DISPOSITION & COMMUNICATION FOLLOW UP FOLLOW UP WITH COLLEGE SERVICE OFFICER (REASON: POST TRIGGER POINT INJECTIONS BILATERAL LOW BACK) ELECTRONICALLY SIGNED BY TOMMY SULLIVAN MD, MD ON 02/16/2021 AT 07:39 AM EDT DISCLAIMER : THIS IS A VISIT SUMMARY EXTRACTED FROM THE [employer] CHART. IT IS NOT A COPY OF THE [employer] PROGRESS NOTE. DANIEL
== END ==
LOC: M PAIN 08:30
PROVIDERS: ATTEND Anesthesiology
DX: M79.18 Myalgia, other site (principal); I10 Essential (primary) hypertension; J45.909 Unspecified asthma, uncomplicated; M10.9 Gout, unspecified; E55.9 Vitamin D deficiency, unspecified; J32.9 Chronic sinusitis, unspecified; E53.8 Deficiency of other specified B group vitamins; E11.9 Type 2 diabetes mellitus without complications; Z87.891 Personal history of nicotine dependence; Z79.1 Long term (current) use of non-steroidal anti-inflammatories (NSAID); Z79.891 Long term (current) use of opiate analgesic; Z79.84 Long term (current) use of oral hypoglycemic drugs; Z79.899 Other long term (current) drug therapy; Z88.8 Allergy status to other drugs, medicaments and biological substances
CPT/HCPCS: 20552; J3301

== ENCOUNTER → 2021-02-28 | Outpatient (CLI) | payer OTHER ==
[~2021-02-28] MED LIST changes: -BUPIVACAINE HCL 0.25% 10ML VIAL As Ordered ONE; -BUPIVACAINE HCL 0.25% 30ML VIAL As Ordered ONE; -TRIAMCINOLONE ACETONIDE SUSP 40 MG/ML VIAL (J3301) As Ordered ONE; -diazePAM 5MG TABLET As Ordered ONE; -oxyCODONE 5MG TAB As Ordered ONE
--- NOTE | 2021-03-01 02:38 | ECWPNPC ---
PATIENT NAME: STEVE DIAMOND : 1965 GENDER: FEMALE VISIT DATE: 02/28/2021 DISCHARGE DATE: 02/28/21 1018 VISIT LOCKED DATE TIME: PHYSICIAN: DHARMESH BLANCO PHYSICIAN PAGER NO: ACTIVE RESOURCE: DHARMESH BLANCO REASON FOR APPOINTMENT 1. POST TRIGGER POINT INJECTIONS BILATERAL LOW BACK HISTORY OF PRESENT ILLNESS DEPRESSION SCREENING: PHQ-2 (2015 EDITION) LITTLE INTEREST OR PLEASURE IN DOING THINGS?NOT AT ALL FEELING DOWN, DEPRESSED, OR HOPELESS?NOT AT ALL TOTAL SCORE0 GENERAL: HERE FOR POSTPROCEDURE FOLLOW-UP. HAD TRIGGER POINT INJECTIONS BILATERAL LOW BACK ON 02/13/2021. REPORTING MARKED REDUCTION IN LEFT LOW BACK PAIN POST TRIGGER POINT INJECTION BUT REPORTS SEVERE INCREASE IN RIGHT LOW BACK PAIN OVER THE PAST WEEK. PAIN IS LOCATED IN THE RIGHT SACROILIAC REGION. PAIN IS AGGRAVATED WHEN SHE SITS ON THAT SIDE. REVIEWED MRI OF THE LS SPINE AND DISCUSSED TREATMENT PLAN. -. FALL RISK SCREENING: SCREENING : NO FALLS REPORTED IN THE LAST YEAR. PAIN SCREENING: PATIENT HAS A COMPLAINT OF ACUTE OR CHRONIC PAIN :YES LOCATION OF PAIN:LOW BACK LEFT SACROILIAC INTENSITY OF PAIN (SCALE OF 1 TO 10):8 WHAT DOES YOUR PAIN FEEL LIKE:CONTINOUS, TENDER, SORE SPASM DURATION:CONTINOUS, CONSTANT, ALL DAY PAIN IS INCREASED BY:ACTIVITIES PAIN IS DECREASED BY:USE OF PAIN MEDICATIONS NURSING NOTE: -. PAIN CENTER INTAKE QUESTIONS: DO YOU HAVE A HISTORY OF MRSA? :NO DO YOU TAKE A BLOOD THINNERS? :NO DO YOU HAVE ANY BLEEDING DISORDERS? :NO ANY NEW NUMBNESS OR WEAKNESS IN YOUR LEGS OR ARMS? 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 :NO DO YOU HAVE ANY RASHES OR OPEN SORES? :NO ARE YOU ALLERGIC TO IV DYE? :NO ARE YOU DIABETIC? :YES ANY NEW PROBLEMS WITH YOUR MEDICATIONS? :NO HAVE YOU RECEIVED A VACCINE IN THE PAST 30 DAYS? :NO DO YOU PLAN TO RECEIVE A VACCINE IN THE NEXT 21 DAYS? :NO DO YOU NEED ANY PRESCRIPTION? :YES AMITRIPTYLINE HCL 25 MG DO YOU TAKE ANY IMMUNOSUPPRESSIVE MEDICATIONS? :NO IS THERE A CHANCE YOU COULD BE ? :NO ARE YOU BREAST FEEDING? :NO CURRENT MEDICATIONS TAKING VITAMIN B-12 1000 MCG TABLET CHEWABLE 1 TABLET ORALLY ONCE A DAY- OTC TAKING NORVASC 5 MG TABLET 1 TABLET ORALLY ONCE A DAY TAKING LISINOPRIL 20 MG TABLET 1 TABLET ORALLY ONCE A DAY TAKING VITAMIN D 2000 UNIT TABLET 1 TABLET ORALLY ONCE A DAY TAKING ALPHAGAN P 0.15 % SOLUTION 1 DROP INTO AFFECTED EYE OPHTHALMIC THREE TIMES A DAY TAKING AZELASTINE HCL 137 MCG/SPRAY SOLUTION 1 PUFF IN EACH NOSTRIL NASALLY TWICE A DAY TAKING LATANOPROST 0.005 % SOLUTION INSTILL 1 DROP IN EACH EYE AT BEDTIME DIRECTED OPHTHALMIC TAKING FLONASE ALLERGY RELIEF 50 MCG/ACT SUSPENSION 1 SPRAY IN EACH NOSTRIL NASALLY ONCE A DAY TAKING MAGNESIUM OXIDE 250 MG TABLET 1 TAB ORALLY ONCE A DAY TAKING BD ULTRA-FINE PEN NEEDLES 32G 4MM DIRECTED 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 TAKING BLOOD GLUCOSE TEST - STRIP 1 STRIP GLUCOSE TESTING STRIPS FOR ONE TOUCH VERIO TWICE DAILY AND PRN FOR LABILE BLOOD SUGARS DX: E11.40 TAKING DULERA 100 MCG/5MCG 2 PUFFS INHALATION TWICE A DAY TAKING ALBUTEROL SULFATE (2.5 MG/3ML) 0.083% NEBULIZATION SOLUTION 3 ML INHALATION 3-4 TIMES A DAY PRN TAKING MONTELUKAST SODIUM 10 MG TABLET TAKE ONE TABLET BY MOUTH AT BEDTIME ORAL TAKING MELOXICAM 7.5 MG TABLET TAKE ONE TABLET BY MOUTH TWICE A DAY AFTER MEALS MAXIMUM DAILY DOSE 2 TABLETS ORAL , NOTES: 02/12/21 TAKING ACETAMINOPHEN 500 MG CAPSULE 2 TABLETS ORALLY EVERY 8 HRS PRN TAKING GABAPENTIN 600 MG TABLET 1 CAPSULE ORALLY THREE TIMES A DAY, NOTES: 02/13/21 TAKING VITAMIN D3 125 MCG (5000 UT) TABLET 1 TABLET ORALLY ONCE A DAY WITH MEAL TAKING AMITRIPTYLINE HCL 25 MG TABLET 2 TAB ORALLY BEFORE BEDTIME, NOTES: 02/13/21 TAKING LANCETS - MISCELLANEOUS 1 EACH TO USE FOR ONCE TOUCH TWICE DAILY AND PRN/ E11.40 TAKING ESTRADIOL 0.5 MG TABLET 1 PATCH TO SKIN ORALLY ONCE A WEEK PATCH TAKING OXYCODONE HCL 5 MG TABLET 1 TABLET ORALLY EVERY 8 HOURS WHEN NECESSARY FOR SEVERE PAIN MDD 3 TAKING PROVENTIL HFA 108 (90 BASE) MCG/ACT AEROSOL SOLUTION 2 PUFFS INHALATION EVERY 4 HOUR NEEDED TAKING METFORMIN HCL 1000 MG TABLET 1 TABLET WITH MEALS ORALLY TWICE A DAY TAKING ATORVASTATIN CALCIUM 40 MG TABLET 1 TABLET ORALLY ONCE A DAY TAKING HYDROCHLOROTHIAZIDE 25 MG TABLET 1 TABLET ORALLY ONCE A DAY TAKING AMLODIPINE BESYLATE 5 MG TABLET TAKE ONE TABLET BY MOUTH EVERY DAY ORAL ONCE DAILY TAKING VICTOZA 18 MG/3ML SOLUTION PEN-INJECTOR 1.8 MG SUBCUTANEOUS DAILY TAKING ALLOPURINOL 100 MG TABLET 2 TABLET ORALLY ONCE A DAY NOT-TAKING SALINE NASAL SPRAY 0.65 % SOLUTION 2 DROPS IN EACH NOSTRIL NEEDED NASALLY EVERY 2 HRS NOT-TAKING CLIMARA 0.05 MG/24HR PATCH WEEKLY 1 PATCH TO SKIN TRANSDERMAL WEEKLY, NOTES: 08/23/20, OFF 08/24/20 MEDICATION LIST REVIEWED AND RECONCILED WITH THE PATIENT PAST MEDICAL HISTORY HYPERTENSION ASTHMA GOUT VITAMIN D DEFICIENCY CHRONIC RIGHT OTITIS MEDIA PRE-DIABETES/IMPAIRED FASTING GLUCOSE FIBROMYALGIA-GOES TO PAIN CLINIC RECURRENT SINUSITIS TD 1999; TDAP 06/15 PNEUMNOVAX 2009 CHRONIC ALLERGIC RHINITIS - GETS ALLERGY SHOTS FIBROIDS COLONOSCOPY 2017, REPEAT IN 5 YEAR VITAMIN B12 DEFICIENCY--ON MONTHLY INJECTIONS FOR A WHILE, STOPPED COMING FOR THEM, LEVEL NL ON ORAL MED DM TYPE II CHRONIC BACK PAIN ONE FALL LAST YEAR AFTER BACK SURG, DID GO TO THE ER ONLY HURT HER KNEES 1ST COVID 10/17/2020 2ND COVID 11/14/2020 ALLERGIES TRICOR: RASH - ALLERGY DUST MITES: RASH - ALLERGY - ONSET DATE 02/18/2020 SOCIAL HISTORY GENERAL: TOBACCO USE ARE YOU A:FORMER SMOKER HOW LONG HAS IT BEEN SINCE YOU LAST SMOKED?> 10 YEARS LATEX QUESTIONNAIRE LATEX ALLERGY : HAVE YOU EVER DEVELOPED ANY TYPE OF REACTION AFTER HANDLING LATEX PRODUCTS SUCH RUBBER GLOVES, CONDOMS, DIAPHRAGMS, BALLOONS, SOCKS, OR UNDERWEAR?NO LATEX ALLERGY : HAVE YOU EVER DEVELOPED ANY TYPE OF REACTION DURING OR AFTER DENTAL APPOINTMENT, VAGINAL/RECTAL EXAMINATION, SURGICAL PROCEDURE, OR ANY OTHER EXPOSURE?NO LATEX RISK : HAVE YOU EVER HAD ANY DIFFICULTY BREATHING OR HIVES AFTER EATING OR HANDLING ANY FRUITS, OR VEGETABLES; SUCH KIWI, BANANAS, STONE FRUITS, OR CHESTNUTSNO LATEX RISK : DO YOU HAVE A PREVIOUS PERSONAL HISTORY OF MORE THAN NINE SURGERIES, SPINA BIFIDA, OR REPEATED CATHERIZATIONS? YES - PLEASE INDICATE : > 9 SURGERIES LATEX RISK : ARE YOU FREQUENTLY EXPOSED TO LATEX PRODUCTS IN YOUR OCCUPATION?NO DATE ASKED : 02/28/2021 ALCOHOL USE: NO. BMI CARE GOAL FOLLOW-UP ABOVE NORMAL BMI FOLLOW-UPDIETARY MANAGEMENT EDUCATION, GUIDANCE, AND COUNSELING ALCOHOL SCREENING DID YOU HAVE A DRINK CONTAINING ALCOHOL IN THE PAST YEAR?NO POINTS0 INTERPRETATIONNEGATIVE RECREATIONAL DRUG USE DRUG USE?NO CAFFEINE CAFFEINE USE?NO SEXUAL HX HAD SEX IN THE LAST 12 MONTHS (VAGINAL, ORAL, OR ANAL)?YES WITHMEN ONLY PREVENTION STRATEGIES DISCUSSED:OTHER USE PROTECTION?NO LMP:HYSTER HAVE YOU EVER HAD AN STD?NO HIV / HEP-C SCREENING HIV TEST OFFERED TO PATIENT:YES DATE OFFERED:10/11/2016 TEST ACCEPTED:NO HEP-C TEST OFFERED TO PATIENT:NO REASON:PATIENT DECLINED YARSANISM [id number] [employer]EW [employer]ANG[employer]AGE MALAY. EDUCATION 12TH GRADE GRADUATE. LEARNING BARRIERS / SPECIAL NEEDS CHANGE FROM LAST VISIT?NO BARRIERS TO LEARNING?NO HEARING IMPAIRED?YES :HEARING AIDES VISION IMPAIRED?YES :CORRECTIVE LENSES COGNITIVELY IMPAIRED?NO READINESS TO LEARN?YES LEARNING PREFERENCES?NO LEARNING CAPABILITIES PRESENT?YES EMOTIONAL BARRIERS?NO SPECIAL DEVICES?YES BRACE WRISTS AND KNEES, C PAP BUT DOESNT USE IT IN OVER 2 YEARS FUND RAISER NEEDED?NO NO DOMESTIC VIOLENCE DO YOU FEEL SAFE IN YOUR ENVIRONMENT?YES OCCUPATION: UNEMPLOYED. DIET: REGULAR. EXERCISE: WALKS UP & DOWN STAIRS @ HOME WHEN OUT ON APPOINTMENTS. MARITAL STATUS: . OTHERS AT HOME: SPOUSE, CHILD. - PFS REFERRAL NEEDED?NO CLERGY REFERRAL NEEDED?NO PUBLIC HEALTH REFERRAL NEEDED?NO HAS THE PATIENT BEEN EDUCATED REGARDING HIS/HER PLAN OF CARE?YES HAS THE PATIENT BEEN EDUCATED REGARDING PAIN, THE RISK FOR PAIN, THE IMPORTANCE OF EFFECTIVE PAIN MANAGEMENT, AND THE PAIN ASSESSMENT PROCESS?YES HOUSING: RENTS HOUSE. ADVANCE DIRECTIVE ADVANCE DIRECTIVE DISCUSSED WITH PATIENT:YES PT DOES NOT HAVE ANY ADVANCED DIRECTIVES AND SHE DECLINES INFORMATION ON HCP AT THIS TIME. REVIEW OF SYSTEMS CONSTITUTIONAL: ANY RECENT FEVER NO . CHILLS NO . WEIGHT CHANGE OF UNKNOWN REASONS NO . GASTROENTEROLOGY: NEW UNEXPLAINABLE CHANGES IN BOWEL CONTROL NO . CONSTIPATION NO . GENITOURINARY: ANY NEW CHANGE IN BLADDER CONTROL? NO . NEUROLOGY: NEW ONSET DIZZINESS OR NEUROLOGICAL CHANGES NOT MENTIONED NO . NEW NUMBNESS OR PAIN PATTERNS NOT MENTIONED AND PERTINENT TO TODAY'S VISIT NO . CARDIOLOGY: NEW CHEST PRESSURE NO . PATIENT DENIES NO . RESPIRATORY: UNEXPLAINABLE COUGH NO . NEW SHORTNESS OF BREATH NO . VITAL SIGNS WT 223 LBS, HT 5'3", BMI 39.50 INDEX, BP 127/68 MM HG, HR 78 /MIN, RR 18 /MIN, TEMP 97.7 F, OXYGEN SAT % 96%, BLOOD GLUCOSE LEVEL 144, SAFE IN ENV? (Y/N) [facility]. EXAMINATION GENERAL EXAMINATION: GENERAL ALERT,NO DISTRESS . PSYCH AFFECT NORMAL . LUNGS: LUNG SOUNDS ARE CLEAR . HEART: HEART RATE REGULAR . MUSCULOSKELETAL: MST 5/5 BILAT. LOWER EXTREMITIES . LUMBAR: TENDERNESS NOTED OVER RIGHT SIJ .POSITIVE PAWAN TEST NOTED OVER RIGHT SIJ. DIAGNOSTIC TESTS REVIEWEDMRI L/S SPINE-2019. ASSESSMENTS OTHER CHRONIC PAIN - G89.29 (PRIMARY) SACROILIITIS - M46.1 TREATMENT OTHER CHRONIC PAIN PAIN PROCEDURE LOGDATE OF PROCEDURE1PROCEDURE:TRIGGER POINT INJECTION BILATERAL LOW BACKAMOUNT OF PRE SEDATEVALIUM 5MG, OXYCODONE 5 MGRESULT:IMPROVEMENT OVER LEFT LOW BACK MEDICATION: PAIN VALIUM TAB 5MG ORALLY (DIAZEPAM) (ORDERED FOR 03/14/2021) MEDICATION: PAIN OXYCODONE HCL TAB 5MG ORALLY (ORDERED FOR 03/14/2021) NOTES: RIGHT SACROILIAC JOINT BLOCK PRINTED AND REVIEWED PRE PROCEDURE INFORMATION, PATIENT VERBALIZED UNDERSTANDING DEANDRE MORELAND PROCEDURE CODES FA211 ESTABILISHED PATIENT [facility] CHARGE DISPOSITION & COMMUNICATION FOLLOW UP POST (REASON: RIGHT SACROILIAC JOINT BLOCK ) ELECTRONICALLY SIGNED BY MARICEL ORELLANA ON 02/28/2021 AT 01:17 PM EDT DISCLAIMER : THIS IS A VISIT SUMMARY EXTRACTED FROM THE [employer] CHART. IT IS NOT A COPY OF THE [employer] PROGRESS NOTE. DANIEL
== END ==
LOC: M PAIN 09:30
PROVIDERS: ATTEND Nurse Practitioner Family
DX: G89.29 Other chronic pain (principal); M46.1 Sacroiliitis, not elsewhere classified; I10 Essential (primary) hypertension; M79.7 Fibromyalgia; J45.909 Unspecified asthma, uncomplicated; M10.9 Gout, unspecified; E55.9 Vitamin D deficiency, unspecified; E11.9 Type 2 diabetes mellitus without complications; Z87.891 Personal history of nicotine dependence; E53.8 Deficiency of other specified B group vitamins; Z79.1 Long term (current) use of non-steroidal anti-inflammatories (NSAID); Z79.891 Long term (current) use of opiate analgesic; Z79.899 Other long term (current) drug therapy; Z88.8 Allergy status to other drugs, medicaments and biological substances

== ENCOUNTER → 2021-03-15 | Outpatient (CLI) | payer OTHER | LOC: M LABSMTC 09:47 | PROVIDERS: ATTEND Anesthesiology | DX: Z20.822 Contact with and (suspected) exposure to COVID-19 (principal) ==

== ENCOUNTER → 2021-03-20 | Outpatient (CLI) | payer OTHER ==
[~2021-03-20] MED LIST changes: +BUPIVACAINE HCL 0.25% 30ML VIAL As Ordered ONE; +ISOVUE-M 300 61% 15ML VIAL As Ordered ONE; +LIDOCAINE 1% SDV 30ML VIAL As Ordered ONE; +TRIAMCINOLONE ACETONIDE SUSP 40 MG/ML VIAL (J3301) As Ordered ONE; +diazePAM 5MG TABLET As Ordered ONE; +oxyCODONE 5MG TAB As Ordered ONE
--- NOTE | 2021-03-20 11:11 | REP ---
INDICATION: RIGHT SACROILIAC JOINT BLOCK. COMPARISON: None. TECHNIQUE: Single C-arm view right sacroiliac joint. FINDINGS: A needle overlies the right sacroiliac joint. IMPRESSION: 17 seconds fluoroscopy time utilized. <Electronically signed by Giorgio Hermosillo > 03/20/21 110
== END ==
LOC: M PAIN 09:20
PROVIDERS: ATTEND Anesthesiology
DX: M46.1 Sacroiliitis, not elsewhere classified (principal); I10 Essential (primary) hypertension; J45.909 Unspecified asthma, uncomplicated; M10.9 Gout, unspecified; E55.9 Vitamin D deficiency, unspecified; M79.7 Fibromyalgia; J32.9 Chronic sinusitis, unspecified; E53.8 Deficiency of other specified B group vitamins; E11.9 Type 2 diabetes mellitus without complications; Z87.891 Personal history of nicotine dependence; Z79.1 Long term (current) use of non-steroidal anti-inflammatories (NSAID); Z79.899 Other long term (current) drug therapy; Z88.8 Allergy status to other drugs, medicaments and biological substances
CPT/HCPCS: 27096; J3301; Q9967

== ENCOUNTER → 2021-05-15 | Outpatient (CLI) | payer OTHER ==
[~2021-05-15] MED LIST changes: -BUPIVACAINE HCL 0.25% 30ML VIAL As Ordered ONE; -ISOVUE-M 300 61% 15ML VIAL As Ordered ONE; -LIDOCAINE 1% SDV 30ML VIAL As Ordered ONE; -TRIAMCINOLONE ACETONIDE SUSP 40 MG/ML VIAL (J3301) As Ordered ONE; -diazePAM 5MG TABLET As Ordered ONE; -oxyCODONE 5MG TAB As Ordered ONE
[2021-05-15 11:47] LABS: BLOOD UREA NITROGEN 7 MG/DL (7-18); CALCIUM LEVEL 9.8 MG/DL (8.5-10.1); CARBON DIOXIDE LEVEL 30 MEQ/L (21-32); CHLORIDE LEVEL 97 MEQ/L (98-107); CREATININE FOR GFR 0.56 MG/DL (0.55-1.30); GLOMERULAR FILTRATION RATE > 60.0 (>51); GLUCOSE, FASTING 139 MG/DL (70-100); POTASSIUM SERUM 4.6 MEQ/L (3.5-5.1); SODIUM LEVEL 133 MEQ/L (136-145)
[2021-05-15 11:56] LABS: FOLATE 15.9 NG/ML; TOTAL 25(OH) VITAMIN D 39.9 NG/ML (30.0-100.0); VITAMIN B12 LEVEL > 2000 PG/ML
== END ==
LOC: M PLALAB 08:06
PROVIDERS: ATTEND Nurse Practitioner Family
DX: M10.9 Gout, unspecified (principal); I10 Essential (primary) hypertension; E53.8 Deficiency of other specified B group vitamins; E55.9 Vitamin D deficiency, unspecified

== ENCOUNTER → 2021-07-13 | Outpatient (CLI) | payer OTHER ==
[~2021-07-13] MED LIST changes: -MONT10TA10 PO; +MONT10TA97 PO
== END ==
LOC: M PAIN 09:45
PROVIDERS: ATTEND Anesthesiology
DX: G89.29 Other chronic pain (principal); M54.50 Low back pain, unspecified; I10 Essential (primary) hypertension; J45.909 Unspecified asthma, uncomplicated; E55.9 Vitamin D deficiency, unspecified; M10.9 Gout, unspecified; E11.9 Type 2 diabetes mellitus without complications; M79.7 Fibromyalgia; E53.8 Deficiency of other specified B group vitamins; J32.9 Chronic sinusitis, unspecified; Z87.891 Personal history of nicotine dependence; Z79.891 Long term (current) use of opiate analgesic; Z79.84 Long term (current) use of oral hypoglycemic drugs; Z79.899 Other long term (current) drug therapy; Z88.8 Allergy status to other drugs, medicaments and biological substances

== ENCOUNTER → 2021-10-10 | Outpatient (CLI) | payer OTHER | LOC: M PAIN 09:45 | PROVIDERS: ATTEND Nurse Practitioner Family | DX: M46.1 Sacroiliitis, not elsewhere classified (principal); I10 Essential (primary) hypertension; J45.909 Unspecified asthma, uncomplicated; M10.9 Gout, unspecified; E55.9 Vitamin D deficiency, unspecified; M79.7 Fibromyalgia; E53.8 Deficiency of other specified B group vitamins; E11.9 Type 2 diabetes mellitus without complications; Z87.891 Personal history of nicotine dependence; Z79.84 Long term (current) use of oral hypoglycemic drugs; Z79.899 Other long term (current) drug therapy; Z79.1 Long term (current) use of non-steroidal anti-inflammatories (NSAID); Z88.8 Allergy status to other drugs, medicaments and biological substances ==

== ENCOUNTER → 2021-10-19 | Outpatient (CLI) | payer OTHER | LOC: M RAD 10:09 | PROVIDERS: ATTEND Nurse Practitioner Family | DX: M16.10 Unilateral primary osteoarthritis, unspecified hip (principal) ==

== ENCOUNTER → 2021-11-26 | Outpatient (CLI) | payer OTHER | LOC: M PAIN 11:00 | PROVIDERS: ATTEND Nurse Practitioner Family | DX: M46.1 Sacroiliitis, not elsewhere classified (principal); I10 Essential (primary) hypertension; J45.909 Unspecified asthma, uncomplicated; M10.9 Gout, unspecified; E55.9 Vitamin D deficiency, unspecified; M79.7 Fibromyalgia; J32.9 Chronic sinusitis, unspecified; E53.8 Deficiency of other specified B group vitamins; E11.9 Type 2 diabetes mellitus without complications; Z87.891 Personal history of nicotine dependence; Z79.84 Long term (current) use of oral hypoglycemic drugs; Z79.899 Other long term (current) drug therapy; Z88.8 Allergy status to other drugs, medicaments and biological substances ==

== ENCOUNTER → 2021-12-12 | Outpatient (CLI) | payer OTHER ==
[2021-12-12 10:27] LABS: BASO % 0.3 % (0.0-1.0); EOS # 0.5 10^3/uL (0.0-0.5); EOS % 5.1 % (0.0-3.0); HEMATOCRIT 35.2 % (36.0-47.0); HEMOGLOBIN 10.4 g/dl (12.0-15.5); LYMPH # 1.6 10^3/uL (1.5-5.0); LYMPH % 17.8 % (24.0-44.0); MEAN CORPUSCULAR HEMOGLOBIN 23.9 pg (27.0-33.0); MEAN CORPUSCULAR HGB CONC 29.5 g/dl (32.0-36.5); MEAN CORPUSCULAR VOLUME 80.9 fl (80.0-96.0); MONO # 0.6 10^3/uL (0.0-0.8); MONO % 6.3 % (2.0-8.0); NEUTROPHILS # 6.4 10^3/uL (1.5-8.5); NEUTROPHILS % 69.7 % (36.0-66.0); PLATELET COUNT, AUTOMATED 407 10^3/uL (150-450); RED BLOOD COUNT 4.35 10^6/uL (4.00-5.40); WHITE BLOOD COUNT 9.2 10^3/uL (4.0-10.0)
[2021-12-12 10:39] LABS: INR 0.87; PROTHROMBIN TIME 12.2 SECONDS (12.7-14.5)
[2021-12-12 10:40] LABS: PARTIAL THROMBOPLASTIN TIME 28.5 SECONDS (25.9-37.0)
[2021-12-12 10:43] LABS: HEMOGLOBIN A1c 6.1 %
[2021-12-12 10:56] LABS: ALT/SGPT 26 U/L (12-78); BILIRUBIN,TOTAL 0.4 MG/DL (0.2-1.0); BLOOD UREA NITROGEN 8 MG/DL (7-18); CALCIUM LEVEL 10.2 MG/DL (8.5-10.1); CARBON DIOXIDE LEVEL 28 MEQ/L (21-32); CHLORIDE LEVEL 98 MEQ/L (98-107); CHOLESTEROL LEVEL 127 MG/DL (<200); CHOLESTEROL RISK RATIO 2.645 (<5); CREATININE FOR GFR 0.52 MG/DL (0.55-1.30); FREE T4 1.09 NG/DL (0.76-1.46); GLOMERULAR FILTRATION RATE > 60.0 (>51); GLUCOSE, FASTING 100 MG/DL (70-100); HDL CHOLESTEROL 48 MG/DL (>40); LDL CHOLESTEROL 42 MG/DL (<100); NON-HDL-C 79 MG/DL; NT-PRO BNP 28 PG/ML (<125); POTASSIUM SERUM 4.6 MEQ/L (3.5-5.1); SODIUM LEVEL 134 MEQ/L (136-145); TRIGLYCERIDES LEVEL 184 MG/DL (<150)
[2021-12-12 10:58] LABS: VITAMIN B12 LEVEL > 2000 PG/ML (247-911)
== END ==
LOC: M PLALAB 07:54
PROVIDERS: ATTEND Family Medicine
DX: Z01.818 Encounter for other preprocedural examination (principal); E11.40 Type 2 diabetes mellitus with diabetic neuropathy, unspecified; J45.30 Mild persistent asthma, uncomplicated; I10 Essential (primary) hypertension

== ENCOUNTER → 2022-03-19 | Outpatient (CLI) | payer OTHER ==
[~2022-03-19] MED LIST changes: +ALBU2.5V10; -ALBU83IN; +NYST-13 EXT; -NYST10CR EXT
[2022-03-19 10:48] LABS: BASO # 0.1 10^3/uL (0.0-0.2); BASO % 0.5 % (0.0-1.0); EOS # 0.6 10^3/uL (0.0-0.5); EOS % 6.6 % (0.0-3.0); HEMATOCRIT 34.7 % (36.0-47.0); HEMOGLOBIN 10.6 g/dl (12.0-15.5); LYMPH % 21.3 % (24.0-44.0); MEAN CORPUSCULAR HEMOGLOBIN 24.7 pg (27.0-33.0); MEAN CORPUSCULAR HGB CONC 30.5 g/dl (32.0-36.5); MEAN CORPUSCULAR VOLUME 80.7 fl (80.0-96.0); MONO # 0.7 10^3/uL (0.0-0.8); MONO % 7.2 % (2.0-8.0); NEUTROPHILS # 6.1 10^3/uL (1.5-8.5); NEUTROPHILS % 63.6 % (36.0-66.0); PLATELET COUNT, AUTOMATED 335 10^3/uL (150-450); WHITE BLOOD COUNT 9.6 10^3/uL (4.0-10.0)
[2022-03-19 11:26] LABS: ALT/SGPT 36 U/L (12-78); BILIRUBIN,TOTAL 0.4 MG/DL (0.2-1.0); BLOOD UREA NITROGEN 7 MG/DL (7-18); CALCIUM LEVEL 9.4 MG/DL (8.5-10.1); CARBON DIOXIDE LEVEL 27 MEQ/L (21-32); CHLORIDE LEVEL 96 MEQ/L (98-107); CHOLESTEROL LEVEL 119 MG/DL (<200); GLOMERULAR FILTRATION RATE > 60.0 (>51); GLUCOSE, FASTING 97 MG/DL (70-100); HDL CHOLESTEROL 53 MG/DL (>40); NON-HDL-C 66 MG/DL; POTASSIUM SERUM 4.1 MEQ/L (3.5-5.1); SODIUM LEVEL 130 MEQ/L (136-145); TRIGLYCERIDES LEVEL 138 MG/DL (<150)
[2022-03-19 11:27] LABS: ALBUMIN 3.9 GM/DL (3.2-5.2); CHOLESTEROL RISK RATIO 2.245 (<5); LDL CHOLESTEROL 38 MG/DL (<100); TOTAL PROTEIN 6.7 GM/DL (6.4-8.2)
[2022-03-19 11:59] LABS: CREATININE, URINE 13.7 MG/DL; MALB URINE SIEMENS 5.9 MG/L
[2022-03-19 12:26] LABS: TOTAL 25(OH) VITAMIN D 49.4 NG/ML (30.0-100.0); VITAMIN B12 LEVEL 1239 PG/ML (247-911)
== END ==
LOC: M PLALAB 08:53
PROVIDERS: ATTEND Nurse Practitioner Family
DX: E11.9 Type 2 diabetes mellitus without complications (principal); E55.9 Vitamin D deficiency, unspecified; I10 Essential (primary) hypertension; M10.9 Gout, unspecified; E78.2 Mixed hyperlipidemia; E53.8 Deficiency of other specified B group vitamins

== ENCOUNTER → 2022-03-31 | Outpatient (CLI) | payer OTHER | LOC: M LABSMTC 09:36 | PROVIDERS: ATTEND Anesthesiology | DX: Z01.812 Encounter for preprocedural laboratory examination (principal); Z11.52 Encounter for screening for COVID-19 ==

== ENCOUNTER → 2022-04-02 | Outpatient (CLI) | payer OTHER ==
[~2022-04-02] MED LIST changes: +BUPIVACAINE HCL 0.25% 30ML VIAL As Ordered ONE; +ISOVUE-M 300 61% 15ML VIAL As Ordered ONE; +LIDOCAINE 1% SDV 30ML VIAL As Ordered ONE; +TRIAMCINOLONE ACETONIDE SUSP 40 MG/ML VIAL (J3301) As Ordered ONE; +diazePAM 5MG TABLET As Ordered ONE; +oxyCODONE 5MG TAB As Ordered ONE
== END ==
LOC: M PAIN 10:00
PROVIDERS: ATTEND Anesthesiology
DX: M46.1 Sacroiliitis, not elsewhere classified (principal); I10 Essential (primary) hypertension; J45.909 Unspecified asthma, uncomplicated; M10.9 Gout, unspecified; E55.9 Vitamin D deficiency, unspecified; H66.91 Otitis media, unspecified, right ear; E11.9 Type 2 diabetes mellitus without complications; M79.7 Fibromyalgia; J32.9 Chronic sinusitis, unspecified; E53.8 Deficiency of other specified B group vitamins; Z87.891 Personal history of nicotine dependence; Z79.84 Long term (current) use of oral hypoglycemic drugs; Z79.1 Long term (current) use of non-steroidal anti-inflammatories (NSAID); Z79.899 Other long term (current) drug therapy; Z88.8 Allergy status to other drugs, medicaments and biological substances
CPT/HCPCS: 27096; J3301; Q9967

== ENCOUNTER → 2022-05-02 | Outpatient (CLI) | payer OTHER ==
[~2022-05-02] MED LIST changes: +ALBU6.7H6 INH; -BUPIVACAINE HCL 0.25% 30ML VIAL As Ordered ONE; -ISOVUE-M 300 61% 15ML VIAL As Ordered ONE; -LIDOCAINE 1% SDV 30ML VIAL As Ordered ONE; -PROV108A INH; -TRIAMCINOLONE ACETONIDE SUSP 40 MG/ML VIAL (J3301) As Ordered ONE; -diazePAM 5MG TABLET As Ordered ONE; -oxyCODONE 5MG TAB As Ordered ONE
== END ==
LOC: M PAIN 11:30
PROVIDERS: ATTEND Nurse Practitioner Family
DX: M79.18 Myalgia, other site (principal); I10 Essential (primary) hypertension; J45.909 Unspecified asthma, uncomplicated; M10.9 Gout, unspecified; E55.9 Vitamin D deficiency, unspecified; H66.91 Otitis media, unspecified, right ear; E11.9 Type 2 diabetes mellitus without complications; M79.7 Fibromyalgia; E53.8 Deficiency of other specified B group vitamins; Z87.891 Personal history of nicotine dependence; Z79.84 Long term (current) use of oral hypoglycemic drugs; Z79.1 Long term (current) use of non-steroidal anti-inflammatories (NSAID); Z79.899 Other long term (current) drug therapy; Z88.8 Allergy status to other drugs, medicaments and biological substances

== ENCOUNTER → 2022-05-23 | Outpatient (CLI) | payer OTHER | LOC: M WHC 08:27 | PROVIDERS: ATTEND Nurse Practitioner Family | DX: Z12.31 Encounter for screening mammogram for malignant neoplasm of breast (principal) ==

== ENCOUNTER → 2022-07-14 | Outpatient (CLI) | payer OTHER | LOC: M LABSMTC 10:34 | PROVIDERS: ATTEND Anesthesiology | DX: Z01.812 Encounter for preprocedural laboratory examination (principal); Z11.52 Encounter for screening for COVID-19 ==

== ENCOUNTER → 2022-07-18 | Outpatient (CLI) | payer OTHER ==
[~2022-07-18] MED LIST changes: +BUPIVACAINE HCL 0.25% 10ML VIAL As Ordered ONE; +BUPIVACAINE HCL 0.25% 30ML VIAL As Ordered ONE; +TRIAMCINOLONE ACETONIDE SUSP 40MG/ML 1ML VIAL As Ordered ONE; +diazePAM 5MG TABLET As Ordered ONE; +oxyCODONE 5MG TAB As Ordered ONE
== END ==
LOC: M PAIN 08:15
PROVIDERS: ATTEND Anesthesiology
DX: M79.18 Myalgia, other site (principal); I10 Essential (primary) hypertension; J45.909 Unspecified asthma, uncomplicated; M10.9 Gout, unspecified; E55.9 Vitamin D deficiency, unspecified; E11.9 Type 2 diabetes mellitus without complications; M79.7 Fibromyalgia; E53.8 Deficiency of other specified B group vitamins; Z87.891 Personal history of nicotine dependence; Z79.1 Long term (current) use of non-steroidal anti-inflammatories (NSAID); Z79.899 Other long term (current) drug therapy; Z79.84 Long term (current) use of oral hypoglycemic drugs; Z88.8 Allergy status to other drugs, medicaments and biological substances
CPT/HCPCS: 20552; J3301

== ENCOUNTER → 2022-08-02 | Outpatient (CLI) | payer OTHER ==
[~2022-08-02] MED LIST changes: -BUPIVACAINE HCL 0.25% 10ML VIAL As Ordered ONE; -BUPIVACAINE HCL 0.25% 30ML VIAL As Ordered ONE; -TRIAMCINOLONE ACETONIDE SUSP 40MG/ML 1ML VIAL As Ordered ONE; -diazePAM 5MG TABLET As Ordered ONE; -oxyCODONE 5MG TAB As Ordered ONE
[2022-08-02 09:53] LABS: BASO % 0.2 % (0.0-1.0); EOS # 0.2 10^3/uL (0.0-0.5); HEMATOCRIT 35.6 % (36.0-47.0); HEMOGLOBIN 10.4 g/dl (12.0-15.5); LYMPH # 2.1 10^3/uL (1.5-5.0); LYMPH % 17.2 % (24.0-44.0); MEAN CORPUSCULAR HEMOGLOBIN 23.5 pg (27.0-33.0); MEAN CORPUSCULAR HGB CONC 29.2 g/dl (32.0-36.5); MEAN CORPUSCULAR VOLUME 80.5 fl (80.0-96.0); MONO # 0.9 10^3/uL (0.0-0.8); MONO % 7.5 % (2.0-8.0); NEUTROPHILS # 8.7 10^3/uL (1.5-8.5); NEUTROPHILS % 72.4 % (36.0-66.0); PLATELET COUNT, AUTOMATED 355 10^3/uL (150-450); RED BLOOD COUNT 4.42 10^6/uL (4.00-5.40); WHITE BLOOD COUNT 12.1 10^3/uL (4.0-10.0)
[2022-08-02 10:16] LABS: MAGNESIUM LEVEL 1.6 MG/DL (1.8-2.4)
[2022-08-02 10:18] LABS: ALBUMIN 3.6 G/DL (3.2-5.2); ALKALINE PHOSPHATASE 95 U/L (46-116); ALT/SGPT 27 U/L (7.0-40); AST/SGOT 16 U/L (<34); BILIRUBIN,TOTAL 0.3 MG/DL (0.3-1.2); BLOOD UREA NITROGEN 8 MG/DL (9-23); CALCIUM LEVEL 9.8 MG/DL (8.5-10.1); CARBON DIOXIDE LEVEL 29 MMOL/L (20-31); CHLORIDE LEVEL 100 MMOL/L (98-107); CREATININE FOR GFR 0.57 MG/DL (0.55-1.30); GLOMERULAR FILTRATION RATE > 60.0 (>51); GLUCOSE, FASTING 126 MG/DL (60-100); POTASSIUM SERUM 4.4 MMOL/L (3.5-5.1); SODIUM LEVEL 136 MMOL/L (136-145); TOTAL PROTEIN 6.1 G/DL (5.7-8.2)
[2022-08-02 10:19] LABS: VITAMIN B12 LEVEL 1069 PG/ML (211-911)
[2022-08-02 10:20] LABS: CREATININE, URINE 44.9 MG/DL; MALB URINE SIEMENS < 3.0 MG/DL; MAU/CREAT RATIO 6.6 MCG/MG (0.0-30.0)
== END ==
LOC: M LAB 09:00
PROVIDERS: ATTEND Nurse Practitioner Family
DX: E11.9 Type 2 diabetes mellitus without complications (principal); I10 Essential (primary) hypertension; E53.8 Deficiency of other specified B group vitamins; D64.9 Anemia, unspecified

== ENCOUNTER → 2022-08-08 | Outpatient (CLI) | payer OTHER | LOC: M PAIN 11:30 | PROVIDERS: ATTEND Nurse Practitioner Family | DX: G89.29 Other chronic pain (principal); M48.00 Spinal stenosis, site unspecified; M96.1 Postlaminectomy syndrome, not elsewhere classified; I10 Essential (primary) hypertension; J45.909 Unspecified asthma, uncomplicated; M10.9 Gout, unspecified; E55.9 Vitamin D deficiency, unspecified; E11.9 Type 2 diabetes mellitus without complications; M47.816 Spondylosis without myelopathy or radiculopathy, lumbar region; E53.8 Deficiency of other specified B group vitamins; M25.569 Pain in unspecified knee; Z87.891 Personal history of nicotine dependence; Z79.84 Long term (current) use of oral hypoglycemic drugs; Z79.1 Long term (current) use of non-steroidal anti-inflammatories (NSAID); Z79.899 Other long term (current) drug therapy; Z88.8 Allergy status to other drugs, medicaments and biological substances ==

== ENCOUNTER → 2022-09-24 | Outpatient (CLI) | payer OTHER ==
[~2022-09-24] MED LIST changes: +LIDO15SO4 PO; -LIDO2SOL17 PO
[2022-09-24 11:39] LABS: BLOOD UREA NITROGEN 8 MG/DL (9-23); CREATININE FOR GFR 0.58 MG/DL (0.55-1.30); GLOMERULAR FILTRATION RATE > 60.0 (>51)
== END ==
LOC: M PLALAB 08:10
PROVIDERS: ATTEND Nurse Practitioner Family
DX: M96.1 Postlaminectomy syndrome, not elsewhere classified (principal)

== ENCOUNTER → 2022-09-26 | Outpatient (CLI) | payer OTHER | LOC: M PLARAD 12:42 | PROVIDERS: ATTEND Nurse Practitioner Family | DX: M96.1 Postlaminectomy syndrome, not elsewhere classified (principal); M51.26 Other intervertebral disc displacement, lumbar region ==

== ENCOUNTER → 2022-10-08 | Outpatient (CLI) | payer OTHER ==
[~2022-10-08] MED LIST changes: -DULE100A IN; +MOME13HF8 IN
== END ==
LOC: M PAIN 09:15
PROVIDERS: ATTEND Nurse Practitioner Family
DX: M96.1 Postlaminectomy syndrome, not elsewhere classified (principal); M51.16 Intervertebral disc disorders with radiculopathy, lumbar region; I10 Essential (primary) hypertension; J45.909 Unspecified asthma, uncomplicated; M10.9 Gout, unspecified; E55.9 Vitamin D deficiency, unspecified; E11.9 Type 2 diabetes mellitus without complications; M47.816 Spondylosis without myelopathy or radiculopathy, lumbar region; E53.8 Deficiency of other specified B group vitamins; Z87.891 Personal history of nicotine dependence; Z79.1 Long term (current) use of non-steroidal anti-inflammatories (NSAID); Z79.84 Long term (current) use of oral hypoglycemic drugs; Z79.899 Other long term (current) drug therapy; Z88.8 Allergy status to other drugs, medicaments and biological substances

== ENCOUNTER → 2022-10-28 | Outpatient (CLI) | payer OTHER | LOC: M LABSMTC 08:56 | PROVIDERS: ATTEND Anesthesiology | DX: Z01.812 Encounter for preprocedural laboratory examination (principal) ==

== ENCOUNTER → 2022-10-29 | Outpatient (CLI) | payer OTHER ==
[~2022-10-29] MED LIST changes: +ISOVUE-M 300 61% 15ML VIAL As Ordered ONE; +LIDOCAINE 1% SDV 30ML VIAL As Ordered ONE; +diazePAM 5MG TABLET As Ordered ONE; +methylPREDNISolone SUSP 40MG/ML 1ML VIAL (DEPO MEDROL) As Ordered ONE; +oxyCODONE 5MG TAB As Ordered ONE
== END ==
LOC: M PAIN 08:00
PROVIDERS: ATTEND Anesthesiology
DX: M51.17 Intervertebral disc disorders with radiculopathy, lumbosacral region (principal); I10 Essential (primary) hypertension; J45.909 Unspecified asthma, uncomplicated; M10.9 Gout, unspecified; E55.9 Vitamin D deficiency, unspecified; E11.9 Type 2 diabetes mellitus without complications; M47.816 Spondylosis without myelopathy or radiculopathy, lumbar region; M96.1 Postlaminectomy syndrome, not elsewhere classified; M79.7 Fibromyalgia; E53.8 Deficiency of other specified B group vitamins; Z87.891 Personal history of nicotine dependence; Z79.899 Other long term (current) drug therapy; Z79.1 Long term (current) use of non-steroidal anti-inflammatories (NSAID); Z79.84 Long term (current) use of oral hypoglycemic drugs; Z88.8 Allergy status to other drugs, medicaments and biological substances
CPT/HCPCS: 62323; J1030; Q9967

== ENCOUNTER → 2022-11-29 | Outpatient (CLI) | payer OTHER ==
[~2022-11-29] MED LIST changes: +FLUT50SP17; -FLUTISP; -ISOVUE-M 300 61% 15ML VIAL As Ordered ONE; +LIDO15SO PO; -LIDO15SO4 PO; -LIDOCAINE 1% SDV 30ML VIAL As Ordered ONE; -diazePAM 5MG TABLET As Ordered ONE; -methylPREDNISolone SUSP 40MG/ML 1ML VIAL (DEPO MEDROL) As Ordered ONE; -oxyCODONE 5MG TAB As Ordered ONE
== END ==
LOC: M PAIN 09:30
PROVIDERS: ATTEND Nurse Practitioner Family
DX: M47.816 Spondylosis without myelopathy or radiculopathy, lumbar region (principal); M96.1 Postlaminectomy syndrome, not elsewhere classified; M47.817 Spondylosis without myelopathy or radiculopathy, lumbosacral region; I10 Essential (primary) hypertension; J45.909 Unspecified asthma, uncomplicated; M10.9 Gout, unspecified; E55.9 Vitamin D deficiency, unspecified; E11.9 Type 2 diabetes mellitus without complications; E53.8 Deficiency of other specified B group vitamins; Z87.891 Personal history of nicotine dependence; Z79.1 Long term (current) use of non-steroidal anti-inflammatories (NSAID); Z79.899 Other long term (current) drug therapy; Z79.84 Long term (current) use of oral hypoglycemic drugs; Z88.8 Allergy status to other drugs, medicaments and biological substances

== ENCOUNTER → 2023-01-16 | Outpatient (CLI) | payer OTHER ==
[~2023-01-16] MED LIST changes: +ISOVUE-M 300 61% 15ML VIAL As Ordered ONE; +LIDOCAINE 1% SDV 30ML VIAL As Ordered ONE; +TRIAMCINOLONE ACETONIDE SUSP 40MG/ML 1ML VIAL As Ordered ONE
== END ==
LOC: M PAIN 09:30
PROVIDERS: ATTEND Anesthesiology
DX: M47.816 Spondylosis without myelopathy or radiculopathy, lumbar region (principal)
CPT/HCPCS: 64493; 64494; Q9967; S0020

== ENCOUNTER → 2023-01-30 | Outpatient (CLI) | payer OTHER ==
[~2023-01-30] MED LIST changes: -ISOVUE-M 300 61% 15ML VIAL As Ordered ONE; -LIDOCAINE 1% SDV 30ML VIAL As Ordered ONE; -TRIAMCINOLONE ACETONIDE SUSP 40MG/ML 1ML VIAL As Ordered ONE
[2023-01-30 12:27] LABS: BASO % 0.3 % (0.0-1.0); EOS # 0.6 10^3/uL (0.0-0.5); EOS % 6.2 % (0.0-3.0); HEMATOCRIT 36.1 % (36.0-47.0); HEMOGLOBIN 10.6 g/dl (12.0-15.5); LYMPH # 1.5 10^3/uL (1.5-5.0); LYMPH % 17.1 % (24.0-44.0); MEAN CORPUSCULAR HEMOGLOBIN 23.6 pg (27.0-33.0); MEAN CORPUSCULAR HGB CONC 29.4 g/dl (32.0-36.5); MEAN CORPUSCULAR VOLUME 80.2 fl (80.0-96.0); MONO # 0.5 10^3/uL (0.0-0.8); MONO % 5.8 % (2.0-8.0); NEUTROPHILS # 6.3 10^3/uL (1.5-8.5); NEUTROPHILS % 69.9 % (36.0-66.0); PLATELET COUNT, AUTOMATED 342 10^3/uL (150-450)
[2023-01-30 12:30] LABS: ALBUMIN 3.8 G/DL (3.2-5.2); ALKALINE PHOSPHATASE 92 U/L (46-116); ALT/SGPT 34 U/L (7.0-40); AST/SGOT 21 U/L (<34); BILIRUBIN,TOTAL 0.5 MG/DL (0.3-1.2); BLOOD UREA NITROGEN 6 MG/DL (9-23); CALCIUM LEVEL 10.4 MG/DL (8.5-10.1); CARBON DIOXIDE LEVEL 29 MMOL/L (20-31); CHLORIDE LEVEL 101 MMOL/L (98-107); CHOLESTEROL LEVEL 115 MG/DL (<200); CHOLESTEROL RISK RATIO 2.62 (<5); CREATININE FOR GFR 0.53 MG/DL (0.55-1.30); GLOMERULAR FILTRATION RATE > 60.0 (>51); GLUCOSE, FASTING 105 MG/DL (60-100); HDL CHOLESTEROL 43.8 MG/DL (>40); LDL CHOLESTEROL 42.8 MG/DL (<100); NON-HDL-C 71.2 MG/DL; POTASSIUM SERUM 4.8 MMOL/L (3.5-5.1); SODIUM LEVEL 136 MMOL/L (136-145); TOTAL PROTEIN 6.4 G/DL (5.7-8.2); TRIGLYCERIDES LEVEL 142 MG/DL (<150)
[2023-01-30 12:36] LABS: CREATININE, URINE 35.1 MG/DL; MAU/CREAT RATIO 11.3 MCG/MG (0.0-30.0)
[2023-01-30 12:37] LABS: HEMOGLOBIN A1c 6.4 % (4.0-6.0)
[2023-01-30 12:47] LABS: URIC ACID 4.8 MG/DL (3.1-7.8)
== END ==
LOC: M PLALAB 08:22
PROVIDERS: ATTEND Nurse Practitioner Family
DX: M10.9 Gout, unspecified (principal); E11.9 Type 2 diabetes mellitus without complications; I10 Essential (primary) hypertension; E78.2 Mixed hyperlipidemia

== ENCOUNTER → 2023-02-10 | Outpatient (CLI) | payer OTHER | LOC: M PAIN 11:30 | PROVIDERS: ATTEND Nurse Practitioner Family | DX: M47.816 Spondylosis without myelopathy or radiculopathy, lumbar region (principal); M47.817 Spondylosis without myelopathy or radiculopathy, lumbosacral region; I10 Essential (primary) hypertension; J45.909 Unspecified asthma, uncomplicated; M10.9 Gout, unspecified; E55.9 Vitamin D deficiency, unspecified; E11.9 Type 2 diabetes mellitus without complications; E53.8 Deficiency of other specified B group vitamins; Z87.891 Personal history of nicotine dependence; Z79.84 Long term (current) use of oral hypoglycemic drugs; Z79.899 Other long term (current) drug therapy; Z88.8 Allergy status to other drugs, medicaments and biological substances ==

== ENCOUNTER 2023-03-03 09:24 | Day surgery (SDC) | payer OTHER ==
[~2023-03-03] VITALS: Ht 160 cm; Wt 96.8 kg
[~2023-03-03 09:24] MED LIST changes: +AMIT25TA19 PO; +B-12100010 PO; +BSS IRRIG/VANCO(10MG)/TOBRA(5MG)/EPINEPH(1:1000-0.5CC)500ML BAG-ORONLY IR ONE; +CEFUROXIME 1MG/0.1ML INTRACAMERAL INJ As Ordered ONE; +CYCLOPENTOLATE 1% OPHTH SOLN 2ML BTL OS SCH; +D 50CAP3 PO; +DICL100G10 TOP; -GABA-283 PO; +GABA-284 PO; +GABA600T4 PO; +LIDOCAINE 1% SDV 5ML VIAL As Ordered ONE; +LIDOCAINE 3.5 % 1ML OPHTH TOPICAL GEL OU ONE; +LISI30TA4 PO; +LISI40TA4 PO; +MELO7.5T35 PO; +MIDAZOLAM INJ 2MG/2ML VIAL As Ordered ONE; +OFLOXACIN 0.3 % (OCUFLOX) OPTH SOL 5ML OS ONE; +PHENYLEPHRINE 10% OPHTH SOL 5ML OS PRN; +PHENYLEPHRINE 2.5% OPHTH SOL 2ML OS SCH; +TROPICAMIDE 1% OPHTH SOLN 15ML OS SCH; +VICT18IN2 SC; +XALA0.007 OU; +fentaNYL 100 MCG/2 ML INJECTION As Ordered ONE
[2023-03-03 12:04] VITALS: BP 177/71; TEMP 97.5; O2SAT 97
== END 2023-03-03 13:05 | disposition home or self-care (01) ==
LOC: M SDC 09:24
PROVIDERS: ATTEND Ophthalmology
DX: H25.12 Age-related nuclear cataract, left eye (principal); I10 Essential (primary) hypertension; E78.5 Hyperlipidemia, unspecified; E11.9 Type 2 diabetes mellitus without complications; J45.909 Unspecified asthma, uncomplicated; G47.30 Sleep apnea, unspecified; Z87.891 Personal history of nicotine dependence; Z88.6 Allergy status to analgesic agent; Z88.8 Allergy status to other drugs, medicaments and biological substances; Z79.899 Other long term (current) drug therapy
CPT/HCPCS: 66984; J0697; J2250; J3010; V2632

== ENCOUNTER → 2023-03-18 | Outpatient (CLI) | payer OTHER ==
[~2023-03-18] MED LIST changes: -BSS IRRIG/VANCO(10MG)/TOBRA(5MG)/EPINEPH(1:1000-0.5CC)500ML BAG-ORONLY IR ONE; -CEFUROXIME 1MG/0.1ML INTRACAMERAL INJ As Ordered ONE; -CYCLOPENTOLATE 1% OPHTH SOLN 2ML BTL OS SCH; +ISOVUE-M 300 61% 15ML VIAL As Ordered ONE; +LIDOCAINE 1% SDV 30ML VIAL As Ordered ONE; -LIDOCAINE 1% SDV 5ML VIAL As Ordered ONE; -LIDOCAINE 3.5 % 1ML OPHTH TOPICAL GEL OU ONE; -MIDAZOLAM INJ 2MG/2ML VIAL As Ordered ONE; -OFLOXACIN 0.3 % (OCUFLOX) OPTH SOL 5ML OS ONE; -PHENYLEPHRINE 10% OPHTH SOL 5ML OS PRN; -PHENYLEPHRINE 2.5% OPHTH SOL 2ML OS SCH; -TROPICAMIDE 1% OPHTH SOLN 15ML OS SCH; -fentaNYL 100 MCG/2 ML INJECTION As Ordered ONE
== END ==
LOC: M PAIN 10:15
PROVIDERS: ATTEND Anesthesiology
DX: M47.816 Spondylosis without myelopathy or radiculopathy, lumbar region (principal); I10 Essential (primary) hypertension; J45.909 Unspecified asthma, uncomplicated; M10.9 Gout, unspecified; E55.9 Vitamin D deficiency, unspecified; E11.9 Type 2 diabetes mellitus without complications; E53.8 Deficiency of other specified B group vitamins; Z87.891 Personal history of nicotine dependence; Z79.84 Long term (current) use of oral hypoglycemic drugs; Z79.1 Long term (current) use of non-steroidal anti-inflammatories (NSAID); Z79.899 Other long term (current) drug therapy; Z88.8 Allergy status to other drugs, medicaments and biological substances
CPT/HCPCS: 64493; 64494; J0665; Q9967

== ENCOUNTER → 2023-04-02 | Outpatient (CLI) | payer OTHER ==
[~2023-04-02] MED LIST changes: +ACET-716 PO; -ISOVUE-M 300 61% 15ML VIAL As Ordered ONE; -LIDOCAINE 1% SDV 30ML VIAL As Ordered ONE; +NAPR220C14 PO
== END ==
LOC: M PAIN 13:15
PROVIDERS: ATTEND Anesthesiology
DX: M47.816 Spondylosis without myelopathy or radiculopathy, lumbar region (principal); I10 Essential (primary) hypertension; J45.909 Unspecified asthma, uncomplicated; M10.9 Gout, unspecified; E55.9 Vitamin D deficiency, unspecified; E11.9 Type 2 diabetes mellitus without complications; M96.1 Postlaminectomy syndrome, not elsewhere classified; E53.8 Deficiency of other specified B group vitamins; Z87.891 Personal history of nicotine dependence; Z79.84 Long term (current) use of oral hypoglycemic drugs; Z79.1 Long term (current) use of non-steroidal anti-inflammatories (NSAID); Z79.899 Other long term (current) drug therapy; Z88.8 Allergy status to other drugs, medicaments and biological substances

== ENCOUNTER 2023-04-04 16:19 | Emergency (ER) | payer OTHER ==
[~2023-04-04] VITALS: Ht 160 cm; Wt 98.2 kg
[~2023-04-04 16:19] MED LIST changes: -ACET-716 PO; -NAPR220C14 PO
[2023-04-04] MEDS ORDERED: NAPR220C14 PO (17:48)
[2023-04-04] MEDS ORDERED: KETOROLAC 60MG 2ML VIAL IM ONE (20:15)
[2023-04-04] MEDS ORDERED: ACETAMINOPH W/CODEINE #3 TAB UD PO ONE (20:45)
[2023-04-04] MEDS ORDERED: ACET-716 PO (20:46)
[2023-04-04 20:47] VITALS: BP 154/78; TEMP 97; O2SAT 96
== END 2023-04-04 21:04 | disposition home or self-care (01) ==
LOC: M ED 16:19
DX: M25.562 Pain in left knee (principal); I10 Essential (primary) hypertension; E11.9 Type 2 diabetes mellitus without complications; E78.5 Hyperlipidemia, unspecified; Z79.82 Long term (current) use of aspirin; Z88.8 Allergy status to other drugs, medicaments and biological substances; Z79.899 Other long term (current) drug therapy
CPT/HCPCS: 73564; 96372; 99283; J1885

== ENCOUNTER → 2023-05-26 | Outpatient (CLI) | payer OTHER ==
[~2023-05-26] MED LIST changes: +ACET-716 PO; +NAPR220C14 PO
== END ==
LOC: M WHC 09:20
PROVIDERS: ATTEND Nurse Practitioner Family
DX: Z12.31 Encounter for screening mammogram for malignant neoplasm of breast (principal)

== ENCOUNTER → 2023-05-27 | Outpatient (CLI) | payer OTHER | LOC: M WHC 09:57 | PROVIDERS: ATTEND Orthopaedic Surgery | DX: M25.562 Pain in left knee (principal); S83.242A Other tear of medial meniscus, current injury, left knee, initial encounter; W18.30XA Fall on same level, unspecified, initial encounter; Y92.009 Unspecified place in unspecified non-institutional (private) residence as the place of occurrence of the external cause ==

== ENCOUNTER → 2023-05-27 | Outpatient (CLI) | payer OTHER ==
[2023-05-27 14:06] LABS: BASO % 0.3 % (0.0-1.0); EOS # 0.6 10^3/uL (0.0-0.5); EOS % 5.1 % (0.0-3.0); HEMATOCRIT 35.5 % (36.0-47.0); HEMOGLOBIN 10.5 g/dl (12.0-15.5); LYMPH # 2.5 10^3/uL (1.5-5.0); LYMPH % 22.8 % (24.0-44.0); MEAN CORPUSCULAR HEMOGLOBIN 23.6 pg (27.0-33.0); MEAN CORPUSCULAR HGB CONC 29.6 g/dl (32.0-36.5); MEAN CORPUSCULAR VOLUME 79.8 fl (80.0-96.0); MONO # 0.8 10^3/uL (0.0-0.8); MONO % 7.2 % (2.0-8.0); NEUTROPHILS # 6.9 10^3/uL (1.5-8.5); NEUTROPHILS % 64.1 % (36.0-66.0); PLATELET COUNT, AUTOMATED 359 10^3/uL (150-450); RED BLOOD COUNT 4.45 10^6/uL (4.00-5.40); WHITE BLOOD COUNT 10.8 10^3/uL (4.0-10.0)
[2023-05-27 14:24] LABS: RHEUMATOID FACTOR QUANT < 3.5 IU/ML (<14)
[2023-05-27 14:34] LABS: ERYTHROCYTE SEDIMENTATION RATE 22 mm/hr (0-30)
[2023-05-28 13:08] LABS: ANTINUCLEAR ANTIBODIES DIRECT Negative (Negative)
== END ==
LOC: M PLALAB 11:30
PROVIDERS: ATTEND Orthopaedic Surgery
DX: M25.562 Pain in left knee (principal)

== ENCOUNTER → 2023-08-12 | Outpatient (CLI) | payer OTHER ==
[~2023-08-12] MED LIST changes: -FLUT50SP17; +FLUTISP
[2023-08-12 13:59] LABS: ALKALINE PHOSPHATASE 101 U/L (46-116); ALT/SGPT 20 U/L (7.0-40); AST/SGOT 11 U/L (<34); BILIRUBIN,TOTAL 0.4 MG/DL (0.3-1.2); BLOOD UREA NITROGEN 9 MG/DL (9-23); CALCIUM LEVEL 10.4 MG/DL (8.5-10.1); CARBON DIOXIDE LEVEL 32 MMOL/L (20-31); CHLORIDE LEVEL 103 MMOL/L (98-107); GLOMERULAR FILTRATION RATE > 60.0 (>51); GLUCOSE, FASTING 130 MG/DL (60-100); POTASSIUM SERUM 4.8 MMOL/L (3.5-5.1); SODIUM LEVEL 138 MMOL/L (136-145); TOTAL PROTEIN 6.5 G/DL (5.7-8.2)
== END ==
LOC: M PLALAB 10:17
PROVIDERS: ATTEND Orthopaedic Surgery
DX: Z01.818 Encounter for other preprocedural examination (principal)

== ENCOUNTER → 2023-08-14 | Outpatient (CLI) | payer OTHER | LOC: M PAIN 09:15 | PROVIDERS: ATTEND Nurse Practitioner Family | DX: M47.816 Spondylosis without myelopathy or radiculopathy, lumbar region (principal); G89.29 Other chronic pain; I10 Essential (primary) hypertension; E78.5 Hyperlipidemia, unspecified; E11.9 Type 2 diabetes mellitus without complications; E53.8 Deficiency of other specified B group vitamins; Z79.1 Long term (current) use of non-steroidal anti-inflammatories (NSAID); Z79.84 Long term (current) use of oral hypoglycemic drugs; Z79.899 Other long term (current) drug therapy; Z87.891 Personal history of nicotine dependence; Z88.8 Allergy status to other drugs, medicaments and biological substances ==

== ENCOUNTER → 2023-10-13 | Outpatient (CLI) | payer OTHER ==
[~2023-10-13] MED LIST changes: -LIDO15SO PO; +LIDO15SO8 PO
== END ==
LOC: M PAIN 09:15
PROVIDERS: ATTEND Nurse Practitioner Family
DX: M47.816 Spondylosis without myelopathy or radiculopathy, lumbar region (principal); G89.29 Other chronic pain; I10 Essential (primary) hypertension; J45.909 Unspecified asthma, uncomplicated; M10.9 Gout, unspecified; E55.9 Vitamin D deficiency, unspecified; E11.9 Type 2 diabetes mellitus without complications; M96.1 Postlaminectomy syndrome, not elsewhere classified; M79.7 Fibromyalgia; E78.5 Hyperlipidemia, unspecified; Z87.891 Personal history of nicotine dependence; Z79.1 Long term (current) use of non-steroidal anti-inflammatories (NSAID); Z79.84 Long term (current) use of oral hypoglycemic drugs; Z79.899 Other long term (current) drug therapy; Z88.8 Allergy status to other drugs, medicaments and biological substances

== ENCOUNTER → 2023-11-25 | Outpatient (CLI) | payer OTHER ==
[~2023-11-25] MED LIST changes: +LABE100T40 PO
== END ==
LOC: M PAIN 09:45
PROVIDERS: ATTEND Nurse Practitioner Family
DX: M47.816 Spondylosis without myelopathy or radiculopathy, lumbar region (principal); G89.29 Other chronic pain; I10 Essential (primary) hypertension; J45.909 Unspecified asthma, uncomplicated; M10.9 Gout, unspecified; E55.9 Vitamin D deficiency, unspecified; E11.9 Type 2 diabetes mellitus without complications; E78.5 Hyperlipidemia, unspecified; E53.8 Deficiency of other specified B group vitamins; Z79.1 Long term (current) use of non-steroidal anti-inflammatories (NSAID); Z79.84 Long term (current) use of oral hypoglycemic drugs; Z79.899 Other long term (current) drug therapy; Z87.891 Personal history of nicotine dependence; Z88.8 Allergy status to other drugs, medicaments and biological substances

== ENCOUNTER 2023-11-30 19:09 | Emergency (ER) | payer OTHER ==
[~2023-11-30] VITALS: Ht 160 cm; Wt 98.6 kg
[~2023-11-30 19:09] MED LIST changes: -LABE100T40 PO
[2023-11-30 20:00] LABS: BASO % 0.4 % (0.0-1.0); EOS # 0.5 10^3/uL (0.0-0.5); EOS % 5.5 % (0.0-3.0); HEMATOCRIT 36.7 % (36.0-47.0); HEMOGLOBIN 11.8 g/dl (12.0-15.5); LYMPH % 21.1 % (24.0-44.0); MEAN CORPUSCULAR HEMOGLOBIN 27.2 pg (27.0-33.0); MEAN CORPUSCULAR HGB CONC 32.2 g/dl (32.0-36.5); MEAN CORPUSCULAR VOLUME 84.6 fl (80.0-96.0); MONO # 0.8 10^3/uL (0.0-0.8); MONO % 8.2 % (2.0-8.0); NEUTROPHILS # 6.2 10^3/uL (1.5-8.5); NEUTROPHILS % 64.4 % (36.0-66.0); PLATELET COUNT, AUTOMATED 331 10^3/uL (150-450); RED BLOOD COUNT 4.34 10^6/uL (4.00-5.40); WHITE BLOOD COUNT 9.6 10^3/uL (4.0-10.0)
[2023-11-30] MEDS: LABETALOL 100MG/20ML VIAL IV STA ×2 (20:10→23:11)
[2023-11-30 20:21] LABS: CK-MB VALUE MASS 2.1 NG/ML (<3.6)
[2023-11-30 20:22] LABS: CPK CREATINE PHOSPHOKINASE 83 U/L (34-145); MB/CK RELATIVE INDEX 2.53 (< OR =4)
[2023-11-30 20:24] LABS: ALBUMIN 3.9 G/DL (3.2-5.2); ALKALINE PHOSPHATASE 80 U/L (46-116); ALT/SGPT 24 U/L (7.0-40); AST/SGOT 15 U/L (<34); BILIRUBIN,DIRECT < 0.1 MG/DL (<0.4); BILIRUBIN,TOTAL 0.3 MG/DL (0.3-1.2); BLOOD UREA NITROGEN 10 MG/DL (9-23); CALCIUM LEVEL 9.3 MG/DL (8.5-10.1); CARBON DIOXIDE LEVEL 29 MMOL/L (20-31); CHLORIDE LEVEL 99 MMOL/L (98-107); CREATININE FOR GFR 0.66 MG/DL (0.55-1.30); GLOMERULAR FILTRATION RATE > 60.0 (>51); GLUCOSE, FASTING 136 MG/DL (60-100); SODIUM LEVEL 138 MMOL/L (136-145); TOTAL PROTEIN 6.3 G/DL (5.7-8.2)
[2023-11-30] MEDS: NS 1,000 ML IV ONE (21:08)
[2023-11-30] MEDS: diphenhydrAMINE 50MG/ML VIAL IV ONE (21:08)
[2023-11-30] MEDS: METOCLOPRAMIDE INJ 10MG/2ML VIAL IV ONE (21:08)
[2023-11-30] MEDS: KETOROLAC 30 MG/ML 1ML VIAL IV ONE (21:08)
[2023-11-30 21:25] LABS: APPEARANCE, URINE CLEAR (CLEAR); BACTERIA, URINE AUTO NEGATIVE (NEGATIVE); BILIRUBIN, URINE AUTO NEGATIVE (NEGATIVE); BLOOD, URINE BLOOD NEGATIVE (NEGATIVE); COLOR, URINE COLORLESS (YELLOW); GLUCOSE, URINE (UA) AUTO NEGATIVE (NEGATIVE); KETONE, URINE AUTO NEGATIVE (NEGATIVE); LEUKOCYTE ESTERASE, URINE AUTO 1+ (NEGATIVE); NITRITE, URINE AUTO NEGATIVE (NEGATIVE); PROTEIN, URINE AUTO NEGATIVE (NEGATIVE); RBC, URINE AUTO 1 /HPF (0-3); SPECIFIC GRAVITY URINE AUTO 1.004 (1.002-1.035); SQUAMOUS EPITHELIAL CELL UR AU 0 /HPF (0-6); UROBILINOGEN, URINE AUTO 0.2 mg/dL (0.0-2.0); WBC, URINE AUTO 13 /HPF (0-3)
[2023-11-30] MEDS ORDERED: LABE100T40 PO (22:43)
[2023-11-30 23:11] VITALS: BP 183/84
[2023-11-30] MEDS: LABETALOL 100MG TAB PO ONE (23:11)
[2023-11-30 23:20] VITALS: BP 169/79; TEMP 97.2; O2SAT 92
== END 2023-11-30 23:30 | disposition home or self-care (01) ==
LOC: M ED 19:09
DX: I16.0 Hypertensive urgency (principal); J45.909 Unspecified asthma, uncomplicated; E11.9 Type 2 diabetes mellitus without complications; Z88.8 Allergy status to other drugs, medicaments and biological substances; Z79.1 Long term (current) use of non-steroidal anti-inflammatories (NSAID); Z79.51 Long term (current) use of inhaled steroids; Z79.84 Long term (current) use of oral hypoglycemic drugs; Z79.899 Other long term (current) drug therapy
CPT/HCPCS: 70450; 71045; 80053; 81001; 82248; 82550; 82553; 85025; 93005; 96361; 96374; 96375; 96376; 99284; J1200; J1885; J1920; J2765

== ENCOUNTER → 2023-12-25 | Outpatient (CLI) | payer OTHER ==
[~2023-12-25] MED LIST changes: +LABE100T40 PO
== END ==
LOC: M PAIN 09:00
PROVIDERS: ATTEND Nurse Practitioner Family
DX: M47.817 Spondylosis without myelopathy or radiculopathy, lumbosacral region (principal); M47.816 Spondylosis without myelopathy or radiculopathy, lumbar region; G89.29 Other chronic pain; I10 Essential (primary) hypertension; J45.909 Unspecified asthma, uncomplicated; M10.9 Gout, unspecified; E55.9 Vitamin D deficiency, unspecified; E11.9 Type 2 diabetes mellitus without complications; E53.8 Deficiency of other specified B group vitamins; E78.5 Hyperlipidemia, unspecified; Z88.8 Allergy status to other drugs, medicaments and biological substances

== ENCOUNTER → 2024-01-02 | Outpatient (CLI) | payer OTHER ==
[2024-01-02 11:13] LABS: BLOOD UREA NITROGEN 6 MG/DL (9-23); CALCIUM LEVEL 9.8 MG/DL (8.5-10.1); CARBON DIOXIDE LEVEL 30 MMOL/L (20-31); CHLORIDE LEVEL 103 MMOL/L (98-107); CREATININE FOR GFR 0.48 MG/DL (0.55-1.30); GLOMERULAR FILTRATION RATE > 60.0 (>51); GLUCOSE, FASTING 101 MG/DL (60-100); POTASSIUM SERUM 4.9 MMOL/L (3.5-5.1); SODIUM LEVEL 139 MMOL/L (136-145)
== END ==
LOC: M PLALAB 08:36
PROVIDERS: ATTEND Family Medicine
DX: I10 Essential (primary) hypertension (principal)

== ENCOUNTER → 2024-01-28 | Outpatient (CLI) | payer OTHER ==
[2024-01-28 14:33] LABS: URIC ACID 4.9 MG/DL (3.1-7.8)
[2024-01-28 14:35] LABS: BASO % 0.2 % (0.0-1.0); EOS % 0.2 % (0.0-3.0); HEMATOCRIT 39.7 % (36.0-47.0); HEMOGLOBIN 12.9 g/dl (12.0-15.5); IRON (FE) 44 UG/DL (50-170); LYMPH # 2.5 10^3/uL (1.5-5.0); LYMPH % 14.1 % (24.0-44.0); MEAN CORPUSCULAR HEMOGLOBIN 28.5 pg (27.0-33.0); MEAN CORPUSCULAR HGB CONC 32.5 g/dl (32.0-36.5); MEAN CORPUSCULAR VOLUME 87.8 fl (80.0-96.0); MONO # 1.2 10^3/uL (0.0-0.8); MONO % 6.6 % (2.0-8.0); NEUTROPHILS # 13.5 10^3/uL (1.5-8.5); NEUTROPHILS % 76.7 % (36.0-66.0); PERCENT SATURATION 12.3 % (13.2-45.0); PLATELET COUNT, AUTOMATED 427 10^3/uL (150-450); RED BLOOD COUNT 4.52 10^6/uL (4.00-5.40); TOTAL IRON BINDING CAPACITY 359 UG/DL (250-425); WHITE BLOOD COUNT 17.6 10^3/uL (4.0-10.0)
[2024-01-28 14:36] LABS: ALBUMIN 4.1 G/DL (3.2-5.2); ALKALINE PHOSPHATASE 95 U/L (46-116); ALT/SGPT 29 U/L (7.0-40); AST/SGOT < 8 U/L (<34); BILIRUBIN,TOTAL 0.4 MG/DL (0.3-1.2); BLOOD UREA NITROGEN 10 MG/DL (9-23); CALCIUM LEVEL 10.6 MG/DL (8.5-10.1); CARBON DIOXIDE LEVEL 28 MMOL/L (20-31); CHLORIDE LEVEL 100 MMOL/L (98-107); CHOLESTEROL LEVEL 131 MG/DL (<200); CHOLESTEROL RISK RATIO 2.81 (<5); GLOMERULAR FILTRATION RATE > 60.0 (>51); GLUCOSE, FASTING 128 MG/DL (60-100); HDL CHOLESTEROL 46.5 MG/DL (>40); LDL CHOLESTEROL 49.3 MG/DL (<100); NON-HDL-C 84.5 MG/DL; POTASSIUM SERUM 4.8 MMOL/L (3.5-5.1); SODIUM LEVEL 134 MMOL/L (136-145); TOTAL PROTEIN 6.9 G/DL (5.7-8.2); TRIGLYCERIDES LEVEL 176 MG/DL (<150)
[2024-01-28 14:38] LABS: TOTAL 25(OH) VITAMIN D 63.9 NG/ML (20.0-100.0)
[2024-01-28 14:53] LABS: CREATININE, URINE 40.4 MG/DL; MAU/CREAT RATIO 22.2 MCG/MG (0.0-30.0)
[2024-01-28 15:11] LABS: HEMOGLOBIN A1c 6.2 % (4.0-6.0)
== END ==
LOC: M PLALAB 10:01
PROVIDERS: ATTEND Nurse Practitioner Family
DX: E11.9 Type 2 diabetes mellitus without complications (principal); I10 Essential (primary) hypertension; E55.9 Vitamin D deficiency, unspecified; E78.2 Mixed hyperlipidemia; M10.9 Gout, unspecified; D50.9 Iron deficiency anemia, unspecified

== ENCOUNTER → 2024-01-30 | Outpatient (CLI) | payer OTHER ==
[~2024-01-30] MED LIST changes: +LIDOCAINE 1% SDV 30ML VIAL As Ordered ONE; +dexAMETHasone 10MG/1ML VIAL PRES.FREE As Ordered ONE; +diazePAM 5MG TABLET As Ordered ONE; +oxyCODONE 5MG TAB As Ordered ONE
== END ==
LOC: M PAIN 08:30
PROVIDERS: ATTEND Anesthesiology
DX: M47.816 Spondylosis without myelopathy or radiculopathy, lumbar region (principal); G89.29 Other chronic pain; I10 Essential (primary) hypertension; M54.50 Low back pain, unspecified; J45.909 Unspecified asthma, uncomplicated; M10.9 Gout, unspecified; E55.9 Vitamin D deficiency, unspecified; E11.9 Type 2 diabetes mellitus without complications; M96.1 Postlaminectomy syndrome, not elsewhere classified; E53.8 Deficiency of other specified B group vitamins; E78.5 Hyperlipidemia, unspecified; Z87.891 Personal history of nicotine dependence; Z79.1 Long term (current) use of non-steroidal anti-inflammatories (NSAID); Z79.84 Long term (current) use of oral hypoglycemic drugs; Z79.899 Other long term (current) drug therapy; Z88.8 Allergy status to other drugs, medicaments and biological substances
CPT/HCPCS: 64635; 64636; J0665; J1100

== ENCOUNTER → 2024-02-17 | Outpatient (CLI) | payer OTHER ==
[~2024-02-17] MED LIST changes: -LIDOCAINE 1% SDV 30ML VIAL As Ordered ONE; -dexAMETHasone 10MG/1ML VIAL PRES.FREE As Ordered ONE; -diazePAM 5MG TABLET As Ordered ONE; -oxyCODONE 5MG TAB As Ordered ONE
[2024-02-17 11:07] LABS: ALBUMIN 3.9 G/DL (3.2-5.2)
[2024-02-17 11:14] LABS: PERCENT SATURATION 15.9 % (13.2-45.0)
[2024-02-17 11:16] LABS: FERRITIN 16.7 NG/ML (7.3-270.7)
== END ==
LOC: M LAB 09:43
PROVIDERS: ATTEND Orthopaedic Surgery
DX: M25.562 Pain in left knee (principal); M17.12 Unilateral primary osteoarthritis, left knee

== ENCOUNTER → 2024-02-19 | Outpatient (REF) | payer OTHER ==
[2024-02-19 10:04] LABS: BASO % 0.4 % (0.0-1.0); EOS # 0.7 10^3/uL (0.0-0.5); EOS % 6.8 % (0.0-3.0); HEMATOCRIT 37.1 % (36.0-47.0); MEAN CORPUSCULAR HEMOGLOBIN 28.7 pg (27.0-33.0); MEAN CORPUSCULAR HGB CONC 32.3 g/dl (32.0-36.5); MEAN CORPUSCULAR VOLUME 88.8 fl (80.0-96.0); MONO # 0.5 10^3/uL (0.0-0.8); MONO % 5.6 % (2.0-8.0); NEUTROPHILS # 6.2 10^3/uL (1.5-8.5); NEUTROPHILS % 65.7 % (36.0-66.0); PLATELET COUNT, AUTOMATED 308 10^3/uL (150-450); RED BLOOD COUNT 4.18 10^6/uL (4.00-5.40); WHITE BLOOD COUNT 9.5 10^3/uL (4.0-10.0)
== END ==
LOC: M LAB REF 09:34
PROVIDERS: ATTEND Orthopaedic Surgery
DX: Z01.818 Encounter for other preprocedural examination (principal); M17.12 Unilateral primary osteoarthritis, left knee

== ENCOUNTER → 2024-03-02 | Outpatient (CLI) | payer OTHER | LOC: M PAIN 09:15 | PROVIDERS: ATTEND Nurse Practitioner Family | DX: G89.29 Other chronic pain (principal); M47.816 Spondylosis without myelopathy or radiculopathy, lumbar region; I10 Essential (primary) hypertension; J45.909 Unspecified asthma, uncomplicated; M10.9 Gout, unspecified; E55.9 Vitamin D deficiency, unspecified; E11.9 Type 2 diabetes mellitus without complications; E53.8 Deficiency of other specified B group vitamins; E78.5 Hyperlipidemia, unspecified; Z87.891 Personal history of nicotine dependence; Z79.1 Long term (current) use of non-steroidal anti-inflammatories (NSAID); Z79.84 Long term (current) use of oral hypoglycemic drugs; Z79.899 Other long term (current) drug therapy; Z88.8 Allergy status to other drugs, medicaments and biological substances ==

== ENCOUNTER → 2024-03-05 | Outpatient (CLI) | payer OTHER ==
[2024-03-05 12:53] LABS: ALBUMIN 4.2 G/DL (3.2-5.2); ALKALINE PHOSPHATASE 93 U/L (46-116); ALT/SGPT 38 U/L (7.0-40); AST/SGOT 25 U/L (<34); BILIRUBIN,TOTAL 0.3 MG/DL (0.3-1.2); BLOOD UREA NITROGEN 9 MG/DL (9-23); CALCIUM LEVEL 10.4 MG/DL (8.5-10.1); CARBON DIOXIDE LEVEL 29 MMOL/L (20-31); CHLORIDE LEVEL 102 MMOL/L (98-107); CREATININE FOR GFR 0.55 MG/DL (0.55-1.30); GLOMERULAR FILTRATION RATE > 60.0 (>51); GLUCOSE, FASTING 155 MG/DL (60-100); POTASSIUM SERUM 4.6 MMOL/L (3.5-5.1); SODIUM LEVEL 138 MMOL/L (136-145); TOTAL PROTEIN 6.6 G/DL (5.7-8.2)
[2024-03-05 12:59] LABS: BASO # 0.1 10^3/uL (0.0-0.2); BASO % 0.5 % (0.0-1.0); EOS # 0.5 10^3/uL (0.0-0.5); EOS % 5.2 % (0.0-3.0); HEMATOCRIT 39.6 % (36.0-47.0); HEMOGLOBIN 12.8 g/dl (12.0-15.5); LYMPH # 2.1 10^3/uL (1.5-5.0); LYMPH % 21.9 % (24.0-44.0); MEAN CORPUSCULAR HEMOGLOBIN 28.9 pg (27.0-33.0); MEAN CORPUSCULAR HGB CONC 32.3 g/dl (32.0-36.5); MEAN CORPUSCULAR VOLUME 89.4 fl (80.0-96.0); MONO # 0.7 10^3/uL (0.0-0.8); MONO % 7.3 % (2.0-8.0); NEUTROPHILS # 6.2 10^3/uL (1.5-8.5); NEUTROPHILS % 64.3 % (36.0-66.0); PLATELET COUNT, AUTOMATED 373 10^3/uL (150-450); RED BLOOD COUNT 4.43 10^6/uL (4.00-5.40); WHITE BLOOD COUNT 9.7 10^3/uL (4.0-10.0)
== END ==
LOC: M PLALAB 09:16
PROVIDERS: ATTEND Family Medicine
DX: Z01.810 Encounter for preprocedural cardiovascular examination (principal); M79.89 Other specified soft tissue disorders

== ENCOUNTER → 2024-04-26 | Outpatient (CLI) | payer OTHER ==
[~2024-04-26] MED LIST changes: +GABA-1490 PO; -GABA600T4 PO
== END ==
LOC: M PLALAB 07:34
PROVIDERS: ATTEND Orthopaedic Surgery
DX: M25.562 Pain in left knee (principal); Z47.1 Aftercare following joint replacement surgery

== ENCOUNTER → 2024-05-31 | Outpatient (CLI) | payer OTHER | LOC: M PAIN 09:15 | PROVIDERS: ATTEND Nurse Practitioner Family | DX: M79.10 Myalgia, unspecified site (principal); G89.29 Other chronic pain; J45.909 Unspecified asthma, uncomplicated; M10.9 Gout, unspecified; E55.9 Vitamin D deficiency, unspecified; E11.9 Type 2 diabetes mellitus without complications; M47.816 Spondylosis without myelopathy or radiculopathy, lumbar region; E53.8 Deficiency of other specified B group vitamins; E78.5 Hyperlipidemia, unspecified; Z87.891 Personal history of nicotine dependence; Z79.84 Long term (current) use of oral hypoglycemic drugs; Z79.899 Other long term (current) drug therapy; Z88.8 Allergy status to other drugs, medicaments and biological substances ==

== ENCOUNTER → 2024-06-03 | Outpatient (CLI) | payer OTHER | LOC: M WHC 08:53 | PROVIDERS: ATTEND Nurse Practitioner Family | DX: Z12.31 Encounter for screening mammogram for malignant neoplasm of breast (principal); R92.323 Mammographic fibroglandular density, bilateral breasts ==

== ENCOUNTER → 2024-08-12 | Outpatient (CLI) | payer OTHER ==
[~2024-08-12] MED LIST changes: -ADV250INH INH; +ADVA1AER9 INH; +TRIAMCINOLONE ACETONIDE SUSP 40MG/ML 1ML VIAL As Ordered ONE; +diazePAM 5MG TABLET As Ordered ONE; +oxyCODONE 5MG TAB As Ordered ONE
== END ==
LOC: M PAIN 08:00
PROVIDERS: ATTEND Anesthesiology
DX: M79.18 Myalgia, other site (principal); G89.29 Other chronic pain; I10 Essential (primary) hypertension; J45.909 Unspecified asthma, uncomplicated; M10.9 Gout, unspecified; E55.9 Vitamin D deficiency, unspecified; E11.9 Type 2 diabetes mellitus without complications; M47.816 Spondylosis without myelopathy or radiculopathy, lumbar region; M96.1 Postlaminectomy syndrome, not elsewhere classified; E53.8 Deficiency of other specified B group vitamins; E78.5 Hyperlipidemia, unspecified; Z87.891 Personal history of nicotine dependence; Z79.84 Long term (current) use of oral hypoglycemic drugs; Z79.51 Long term (current) use of inhaled steroids; Z79.1 Long term (current) use of non-steroidal anti-inflammatories (NSAID); Z79.899 Other long term (current) drug therapy; Z88.8 Allergy status to other drugs, medicaments and biological substances
CPT/HCPCS: 20552; J0665; J3301

== ENCOUNTER → 2024-09-28 | Outpatient (CLI) | payer OTHER ==
[~2024-09-28] MED LIST changes: -TRIAMCINOLONE ACETONIDE SUSP 40MG/ML 1ML VIAL As Ordered ONE; -diazePAM 5MG TABLET As Ordered ONE; -oxyCODONE 5MG TAB As Ordered ONE
== END ==
LOC: M PAIN 09:45
PROVIDERS: ATTEND Anesthesiology
DX: M54.50 Low back pain, unspecified (principal); M79.10 Myalgia, unspecified site; Z79.51 Long term (current) use of inhaled steroids; Z79.84 Long term (current) use of oral hypoglycemic drugs; Z79.899 Other long term (current) drug therapy; Z87.891 Personal history of nicotine dependence; Z88.8 Allergy status to other drugs, medicaments and biological substances; Z91.038 Other insect allergy status

== ENCOUNTER → 2024-11-29 | Outpatient (REF) | payer OTHER ==
[~2024-11-29] MED LIST changes: +DICL-442 PO; -DICL100T89 PO; -NYST-13 EXT; +NYST0.1C EXT
== END ==
LOC: M SFHCPLAZ 12:46
PROVIDERS: ATTEND Nurse Practitioner Family
DX: J02.9 Acute pharyngitis, unspecified (principal)

== ENCOUNTER → 2025-01-29 | Outpatient (CLI) | payer OTHER ==
[~2025-01-29] MED LIST changes: +LISI40TA10 PO; -LISI40TA4 PO
[2025-01-29 10:13] LABS: BASO % 0.4 % (0.0-1.0); EOS # 0.6 10^3/uL (0.0-0.5); EOS % 5.3 % (0.0-3.0); HEMATOCRIT 40.6 % (36.0-47.0); HEMOGLOBIN 13.1 g/dl (12.0-15.5); LYMPH # 2.3 10^3/uL (1.5-5.0); LYMPH % 21.3 % (24.0-44.0); MEAN CORPUSCULAR HEMOGLOBIN 28.4 pg (27.0-33.0); MEAN CORPUSCULAR HGB CONC 32.3 g/dl (32.0-36.5); MEAN CORPUSCULAR VOLUME 87.9 fl (80.0-96.0); MONO # 0.7 10^3/uL (0.0-0.8); MONO % 6.2 % (2.0-8.0); PLATELET COUNT, AUTOMATED 297 10^3/uL (150-450); RED BLOOD COUNT 4.62 10^6/uL (4.00-5.40); WHITE BLOOD COUNT 10.6 10^3/uL (4.0-10.0)
[2025-01-29 10:25] LABS: HEMOGLOBIN A1c 7.1 % (4.0-6.0)
[2025-01-29 10:46] LABS: URIC ACID 5.1 MG/DL (3.1-7.8)
[2025-01-29 10:48] LABS: IRON (FE) 36 UG/DL (50-170)
[2025-01-29 10:49] LABS: PERCENT SATURATION 10.6 % (13.2-45.0); TOTAL IRON BINDING CAPACITY 339 UG/DL (250-425)
[2025-01-29 10:50] LABS: ALBUMIN 4.2 G/DL (3.2-5.2); ALKALINE PHOSPHATASE 89 U/L (35-104); ALT/SGPT 31 U/L (7.0-40); AST/SGOT 26 U/L (<34); BILIRUBIN,TOTAL 0.5 MG/DL (0.3-1.2); BLOOD UREA NITROGEN 7 MG/DL (9-23); CALCIUM LEVEL 9.6 MG/DL (8.5-10.1); CARBON DIOXIDE LEVEL 29 MMOL/L (20-31); CHLORIDE LEVEL 99 MMOL/L (98-107); CHOLESTEROL LEVEL 116 MG/DL (<200); CHOLESTEROL RISK RATIO 2.85 (<5); CREATININE FOR GFR 0.49 MG/DL (0.55-1.30); GLOMERULAR FILTRATION RATE > 90.0 (>51); GLUCOSE, FASTING 104 MG/DL (60-100); HDL CHOLESTEROL 40.7 MG/DL (>40); LDL CHOLESTEROL 43.3 MG/DL (<100); NON-HDL-C 75.3 MG/DL; POTASSIUM SERUM 4.7 MMOL/L (3.5-5.1); SODIUM LEVEL 140 MMOL/L (136-145); TOTAL PROTEIN 6.8 G/DL (5.7-8.2); TRIGLYCERIDES LEVEL 160 MG/DL (<150)
[2025-01-29 10:53] LABS: VITAMIN B12 LEVEL > 2000 PG/ML (211-911)
[2025-01-29 11:07] LABS: CREATININE, URINE 67.5 MG/DL; MAU/CREAT RATIO 17.7 MCG/MG (0.0-30.0)
== END ==
LOC: M LAB 08:49
PROVIDERS: ATTEND Nurse Practitioner Family
DX: D50.9 Iron deficiency anemia, unspecified (principal); E55.9 Vitamin D deficiency, unspecified; E53.8 Deficiency of other specified B group vitamins; M10.9 Gout, unspecified; E11.9 Type 2 diabetes mellitus without complications; E78.2 Mixed hyperlipidemia

== ENCOUNTER → 2025-06-08 | Outpatient (CLI) | payer OTHER | LOC: M WHC 10:03 | PROVIDERS: ATTEND Nurse Practitioner Family | DX: Z12.31 Encounter for screening mammogram for malignant neoplasm of breast (principal); R92.323 Mammographic fibroglandular density, bilateral breasts ==